=== PATIENT | male | born 1945 | race American Indian/Alaskan Native ===

== ENCOUNTER 2017-03-08 16:43 | Inpatient (IN) | payer MEDICARE, MEDICAID ==
[2017-03-08] MEDS ORDERED: Albuterol-Ipratrop 3 mg / 0.5 (3 ml) UD IH STA (17:29)
--- NOTE | 2017-03-08 17:48 | ED PDOC ---
Arrival/HPI - General Chief Complaint: Trauma Time Seen by Provider: 03/08/17 17:12 Historian: Patient, Family - History of Present Illness Narrative History of Present Illness (Text): 03/08/17 17:44 Patient is a 71 yo male, past medical hx of CHF, ESRD on dialysis Monday, , Monday, history of pulmonary fibrosis on 3 liters home oxygen, history of aortic valvular disease on Coumadin, presents to ED after he "fell out of bed' one hour prior to arrival. Patient states he hit his head and has right sided headache, but denies LOC. Patient also reports right shoulder and elbow pain. Denies numbness or weakness. Denies rib or chest pain. He states prior to fall today, he has been feeling short of breath "more than usual" for several weeks. Denies bloody urine or stool. Denies numbness or weakness. Denies hip or lower extremity pain. 03/08/17 18:19 Time/Duration: Prior to Arrival, 1 hour Symptom Onset: Sudden Past Medical History - Infectious Disease Hx of Infectious Diseases: None - Tetanus Immunization Tetanus Immunization: Unknown - Cardiac Hx Pacemaker: No - Pulmonary Hx Chronic Obstructive Pulmonary Disease (COPD): Yes (10/02/2015) - Neurological Hx Paralysis: No - HEENT Hx HEENT Disorder: Yes (WEARS RX GLASSES) - Renal Hx Dialysis: Yes Type of Dialysis Access: Hemodialysis (, , Mon) Date of Last Dialysis Treatment: 03/07/17 Hx Renal Failure: Yes - Endocrine/Metabolic Hx Endocrine Disorders: No - Hematological/Oncological Hx Blood Transfusions: Yes Hx Blood Transfusion Reaction: No - Integumentary Hx Dermatological Disorder: Yes (VITILIGO) - Musculoskeletal/Rheumatological Hx Musculoskeletal Disorders: No - Gastrointestinal Hx Gastrointestinal Disorders: Yes (GI LZUNY-ZCZHT-NOORHGPSEUU DONE) Hx Gastroesophageal Reflux: Yes Other/Comment: gi bleed - Genitourinary/Gynecological Hx Genitourinary Disorders: Yes (ANURIA) Hx Prostate Problems: Yes (MALIGNANT NEOPLASM PROSTATE.WITH RADIATION) - Psychiatric Hx Emotional Abuse: No Hx Physical Abuse: No Hx Substance Use: No - Surgical History Hx Open Heart Surgery: Yes Other/Comment: colonoscopy - Anesthesia Hx Anesthesia Reactions: No Hx Malignant Hyperthermia: No - Suicidal Assessment Feels Threatened In Home Enviroment: No Family/Social History Family/Social History: Unknown Family HX Smoking Status: Never Smoked Hx Alcohol Use: No Hx Substance Use: No Hx Substance Use Treatment: No Allergies/Home Meds Allergies/Adverse Reactions: Allergies No Known Allergies Allergy (Verified 03/08/17 17:10) Home Medications: Home Meds Medication Instructions Recorded Confirmed Atorvastatin [Lipitor] 10 mg PO DAILY 01/05/17 01/24/17 Calcium Acetate [Phoslo] 2,001 mg PO TID 01/05/17 01/24/17 Clopidogrel [Plavix] 75 mg PO DAILY 01/05/17 01/24/17 Digoxin [Lanoxin] 0.125 mg PO DAILY 01/05/17 01/24/17 Docusate [Colace] 100 mg PO BID 01/05/17 01/24/17 Pantoprazole Sodium [Protonix] 40 mg PO DAILY 01/05/17 01/24/17 Arformoterol [Brovana] 15 mcg IH Q12H 01/23/17 01/24/17 Benzonatate [Tessalon Perles] 200 mg PO TID 01/23/17 01/24/17 Budesonide [Pulmicort] 1 mg IH Q12H 01/23/17 01/24/17 Prednisone [Jonnie] 5 mg PO DAILY 01/23/17 01/24/17 Pregabalin [Lyrica] 50 mg PO BID 01/23/17 01/24/17 Warfarin [Coumadin] 5 mg PO DAILY 01/23/17 01/23/17 guaiFENesin [Robitussin] 100 mg PO Q6H PRN 01/23/17 01/24/17 Review of Systems - Review of Systems Constitutional: Fatigue. absent: Fevers Eyes: absent: Vision Changes, Eye Pain ENT: absent: Hearing Changes Respiratory: SOB. absent: Cough, Wheezing Cardiovascular: EM. absent: Chest Pain, Edema Gastrointestinal: absent: Abdominal Pain, Nausea, Vomiting Genitourinary Male: absent: Dysuria, Frequency Musculoskeletal: Other (shoulder pain, right sided. Denies hip or ankle pain.). absent: Back Pain Skin: absent: Rash Neurological: absent: Headache, Dizziness, Focal Weakness Hemo/Lymphatic: absent: Easy Bleeding Physical Exam - Physical Exam Narrative Physical Exam (Text): Head: Tender to right scalp, no skull deformity or soft tissue swelling noted, no orbital or nasal tenderness. Eyes: PERRL. EOMI. Conjunctivae are pale. Visual acuity and visual silva intacts. ENT: Mucous membranes are moist and intact. Oropharynx is clear and symmetric. Neck: Supple. Positive JVD. No meningeal signs. Midline tenderness, no deformities. Cardiovascular: Regular rate. Systolic murmur. Pulmonary/Chest: Rhonchi bilaterally with mild wheezing, no accessory muscle usage, not tachypneic. On nasal cannula oxygen. Abdominal: Soft with mild distension. There is no tenderness. No rebound, guarding, or rigidity. No organomegaly. Good bowel sounds. Back: No CVA tenderness. Extremities: Mild edema. No cyanosis. No clubbing. Pain and deformity noted to right anterior shoulder, with pain with ROM, also pain on palpation of left elbow with pain with ROM. No wrist or hand pain. No hip, knee or ankle pain. Skin: Skin is warm and dry. No petechiae. No purpura. Neurological: Alert, awake, and oriented. Motor and sensory exam intact. Psychiatric: Good eye contact. Normal interaction, affect, and behavior. 03/08/17 18:08 Vital Signs Reviewed: Yes Vital Signs Temp Pulse Resp BP Pulse Ox 03/08/17 18:02 69 18 114/75 95 03/08/17 17:13 97.8 F 74 16 112/73 95 Temperature: Afebrile Respiratory Rate: Tachypneic Appearance: Positive for: Uncomfortable Pain Distress: Moderate Mental Status: Positive for: Alert and Oriented X 3 Medical Decision Making ED Course and Treatment: 03/08/17 18:28 Patient's history is supplemented by who is at bedside. Patient fell out of bed. Is noted to have right shoulder deformity but is neurovascularly intact. Denies syncope. He is taking Coumadin and was recently advised by Dr. Wilkins to hold his Coumadin. He did hit his head but reports MILD headache. With serial exams in ED, he now states headache resolved. He is noted to be hypoxic, although states that he is on 3liters of nasal cannula oxygen at home. Patient noted to be hypoxic on evaluation, chest xray reveals intersitial changes with pulmonary edema, although appears similar to previous chest xrays. With repositioning and nebulizer, saturations now 97%. He does report feeling more sob over the past several weeks, denies chest pain. EKG with controlled ventricular rate, suspect atrial fibrillation/flutter with st changes. He denies chest pain. Patient placed in sling, xrays of shoulder and ct head/neck pending. 03/08/17 19:05 Patient breathing comfortably, currently denies sob. Sats 97% on nasal cannula. Imaging pending. Case endorsed to Dr. Houston pending studies and disposition after reassessment. - Lab Interpretations Lab Results: 03/08/17 17:55 03/08/17 17:55 Lab Results 03/08/17 18:45: pCO2 43, pO2 52.0 L, HCO3 27.9, ABG pH 7.42, ABG Total CO2 29.2 H, ABG O2 Saturation 91.6 L, ABG Base Excess 2.9, ABG Potassium 4.1, Sodium 138.0, Chloride 108.0 H, Glucose 113 H, Lactate 0.9, FiO2 30.0, Arterial Blood Potassium 4.1 03/08/17 17:55: WBC 5.1 D, RBC 3.85, Hgb 11.5 L, Hct 36.3 L, MCV 94.3, MCH 29.9 , MCHC 31.7, RDW 19.1 H, Plt Count 159, MPV 10.5, Gran % 68.1 H, Lymph % (Auto) 16.3 L, [place] % (Auto) 7.2 H, Eos % (Auto) 8.2 H, Baso % (Auto) 0.2, Gran # 3.50 , Lymph # 0.8 L, [place] # 0.4, Eos # 0.4, Baso # 0.01, Sodium 141, Chloride 97 L, Potassium 4.6, Carbon Dioxide 29, Anion Gap 20, BUN 44 H, Creatinine 8.1 H*, Est GFR ( Amer) 8, Est GFR (Non-Af Amer) 7, Random Glucose 94, Calcium 9.5, Total Bilirubin 1.1, AST 22, ALT 34, Alkaline Phosphatase 121, Lactate Dehydrogenase 766 H, Total Creatine Kinase 71, Troponin I 0.07, NT-Pro-B Natriuret Pep 68321 H, Total Protein 8.2, Albumin 4.0, Globulin 4.2, Albumin/ Globulin Ratio 1.0 L - RAD Interpretation Radiology Orders: 03/08/17 17:22 CHEST PORTABLE [RAD] Stat 03/08/17 17:53 ELBOW RIGHT 3 VIEWS ROUTINE [RAD] Stat SHOULDER RIGHT [RAD] Stat 03/08/17 17:54 CERVICAL SPINE W/O CONTRAST [CT] Stat HEAD W/O CONTRAST [CT] Stat - EKG Interpretation EKG Interpretation (Text): 03/08/17 18:33 EKG at 17:52 atrial flutter/fibrillation rate of 72, st and t wave abnormality Interpreted by ED Physician: Yes Type: 12 lead EKG - Medication Orders Current Medication Orders: Discontinued Medications Albuterol/Ipratropium (Duoneb 3 Mg/0.5 Mg (3 Ml) Ud) 3 ml IH STAT STA Stop: 03/08/17 17:30 Last Admin: 03/08/17 17:44 Dose: 3 ML Disposition/Present on Arrival - Present on Arrival Any Indicators Present on Arrival: No History of DVT/PE: No History of Uncontrolled Diabetes: No Urinary Catheter: No History of Decub. Ulcer: No History Surgical Site Infection Following: None - Disposition Have Diagnosis and Disposition been Completed?: Yes Diagnosis: Shoulder pain, Head injury Disposition Time: 19:00 Patient Plan: Observation Patient Problems: Current Active Problems Problem Status Diagnosed Anemia Acute Head injury Acute Shoulder pain Acute Condition: FAIR Referrals: Maria Antonia Wilkins MD [Primary Care Provider] - Follow up with primary
[2017-03-08 18:03] LABS: ADD MANUAL DIFF? NO
[2017-03-08 18:05] LABS: BASO # 0.01 K/mm3 (0.0-2.0); BASO % 0.2 % (0.0-3.0); EOS # 0.4 (0.0-0.7); EOS % 8.2 % (1.5-5.0); GRAN % 68.1 % (50.0-68.0); HEMATOCRIT 36.3 % (42.0-52.0); LYMPH # 0.8 (1.2-3.4); LYMPH % 16.3 % (22.0-35.0); MEAN CELL VOLUME 94.3 fL (80.0-105.0); MEAN CORPUSCULAR HEMOGLOBIN 29.9 pg (25.0-35.0); MEAN CORPUSCULAR HGB CONC 31.7 g/dl (31.0-37.0); MEAN PLATELET VOLUME 10.5 fl (7.0-11.0); MONO # 0.4 (0.1-0.6); MONO % 7.2 % (1.0-6.0); PLATELET COUNT 159 10^3/uL (120.0-450.0); RED CELL DISTRIBUTION WIDTH 19.1 % (11.5-14.5); WHITE BLOOD COUNT 5.1 10^3/ul (4.5-11.0)
[2017-03-08 18:19] LABS: BILIRUBIN,TOTAL 1.1 mg/dL (0.2-1.3); CALCIUM 9.5 mg/dL (8.4-10.5); POTASSIUM 4.6 mmol/L (3.6-5.0); TOTAL PROTEIN 8.2 g/dL (5.8-8.3)
[2017-03-08 18:31] LABS: TROPONIN I 0.07 ng/mL
[2017-03-08 18:56] LABS: ARTERIAL BLOOD GAS HCO3 27.9 mmol/L (21-28); ARTERIAL BLOOD GAS PH 7.42 (7.35-7.45)
[2017-03-08 19:10] LABS: INR 3.66 (0.93-1.08)
--- NOTE | 2017-03-08 19:20 | ED PDOC ---
Physical Exam Vital Signs Reviewed: Yes Vital Signs Temp Pulse Resp BP Pulse Ox 03/08/17 18:02 69 18 114/75 95 03/08/17 17:13 97.8 F 74 16 112/73 95 Temperature: Afebrile Blood Pressure: Normal Pulse: Regular Respiratory Rate: Normal Appearance: Positive for: Well-Appearing, Non-Toxic, Comfortable Pain Distress: None Mental Status: Positive for: Alert and Oriented X 3 Medical Decision Making ED Course and Treatment: 03/08/17 19:00 Case signed out to me from the day shift by Dr. Bergman, Pending imaging, reevaluation and disposition. The patient is a 71 year old male who came into the emergency department for evaluation after he "fell out of bed." Patient complained of head trauma, headache, right shoulder and elbow pain after the fall. He denies any loss of consciousness.Also with some SOB ?acute on chronic. 03/08/17 20:[address]: Dictated and Authenticated by: Lucina Woody MD COMPARISON: There are no prior studies for comparison. FINDINGS: Artifacts: Streak artifact degrades image quality. Motion artifact degrades image quality. Brain: There is dilatation of sulci gyri and ventricles. There is no midline shift. There is decreased attenuation in periventricular white matter. There are no focal masses. There are no focal hemorrhages. Toure-white differentiation is visualized. Ventricles: See above. Bones: Cranial vault is intact. Soft tissues: unremarkable Sinuses: There is no acute sinusitis. There is a small retention cyst/polyp in the left maxillary sinus Ears and mastoids: Middle ears and mastoids are unremarkable. Orbits: Orbital contents are unremarkable. IMPRESSION: Atrophy and small vessel disease, no bleed Cervical Spine CT: Dictated and Authenticated by: Lucina Woody MD COMPARISON: There are no prior studies for comparison. FINDINGS: Vertebrae: There is slight straightening of the cervical lordosis. There is no prevertebral soft tissue swelling. There are no fractures or alignment abnormalities. There is a subchondral cyst at T1 at the right costovertebral junction. There is mild posterior disc space narrowing C5-6, C6-7 and C7- T1.Facet joints align anatomically.Spinous processes align in the expected fashion. Discs/spinal canal/neural foramina: See above. Other bones/joints: There are postsurgical changes of median sternotomy. Soft tissues: See above. Vasculature: There are vascular calcifications. Thyroid: Thyroid is unremarkable Lung apices: There is scarring at the right apex Airway: Airway is unremarkable IMPRESSION: No fracture 03/08/17 20:23 Chest X-ray Impression: As read by me, increase pulmonary vascular markings Right Elbow X-ray Impression: As read by me, no evidence of fracture or dislocation. Right Shoulder X-ray Impression: As read by me, no evidence of fracture or dislocation. 03/08/17 22:[address] Wilkins, who is aware and agrees with plan. Accepts pt in to her service. Pt will go to Telemetry for mild CHF and shoulder sprain/ contusion. Requests Dr. Fields, Dr. Merritt, and Dr. Frost on consult. - Lab Interpretations Lab Results: 03/08/17 17:55 03/08/17 17:55 Lab Results 03/08/17 18:45: pCO2 43, pO2 52.0 L, HCO3 27.9, ABG pH 7.42, ABG Total CO2 29.2 H, ABG O2 Saturation 91.6 L, ABG Base Excess 2.9, ABG Potassium 4.1, Sodium 138.0, Chloride 108.0 H, Glucose 113 H, Lactate 0.9, FiO2 30.0, Arterial Blood Potassium 4.1 03/08/17 18:40: PT 39.5 H*, INR 3.66 H*, APTT 50.0 H, Digoxin 1.4 03/08/17 17:55: WBC 5.1 D, RBC 3.85, Hgb 11.5 L, Hct 36.3 L, MCV 94.3, MCH 29.9 , MCHC 31.7, RDW 19.1 H, Plt Count 159, MPV 10.5, Gran % 68.1 H, Lymph % (Auto) 16.3 L, [place] % (Auto) 7.2 H, Eos % (Auto) 8.2 H, Baso % (Auto) 0.2, Gran # 3.50 , Lymph # 0.8 L, [place] # 0.4, Eos # 0.4, Baso # 0.01, Sodium 141, Chloride 97 L, Potassium 4.6, Carbon Dioxide 29, Anion Gap 20, BUN 44 H, Creatinine 8.1 H*, Est GFR ( Amer) 8, Est GFR (Non-Af Amer) 7, Random Glucose 94, Calcium 9.5, Total Bilirubin 1.1, AST 22, ALT 34, Alkaline Phosphatase 121, Lactate Dehydrogenase 766 H, Total Creatine Kinase 71, Troponin I 0.07, NT-Pro-B Natriuret Pep 20374 H, Total Protein 8.2, Albumin 4.0, Globulin 4.2, Albumin/ Globulin Ratio 1.0 L I have reviewed the lab results: Yes - RAD Interpretation Radiology Orders: 03/08/17 17:22 CHEST PORTABLE [RAD] Stat 03/08/17 17:53 ELBOW RIGHT 3 VIEWS ROUTINE [RAD] Stat SHOULDER RIGHT [RAD] Stat 03/08/17 17:54 CERVICAL SPINE W/O CONTRAST [CT] Stat HEAD W/O CONTRAST [CT] Stat - Medication Orders Current Medication Orders: Discontinued Medications Albuterol/Ipratropium (Duoneb 3 Mg/0.5 Mg (3 Ml) Ud) 3 ml IH STAT STA Stop: 03/08/17 17:30 Last Admin: 03/08/17 17:44 Dose: 3 ML - Scribe Statement The provider has reviewed the documentation as recorded by the Noreenibe Luis Alberto Mazariegos Provider Scribe Attestation: All medical record entries made by the Scribe were at my direction and personally dictated by me. I have reviewed the chart and agree that the record accurately reflects my personal performance of the history, physical exam, medical decision making, and the department course for this patient. I have also personally directed, reviewed, and agree with the discharge instructions and disposition. Disposition/Present on Arrival - Present on Arrival Any Indicators Present on Arrival: No History of DVT/PE: No History of Uncontrolled Diabetes: No Urinary Catheter: No History of Decub. Ulcer: No History Surgical Site Infection Following: None - Disposition Have Diagnosis and Disposition been Completed?: Yes Diagnosis: Head injury, CHF exacerbation, Shoulder sprain, Shoulder injury, ESRD (end stage renal disease) Disposition Time: 22:05 Patient Plan: Observation Patient Problems: Current Active Problems Problem Status Diagnosed Anemia Acute CHF exacerbation Acute ESRD (end stage renal disease) Acute Head injury Acute Shoulder injury Acute Shoulder sprain Acute Condition: FAIR Discharge Instructions (ExitCare): Heart Failure (ED) Referrals: Maria Antonia Wilkins MD [Primary Care Provider] - Follow up with primary
--- NOTE | 2017-03-08 20:05 | CT ---
EXAM: CT Cervical Spine Without Intravenous Contrast CLINICAL HISTORY: 71 years old, male; Injury or trauma; Fall; Initial encounter; Blunt trauma; Additional info: Fall, neck pain TECHNIQUE: Axial computed tomography images of the cervical spine without intravenous contrast. Coronal and sagittal reformatted images were created and reviewed. EXAM DATE/TIME: 03/08/2017 5:54 PM COMPARISON: There are no prior studies for comparison. FINDINGS: Vertebrae: There is slight straightening of the cervical lordosis. There is no prevertebral soft tissue swelling. There are no fractures or alignment abnormalities. There is a subchondral cyst at T1 at the right costovertebral junction. There is mild posterior disc space narrowing C5-6, C6-7 and C7-T1.Facet joints align anatomically.Spinous processes align in the expected fashion. Discs/spinal canal/neural foramina: See above. Other bones/joints: There are postsurgical changes of median sternotomy. Soft tissues: See above. Vasculature: There are vascular calcifications. Thyroid: Thyroid is unremarkable Lung apices: There is scarring at the right apex Airway: Airway is unremarkable IMPRESSION: No fracture
--- NOTE | 2017-03-08 20:11 | CT ---
EXAM: CT Head Without Intravenous Contrast CLINICAL HISTORY: 71 years old, male; Injury or trauma; Fall; Initial encounter; Blunt trauma (contusions or hematomas); Consciousness not specified; Additional info: Headache, fall TECHNIQUE: Axial computed tomography images of the head/brain without intravenous contrast. EXAM DATE/TIME: 03/08/2017 5:54 PM COMPARISON: There are no prior studies for comparison. FINDINGS: Artifacts: Streak artifact degrades image quality. Motion artifact degrades image quality. Brain: There is dilatation of sulci gyri and ventricles. There is no midline shift. There is decreased attenuation in periventricular white matter. There are no focal masses. There are no focal hemorrhages. Toure-white differentiation is visualized. Ventricles: See above. Bones: Cranial vault is intact. Soft tissues: unremarkable Sinuses: There is no acute sinusitis. There is a small retention cyst/polyp in the left maxillary sinus Ears and mastoids: Middle ears and mastoids are unremarkable. Orbits: Orbital contents are unremarkable. IMPRESSION: Atrophy and small vessel disease, no bleed
[2017-03-08] MEDS ORDERED: guaiFENesin 100 mg/5 ml Syrup UD PO PRN (23:05)
[2017-03-09 02:03] VITALS: BMI 91492.6
[2017-03-09 07:27] LABS: MEAN CELL VOLUME 91.4 fL (80.0-105.0); MEAN CORPUSCULAR HEMOGLOBIN 28.9 pg (25.0-35.0); MEAN CORPUSCULAR HGB CONC 31.6 g/dl (31.0-37.0); MEAN PLATELET VOLUME 10.8 fl (7.0-11.0); RED CELL DISTRIBUTION WIDTH 18.6 % (11.5-14.5); WHITE BLOOD COUNT 5.8 10^3/ul (4.5-11.0)
--- NOTE | 2017-03-09 07:30 | HP ---
CHIEF COMPLAINT: Fall, shortness of breath, not feeling very well. HISTORY OF PRESENT ILLNESS: The patient is a 71-year-old male with past medical history of congestive heart failure and end-stage renal disease, on dialysis 3 times a week; history of pulmonary fibrosis, pulmonary hypertension, on 3 liters home oxygen; history of aortic valve disease; atrial fibrillation, on Coumadin, came to the hospital after fell out of the bed 1 hour prior to arrival. The patient states that he hit his head and has right-sided headache, but he denies loss of consciousness. The patient also reports right shoulder and elbow pain. Denies numbness and weakness. Denies rib or chest pain. States that prior to fall today he had been feeling short of breath more than usual for several weeks. Actually, the patient was getting rehab in [facility], but with a persistent request from the , [place], and the patient for discharge, the patient was discharged from [facility] to home. The other day patient came in my office and now patient was not doing very well and we arranged home care visiting nurse for the patient because is working. Now , today I received a call from [employer] that their nurse found patient on the floor because of a fall, then I told them to send the patient to the Emergency Room. PAST MEDICAL HISTORY: COPD; renal insufficiency, on hemodialysis; anemia, status post blood transfusion; vitiligo, GI bleeding ulcers, history of severe GI bleeding, status post blood transfusion; history of open heart surgery. FAMILY HISTORY: Father and mother noncontributory. HABITS: Never smoked, no drugs, no ethanol. ALLERGIES: The patient is not allergic with any medications. HOME MEDICATIONS: Lipitor, PhosLo, Plavix, Lanoxin, Colace, Protonix, Brovana, Pulmicort, Lyrica, Coumadin, and Robitussin. REVIEW OF SYSTEMS: The patient is seen and examined on the bedside. Looks comfortable. No nausea, vomiting, or diarrhea. No hematuria or hematochezia. The patient has headache and body aches, especially shoulders. No fever, no chills. PHYSICAL EXAMINATION: VITAL SIGNS: Temperature 97.8, pulse 74, respirations 16, blood pressure 112/73 , and pulse oximetry 95. HEENT: Head normocephalic, atraumatic. Eyes: PERRLA. Extraocular muscles intact. Conjunctivae pink. Eyelids unremarkable. Nose patent. NECK: Supple. No carotid bruit. No JVD or thyromegaly. CHEST: Bilaterally symmetrical. HEART: S1, S2 positive. LUNGS: Clear to auscultation. ABDOMEN: Soft. Bowel sounds positive. No organomegaly. EXTREMITIES: No edema, no cyanosis. NEUROLOGIC: The patient is awake, alert, moving all 4 extremities. No focal deficit. LABORATORY DATA: White blood cells 5.1, hemoglobin 11.5, hematocrit 36.6, platelets 156. Sodium 141, potassium 4.6, BUN 44, creatinine 8.1, glucose 94. ASSESSMENT AND PLAN: The patient is a 71-year-old male with anemia; renal insufficiency, on hemodialysis; status post fall, head injury, shoulder pain; history of pulmonary fibrosis, pulmonary hypertension and congestive heart failure, using , oxygen at home; history of prostate cancer, proctitis; history of gastrointestinal bleeding, status post blood transfusion. Gastrointestinal and deep venous thrombosis prophylaxis. Repeat labs. Will follow up. Maria Antonia Wilkins MD cc: [id number] TT: 03/09/2017 07:29:58 rajwinder WONG
[2017-03-09 07:33] LABS: INR 2.86 (0.93-1.08)
[2017-03-09 07:42] LABS: CALCIUM 9.4 mg/dL (8.4-10.5); POTASSIUM 4.8 mmol/L (3.6-5.0)
[2017-03-09 07:44] LABS: IRON 47 ug/dL (45-180)
[2017-03-09] MEDS ORDERED: Budesonide 0.5 mg/2 ml Inhal Susp UD IH SCH (08:00)
[2017-03-09] MEDS: Pantoprazole 40 mg EC Tab PO SCH (08:29)
--- NOTE | 2017-03-09 08:35 | RAD ---
HISTORY: sob COMPARISON: 01/18/2017 FINDINGS: LUNGS: No active pulmonary disease. PLEURA: No significant pleural effusion identified, no pneumothorax apparent. CARDIOVASCULAR: Moderate cardiomegaly and moderate vascular and interstitial congestion OSSEOUS STRUCTURES: No significant abnormalities. VISUALIZED UPPER ABDOMEN: Normal. OTHER FINDINGS: None. IMPRESSION: Moderate vascular and interstitial congestion
--- NOTE | 2017-03-09 09:08 | RAD ---
PROCEDURE: Radiographs of the Right Shoulder HISTORY: trauma, fall COMPARISON: No prior. FINDINGS: BONES: Normal. No fracture. JOINTS: There is some widening of the right acromioclavicular joint which was not present on the portable chest film from 01/18/2017. There is also a small bony fragment adjacent to the acromion. Findings are consistent with AC joint separation SOFT TISSUES: Normal. OTHER FINDINGS: None. IMPRESSION: There is some widening of the right acromioclavicular joint which was not present on the portable chest film from 01/18/2017. There is also a small bony fragment adjacent to the acromion. Findings are consistent with AC joint separation
--- NOTE | 2017-03-09 09:09 | RAD ---
PROCEDURE: Radiographs of the right elbow. HISTORY: fall COMPARISON: No prior. FINDINGS: BONES: Normal. No fracture. JOINTS: Normal. No osteoarthritis. SOFT TISSUES: Normal. JOINT EFFUSION: None. OTHER FINDINGS: None. IMPRESSION: Unremarkable radiographs of the right elbow.
[2017-03-09] MEDS ORDERED: Oxycodone/Acetaminophen 5/325 mg Tab PO PRN (11:10)
[2017-03-09] MEDS: Arformoterol 15 mcg/2 ml Inh Sol IH SCH ×2 (11:50→20:00)
[2017-03-09] MEDS ORDERED: Digoxin 125 mcg (0.125 mg) Tab PO SCH (14:00)
--- NOTE | 2017-03-09 14:33 | CON ---
DATE: 03/09/2017 REASON FOR CONSULTATION: Status post fall with right shoulder pain. HISTORY OF PRESENT ILLNESS: This is a 71-year-old gentleman with a history of AFib, end-stage renal disease on hemodialysis, CHF, prostate CA, who fell out of bed yesterday. The patient came in [facility] with complaints of right shoulder pain. He denied any other injuries. He denies any numbness o r tingling going down the arm, really just pain around the right shoulder. PHYSICAL EXAMINATION: GENERAL: This is a gentleman in no apparent distress. He is awake, alert and oriented x 3. EXTREMITIES: Evaluation of the right shoulder shows the skin is intact. He has a palpable deformity right in the area his AC joint and has tenderness over there. He is tolerating some passive gentle internal and external rotation of the shoulder and forward flexion of the shoulder without significan t pain. Grossly, he is neurovascularly intact distally. He is nontender over the humerus. No elbow tenderness. He is tolerating active and passive range of motion of the elbow without significant pa in. X-rays of the right shoulder, what looks like a grade II AC separation, looks like a small bony fragm ent is noted at the AC joint consistent with avulsion of the AC ligament. IMPRESSION: Right shoulder AC sprain. PLAN: At this point, I recommended a sling for comfort, pain medications as needed and he can follow up as an outpatient and plan would be to advance his range of motion. Again, I have started on some formal supervised physical therapy once the initial pain subsides. Gurvinder Fields MD cc: [id number] TT: 03/09/2017 14:32:43 Confirmation # [id number] Dictation # [id number]
--- NOTE | 2017-03-09 15:36 | CARD ---
APPROVED REPORT EKG Measurement Heart [id number] <Conclusion> Atrial Flutter with variable conduction Possible Right ventricular hypertrophy ST & T wave abnormality, consider anterolateral ischemia Abnormal ECG
--- NOTE | 2017-03-09 18:24 | CP.PCM.CON ---
History of Present Illness - History of Present Illness History of Present Illness: 71 yo M w/ pmh of COPD on 2L home O2, pulmonary htn, afib on coumadin, CAD s/p CABG and DEMETRIS (11/2016), presented yesterday after falling out of bed; found to have R shoulder sprain; Patient also noted to be short of breath since yesterday per his ; had been complaining of thirst and was consuming extra water; patient last had HD two days ago per routine with weight post-HD being 66.4 kg (estimated dry weight 66 kg); this morning, patient was weighed and found to be 69.9 kg; Patient's also reports that his mental status has declined since the past 2 months, coinciding when he was hospitalized for chest pain and subsequently sent to rehab from where he was discharged 2 weeks ago; Baseline functional status is minimal ambulation with a walker. Review of Systems - Review of Systems Review of Systems: Limited and obtained mainly from as patient is poor historian; - Constitutional Constitutional: absent: Anorexia - Cardiovascular Cardiovascular: Leg Edema - Respiratory Respiratory: Cough, Dyspnea, Excessive Mucous Production - Gastrointestinal Gastrointestinal: absent: Diarrhea, Hematochezia, Vomiting - Genitourinary Additional comments: Anuric, no other discharge - Musculoskeletal Musculoskeletal: As Per HPI Additional comments: No chronic arthralgias or back pain, not on pain meds - Neurological Neurological: Memory Loss Past Patient History - Infectious Disease Hx of Infectious Diseases: None - Tetanus Immunizations Tetanus Immunization: Unknown - Past Social History Smoking Status: Never Smoked - CARDIAC Hx Cardiac Disorders: Yes (cad) Hx Cardia Arrhythmia: Yes (afib) Hx Congestive Heart Failure: Yes Hx Hypercholesterolemia: Yes Hx Hypertension: Yes Hx Peripheral Edema: Yes - PULMONARY Hx Respiratory Disorders: Yes Hx Chronic Obstructive Pulmonary Disease (COPD): Yes (10/02/2015) - NEUROLOGICAL Hx Neurological Disorder: Yes (wears glasses, near syncope) Hx Dizziness: Yes - HEENT Hx HEENT Problems: Yes (wears rx glasses) - RENAL Hx Chronic Kidney Disease: Yes Hx Dialysis: Yes (,,mon) Date of Last Dialysis Treatment: 03/07/17 - ENDOCRINE/METABOLIC Hx Endocrine Disorders: No - HEMATOLOGICAL/ONCOLOGICAL Hx Blood Disorders: Yes Hx Anemia: Yes (blood transfusions) Hx Cancer: Yes (prostate ca with radiation) - INTEGUMENTARY Hx Dermatological Problems: Yes (VITILIGO) - MUSCULOSKELETAL/RHEUMATOLOGICAL Hx Back Pain: Yes Hx Falls: Yes Hx Unsteady Gait: Yes - GASTROINTESTINAL Hx Gastrointestinal Disorders: Yes (Gi Bleed-ulcer- colonoscopy done) Hx Crohn's Disease: Yes Hx Gastroesophageal Reflux: Yes - GENITOURINARY/GYNECOLOGICAL Hx Genitourinary Disorders: Yes (anuria) Hx Prostate Problems: Yes (prostate cancer with radiation) - PSYCHIATRIC Hx Substance Use: No - SURGICAL HISTORY Hx Surgeries: Yes (right upper arm shunt, cabgx3, cardoac cathx1 stent) Hx Cardiac Catheterization: Yes (x1 stent) Hx Coronary Stent: Yes (x1) - ANESTHESIA Hx Anesthesia Reactions: No Hx Malignant Hyperthermia: No Meds Allergies/Adverse Reactions: Allergies Allergy/AdvReac Type Severity Reaction Status Date / Time No Known Allergies Allergy Verified 03/08/17 17:10 - Medications Medications: Current Medications Arformoterol Tartrate (Brovana) 15 mcg IH Q12H [facility] Last Admin: 03/09/17 11:50 Dose: 15 mcg Atorvastatin Calcium (Lipitor) 10 mg PO DAILY [facility] Last Admin: 03/09/17 11:19 Dose: 10 mg Benzonatate (Tessalon Perles) 200 mg PO TID [facility] Last Admin: 03/09/17 17:33 Dose: 200 mg Budesonide (Pulmicort Respules) 1 mg IH [id number] [facility] Last Admin: 03/09/17 08:29 Dose: Not Given Calcium Acetate (Phoslo) 2,001 mg PO WM [facility] Last Admin: 03/09/17 17:34 Dose: 2,001 mg Clopidogrel Bisulfate (Plavix) 75 mg PO DAILY [facility] Last Admin: 03/09/17 11:20 Dose: 75 mg Digoxin (Lanoxin) 0.125 mg PO 1400 [facility] Last Admin: 03/09/17 13:53 Dose: 0.125 mg Docusate Sodium (Colace) 100 mg PO BID [facility] Last Admin: 03/09/17 17:33 Dose: 100 mg Guaifenesin (Robitussin) 100 mg PO Q6H PRN PRN Reason: Cough Oxycodone/Acetaminophen (Percocet 5/325 Mg Tab) 1 tab PO Q6H PRN PRN Reason: Pain, moderate (4-7) Stop: 03/12/17 11:11 Pantoprazole Sodium (Protonix Ec Tab) 40 mg PO ACB [facility] Last Admin: 03/09/17 08:29 Dose: Not Given Pregabalin (Lyrica) 50 mg PO BID [facility] Last Admin: 03/09/17 17:33 Dose: 50 mg Physical Exam - Constitutional Additional comments: Tachypneic before increasing O2 to 4L; - Eye Exam Eye Exam: Normal appearance. absent: Scleral icterus - ENT Exam ENT Exam: Mucous Membranes Moist - Neck Exam Neck exam: Positive for: Normal Inspection - Respiratory Exam Respiratory Exam: Clear to Auscultation Bilateral. absent: Rales, Rhonchi, Wheezes - Cardiovascular Exam Cardiovascular Exam: REGULAR RHYTHM, +S1, +S2 - GI/Abdominal Exam GI & Abdominal Exam: Soft. absent: Distended, Tenderness - Exam Exam: absent: Bladder Distension - Extremities Exam Extremities exam: Positive for: normal capillary refill Additional comments: Bilateral lower leg moderate edema; - Neurological Exam Neurological exam: Alert, CN II-XII Intact Additional comments: Decreased strength of RUE - Psychiatric Exam Psychiatric exam: Normal Affect, Normal Mood - Skin Skin Exam: Normal Color, Warm Results - Vital Signs Recent Vital Signs: Last Vital Signs Temp 96.7 F L 03/09/17 11:53 Pulse 122 H 03/09/17 11:53 Resp 24 03/09/17 11:53 BP 103/74 03/09/17 11:53 Pulse Ox 90 L 03/08/17 22:46 - Labs Result Diagrams: 03/09/17 06:45 03/09/17 06:45 - Imaging and Cardiology Chest x-ray Status: Image reviewed by me (Pulmonary congestion) Assessment & Plan (1) CHF exacerbation Assessment and Plan: Preserved EF but likely diastolic dysfunction; pulmonary edema on CXR in the setting of dietary indescretion and subsequent weight gain; difficult to achieve aggressive volume removal on HD due to borderline hypotension; -will benefit from extra UF session tomorrow as patient still tachypneic Status: Acute (2) Shoulder sprain Assessment and Plan: Secondary to fall; on percocet; no renal dose adjustment needed; Status: Acute (3) ESRD on hemodialysis Assessment and Plan: Dialysis clearance has been adequate; however, gained 3.5 kg between treatment 2 days ago and today; still with volume excess on exam despite removing 3.3 L today on HD; -getting extra 3 hr, 3L UF session tomorrow Status: Acute (4) Anemia Assessment and Plan: Hgb at goal for ESRD patient; iron saturation mildly low; will given IV iron and Aranesp as outpatient; Status: Acute (5) Atrial flutter Assessment and Plan: On coumadin; dose recently lowered; monitor INR; Status: Acute (6) Chronic kidney disease-mineral and bone disorder Assessment and Plan: Last phos per outpatient records 2.4; Ca and PTH at goal (447); -will decrease phoslo to 2 tabs tid w/ meals Status: Acute
--- NOTE | 2017-03-10 00:25 | CON ---
DATE: 03/09/2017 REFERRING PHYSICIAN: Dr. Wilkins. REASON FOR CONSULT: Chronic lung disease, obstructive sleep apnea syndrome. HISTORY OF PRESENT ILLNESS: This is a 71-year-old gentleman well known to me from previous admission s and office with chronic obstructive lung disease, renal failure, dialysis dependent, cardiomyopathy with cardiac diastolic dysfunction, pulmonary hypertension, coronary artery disease, history of felipe nary stent, also history of gastric ulcer, recently discharged from subacute, was at home. According to the , he did fall at home, had right shoulder discomfort, was found to be in heart failure wi th pleural fluid overloaded, seen by nephrology, dialysis was done and feels better this morning. He seems more forgetful, mild cough. According to , do not have CPAP or BiPAP at home. No hemopty sis, no hematemesis, no hematuria, no diarrhea. PAST MEDICAL HISTORY: Chronic lung disease, obstructive sleep apnea syndrome, renal failure, dialysi s dependent, cardiomyopathy, diastolic dysfunction, pulmonary hypertension, coronary artery disease, history of coronary stent, anemia, history of gastrointestinal bleed, coronary artery disease. Also, I think he has a history of cardiac bypass surgery. ALLERGIES: None known. SOCIAL HISTORY: Nonsmoker, nondrinker. FAMILY HISTORY: No significant cardiopulmonary disease reported. MEDICATIONS: He is on Brovana 15 mcg inhaled twice a day, Colace 100 mg twice a day, digoxin 0.125 m g daily, Lipitor 10 mg daily, Lyrica 50 mg twice a day, Percocet 5/325 one tab q. 6 hours p.r.n., Pl avix 75 mg daily, Protonix 40 mg daily, Pulmicort inhaled twice a day, Robitussin 100 mg q. 6 hours, Tessalon Perles 200 mg 3 times a day. REVIEW OF SYSTEMS: No headache, no rhinitis, short of breath. Still has some cough and right should er discomfort. No chest pain, no nausea, no vomiting, and no diarrhea. Does have leg swelling. PHYSICAL EXAMINATION: GENERAL: Lying in the bed, no acute distress. VITAL SIGNS: Temp is 98, heart rate is 107, respiratory rate is 22, blood pressure 103/66, pulse ox is 90% on 3 liter nasal cannula. HEENT: Moist mucous membranes. Crowded airway. Mallampati score is 4. NECK: Supple. No JVD. LUNGS: Has crackles on the bases. HEART: S1 and S2. ABDOMEN: Soft, nontender. No organomegaly. EXTREMITIES: Does have edema. NEUROLOGIC: Awake, alert, follows simple commands. LABORATORY DATA: Shows hemoglobin 10.1, hematocrit 32.0, WBC 5.8, platelet 167. INR is 2.86. Blood gases done yesterday show pH 7.42, pCO2 of 43, O2 of 52. Sodium 138, potassium 4.8, chloride 98, bi carbonate 27, BUN 50, creatinine 9.3, glucose 116. Hemoglobin A1c 5.6. Iron is 47. Cholesterol 86. TSH is 1.16. Has a CAT scan of the head done in the ER on admission. Shows atrophy and small vess el disease. Had a clavicle and spine CT done, which shows no fracture. Chest x-ray done in ER shows moderate vascular and facial congestion. IMPRESSION AND PLAN: Chronic obstructive lung disease, probably has interstitial disease. Also, on top of that, has pulmonary edema, bronchiectasis, renal failure, dialysis dependent, coronary artery disease, history of coronary stent, cardiomyopathy, sleep apnea syndrome, recently became more forget ful and memory loss. Case discussed with the family at bedside. All the questions answered. Also spoke with Dr. Wilkins. I also discussed with from nephrology. The patient aggressively being dialyzed. Done lexus lysis today and will have dialysis tomorrow. I will place him on CPAP 08/25 with 40% oxygen while sle eping. Will discontinue Lyrica for now, making Percocet p.r.n. basis. Add mg 3 times a day, n ebulizer treatments q. 6 hours. Gastric prophylaxis. SCD to lower extremities. The patient may bhupinder efit from extended dialysis x 4 hours 3 times a week. If it does not work, may have to increase 4 ti mes a week. The family asked appropriate questions, all the questions were answered to their satisfa ction. Louie Frost MD cc: [id number] TT: 03/10/2017 00:24:12 Confirmation # [id number] Dictation # [id number] mn
--- NOTE | 2017-03-10 04:38 | CP.PCM.PN ---
Subjective - Date & Time of Evaluation Date of Evaluation: 03/10/17 Time of Evaluation: 04:34 - Subjective Subjective: Nurse calls me because patient had a vomiting. Had received percocet earlier in the shift. Patient has no chest pain, sob, abdominal pain, headache,dizziness, constipation or diarrhoea. I saw the vomitus. There is about 100 cc dilute coffee color secretion in the tumbler. This 71 year old male was admitted for CHF exacerbation, head injury. Has PMH of CHF,COPD, CMP,CAD,atrial fibrillation on coumadin, CABG, coronary stent placement , pulmonary HTN, GI bleeding, anemia, ESRD on dialysis, right upper arm shunt. Objective - Vital Signs/Intake and Output Vital Signs (last 24 hours): Temp Pulse Resp BP Pulse Ox 98.7 F 112 H 22 86/57 L 90 L 03/10/17 00:01 03/10/17 02:00 03/10/17 00:01 03/10/17 00:01 03/08/17 22:46 - Medications Medications: Current Medications Acetylcysteine (Acetylcysteine 20%) 4 ml IH BIDRESP [facility] Arformoterol Tartrate (Brovana) 15 mcg [facility] Q12H [facility] Last Admin: 03/09/17 20:00 Dose: 15 mcg Atorvastatin Calcium (Lipitor) 10 mg PO DAILY [facility] Last Admin: 03/09/17 11:19 Dose: 10 mg Benzonatate (Tessalon Perles) 200 mg PO TID [facility] Last Admin: 03/09/17 17:33 Dose: 200 mg Budesonide (Pulmicort Respules) 1 mg IH [id number] [facility] Last Admin: 03/09/17 08:29 Dose: Not Given Calcium Acetate (Phoslo) 1,334 mg PO WM [facility] Clopidogrel Bisulfate (Plavix) 75 mg PO DAILY [facility] Last Admin: 03/09/17 11:20 Dose: 75 mg Digoxin (Lanoxin) 0.125 mg PO 1400 [facility] Last Admin: 03/09/17 13:53 Dose: 0.125 mg Docusate Sodium (Colace) 100 mg PO BID [facility] Last Admin: 03/09/17 17:33 Dose: 100 mg Guaifenesin (Robitussin) 100 mg PO Q6H PRN PRN Reason: Cough Oxycodone/Acetaminophen (Percocet 5/325 Mg Tab) 1 tab PO Q6H PRN PRN Reason: Pain, moderate (4-7) Stop: 03/12/17 11:11 Last Admin: 03/09/17 22:44 Dose: 1 tab Pantoprazole Sodium (Protonix Ec Tab) 40 mg PO ACB [facility] Last Admin: 03/09/17 08:29 Dose: Not Given Warfarin Sodium (Coumadin) 3 mg PO 1800 [facility] PRN Reason: Protocol - Labs Labs: PT 30.9 Seconds (9.9-11.8) H* 03/09/17 06:45 INR 2.86 (0.93-1.08) H 03/09/17 06:45 APTT 50.0 Seconds (23.7-30.8) H 03/08/17 18:40 - Constitutional Appears: Well, No Acute Distress - Head Exam Head Exam: NORMAL INSPECTION, NORMOCEPHALIC - Eye Exam Eye Exam: Normal appearance - ENT Exam ENT Exam: Normal External Ear Exam - Neck Exam Neck Exam: Normal Inspection - Respiratory Exam Respiratory Exam: NORMAL BREATHING PATTERN. absent: Accessory Muscle Use, Respiratory Distress, Stridor - Cardiovascular Exam Cardiovascular Exam: REGULAR RHYTHM. absent: JVD - GI/Abdominal Exam GI & Abdominal Exam: Soft (YEs), Normal Bowel Sounds. absent: Distended, Firm, Guarding, Rigid, Tenderness, Hernia, Mass, Organomegaly, Pulsatile Mass, Rebound - Rectal Exam Rectal Exam: Deferred - Extremities Exam Extremities Exam: Normal Inspection - Back Exam Back Exam: NORMAL INSPECTION - Neurological Exam Neurological Exam: Alert, Oriented x3 - Psychiatric Exam Psychiatric exam: Normal Affect, Normal Mood - Skin Skin Exam: Normal Color Assessment and Plan - Assessment and Plan (Free Text) Assessment: A/P:Vomiting-Uremia. -Received percocet. ?UGI bleeding. HTN. CHF/COPD. CAD. ESRD on HD. Anemia. Zofran 4 mg IV stat. CBC , type and screen in AM. Stool for guiac test.
[2017-03-10 05:07] LABS: HEMATOCRIT 35.7 % (42.0-52.0); MEAN CELL VOLUME 93.5 fL (80.0-105.0); MEAN CORPUSCULAR HEMOGLOBIN 29.3 pg (25.0-35.0); MEAN CORPUSCULAR HGB CONC 31.4 g/dl (31.0-37.0); MEAN PLATELET VOLUME 10.8 fl (7.0-11.0); WHITE BLOOD COUNT 8.4 10^3/ul (4.5-11.0)
[2017-03-10 05:19] LABS: INR 4.65 (0.93-1.08)
--- NOTE | 2017-03-10 07:46 | PN ---
DATE: 03/09/2017 SUBJECTIVE: The patient was seen and examined on the bedside, just still a little lethargic, having shortness of breath. Is not giving any review of systems, but does not have fever, no chills. No na usea, vomiting, or diarrhea. No hematuria or hematochezia. PHYSICAL EXAMINATION: VITAL SIGNS: Temperature 97.7, pulse 104, her blood pressure 103/66, respiratory rate 20. HEENT: Head normocephalic, atraumatic. Eyes: PERRLA. Extraocular muscles intact. Conjunctivae pi nk. Eyelids unremarkable. Nose patent. Mucous membranes moist. NECK: Supple. No carotid bruit, JVD or thyromegaly. CHEST: Bilaterally symmetrical. HEART: S1, S2 positive. LUNGS: Clear to auscultation. ABDOMEN: Soft. Bowel sounds positive. No organomegaly. EXTREMITIES: No edema, no cyanosis. NEUROLOGIC: The patient is awake, alert and moving all 4 extremities. No focal deficits. MEDICATIONS: Acetylcysteine, Brovana, Colace, Lanoxin, Lipitor, Percocet, PhosLo, Plavix, Protonix, Pulmicort, Robitussin, Tessalon. LABORATORY DATA: White blood cells 5.8, hemoglobin 10.1, hematocrit 32.0, and platelets 167. Sodium 138, potassium 4.8, BUN 50, creatinine 9.3, glucose 116. TIBC 234. Cholesterol 86. ASSESSMENT AND PLAN: The patient is a 71-year-old male with anemia. INR is 2.8 (therapeutic). Katelyn l insufficiency, on hemodialysis 3 times a week, hyperglycemia. Seen by Dr. Han Patel, patient's n ephrologist, who is covering Dr. Merritt. The patient has history of chronic obstructive pulmonar y disease, on 2 liters nasal cannula at home; pulmonary hypertension; atrial fibrillation, on Coumadi n; coronary artery disease, status post coronary artery bypass graft and drug-eluting stent. Has con gestive heart failure, preserved ejection fraction but likely diastolic dysfunction. Difficult to ac hieve aggressive volume removal on hemodialysis due to borderline hypotension. Will benefit from ext ra ultrafiltration session tomorrow, as the patient is still tachypneic. Shoulder pain secondary to fall, on Percocet; orthopedic is on the case. Atrial fibrillation, chronic kidney disease, mineral a nd bone disorders. Last phospho per outpatient record 2.4. CEA and PTH at goal, 447. Will decrease the PhosLo to 2 tablets t.i.d. with meals as per national secretary. Seen by Dr. Gurvinder Fields, orthop edic. Right shoulder acromioclavicular sprain at this point. RECOMMENDATION: Sling for comfort. Pain medication as needed. He can be followed up as an outpatie nt, and plan would be to ____ his range of motion again by physical therapy. Dr. Fields started ph ysical therapy. The patient has obstructive sleep apnea syndrome. GI and DVT prophylaxis. Repeat l abs. Will follow up. Maria Antonia Wilkins MD cc: [id number] TT: 03/10/2017 07:46:21 Confirmation # [id number] Dictation # [id number] [email or web address]
[2017-03-10] MEDS: Acetylcysteine 20% Inhal Soln (4ml) IH SCH ×2 (08:17→19:38)
[2017-03-10] MEDS: Arformoterol 15 mcg/2 ml Inh Sol IH SCH ×2 (08:17→23:17)
[2017-03-10] MEDS: Pantoprazole 40 mg EC Tab PO SCH ×2 (08:37→14:35)
--- NOTE | 2017-03-10 10:16 | CON ---
DATE: 03/10/2017 HISTORY: The patient is a 71-year-old male who fell from bed. The patient has been complaining of malaise and GI symptomatology. PAST MEDICAL HISTORY: Complex, with a history of end-stage renal disease, history of coronary artery bypass surgery, end-stage renal disease, and chronic atrial flutter treated with anticoagulation. His last cardiac evaluation included an echocardiogram last month, which revealed an ejection fractio n an ejection fraction of 57%. Currently, the patient had nausea and vomiting with periods of rapid heart rate at 124, atrial flutte r, and atrial fibrillation, with also a period of bradycardia. PHYSICAL EXAMINATION: VITAL SIGNS: Blood pressure post-dialysis is 85 systolic. NECK: Negative JVD. LUNGS: Without rales. HEART: Revealed S1, S2. EXTREMITIES: Without edema. EKG shows atrial fibrillation with nonspecific ST-T changes. LABORATORIES: The hemoglobin is 11.2. Chemistries: Creatinine is 9.3, potassium is 4.8. IMPRESSION: 1. Tachybrady syndrome. 2. Relative hypotension post dialysis. 3. Nausea, vomiting. 4. Coronary artery disease. 5. History of bypass surgery. 6. No evidence for acute coronary syndrome. 7. End-stage renal disease. Given these findings, we will obtain consult from EP to evaluate the need for pacemaker. We will obtain serial troponins. Rubio Nicole MD cc: [id number] TT: 03/10/2017 10:15:18 Confirmation # [id number] Dictation # [id number] theresa
--- NOTE | 2017-03-10 10:43 | PN ---
DATE: 03/10/2017 SUBJECTIVE: The patient was seen and examined on the bedside, sleepy, arousable, a little lethargic. As per nursing staff, the patient had episodes of vomiting. Dr. Newman saw the patient and accordin g to him, occult blood in the vomitus was negative. The patient is not a big complainer. No fever, no chills. PHYSICAL EXAMINATION: VITAL SIGNS: Temperature 98.2, pulse 122, blood pressure 86/59, respiratory rate 20. HEENT: Head normocephalic, atraumatic. Eyes: PERRLA. Extraocular muscles intact. Conjunctivae pi nk. Eyelids unremarkable. Nose patent. NECK: Supple. No carotid bruit, JVD or thyromegaly. CHEST: Bilaterally symmetrical. HEART: S1, S2 positive. LUNGS: Clear to auscultation. ABDOMEN: Soft. Bowel sounds positive. No organomegaly. EXTREMITIES: No edema, no cyanosis. NEUROLOGIC: The patient is sleepy, moving all 4 extremities. No focal deficit. MEDICATIONS: Acetylcysteine, Brovana, Colace, Coumadin, Lanoxin, Lipitor, oxycodone, calcium, Plavix , Protonix, Pulmicort, Robitussin, benzonatate. LABORATORY DATA: White blood cell is 8.4, hemoglobin 11.2, hematocrit 35.7, platelets 134. Sodium 1 38, potassium 4.8, BUN 50, creatinine 9.3. Glucose 116. ASSESSMENT AND PLAN: The patient is a 71-year-old male with renal insufficiency on hemodialysis, his tory of chronic obstructive lung disease, cardiomyopathy with cardiac diastolic dysfunction, pulmonar y hypertension, coronary artery disease, history of coronary stents, history of gastric ulcers, obstr uctive sleep apnea syndrome, history of gastrointestinal bleeding, history of prostate cancer, stat us post radiation therapy, history of proctitis. Status post multiple times blood transfusion. Has episodes of vomiting. Rule out pulmonary edema, bronchiectasis. Became more forgetful, memory loss, rule out dementia. Dr. Frost had discussion with the . Length of time discussion done with Dr Jessi Frost. The patient is getting dialysis, needs CPAP 10/6 with 40% oxygen while sleeping. Dr. Pawel ashton discontinued the Lyrica, gave Percocet p.r.n., Gastric prophylaxis. Sequential compression devic es to lower extremities. Maybe the patient needs extended dialysis. Maybe we have to increase the d ialysis to 4 times a week. Discussion done with nursing staff. Cardiology consult called with Dr. Prem Nicole because the patient's blood pressure is dropping. Gastrointestinal and deep venous thrombo sis prophylaxis. We will follow up. Maria Antonia Wilkins MD cc: [id number] TT: 03/10/2017 10:42:24 Confirmation # [id number] Dictation # [id number]
--- NOTE | 2017-03-10 11:01 | CP.PCM.CON ---
History of Present Illness - History of Present Illness History of Present Illness: Mr Jaffe is a 71 year old male with PMH significant for atrial fibrillation, COPD, diastolic CHF, CAD s/p CABG x 3 ( 4 yrs ago) pulmonary fibrosis, end stage renal dialysis, pulmonary hypertension, aortic valve disease, anemia with GI bleed who was admitted after falling from his bed and sustaing a right shoulder AC joint dislocation and was noted to have typical atrial flutter with heart rate ranging in the 40's to 120's for which EP consult was called. Reason For EP Consult: AFlutter for possible aflutter ablation Physician requesting consult: Dr Rubio Nicole Review of Systems - Constitutional Constitutional: As Per HPI, Fatigue, Lethargy - EENT Ears: As Per HPI - Cardiovascular Cardiovascular: Dyspnea on Exertion, Irregular Heart Rhythm, Rapid Heart Rate - Respiratory Respiratory: As Per HPI - Gastrointestinal Gastrointestinal: Nausea - Musculoskeletal Musculoskeletal: Limited Range of Motion (right a.c joint shoulder dislocation) , Stiffness (right shoulder in sling ) - Psychiatric Psychiatric: As Per HPI Past Patient History - Infectious Disease Hx of Infectious Diseases: None - Tetanus Immunizations Tetanus Immunization: Unknown - Past Social History Smoking Status: Never Smoked Cigar Use: No Drugs: Denies Home Situation {Lives}: With Family - CARDIAC Hx Cardiac Disorders: Yes (cad with cabg x 3 vessels ) Hx Atrial Fibrillation: Yes Hx Cardia Arrhythmia: Yes (afib) Hx Congestive Heart Failure: Yes Hx Hypercholesterolemia: Yes Hx Hypertension: Yes Hx Peripheral Edema: Yes - PULMONARY Hx Respiratory Disorders: Yes Hx Chronic Obstructive Pulmonary Disease (COPD): Yes (10/02/2015) Other/Comment: pulmonary htn - NEUROLOGICAL Hx Neurological Disorder: Yes (wears glasses, near syncope) Hx Dizziness: Yes - HEENT Hx HEENT Problems: Yes (wears rx glasses) - RENAL Hx Chronic Kidney Disease: Yes Hx Dialysis: Yes (,,sat) Date of Last Dialysis Treatment: 03/07/17 Hx Renal Failure: Yes - ENDOCRINE/METABOLIC Hx Endocrine Disorders: No - HEMATOLOGICAL/ONCOLOGICAL Hx Blood Disorders: Yes Hx Anemia: Yes (blood transfusions) Hx Cancer: Yes (prostate ca with radiation) - INTEGUMENTARY Hx Dermatological Problems: Yes (VITILIGO) - MUSCULOSKELETAL/RHEUMATOLOGICAL Hx Back Pain: Yes Hx Falls: Yes Hx Unsteady Gait: Yes - GASTROINTESTINAL Hx Gastrointestinal Disorders: Yes (Gi Bleed-ulcer- colonoscopy done) Hx Crohn's Disease: Yes Hx Gastroesophageal Reflux: Yes - GENITOURINARY/GYNECOLOGICAL Hx Genitourinary Disorders: Yes (anuria) Hx Prostate Problems: Yes (prostate cancer with radiation) - PSYCHIATRIC Hx Substance Use: No - SURGICAL HISTORY Hx Surgeries: Yes (right upper arm shunt, cabgx3, cardoac cathx1 stent) Hx Cardiac Catheterization: Yes (x1 stent) Hx Coronary Stent: Yes (x1) - ANESTHESIA Hx Anesthesia Reactions: No Hx Malignant Hyperthermia: No Meds Allergies/Adverse Reactions: Allergies Allergy/AdvReac Type Severity Reaction Status Date / Time No Known Allergies Allergy Verified 03/08/17 17:10 - Medications Medications: Current Medications Acetylcysteine (Acetylcysteine 20%) 4 ml IH BIDRESP [facility] Last Admin: 03/10/17 08:17 Dose: 4 ml Arformoterol Tartrate (Brovana) 15 mcg IH Q12H [facility] Last Admin: 03/10/17 08:17 Dose: 15 mcg Atorvastatin Calcium (Lipitor) 10 mg PO DAILY [facility] Last Admin: 03/09/17 11:19 Dose: 10 mg Benzonatate (Tessalon Perles) 200 mg PO TID [facility] Last Admin: 03/09/17 17:33 Dose: 200 mg Budesonide (Pulmicort Respules) 1 mg IH [id number] [facility] Last Admin: 03/09/17 08:29 Dose: Not Given Calcium Acetate (Phoslo) 1,334 mg PO WM [facility] Last Admin: 03/10/17 08:36 Dose: Not Given Clopidogrel Bisulfate (Plavix) 75 mg PO DAILY [facility] Last Admin: 03/09/17 11:20 Dose: 75 mg Digoxin (Lanoxin) 0.125 mg PO 1400 [facility] Docusate Sodium (Colace) 100 mg PO BID [facility] Last Admin: 03/09/17 17:33 Dose: 100 mg Guaifenesin (Robitussin) 100 mg PO Q6H PRN PRN Reason: Cough Ondansetron HCl (Zofran Inj) 4 mg IVP Q6H PRN PRN Reason: Nausea/Vomiting Pantoprazole Sodium (Protonix Ec Tab) 40 mg PO ACB [facility] Last Admin: 03/10/17 08:37 Dose: Not Given Warfarin Sodium (Coumadin) 3 mg PO 1800 [facility] PRN Reason: Protocol Physical Exam - Head Exam Head Exam: ATRAUMATIC, NORMAL INSPECTION, NORMOCEPHALIC - Eye Exam Eye Exam: Normal appearance - Respiratory Exam Respiratory Exam: Clear to Auscultation Bilateral, NORMAL BREATHING PATTERN - Cardiovascular Exam Cardiovascular Exam: Irregular Rhythm, +S1, +S2 - GI/Abdominal Exam GI & Abdominal Exam: Normal Bowel Sounds, Soft - Rectal Exam Rectal Exam: Deferred - Exam Exam: NORMAL INSPECTION - Extremities Exam Extremities exam: Positive for: joint swelling (right upper extremity), pedal pulses present - Neurological Exam Neurological exam: Alert, Oriented x3 - Psychiatric Exam Psychiatric exam: Normal Affect, Normal Mood - Skin Skin Exam: Dry, Intact, Normal Color (areas of vitiligo noted to lips, arms ) Results - Vital Signs Recent Vital Signs: Last Vital Signs Temp 98.2 F 03/10/17 06:00 Pulse 126 H 03/10/17 06:00 Resp 22 03/10/17 06:00 BP 86/59 L 03/10/17 06:00 Pulse Ox 90 L 03/08/17 22:46 - Labs Result Diagrams: 03/10/17 04:50 03/09/17 06:45 Labs: Laboratory Results - last 24 hr 03/10/17 03/10/17 04:35 04:50 WBC 8.4 D RBC 3.82 Hgb 11.2 L Hct 35.7 L MCV 93.5 MCH 29.3 MCHC 31.4 RDW 19.0 H Plt Count 134 MPV 10.8 PT 50.2 H* INR 4.65 H* Phosphorus 3.3 Emesis for Blood Negative Blood Type AB POSITIVE Antibody Screen Negative BBK History Checked Patient has bt - EKG Data When Compared to Previous EKG: Significant Changes (typical aflutter) Interpretation: Acute Arrhythmia (typical aflutter ) Assessment & Plan (1) Atrial flutter Status: Acute Priority: High - Assessment and Plan (Free Text) Assessment: Mr Ld Mendez is a 71 year old with PMH of ESRD, COPD, atrial fibrillation on coumadin therapy, GI bleed, anemia, CAD with CABG x 3 four years ago, prostate cancer who was admitted for falling out of bed with right shoulder a.c joint dislocation. Mr Mendez was noted to be in aflutter with his heart rate dropping to the 40's overnight and today his heart rate is in the 120's with typical aflutter noted on EKG. EP consult was called to evaluate patient for possible aflutter ablation. A/P 1. Typical Aflutter- 2:1 Plan for Aflutter ablation on Monday via transfer to [place] with Dr Clark Case discussed with PMD Dr Wilkins and Dr Nicole cardiology. Continue IV digoxin for now cautiously with very poor renal function on HD, recommend to discontinue Hold coumadin for elevated INR, will monitor Echocardiogram dared 01/20/17 reviewed wih EF 55-60%, normal LVF, RV dilated, systolic function of RV severely reduced NPO after MN for Monday transfer for aflutter ablation ESRD on HD- continue HD as per medical team Monday, , Monday Cad s/p CABG x 3 - four yrs ago cardiology consult noted with Dr Nicole GI Bleed _ continue PPI, monitor stool for accult blood COPD- continue current management Patient seen and examined with Dr Clark at bedside,EKG, ECHO and medications were reviewed. Message left for patient's Yuliet re: plan of care. case disccused with Dr Wilkins Thanks you for allowing us to particiapte in the care of your patient. Lynnette Steinberg APN, DNP - Date & Time Date: 03/10/17 Time: 09:45
[2017-03-10 12:11] LABS: TROPONIN I 3.25 ng/mL
--- NOTE | 2017-03-10 13:22 | CARD ---
APPROVED REPORT EKG Measurement Heart [id number] <Conclusion> Consider Atrial Flutter with 2:1 conduction Possible Right ventricular hypertrophy ST & T wave abnormality, consider inferolateral ischemia Abnormal ECG
--- NOTE | 2017-03-10 13:45 | RAD ---
HISTORY: chf exacerbation, now hypotensive COMPARISON: 03/08/2017 FINDINGS: LUNGS: No active pulmonary disease. PLEURA: No significant pleural effusion identified, no pneumothorax apparent. CARDIOVASCULAR: Moderate cardiomegaly. Moderate to severe vascular congestion. Right-sided infiltrate OSSEOUS STRUCTURES: No significant abnormalities. VISUALIZED UPPER ABDOMEN: Normal. OTHER FINDINGS: None. IMPRESSION: Increasing vascular congestion and right-sided infiltrate
[2017-03-10] MEDS: Digoxin 125 mcg (0.125 mg) Tab PO SCH (14:34)
[2017-03-10 14:35] VITALS: PULSE 126
[2017-03-10] MEDS ORDERED: Cefepime 1gm in NS 100ml 100 ML IVPB ONE (15:29)
--- NOTE | 2017-03-10 17:44 | PN ---
DATE: 03/10/2017 REFERRING PHYSICIAN: Dr. Wilkins. SUBJECTIVE: He is lying in the bed, head up 35 degrees, sleepy, arousable, lethargic though. Appare ntly BiPAP was not used overnight. Status post dialysis. Still has a cough and shortness of breath. No nausea, no vomiting, no diarrhea. Still has leg swelling. OBJECTIVE: GENERAL: Sleepy, arousable. VITAL SIGNS: Temp is 98, heart rate is 67, respiratory rate is 20, blood pressure 89/58, pulse ox is 90% on nasal cannula. HEENT: Small oral cavity. Crowded airway. Mallampati score is 4. NECK: Supple. No JVD. LUNGS: Have basilar crackles. HEART: S1, S2. ABDOMEN: Soft, nontender. No organomegaly. EXTREMITIES: Does have edema. NEUROLOGIC: Sleepy, arousable. MEDICATIONS: He is on Mucomyst 20% inhaled twice a day, Brovana 15 mcg inhaled twice a day, Colace 1 00 mg twice a day, Coumadin 3 mg daily, digoxin 0.125 mg daily, Lipitor 10 mg daily, Plavix 75 mg [place], Protonix 40 mg daily, Pulmicort inhaled twice a day, Robitussin 100 mg q. 6 hours, Tessalon Perle s 200 mg 3 times a day, Zofran on a p.r.n. basis. LABORATORY DATA: Shows hemoglobin 11.2, hematocrit 35.7, WBC 8.4, platelet is 134. INR 4.65. Tropo june 3.25, phosphorus 3.3. TSH 1.16. Had an EKG done today which shows atrial flutter with 2:1 conduction. Chest x-ray done today shows i ncreasing vascular congestion and right-sided infiltrate. IMPRESSION AND PLAN: Chronic obstructive lung disease, probably has interstitial disease, could be i nterstitial disease part of contributed by heart failure, cardiac diastolic dysfunction, has bronchie ctasis; renal failure, dialysis dependent; coronary artery disease, history of coronary stent; sleep apnea syndrome. I spoke to patient's nurse in detail and requested to place the patient on BiPAP for 2 hours or so and then clinically see how he does. Encourage BiPAP use at nighttime. Inhaled bronc hodilator. Will give him Solu-Medrol 20 mg q. 12 hours. Gastric prophylaxis. Hold Coumadin. Nephr ology, cardiology followup. Had episode of bradycardia overnight while BiPAP/CPAP was not placed on. Thank you, and will follow with you. Louie Frost MD cc: [id number] TT: 03/10/2017 17:44:05 Confirmation # [id number] Dictation # [id number] mn
--- NOTE | 2017-03-10 18:52 | PN ---
DATE: 03/10/2017 This is a 71-year-old male with past medical history of COPD on 2 liters home oxygen, AFib, on Coumad in, CAD, status post coronary artery bypass graft and drug-eluting stent, presented initially after f alling out of bed, found to have CHF exacerbation. The patient this morning is very drowsy, reportedly was not sleeping at night and was bradycardic at one point, was not on BiPAP, was taken for dialysis, but sent back to his room after being found to b e hypotensive. PHYSICAL EXAMINATION: VITAL SIGNS: This morning, blood pressure 86/59, heart rate 126, respirations 22, temperature 98.2. GENERAL: Lethargic, drowsy. HEENT: Moist mucous membranes. Nonicteric CHEST: Rales present. HEART: S1, S2 positive. Tachycardic. ABDOMEN: Soft, nondistended. EXTREMITIES: Mild to moderate lower leg bilateral edema. LABORATORY DATA: CBC: WBC 8.4, hemoglobin 11.2, hematocrit 35.7, platelets 134. Chemistry, none av ailable this morning. INR 4.65. Troponin 3.25. ASSESSMENT: 1. Congestive heart failure exacerbation, preserved ejection fraction, likely diastolic dysfunction. Pulmonary edema persists on repeat chest x-ray today despite having hemodialysis yesterday with 3 l iters ultrafiltration. Unable to dialyze today due to hypotension. We will attempt HD again tomorro w in order to achieve ultrafiltration. If blood pressure remains low, will need to be transferred to ICU in order to undergo ultrafiltration with likely administration of vasopressors. 2. End-stage renal disease on hemodialysis. Increased weight gain thought to be due to dietary fahad scretion. Appears to have excess volume on exam, despite removing approximately 3 liters on hemodial ysis yesterday. Plan for HD tomorrow. 3. Hypotension, possibility of sepsis. Chest x-ray showing possible right lower lobe infiltrate. S tarting on cefepime giving 1 gram today. Should get 500 mg daily thereafter. 4. Anemia. Hemoglobin at goal for end-stage renal disease patient. Iron saturation mildly low. We will hold IV iron currently in the setting of possible sepsis. 5. Atrial flutter, on Coumadin. Supratherapeutic INR, dose currently being held. 6. Chronic kidney disease, mineral bone disease. Calcium and PTH at goal. Low phosphorus per outpa tient records. PhosLo being decreased to 2 tabs t.i.d. with meals. Han Patel MD cc: [id number] TT: 03/10/2017 18:52:16 Confirmation # [id number] Dictation # [id number] rn
[2017-03-10] MEDS: MethylPREDNISolone 40 mg Vial IVP SCH (21:46)
[2017-03-11] MEDS: Acetylcysteine 20% Inhal Soln (4ml) IH SCH ×2 (08:00→19:25)
[2017-03-11] MEDS: Arformoterol 15 mcg/2 ml Inh Sol IH SCH ×3 (08:01→23:54)
[2017-03-11] MEDS: Pantoprazole 40 mg EC Tab PO SCH (08:50)
[2017-03-11] MEDS: MethylPREDNISolone 40 mg Vial IVP SCH ×2 (09:54→21:41)
[2017-03-11 10:53] LABS: ADD MANUAL DIFF? NO
--- NOTE | 2017-03-11 11:00 | PN ---
DATE: 03/11/2017 The patient is feeling much better today. No chest pain, no shortness of breath. PHYSICAL EXAMINATION: VITAL SIGNS: Blood pressure is 92/61, the heart rate is atrial flutter in the 120s. NECK: Negative JVD. LUNGS: Without rales. HEART: Reveals S1, S2. EXTREMITIES: Without edema. LABORATORIES: Hemoglobin is 11.2. Troponin was up to 3.25 yesterday. IMPRESSION: 1. Recurrent atrial flutter with increased heart rate. 2. Hypotension. 3. End-stage renal disease. 4. History of coronary artery bypass surgery. 5. Diffuse coronary atherosclerosis. 6. History of percutaneous transluminal coronary angioplasty. Given these findings, it is likely his elevated troponin is due to increased demand from his increase d heart rate. We will add beta blockers gently given his relative hypotension. We will give him 25 Lopressor now f ollowed by 12.5 b.i.d. to help slow his heart rate. Rubio Nicole MD cc: [id number] TT: 03/11/2017 11:00:14 Confirmation # [id number] Dictation # [id number] tn
[2017-03-11 11:03] LABS: BASO # 0.01 K/mm3 (0.0-2.0); BASO % 0.1 % (0.0-3.0); GRAN # 6.46 (1.4-6.5); GRAN % 85.1 % (50.0-68.0); HEMATOCRIT 31.5 % (42.0-52.0); LYMPH # 0.7 (1.2-3.4); MEAN CELL VOLUME 90.5 fL (80.0-105.0); MEAN CORPUSCULAR HEMOGLOBIN 29.6 pg (25.0-35.0); MEAN CORPUSCULAR HGB CONC 32.7 g/dl (31.0-37.0); MEAN PLATELET VOLUME 10.5 fl (7.0-11.0); MONO # 0.4 (0.1-0.6); MONO % 5.8 % (1.0-6.0); PLATELET COUNT 127 10^3/uL (120.0-450.0); RED CELL DISTRIBUTION WIDTH 18.7 % (11.5-14.5); WHITE BLOOD COUNT 7.6 10^3/ul (4.5-11.0)
[2017-03-11 11:10] LABS: ALB/GLOB RATIO 0.9 (1.1-1.8); BILIRUBIN,TOTAL 1.3 mg/dL (0.2-1.3); CALCIUM 9.1 mg/dL (8.4-10.5); MAGNESIUM 2.1 mg/dL (1.7-2.2); PHOSPHOROUS 3.8 mg/dL (2.5-4.5); POTASSIUM 4.7 mmol/L (3.6-5.0); TOTAL PROTEIN 7.7 g/dL (5.8-8.3)
[2017-03-11] MEDS ORDERED: Doxercalciferol 4 mcg/2 ml Inj (RENAL) IVP ONE (11:58)
[2017-03-11] MEDS ORDERED: Doxercalciferol 4 mcg/2 ml Inj IVP ONE (12:00)
--- NOTE | 2017-03-11 15:40 | PN ---
DATE: 03/11/2017 REFERRING PHYSICIAN: Dr. Wilkins. Covering Dr. Wilkins today. SUBJECTIVE: The patient examined and seen in dialysis bed, arousable. Had 2 liters of fluid removed . Night was unremarkable. Did use BiPAP last night. Breathing is better, decreased cough, decreased shortness of breath. No nausea, no vomiting, no diarrhea, no leg pain or leg swelling. OBJECTIVE: GENERAL: No acute distress. VITAL SIGNS: Temperature is 98, heart rate 102, respiratory rate is 20, blood pressure 92/61, pulse ox 99% on BiPAP this morning. HEENT: Moist mucous membrane. No ulcer or thrush noted. NECK: Supple. No JVD. LUNGS: Have a few crackles at the bases. HEART: S1, S2. ABDOMEN: Soft, nontender. No organomegaly. EXTREMITIES: There is not much edema. NEUROLOGIC: Awake, alert, follows simple commands. MEDICATIONS: He is on Mucomyst 20% inhaled twice a day, Brovana 15 mcg inhaled twice a day, cefepime 500 mg daily, Colace 100 mg twice a day, Coumadin is on hold, doxycycline 100 mg twice a day, digoxi n 0.125 mg daily, Lipitor 10 mg daily, metoprolol tartrate 12.5 mg twice a day, Plavix 75 mg daily, P rotonix 40 mg daily, Pulmicort inhaled twice a day, Robitussin 100 mg q. 6 hours, Solu-Medrol 20 mg q . 12 hours, Tessalon Perles 200 mg 3 times a day, Zofran on a p.r.n. basis. LABORATORY DATA: Shows hemoglobin 10.3, hematocrit 31.5, WBC 7.6, platelet is 127. Today's INR is 4 .0. Sodium 134, potassium 4.7, chloride 93, bicarbonate 29, BUN 53, creatinine 7.3, glucose 165, dayna cium is 9.1, phosphorus 3.8, magnesium 2.1, AST 530, ALT 549, alk phos is 92. Troponin from yesterda y 3.25. Microbiology: Blood cultures have been negative. IMPRESSION AND PLAN: Chronic obstructive lung disease, a component of interstitial infiltrate, cardi omyopathy with atrial flutter, obstructive sleep apnea syndrome, history of bronchiectasis, renal zheng lure, dialysis dependent, coronary artery disease, history of coronary stent. Case discussed with tiana ectrophysiologist today in detail. The patient will be started on p.o. amiodarone once the INR is im proved. Will be transferred to tertiary care center for flutter ablation. Spoke to nursing staff. Continue IV and inhaled bronchodilator. Continue antibiotics. Encourage BiPAP use while sleeping. Gastric prophylaxis. Follow up INR in the morning. We will follow with you. Louie Frost MD cc: [id number] TT: 03/11/2017 15:39:43 Confirmation # [id number] Dictation # [id number] rn
[2017-03-11] MEDS: Digoxin 125 mcg (0.125 mg) Tab PO SCH (17:52)
[2017-03-11] MEDS: Cefepime 0.5 GM in Sodium Chloride 0.9% 100 ML IVPB SCH (18:00)
--- NOTE | 2017-03-11 18:04 | CP.PCM.PN ---
Subjective - Date & Time of Evaluation Date of Evaluation: 03/11/17 Time of Evaluation: 13:32 - Subjective Subjective: Patient still in AFL with marginal BP and unable to tolerate any BB or CCB. Spoke to family as to the transfer to [facility]. Objective - Vital Signs/Intake and Output Vital Signs (last 24 hours): Temp Pulse Resp BP Pulse Ox 97 F L 102 H 22 92/61 L 99 03/11/17 06:00 03/11/17 09:51 03/11/17 06:00 03/11/17 09:51 03/11/17 06:00 Intake and Output: 03/11/17 03/11/17 06:59 18:59 Intake Total 240 Balance 240 - Medications Medications: Current Medications Acetylcysteine (Acetylcysteine 20%) 4 ml IH BIDRESP [facility] Last Admin: 03/11/17 08:00 Dose: 4 ml Arformoterol Tartrate (Brovana) 15 mcg IH Q12H [facility] Last Admin: 03/11/17 08:01 Dose: 15 mcg Atorvastatin Calcium (Lipitor) 10 mg PO DAILY [facility] Last Admin: 03/11/17 09:51 Dose: 10 mg Benzonatate (Tessalon Perles) 200 mg PO TID [facility] Last Admin: 03/11/17 09:51 Dose: 200 mg Budesonide (Pulmicort Respules) 1 mg IH [id number] [facility] Last Admin: 03/09/17 08:29 Dose: Not Given Calcium Acetate (Phoslo) 1,334 mg PO WM [facility] Last Admin: 03/11/17 08:50 Dose: 1,334 mg Clopidogrel Bisulfate (Plavix) 75 mg PO DAILY [facility] Last Admin: 03/11/17 09:51 Dose: 75 mg Digoxin (Lanoxin) 0.125 mg PO 1400 [facility] Last Admin: 03/10/17 14:34 Dose: 0.125 mg Docusate Sodium (Colace) 100 mg PO BID [facility] Last Admin: 03/11/17 09:51 Dose: 100 mg Doxycycline Hyclate (Doryx) 100 mg PO Q12 [facility] PRN Reason: Protocol Last Admin: 03/11/17 09:51 Dose: 100 mg Guaifenesin (Robitussin) 100 mg PO Q6H PRN PRN Reason: Cough Cefepime HCl 0.5 gm/ Sodium (Chloride) 100 mls @ 100 mls/hr IVPB DAILY@1600 [facility] PRN Reason: Protocol Methylprednisolone (Solu-Medrol) 20 mg IVP Q12 [facility] Last Admin: 03/11/17 09:54 Dose: 20 mg Metoprolol Tartrate (Lopressor) 12.5 mg PO BRKDIN [facility] Ondansetron HCl (Zofran Inj) 4 mg IVP Q6H PRN PRN Reason: Nausea/Vomiting Pantoprazole Sodium (Protonix Ec Tab) 40 mg PO ACB [facility] Last Admin: 03/11/17 08:50 Dose: 40 mg Warfarin Sodium (Coumadin) 3 mg PO 1800 [facility] PRN Reason: Protocol - Labs Labs: 03/11/17 10:50 03/11/17 10:50 PT 43.2 Seconds (9.9-11.8) H* 03/11/17 08:50 INR 4.00 (0.93-1.08) H* 03/11/17 08:50 APTT 50.0 Seconds (23.7-30.8) H 03/08/17 18:40 - Constitutional Appears: Well, Non-toxic - Eye Exam Eye Exam: EOMI Pupil Exam: PERRL - Respiratory Exam Respiratory Exam: Clear to Ausculation Bilateral, NORMAL BREATHING PATTERN - Cardiovascular Exam Cardiovascular Exam: Tachycardia, Irregular Rhythm, JVD (no jvd), +S1, +S2 - GI/Abdominal Exam GI & Abdominal Exam: Normal Bowel Sounds Assessment and Plan - Assessment and Plan (Free Text) Plan: Patient unable to tolerate any BB or CCb for rate controlled. HR poorly controlled recommend dc dig start amio 400 mg BID; monitor inr as it may increase it. - hold warfarin - Will transfer for ablation once INR improves - EKG in am
--- NOTE | 2017-03-11 19:14 | CP.PCM.PN ---
Subjective - Date & Time of Evaluation Date of Evaluation: 03/11/17 Time of Evaluation: 19:13 - Subjective Subjective: Patient was seen for his BP was 78/42. Earlier in day time his BP was also low and he was given 500 CC NS bolus. He was given Lopressor 25 mg PO stat for atrial flutter with HR of 110-120/min earlier. He had dialysis done where in 2L fluid was taken out. He has no complaints now. Denies chest pain, sob, nausea, sweating, palpitation. This 71 year old male was admitted after he fell out of bed at home , had contusion of right side of head. Has PMH of CHF,COPD, CMP,CAD,atrial fibrillation on coumadin, CABG, coronary stent placement , pulmonary HTN, GI bleeding, anemia, ESRD . Objective - Vital Signs/Intake and Output Vital Signs (last 24 hours): Temp Pulse Resp BP Pulse Ox 98.4 F 69 20 72/42 L 95 03/11/17 17:49 03/11/17 18:00 03/11/17 17:49 03/11/17 17:52 03/11/17 17:49 - Medications Medications: Current Medications Acetylcysteine (Acetylcysteine 20%) 4 ml IH BIDRESP [facility] Last Admin: 03/11/17 08:00 Dose: 4 ml Amiodarone HCl (Cordarone) 200 mg PO Q12 [facility] Arformoterol Tartrate (Brovana) 15 mcg IH Q12H [facility] Last Admin: 03/11/17 08:01 Dose: 15 mcg Atorvastatin Calcium (Lipitor) 10 mg PO DAILY [facility] Last Admin: 03/11/17 09:51 Dose: 10 mg Benzonatate (Tessalon Perles) 200 mg PO TID [facility] Last Admin: 03/11/17 18:00 Dose: 200 mg Budesonide (Pulmicort Respules) 1 mg IH [id number] [facility] Last Admin: 03/09/17 08:29 Dose: Not Given Calcium Acetate (Phoslo) 1,334 mg PO WM [facility] Last Admin: 03/11/17 17:59 Dose: 1,334 mg Clopidogrel Bisulfate (Plavix) 75 mg PO DAILY [facility] Last Admin: 03/11/17 09:51 Dose: 75 mg Docusate Sodium (Colace) 100 mg PO BID [facility] Last Admin: 03/11/17 18:02 Dose: 100 mg Doxycycline Hyclate (Doryx) 100 mg PO Q12 [facility] PRN Reason: Protocol Last Admin: 03/11/17 09:51 Dose: 100 mg Guaifenesin (Robitussin) 100 mg PO Q6H PRN PRN Reason: Cough Cefepime HCl 0.5 gm/ Sodium (Chloride) 100 mls @ 100 mls/hr IVPB DAILY@1600 [facility] PRN Reason: Protocol Last Admin: 03/11/17 18:00 Dose: 100 mls/hr Methylprednisolone (Solu-Medrol) 20 mg IVP Q12 [facility] Last Admin: 03/11/17 09:54 Dose: 20 mg Metoprolol Tartrate (Lopressor) 12.5 mg PO BRKDIN [facility] Last Admin: 03/11/17 17:52 Dose: Not Given Ondansetron HCl (Zofran Inj) 4 mg IVP Q6H PRN PRN Reason: Nausea/Vomiting Pantoprazole Sodium (Protonix Ec Tab) 40 mg PO ACB [facility] Last Admin: 03/11/17 08:50 Dose: 40 mg Warfarin Sodium (Coumadin) 3 mg PO 1800 [facility] PRN Reason: Protocol - Labs Labs: 03/11/17 10:50 03/11/17 10:50 PT 43.2 Seconds (9.9-11.8) H* 03/11/17 08:50 INR 4.00 (0.93-1.08) H* 03/11/17 08:50 APTT 50.0 Seconds (23.7-30.8) H 03/08/17 18:40 - Constitutional Appears: Well, No Acute Distress - Head Exam Head Exam: ATRAUMATIC, NORMAL INSPECTION, NORMOCEPHALIC - Eye Exam Eye Exam: Normal appearance - ENT Exam ENT Exam: Normal External Ear Exam - Neck Exam Neck Exam: Normal Inspection - Cardiovascular Exam Cardiovascular Exam: absent: JVD - GI/Abdominal Exam GI & Abdominal Exam: absent: Distended - Rectal Exam Rectal Exam: Deferred - Extremities Exam Extremities Exam: Normal Inspection - Back Exam Back Exam: NORMAL INSPECTION - Neurological Exam Neurological Exam: Alert, Oriented x3 - Psychiatric Exam Psychiatric exam: Normal Affect, Normal Mood - Skin Skin Exam: Normal Color, Warm Assessment and Plan - Assessment and Plan (Free Text) Assessment: A/P:Hypotension-S/P hemodialysis. -NSTEMI. CKD. Hypertensin. Pulmonary HTN. Discussed with Dr. Nicole. Will give 100 CC NS bolus.
[2017-03-11] MEDS ORDERED: Sodium Chloride 0.9% 100 ML IV STA (19:21)
[2017-03-12] MEDS: Arformoterol 15 mcg/2 ml Inh Sol IH SCH ×3 (07:40→22:00)
[2017-03-12] MEDS: Acetylcysteine 20% Inhal Soln (4ml) IH SCH ×2 (07:40→21:04)
[2017-03-12 07:45] LABS: INR 3.9 (0.93-1.08)
[2017-03-12] MEDS: Pantoprazole 40 mg EC Tab PO SCH (08:14)
[2017-03-12] MEDS: MethylPREDNISolone 40 mg Vial IVP SCH ×2 (11:23→21:51)
--- NOTE | 2017-03-12 11:52 | PN ---
DATE: 03/12/2017 CARDIOLOGY FOLLOWUP The patient is awake, however, appears to be confused today. He is unable to swallow or speak. PHYSICAL EXAMINATION: VITAL SIGNS: Blood pressure is in the 90s systolic. NECK: Negative JVD. LUNGS: Without rales. HEART: Revealed S1, S2. EXTREMITIES: Without edema. LABORATORY DATA: The INR is 3.9. Chemistries: Potassium is 4.7. IMPRESSION: 1. Altered mental status. 2. Need to rule out cerebrovascular accident versus intracranial bleed. 3. End-stage renal disease. 4. History of bypass. 5. Atrial flutter. PLAN: Given these findings, we will need to cancel his transfer to [place] for possible ablati on of his A. flutter. We will obtain a CT scan of the head and obtain a neuro consult. Rubio Nicole MD cc: [id number] TT: 03/12/2017 11:51:35 Confirmation # [id number] Dictation # [id number]
--- NOTE | 2017-03-12 12:23 | CT ---
PROCEDURE: CT HEAD WITHOUT CONTRAST. HISTORY: AMS COMPARISON: None available. TECHNIQUE: Axial computed tomography images were obtained through the head/brain without intravenous contrast. Radiation dose: Total exam DLP = 1451 mGy-cm. This CT exam was performed using one or more of the following dose reduction techniques: Automated exposure control, adjustment of the mA and/or kV according to patient size, and/or use of iterative reconstruction technique. FINDINGS: HEMORRHAGE: No intracranial hemorrhage. BRAIN: No mass effect or edema. Mild chronic microvascular ischemic changes. VENTRICLES: Unremarkable. No hydrocephalus. CALVARIUM: Unremarkable. PARANASAL SINUSES: Unremarkable as visualized. No significant inflammatory changes. MASTOID AIR CELLS: Unremarkable as visualized. No inflammatory changes. OTHER FINDINGS: None. IMPRESSION: No acute bleed..
--- NOTE | 2017-03-12 13:21 | CARD ---
APPROVED REPORT EKG Measurement Heart [id number] P100 [id number] <Conclusion> Atrial flutter with variable AV block Possible Right ventricular hypertrophy ST & T wave abnormality, consider inferolateral ischemia Abnormal ECG
[2017-03-12 16:17] LABS: BASO # 0.01 K/mm3 (0.0-2.0); BASO % 0.1 % (0.0-3.0); GRAN # 7.88 (1.4-6.5); GRAN % 85.5 % (50.0-68.0); HEMATOCRIT 35.8 % (42.0-52.0); LYMPH # 0.7 (1.2-3.4); LYMPH % 7.2 % (22.0-35.0); MEAN CELL VOLUME 91.8 fL (80.0-105.0); MEAN CORPUSCULAR HEMOGLOBIN 29.2 pg (25.0-35.0); MEAN CORPUSCULAR HGB CONC 31.8 g/dl (31.0-37.0); MEAN PLATELET VOLUME 10.7 fl (7.0-11.0); MONO # 0.7 (0.1-0.6); MONO % 7.2 % (1.0-6.0); PLATELET COUNT 126 10^3/uL (120.0-450.0); RED CELL DISTRIBUTION WIDTH 19.3 % (11.5-14.5); WHITE BLOOD COUNT 9.2 10^3/ul (4.5-11.0)
[2017-03-12 16:30] LABS: ALB/GLOB RATIO 0.9 (1.1-1.8); BILIRUBIN,TOTAL 1.5 mg/dL (0.2-1.3); CALCIUM 9.4 mg/dL (8.4-10.5); TOTAL PROTEIN 8.3 g/dL (5.8-8.3)
[2017-03-12 16:37] LABS: POTASSIUM 5.6 mmol/L (3.6-5.0)
--- NOTE | 2017-03-12 16:39 | CP.PCM.PN ---
Subjective - Date & Time of Evaluation Date of Evaluation: 03/12/17 Time of Evaluation: 16:00 - Subjective Subjective: Patient has very poor veins. He has a R arm alert,needs blood drawn for tests ordered. Objective - Vital Signs/Intake and Output Vital Signs (last 24 hours): Temp Pulse Resp BP Pulse Ox 97.5 F L 117 H 20 81/45 L 92 L 03/12/17 06:00 03/12/17 06:00 03/12/17 06:00 03/12/17 08:14 03/12/17 06:00 Intake and Output: 03/12/17 03/12/17 06:59 18:59 Intake Total 480 180 Output Total 0 0 Balance 480 180 - Medications Medications: Current Medications Acetylcysteine (Acetylcysteine 20%) 4 ml IH BIDRESP [facility] Last Admin: 03/12/17 07:40 Dose: 4 ml Amiodarone HCl (Cordarone) 200 mg PO Q12 [facility] Last Admin: 03/12/17 10:00 Dose: Not Given Arformoterol Tartrate (Brovana) 15 mcg IH Q12H [facility] Last Admin: 03/12/17 07:40 Dose: 15 mcg Atorvastatin Calcium (Lipitor) 10 mg PO DAILY [facility] Last Admin: 03/12/17 10:00 Dose: Not Given Benzonatate (Tessalon Perles) 200 mg PO TID [facility] Last Admin: 03/12/17 15:00 Dose: Not Given Budesonide (Pulmicort Respules) 1 mg IH [id number] [facility] Last Admin: 03/09/17 08:29 Dose: Not Given Calcium Acetate (Phoslo) 1,334 mg PO WM [facility] Last Admin: 03/12/17 12:00 Dose: Not Given Clopidogrel Bisulfate (Plavix) 75 mg PO DAILY [facility] Last Admin: 03/12/17 10:00 Dose: Not Given Docusate Sodium (Colace) 100 mg PO BID [facility] Last Admin: 03/12/17 10:00 Dose: Not Given Doxycycline Hyclate (Doryx) 100 mg PO Q12 [facility] PRN Reason: Protocol Last Admin: 03/12/17 10:00 Dose: Not Given Guaifenesin (Robitussin) 100 mg PO Q6H PRN PRN Reason: Cough Cefepime HCl 0.5 gm/ Sodium (Chloride) 100 mls @ 100 mls/hr IVPB DAILY@1600 [facility] PRN Reason: Protocol Last Admin: 03/11/17 18:00 Dose: 100 mls/hr Methylprednisolone (Solu-Medrol) 20 mg IVP Q12 [facility] Last Admin: 03/12/17 11:23 Dose: 20 mg Metoprolol Tartrate (Lopressor) 12.5 mg PO BRKDIN [facility] Last Admin: 03/12/17 08:14 Dose: Not Given Ondansetron HCl (Zofran Inj) 4 mg IVP Q6H PRN PRN Reason: Nausea/Vomiting Pantoprazole Sodium (Protonix Ec Tab) 40 mg PO ACB [facility] Last Admin: 03/12/17 08:14 Dose: 40 mg Warfarin Sodium (Coumadin) 3 mg PO 1800 [facility] PRN Reason: Protocol - Labs Labs: 03/12/17 16:10 03/11/17 10:50 PT 42.1 Seconds (9.9-11.8) H* 03/12/17 07:05 INR 3.90 (0.93-1.08) H* 03/12/17 07:05 APTT 50.0 Seconds (23.7-30.8) H 03/08/17 18:40 - Constitutional Appears: Other (Patient is co-operative) Assessment and Plan - Assessment and Plan (Free Text) Assessment: Poor venous access. Plan: Blood drawn from a peripheral vein in the L hand for tests ordered.
[2017-03-12 17:05] LABS: ADD MANUAL DIFF? NO
[2017-03-12] MEDS: Cefepime 0.5 GM in Sodium Chloride 0.9% 100 ML IVPB SCH (17:33)
--- NOTE | 2017-03-12 17:51 | PN ---
DATE: 03/12/2017 REFERRING PHYSICIAN: Dr. Wilkins. I am also covering Dr. Wilkins from medicine today. SUBJECTIVE: Lying in the bed, head up at 35 degrees. and sister at bedside. Night was unremar kable. Feels better. Not very fond of BiPAP. No headache, no rhinitis, no nausea, vomiting, diarrh ea. No leg pain or leg swelling. OBJECTIVE: GENERAL: No acute distress. VITAL SIGNS: Temperature is 98, heart rate is 117, respiratory rate is 20, blood pressure 81/45. Pu lse ox 92% on 3 liters nasal cannula. HEENT: Moist mucous membrane. No ulcer or oral thrush noted. NECK: Supple. No JVD. LUNGS: Has fair airflow with few rhonchi. HEART: S1, S2. ABDOMEN: Soft, nontender. No organomegaly. EXTREMITIES: There is no edema. NEUROLOGIC: Awake, alert, follows simple commands. MEDICATIONS: He is on Mucomyst 20% inhaled twice a day, Brovana 15 mcg inhaled twice a day, cefepime 500 mg IV daily, Colace 100 mg twice a day, amiodarone 200 mg q. 12 hours, Coumadin 3 mg, which is o n hold, doxycycline 100 mg twice a day, Lipitor 10 mg daily, metoprolol tartrate 12.5 mg twice a day, Plavix 75 mg daily, Protonix 40 mg daily, Pulmicort inhaled twice a daily, Robitussin 100 mg q. 6 ho urs, Solu-Medrol 20 mg q. 12 hours, Tessalon Perles 200 mg 3 times a day, Zofran on a p.r.n. basis. LABORATORY DATA: Shows INR of 3.90. Microbiology: Blood cultures have been negative. CAT scan of the head is done today, which shows no acute bleed or any infarct noted. Had an EKG done today which shows atrial flutter with variable AV block. IMPRESSION AND PLAN: Chronic obstructive lung disease, has a history of interstitial infiltrate, car diomyopathy, atrial flutter with variable block, obstructive sleep apnea syndrome, bronchiectasis, re nal failure, dialysis dependent, coronary artery disease, history of coronary stent. Spoke to rudy black's and sister at bedside. All their questions answered. Noted the patient started on amiodaro ne yesterday with a loading dose. Tolerating sulfa well. Has some hypotensive blood pressure about 80, but asymptomatic. Will continue supplemental oxygen. Encourage BiPAP use at nighttime. Gastric prophylaxis. Hold Coumadin. INR in the morning. Follow up labs in the morning. Will follow with elizabeth diggs. Louie Frost MD cc: [id number] TT: 03/12/2017 17:51:26 Confirmation # [id number] Dictation # [id number] rn
[2017-03-13 07:50] LABS: HEMATOCRIT 33.5 % (42.0-52.0); MEAN CELL VOLUME 89.6 fL (80.0-105.0); MEAN CORPUSCULAR HEMOGLOBIN 29.9 pg (25.0-35.0); MEAN CORPUSCULAR HGB CONC 33.4 g/dl (31.0-37.0); MEAN PLATELET VOLUME 11.4 fl (7.0-11.0); RED CELL DISTRIBUTION WIDTH 18.9 % (11.5-14.5); WHITE BLOOD COUNT 9.7 10^3/ul (4.5-11.0)
[2017-03-13 08:16] LABS: BILIRUBIN,TOTAL 1.8 mg/dL (0.2-1.3); CALCIUM 9.3 mg/dL (8.4-10.5)
[2017-03-13] MEDS: Acetylcysteine 20% Inhal Soln (4ml) IH SCH ×2 (08:23→19:41)
[2017-03-13] MEDS: Arformoterol 15 mcg/2 ml Inh Sol IH SCH ×3 (08:24→19:41)
[2017-03-13 09:35] LABS: POTASSIUM 6.1 mmol/L (3.6-5.0)
--- NOTE | 2017-03-13 10:29 | RAD ---
HISTORY: shortness of breath COMPARISON: 03/10/2017 FINDINGS: LUNGS: Improvement in vascular and interstitial congestion PLEURA: No significant pleural effusion identified, no pneumothorax apparent. CARDIOVASCULAR: There is moderate cardiomegaly. OSSEOUS STRUCTURES: No significant abnormalities. VISUALIZED UPPER ABDOMEN: Normal. OTHER FINDINGS: None. IMPRESSION: Moderate cardiomegaly. Improvement in vascular and interstitial congestion
--- NOTE | 2017-03-13 10:33 | PN ---
DATE: 03/13/2017 CARDIOLOGY FOLLOWUP The patient remains lethargic. His mental status is poor. PHYSICAL EXAMINATION: VITAL SIGNS: Blood pressure is 184/57. Heart rate is atrial fibrillation at 107. NECK: Negative JVD. LUNGS: Decreased breath sounds. HEART: Reveals S1, S2. EXTREMITIES: Without edema. NEUROLOGIC: The patient is lethargic. He is arousable, but does not carry a conversation. LABORATORY DATA: Hemoglobin is 11.1. Chemistries: Potassium is 6.1 predialysis. His INR is pendin g from today. CT scan is negative for bleed. IMPRESSION: 1. Altered mental status. 2. Atrial fibrillation. 3. Status post coronary artery bypass surgery. 4. Coronary artery disease. 5. End-stage renal disease. His transfer to [facility] for ablation of his atrial fibrillation is on hold. There is no acute bleed on CT scan of the head. The patient is for dialysis today. Awaiting neuro consult. Rubio Nicole MD cc: [id number] TT: 03/13/2017 10:32:04 Confirmation # [id number] Dictation # [id number] theresa
[2017-03-13] MEDS: MethylPREDNISolone 40 mg Vial IVP SCH ×2 (12:15→22:34)
[2017-03-13] MEDS: Pantoprazole 40 mg EC Tab PO SCH (13:21)
--- NOTE | 2017-03-13 14:13 | CP.PCM.PN ---
Subjective - Date & Time of Evaluation Date of Evaluation: 03/13/17 Time of Evaluation: 14:11 - Subjective Subjective: Blood drawn for ABGs as ordered. Objective - Vital Signs/Intake and Output Vital Signs (last 24 hours): Temp Pulse Resp BP Pulse Ox 97.1 F L 114 H 18 98/56 L 90 L 03/13/17 12:00 03/13/17 12:00 03/13/17 12:00 03/13/17 12:00 03/13/17 06:00 Intake and Output: 03/13/17 03/13/17 06:59 18:59 Intake Total 300 Output Total 0 Balance 300 - Medications Medications: Current Medications Acetylcysteine (Acetylcysteine 20%) 4 ml IH BIDRESP [facility] Last Admin: 03/13/17 08:23 Dose: 4 ml Amiodarone HCl (Cordarone) 200 mg PO Q12 [facility] Last Admin: 03/13/17 10:36 Dose: Not Given Arformoterol Tartrate (Brovana) 15 mcg IH Q12H [facility] Last Admin: 03/13/17 08:25 Dose: 15 mcg Atorvastatin Calcium (Lipitor) 10 mg PO DAILY [facility] Last Admin: 03/13/17 10:37 Dose: Not Given Benzonatate (Tessalon Perles) 200 mg PO TID [facility] Last Admin: 03/13/17 13:21 Dose: Not Given Budesonide (Pulmicort Respules) 1 mg IH [id number] [facility] Last Admin: 03/09/17 08:29 Dose: Not Given Calcium Acetate (Phoslo) 1,334 mg PO WM [facility] Last Admin: 03/13/17 13:20 Dose: Not Given Clopidogrel Bisulfate (Plavix) 75 mg PO DAILY [facility] Last Admin: 03/13/17 13:20 Dose: Not Given Docusate Sodium (Colace) 100 mg PO BID [facility] Last Admin: 03/13/17 10:36 Dose: Not Given Doxycycline Hyclate (Doryx) 100 mg PO Q12 [facility] PRN Reason: Protocol Last Admin: 03/13/17 10:37 Dose: Not Given Guaifenesin (Robitussin) 100 mg PO Q6H PRN PRN Reason: Cough Cefepime HCl 0.5 gm/ Sodium (Chloride) 100 mls @ 100 mls/hr IVPB DAILY@1600 [facility] PRN Reason: Protocol Last Admin: 03/12/17 17:33 Dose: 100 mls/hr Methylprednisolone (Solu-Medrol) 20 mg IVP Q12 [facility] Last Admin: 03/13/17 12:15 Dose: 20 mg Metoprolol Tartrate (Lopressor) 12.5 mg PO BRKDIN [facility] Last Admin: 03/13/17 10:37 Dose: Not Given Ondansetron HCl (Zofran Inj) 4 mg IVP Q6H PRN PRN Reason: Nausea/Vomiting Pantoprazole Sodium (Protonix Ec Tab) 40 mg PO ACB [facility] Last Admin: 03/13/17 13:21 Dose: Not Given Warfarin Sodium (Coumadin) 3 mg PO 1800 [facility] PRN Reason: Protocol Last Admin: 03/12/17 21:26 Dose: Not Given - Labs Labs: 03/13/17 06:50 03/13/17 06:50 PT 42.1 Seconds (9.9-11.8) H* 03/12/17 07:05 INR 3.90 (0.93-1.08) H* 03/12/17 07:05 APTT 50.0 Seconds (23.7-30.8) H 03/08/17 18:40
[2017-03-13 14:36] LABS: ARTERIAL BLOOD GAS HCO3 18.6 mmol/L (21-28); ARTERIAL BLOOD GAS PH 7.36 (7.35-7.45)
[2017-03-13] MEDS ORDERED: Insulin Regular 1 UNITS/0.01 ML ML IVP STA (15:15)
[2017-03-13] MEDS ORDERED: Dextrose 50% SYRINGE Inj (50 ml) IVP ONE (15:16)
[2017-03-13] MEDS ORDERED: Sodium Chloride 0.9% 1,000 ML IV STA (15:22)
--- NOTE | 2017-03-13 15:31 | PCM.SEPTIC ---
<Lisandro Brown - Last Filed: 03/13/17 15:34> Sepsis Progress Note - Reassessment Type Date of Evaluation: 03/13/17 Time of Evaluation: 14:54 Reassessment Type: Non-invasive reassessment - Non Invasive Reassessment Were the most recent vital sign reviewed: Yes Vital Sign (Latest): Temp Pulse Resp BP Pulse Ox 97.1 F L 114 H 18 98/56 L 90 L 03/13/17 12:00 03/13/17 12:00 03/13/17 12:00 03/13/17 12:00 03/13/17 06:00 Time: 14:54 HR 115bpm Rectal Temperature 98.1F RR 20 o2 saturation not recordable peripherally Cardiovascular: Yes: Tachycardia. No: Edema, Gallop, JVD Respiratory: Yes: Normal Breath Sounds. No: Accessory Muscle Use, Crackles, Rales, Rhonchi, Stridor, Wheezing, Respiratory Distress Capillary Refill: Delayed Pulses: Decreased Radial Skin: Normal Color, Warm, Dry <Gemini Bishop - Last Filed: 03/13/17 18:40> Sepsis Progress Note - Non Invasive Reassessment Vital Sign (Latest): Temp Pulse Resp BP Pulse Ox 97.1 F L 114 H 18 98/56 L 90 L 03/13/17 12:00 03/13/17 12:00 03/13/17 12:00 03/13/17 12:00 03/13/17 06:00 ED Physician Attestation - Attestation I have personally seen and examined this patient.: Yes I have fully participated in the care of the patient.: Yes I have reviewed all pertinent clinical information, including history, physical exam and plan: Yes Notes (Text): 03/13/17 18:30 Since pt has ESRD and is due for dialysis,1 litre of NS was ordered iv. Dr Rodas said will decide about giving him any further fluids after he is transferred to the ICU. 03/13/17 18:39 03/13/17 18:40
[2017-03-13] MEDS ORDERED: Vancomycin 1gm in NS 250ml 250 ML IVPB STA (15:33)
[2017-03-13 16:15] LABS: HEMATOCRIT 33.1 % (42.0-52.0); MEAN CELL VOLUME 89.9 fL (80.0-105.0); MEAN CORPUSCULAR HEMOGLOBIN 29.9 pg (25.0-35.0); MEAN CORPUSCULAR HGB CONC 33.2 g/dl (31.0-37.0); MEAN PLATELET VOLUME 10.6 fl (7.0-11.0); PLATELET COUNT 108 10^3/uL (120.0-450.0); WHITE BLOOD COUNT 9.1 10^3/ul (4.5-11.0)
[2017-03-13 16:18] LABS: ALB/GLOB RATIO 0.9 (1.1-1.8); CALCIUM 9.1 mg/dL (8.4-10.5)
[2017-03-13 16:43] LABS: ADD MANUAL DIFF? YES
[2017-03-13 16:47] LABS: NEUTROPHIL 76 % (50.0-70.0)
[2017-03-13 16:48] LABS: EOSINOPHIL 1 % (0.0-3.0); GIANT PLATELETS PRESENT
[2017-03-13 16:50] LABS: POTASSIUM 6.3 mmol/L (3.6-5.0)
--- NOTE | 2017-03-13 16:51 | CON ---
DATE: 03/13/2017 HISTORY OF PRESENT ILLNESS: The patient seen and examined at bedside. This is a 71-year-old gentleman with history of end-stage renal disease on chronic dialysis, COPD and cardiomyopathy, diastolic dysfunction, pulmonary hypertension , coronary artery disease, who presented at this time with altered mental status and shortness of breath. The patient's reported that upon admission on 03/09/2017 (4 days ago), the patient was more short of breath and was coughing with whitish sputum. No hemoptysis, no hematemesis, no diarrhea, no constipation. Subsequent workup was suggesting fluid overload and patient had several sessions of hemodialysis. His blood pressure was fluctuating and today he was found to be hypotensive with lactic acids jumped up from 0.9 to 5.9. His initial troponin was negative. However, afterwards jumped up significantly to more than 3 from less than 0.01. EKG even though did show some ST depression in V4, V5, V6 at I and aVL, was not new finding, it was present on previous EKGs. The patient does not appear to have chest pain and comfortable in the bed. Due to relative hemodynamic instability in the setting of lactic acidosis , ICU consult was called for further management and evaluation. PAST MEDICAL HISTORY: COPD, coronary artery disease, diastolic CHF, end-stage renal disease on dialysis. ALLERGIES: NKDA. SOCIAL HISTORY: No alcohol, no illicit drug abuse. No tobacco smoking. FAMILY HISTORY: Noncontributory. MEDICATIONS: Mucomyst inhaled, Brovana, Colace, Cordarone, Coumadin, doxycycline, Lipitor, metoprolol, meropenem, PhosLo, Protonix p.o., Pulmicort, Robitussin, Solu-Medrol 20 mg IV q. 12 hours, vancomycin, Zofran p.r.n. PHYSICAL EXAMINATION: VITAL SIGNS: Blood pressure 89/46, heart rate 113, temperature 97.1, oxygen saturation 90% on 2 liters nasal cannula. HEAD AND NECK: Atraumatic. LUNGS: Clear to auscultation bilaterally. HEART: Regular rate and rhythm. S1, S2 normal. ABDOMEN: Soft, mildly tender, but definitely no peritoneal signs. NEUROLOGIC: The patient moves all extremities spontaneously. SKIN: Moist. PSYCHIATRIC: The patient is alert, but confused and disoriented. LABORATORY DATA: WBC 9.7, hemoglobin 11.2, platelet count 122. Sodium 138, potassium 6.1, chloride 96, carbon dioxide 18, BUN 71, creatinine 8.8, glucose 84, AST of 443, ALT 722. ABG showed lactic acid 5.9, pH 7.36, pCO2 of 33, pO2 of 51. INR 3.9. Chest x-ray showed improvement in vascular and interstitial congestion. Head CT did not show any acute intracranial pathology. Cervical spine CAT scan that was performed 5 days ago showed no fracture. ASSESSMENT AND PLAN: This is a 71-year-old gentleman with altered mental status , hypotension in the setting of severe lactic acidosis, presented for ICU evaluation. Concern for ongoing shock syndrome cannot be ruled out. Infection/ septic shock is high in differential; however, patient is afebrile and no leukocytosis present. I will, however, proceed with escalation of antibiotic therapy to meropenem and vancomycin. ID consult will be given. CAT scan of the abdomen and pelvis will be performed to rule out intra-abdominal catastrophe. Chest x-ray showed improved aeration. Thus, I do not think pneumonia is a major contributing factor here. As the patient has a new troponin jump, I will proceed with echocardiogram to rule out cardiogenic shock. I will also repeat troponin to see decrement or increment in it. The patient appears to be comfortable and not complaining of chest pain. Chest x- ray that was done today did not show pneumothorax. Thus, obstructive shock due to tension pneumothorax highly unlikely. The patient is on therapeutic anticoagulation and his INR is therapeutic. Thus, obstructive shock with pulmonary embolism also highly unlikely. Hypovolemic shock is a possibility due to extra conservative fluid management of ESRD/HD patient. I will give 1 liter of normal saline wide open and evaluate whether that will positively affect the patient's hemodynamics. At present time, patient will be admitted to ICU. I will trend lactic acid. We will continue with IV fluids and emergent dialysis without removal of any fluid to correct lites. Nephrology followup is appreciated. The patient's hemoglobin is stable, no overt bleeding present. I will repeat CBC to ascertain stability of hemoglobin level and to rule out hemorrhagic shock as well. I will continue to target euvolemia, euglycemia, normothermia and oxygen saturation more than 90%. ccm time 40 min Sam Soto MD cc: [id number] TT: 03/13/2017 16:50:40 Confirmation # [id number] Dictation # [id number] ln MTDD
[2017-03-13 17:13] LABS: TROPONIN I 1.95 ng/mL
[2017-03-13] MEDS ORDERED: Metoprolol 1 mg/ml Inj IVP ONE (18:04)
--- NOTE | 2017-03-13 18:22 | PCM.SEPTIC ---
Sepsis Progress Note - Reassessment Type Reassessment Type: Non-invasive reassessment - Non Invasive Reassessment Were the most recent vital sign reviewed: Yes Vital Sign (Latest): Temp Pulse Resp BP Pulse Ox 98.2 F 124 H 16 94/69 L 90 L 03/13/17 18:18 03/13/17 18:01 03/13/17 18:01 03/13/17 18:00 03/13/17 06:00 Cardiovascular: Yes: Regular Rate, Rhythm Respiratory: Yes: Normal Breath Sounds Capillary Refill: Delayed Pulses: Decreased Radial, Decreased Dorsalis Pedis, Decreased Posterior Tibialis Skin: Dry
--- NOTE | 2017-03-13 18:36 | PN ---
DATE: 03/13/2017 HISTORY OF PRESENT ILLNESS: This is a 71-year-old male with past medical history of COPD on 2 liters home oxygen, atrial fibrillation on Coumadin, CAD status post CABG and drug-eluting stent, ESRD on h emodialysis, presented initially after falling out of bed, found to have CHF exacerbation. Hospital [facility] complicated by hypotension, atrial flutter and altered mental status. This morning, patient fo und to be drowsy, not responding well to verbal stimuli, on BiPAP. Per dialysis nurse, had a session of dialysis on Monday, but due to hypotension, were using low blood flow and repeatedly had to lidia us the patient with normal saline. PHYSICAL EXAMINATION: VITAL SIGNS: This morning, blood pressure 84/57, heart rate 107, respirations 19, temperature 96.5, O2 sat 90% on nasal cannula. GENERAL: The patient is lethargic, not responding meaningfully to verbal stimuli. No apparent distre ss. HEENT: Moist mucous membranes. Nonicteric. CHEST: Mild bilateral rales, no rhonchi, no wheezes. HEART: Tachycardic, no murmurs. ABDOMEN: Soft, nondistended, nontender. EXTREMITIES: Minimal lower leg bilateral edema. LABORATORY DATA: CBC: WBC 9.1, hemoglobin 11.0, hematocrit 33.1, platelets 108. Chemistry panel: Sodium 138, potassium 6.1, chloride 96, bicarbonate 18, BUN 71, creatinine 8.8, glucose 84, calcium 9 .3, T-bili 1.8, AST 43, ALT 722, albumin 3.9. ABG this afternoon: pH 7.36, pCO2 of 33, pO2 51, bicar bonate 18.6. Lactate 5.9. Chest x-ray report showing improvement in vascular congestion. ASSESSMENT: 1. Hypotension. Etiology appears multifactorial. ABG obtained due to significantly increased anion g ap and showing significantly elevated lactate level. Sepsis is in the differential despite negative blood cultures from sample drawn 3 days ago. Atrial fibrillation/flutter with rapid ventricular rate is also likely contributing to hypotension. The patient this afternoon being transferred to ICU and may need vasopressor support if unable to tolerate hemodialysis. 2. End-stage renal disease on hemodialysis. Hyperkalemic today with potassium of 6.3 in the setting of inadequate dialysis 2 days ago. Urgent hemodialysis session today on 1 K dialysate over 2 hours. We will repeat hemodialysis session tomorrow as well. 3. Congestive heart failure exacerbation, preserved ejection fraction on previous echo, likely diast olic dysfunction. Chest x-ray reporting improvement in vascular congestion. The patient is less zarina matous as well. Nevertheless, will avoid ultrafiltration today, on hemodialysis in the setting of hy pertension. 4. Lactic acidosis. Sepsis is a likely possibility. However, should look for possible causes of isch emia if blood cultures remain negative. Recommend to trend lactate level. 5. Atrial flutter on Coumadin. Supratherapeutic INR, dose currently being held. 6. Anemia. Hemoglobin remains at goal for end-stage renal disease patient. We will monitor. 7. Altered mental status. The patient with dementia and worsening mental status over the last few mo nths, now with likely element of metabolic encephalopathy in the setting of severe illness and inadeq uate hemodialysis. Awaiting neurology input in this matter. Han Patel MD cc: [id number] TT: 03/13/2017 18:35:48 Confirmation # [id number] Dictation # [id number] ln
[2017-03-13 18:57] LABS: INR 6.44 (0.93-1.08)
--- NOTE | 2017-03-13 19:05 | CON ---
DATE: 03/13/2017 HISTORY OF PRESENT ILLNESS: This is a 71-year-old black male with end-stage renal disease on dialysi s, COPD, cardiomyopathy, diastolic dysfunction, and came to the hospital with altered mental status a nd shortness of breath. The patient was admitted 4 days ago and transferred to ICU. Called to evalu ate the patient. The patient is undergoing dialysis. PAST MEDICAL HISTORY: COPD, coronary artery disease, diastolic dysfunction, end-stage renal disease on dialysis. ALLERGIES: No known drug allergies. SOCIAL HISTORY: Does not smoke, does not drink. PHYSICAL EXAMINATION: HEENT: Normocephalic, atraumatic. NECK: Supple. NEUROLOGIC: Awake, drowsy, following 1-step simple commands and undergoing dialysis. Pupils reactiv e. No facial asymmetry. Tongue midline. MOTOR: Spontaneous movement of the extremities noted. REFLEXES: Deep tendon reflexes 1+. Both plantars are downgoing. SENSORY: Appears intact. CEREBELLAR GAIT: Deferred. IMPRESSION: A 71-year-old black male with altered mental status and hypotension was transferred to [facility]. Called to evaluate the patient's possibly toxic metabolic encephalopathy. CAT scan of the head was done on 03/12/2017, was no bleed or infarct. PLAN: Continue present management. Will follow up. Darius Hampton MD cc: [id number] TT: 03/13/2017 19:05:13 Confirmation # [id number] Dictation # [id number] [email or web address]
--- NOTE | 2017-03-13 19:55 | PN ---
DATE: 03/13/2017 REFERRING PHYSICIAN: Dr. Wilkins. SUBJECTIVE: He is lying in the bed. Only used BiPAP for an hour or so. PHYSICAL EXAMINATION: GENERAL: Sleepy this morning. Hard to awake but arousable with loud verbal stimulus. Follows simpl e commands. No acute distress. VITAL SIGNS: Temp is 98, heart rate is 124, respiratory rate is 16, blood pressure 94/69. HEENT: Moist mucous membrane. Crowded airway. NECK: Supple. No JVD. LUNGS: Have a few scattered rhonchi. HEART: Irregularly irregular, tachycardic. ABDOMEN: Soft, nontender. No organomegaly. EXTREMITIES: There is no edema. NEUROLOGIC: Sleepy, arousable. MEDICATIONS: He is on Mucomyst 20% inhaled twice a day, Brovana 15 mcg inhaled twice a day, Colace 1 00 mg twice a day which is on hold, amiodarone placed on hold, Coumadin 3 mg at bedtime. The patient started on meropenem 1 g q. 12 hours. Plavix is on hold. Protonix 40 mg IV daily, Solu-Medrol 20 m g q. 12 hours, Tessalon Perles 200 mg 3 times a day, Zofran on a p.r.n. basis. LABORATORY DATA: Shows hemoglobin 11.2, hematocrit 33.5, WBC is 9.7, platelet is 122. INR 6.44. Ghotra d ABG done later on in the afternoon; shows pH 7.36, pCO2 33, O2 of 51. On ABG, lactic acid is 5.9. Sodium 138, potassium 6.1, chloride 96, bicarbonate is 18, BUN 71, creatinine 8.8, calcium is 9.3. AST 443, ALT 722, alkaline phosphatase is 110. Albumin is 3.9. MICROBIOLOGY: Blood culture has been negative. Chest x-ray done today shows moderate cardiomegaly, improved vascular and interstitial congestion. IMPRESSION AND PLAN: Chronic obstructive lung disease, cardiomyopathy with atrial flutter with rapid ventricular response, has obstructive sleep apnea syndrome but noncompliant with the CPAP/BiPAP, bro nchiectasis; renal failure, dialysis dependent; history of coronary artery disease, history of nathan ry stent. Case discussed with the nursing staff. Requested if we can place the BiPAP and see how he does. ____ later on code sepsis was called. The patient taken to intensive care unit. Fluid resus citation is given. Antibiotics coverage was broadened. Clinically, my feeling ____ tolerating becau se of the rapid ventricular response to atrial flutter with variable response. Amiodarone was starte d but not helpful so far; probably could not take much p.o. Will continue to encourage BiPAP use whi le sleeping. If desaturates, may use high flow nasal cannula. Continue steroids. Hold inhaled bron chodilator. Gastric prophylaxis. Follow up INR. May need to get CT of the head with high INR. Thank you, and will follow with you. Louie Frost MD cc: [id number] TT: 03/13/2017 19:54:28 Confirmation # [id number] Dictation # [id number]
[2017-03-13] MEDS ORDERED: Meropenem 1g/NS 100mL IVPB 100 ML IVPB SCH (22:00)
[2017-03-13] MEDS: Meropenem 1g/NS 100mL IVPB 100 ML IVPB SCH (22:25)
[2017-03-14] MEDS ORDERED: DOPamine 400mg/250ml D5W 250 ML IV ONE (01:12)
[2017-03-14 02:31] LABS: ABG MECHANICAL RATE 15; ARTERIAL BLOOD GAS HCO3 15.3 mmol/L (21-28); ARTERIAL BLOOD GAS O2 CAPACITY 14.1 mL/dl (16-24); ARTERIAL BLOOD GAS O2 CONTENT 14.1 ML/dl (15-23); ARTERIAL BLOOD HGB O2 SAT 96.5 % (95.0-98.0); ATERIAL BLOOD GAS PEEP 5; CARBOXYHEMOGLOBIN 2.3 % (0.5-1.5); HHB 0.1 % (0-5); METHEMOGLOBIN 1.1 % (0.0-3.0)
--- NOTE | 2017-03-14 03:28 | CP.PCM.PCO ---
Physician Communication Note - Physician Communication Note Physician Communication Note: Pt became hypotensive, tachypneic and hypoxic on bipap; Thus, intubated
[2017-03-14 06:58] LABS: ADD MANUAL DIFF? NO
[2017-03-14 07:00] LABS: PARTIAL THROMBOPLASTIN TIME 43.7 Seconds (23.7-30.8)
[2017-03-14 07:10] LABS: BASO # 0.01 K/mm3 (0.0-2.0); BASO % 0.1 % (0.0-3.0); GRAN # 9.34 (1.4-6.5); GRAN % 66.7 % (50.0-68.0); HEMATOCRIT 32.9 % (42.0-52.0); LYMPH # 2.4 (1.2-3.4); LYMPH % 17.4 % (22.0-35.0); MEAN CELL VOLUME 90.1 fL (80.0-105.0); MEAN CORPUSCULAR HEMOGLOBIN 29.3 pg (25.0-35.0); MEAN CORPUSCULAR HGB CONC 32.5 g/dl (31.0-37.0); MEAN PLATELET VOLUME 9.5 fl (7.0-11.0); MONO # 2.2 (0.1-0.6); MONO % 15.8 % (1.0-6.0); PLATELET COUNT 103 10^3/uL (120.0-450.0); RED CELL DISTRIBUTION WIDTH 19.3 % (11.5-14.5)
[2017-03-14 07:19] LABS: ALB/GLOB RATIO 0.9 (1.1-1.8); BILIRUBIN,TOTAL 2.5 mg/dL (0.2-1.3); CALCIUM 8.3 mg/dL (8.4-10.5); MAGNESIUM 2.1 mg/dL (1.7-2.2); PHOSPHOROUS 6.3 mg/dL (2.5-4.5); POTASSIUM 4.7 mmol/L (3.6-5.0); TOTAL PROTEIN 7.7 g/dL (5.8-8.3)
[2017-03-14 07:35] LABS: INR 5.4 (0.93-1.08)
[2017-03-14 07:52] LABS: TROPONIN I 2.84 ng/mL
--- NOTE | 2017-03-14 07:55 | RAD ---
HISTORY: confirmation of ETT COMPARISON: 03/13/2017 FINDINGS: LUNGS: No focal consolidation. Interstitial infiltrate more prominent at lung bases PLEURA: No evidence of pleural effusion or pneumothorax. CARDIOVASCULAR: CABG. ET tube, tip positioned approximately 5.1 cm above tracheal prashant. OSSEOUS STRUCTURES: No significant abnormalities. VISUALIZED UPPER ABDOMEN: Normal. OTHER FINDINGS: None. IMPRESSION: Interstitial infiltrate. No focal consolidation. ET tube appropriately positioned.
--- NOTE | 2017-03-14 08:08 | PN ---
DATE: 03/13/2017 The patient is a 71-year-old male. The patient was seen and examined on the bedside in the telemetry, looks very sick, very lethargic, having BiPAP. No fever, no chills. No nausea, vomiting, diarrhea. PHYSICAL EXAMINATION: VITAL SIGNS: Temperature 98, heart rate 124, respiratory rate 16, blood pressure 94/69. HEENT: Head normocephalic, atraumatic. Eyes, PERRLA. Extraocular muscles intact. Conjunctivae clear. Nose patent. NECK: Supple. No carotid bruit, no JVD, no thyromegaly. LUNGS: Has a few scattered rhonchi. HEART: S1, S2 positive. Irregularly irregular, tachycardia. ABDOMEN: Soft, nontender. No organomegaly. EXTREMITIES: No edema, no cyanosis. NEUROLOGIC: The patient is sleepy, arousable, moving all 4 extremities. MEDICATIONS: Mucomyst, Brovana, Colace, amiodarone, Coumadin, meropenem, Plavix , Protonix, Solu-Medrol tapering doses, Tessalon Perles, Zofran. LABORATORIES: Hemoglobin 11.2, hematocrit 33.5, white blood cells 9.7, platelets 122. INR is 6.44. We will hold Coumadin. Sodium 138, potassium 6.1 , BUN 71, creatinine 8.8, AST 443, ALT noted ASSESSMENT AND PLAN: The patient is a 71-year-old male with renal insufficiency on hemodialysis, unstable blood pressure. During dialysis, blood pressure is dropping. Chronic obstructive lung disease, cardiomyopathy, atrial flutter and rapid ventricular response, has obstructive sleep apnea syndrome, noncompliant with CPAP/BiPAP, bronchiectasis, coronary artery disease with cardiac stenting. Length of time discussion done with Dr. Han Patel, area safety manager. Dr. Frost requested BiPAP and then later on, code sepsis/blue code was called. The patient was transferred to the intensive care unit, but I saw patient early in the morning on the telemetry. Fluid resuscitation given, antibiotic coverage was broadened. Amiodarone was started, not helpful so far. could not take much p.o. We will continue to encourage BiPAP while sleeping. Maybe patient needs high flow nasal cannula. Continue steroids, inhaled bronchodilators, gastric prophylaxis. We will hold Coumadin, repeat INR and plan was patient needed cardiac procedure , but due to patient's condition, transfer was hold Monday by me and today by Dr. Rubio Nicole. Will continue following up on the patient. Gastrointestinal and deep venous thrombosis prophylaxis. We will follow up. Maria Antonia Wilkins MD cc: [id number] TT: 03/14/2017 08:07:28 Confirmation # [id number] Dictation # [id number] MTDD
[2017-03-14] MEDS: Arformoterol 15 mcg/2 ml Inh Sol IH SCH ×2 (08:11→20:11)
[2017-03-14 09:08] LABS: ABG MECHANICAL RATE 15; ARTERIAL BLOOD GAS HCO3 22.1 mmol/L (21-28); ARTERIAL BLOOD GAS PH 7.49 (7.35-7.45); ATERIAL BLOOD GAS PEEP 5
[2017-03-14] MEDS ORDERED: Phytonadione 10 mg/ml Inj (Adult) SC STA (10:14)
[2017-03-14] MEDS: MethylPREDNISolone 40 mg Vial IVP SCH ×2 (10:33→21:29)
[2017-03-14] MEDS: Meropenem 1g/NS 100mL IVPB 100 ML IVPB SCH ×2 (10:34→21:29)
[2017-03-14 10:49] LABS: VENOUS BLOOD GAS BASE EXCESS 1.8 mmol/L (0.0-2.0); VENOUS BLOOD PH 7.45 (7.32-7.43)
--- NOTE | 2017-03-14 11:23 | CARD ---
APPROVED REPORT EKG Measurement Heart [id number] <Conclusion> Suspect arm lead reversal, interpretation assumes no reversal Sinus tachycardia Possible Right ventricular hypertrophy ST & T wave abnormality, consider inferolateral ischemia Abnormal ECG
--- NOTE | 2017-03-14 13:35 | PN ---
DATE: 03/14/2017 The patient is on a ventilator. PHYSICAL EXAMINATION: VITAL SIGNS: Blood pressure is 136/87, the heart rate is 100, normal sinus rhythm. NECK: Negative JVD. LUNGS: Decreased breath sounds bilaterally. HEART: Reveals S1, S2. EXTREMITIES: Without edema. Hemoglobin is 10.4, white count is up to 14,000. Chemistries: The troponin is up to 2.84 with a BUN and creatinine that are 59/7.0. IMPRESSION: 1. Sepsis. 2. Respiratory failure. 3. End-stage renal disease. 4. History of coronary artery bypass surgery. 5. Non-ST elevation myocardial infarction. 6. Transient atrial flutter, which is now back to normal sinus rhythm. Given these findings, we will continue the patient on amiodarone once he is able to take p.o. We jose l cancel the patient's transfer to [facility] for ablation given the patient is now in no rmal sinus rhythm with hemodynamic and respiratory instability. Rubio Nicole MD cc: [id number] TT: 03/14/2017 13:34:58 Confirmation # [id number] Dictation # [id number]
--- NOTE | 2017-03-14 14:14 | CP.CCUPN ---
<Matt Sácnhez - Last Filed: 03/14/17 15:37> CCU Subjective - Physician Review Subjective (Free Text): 03/14/17 14:05 Patient seen and examined at bedside in ICU. Today is hospital day 7. Patient was transferred to the ICU yesterday afternoon given lactic acidosis and persistent hypotension requiring pressor support with dialysis. Overnight, patient's heart rate abruptly decreased from 90's-100's to 40's, and his hypotension worsened to 50's-60's SBP, with associated respiratory distress, so decision was made to intubate patient. Central line access for pressor support was not obtained due to persistently high INR, with concerns for significant bleeding with line placement. He was instead started on peripheral dopamine at 1.5 mcg/kg/min to support blood pressure and heart rate. Today, patient remains intubated, not on sedation, but minimally responsive to verbal/physical stimuli, and not oriented to staff/not following any commands. CCU Objective - Vital Signs / Intake & Output Vital Signs (Last 4 hours): Vital Signs Temp Pulse BP Pulse Ox 03/14/17 12:45 112 H 136/87 100 03/14/17 12:39 116 H 127/86 100 03/14/17 12:30 113 H 134/87 100 03/14/17 12:15 126 H 119/86 100 03/14/17 12:14 127 H 03/14/17 12:13 131 H 03/14/17 12:11 115 H 03/14/17 12:10 114 H 03/14/17 12:09 114 H 03/14/17 12:08 112 H 03/14/17 12:00 111 H 137/85 95 03/14/17 11:58 97.7 F 03/14/17 11:51 114 H 03/14/17 11:45 111 H 132/86 96 03/14/17 11:34 114 H 134/88 77 L 03/14/17 11:30 111 H 135/89 93 L 03/14/17 11:25 111 H 130/87 62 L 03/14/17 11:15 110 H 111/75 78 L 03/14/17 11:00 104 H 100/70 95 03/14/17 10:52 104 H 95/64 L 93 L 03/14/17 10:45 104 H 98/43 L 93 L 03/14/17 10:32 104 H 94/65 L 99 03/14/17 10:30 103 H 88/58 L 99 03/14/17 10:24 105 H 92/65 L 96 03/14/17 10:15 103 H 91/58 L 100 Intake and Output (Last 8hrs): Intake & Output 03/13/17 03/14/17 03/14/17 22:59 06:59 14:59 Intake Total 1750 370 Output Total 0 Balance 1750 370 Intake: IV 1250 270 Left Antecubital 1250 20 Nsaline bolus 250 Other 500 100 Output: Urine 0 Urine, Voided 0 Other: # Bowel Movements 0 - Physical Exam Physical Exam Limitations: Positive for: Other (intubated and sedated) Head: Positive for: Atraumatic, Normocephalic. Negative for: Tenderness, Contusion, Ecchymosis, Abrasion, Laceration Pupils: Positive for: PERRL. Negative for: Sluggish, Non-Reactive Extroacular Muscles: Positive for: Other (some sporadic eyelid opening and random eye movements, but no orientation to staff in room, not focusing on verbal or noxious physical stimuli). Negative for: EOMI Conjunctiva: Negative for: Injected, Icteric Mouth: Positive for: Moist Mucous Membranes, Other (ET tube in place) Nose (External): Positive for: Atraumatic. Negative for: Abrasion, Contusion, Laceration Neck: Positive for: Trachea Midline. Negative for: JVD Respiratory/Chest: Positive for: Rales (diffuse moderate rales, most prominent at bases bilaterally). Negative for: Clear to Auscultation, Good Air Exchange, Respiratory Distress, Wheezes Cardiovascular: Positive for: Regular Rate and Rhythm, Normal S1, S2. Negative for: Murmurs (difficult to auscultate due to diffuse lung silva), Irregular Rhythm, Tachycardic, Bradycardic Abdomen: Positive for: Normal Bowel Sounds, Other (Soft, some firmness but not rigid). Negative for: Tenderness, Distention Upper Extremity: Positive for: Normal Inspection, Other (+1 radial pulses bilaterally, Right arm AV fistula will palpable bruit, old left arm fistula, infiltrated left arm upper IV). Negative for: Cyanosis, Edema, Swelling, Erythema, Deformity Lower Extremity: Positive for: Other (+1-2 pitting edema in bilateral LE from feet up to bottom 1/3 of shins). Negative for: NORMAL PULSES (unable to palpate pedal pulses), Deformity Neurological: Positive for: Other (some spontaneous eye and eyelid movements, intermittent faint hand movement, not directed, not following commands). Negative for: GCS=15 (E4V(T)M4) Skin: Positive for: Warm, Dry, Normal Color, Other (IV and fistula sites as noted in upper extremity exam). Negative for: Rashes Psychiatric: Positive for: Other (intubated and sedated). Negative for: Alert, Oriented x 3, Normal Insight, Normal Concentration, Normal Affect, Normal Mood - Medications Active Medications: Active Medications Generic Name Dose Route Start Last Admin Trade Name Freq PRN Reason Stop Dose Admin Acetylcysteine 4 ml 03/10/17 08:00 03/13/17 19:41 Acetylcysteine 20% IH 4 ml BIDRESP RC Administration Amiodarone HCl 200 mg 03/11/17 22:00 03/13/17 10:36 Cordarone PO Not Given Q12 CR Arformoterol Tartrate 15 mcg 03/08/17 23:00 03/14/17 08:11 Brovana IH 15 mcg Q12H RC Administration Atorvastatin Calcium 10 mg 03/09/17 10:00 03/13/17 10:37 Lipitor PO Not Given DAILY RC Benzonatate 200 mg 03/09/17 10:00 03/13/17 17:35 Tessalon Perles PO Not Given TID RC Budesonide 1 mg 03/09/17 08:00 03/09/17 08:29 Pulmicort Respules IH Not Given [id number] RC Calcium Acetate 1,334 mg 03/09/17 18:56 03/13/17 17:36 Phoslo PO Not Given WM RC Clopidogrel Bisulfate 75 mg 03/09/17 10:00 03/13/17 13:20 Plavix PO Not Given DAILY RC Docusate Sodium 100 mg 03/08/17 23:00 03/13/17 17:36 Colace PO Not Given BID RC Doxycycline Hyclate 100 mg 03/10/17 22:00 03/13/17 10:37 Doryx PO Not Given Q12 RC Protocol Guaifenesin 100 mg 03/08/17 23:05 Robitussin PO Q6H PRN Cough Meropenem 1g/NS 100mL IVPB 100 mls @ 100 mls/hr 03/13/17 17:45 03/14/17 10:34 Meropenem 1g/Ns 100ml Ivpb IVPB 03/20/17 17:46 100 mls/hr Q12 RC Administration Protocol Methylprednisolone 20 mg 03/10/17 22:00 03/14/17 10:33 Solu-Medrol IVP 20 mg Q12 RC Administration Metoprolol Tartrate 12.5 mg 03/11/17 17:00 03/13/17 17:36 Lopressor PO Not Given BRKDIN RC Ondansetron HCl 4 mg 03/10/17 09:37 Zofran Inj IVP Q6H PRN Nausea/Vomiting Pantoprazole Sodium 40 mg 03/09/17 07:30 03/13/17 13:21 Protonix Ec Tab PO Not Given ACB RC Pantoprazole Sodium 40 mg 03/14/17 10:00 03/14/17 10:33 Protonix Inj IVP 40 mg DAILY RC Administration Warfarin Sodium 3 mg 03/10/17 18:00 03/13/17 17:36 Coumadin PO Not Given 1800 [facility] Protocol - Patient Studies Lab Studies: Microbiology Studies 03/10/17 10:15 Blood Culture - Preliminary Blood NO GROWTH AFTER 4 DAYS 03/10/17 10:45 Blood Culture - Preliminary Blood NO GROWTH AFTER 4 DAYS Lab Studies 03/14/17 03/14/17 03/14/17 Range/Units 10:40 09:00 06:00 WBC (4.5-11.0) 10^3/ul RBC (3.5-6.1) 10^6/uL Hgb (14.0-18.0) gm/dL Hct (42.0-52.0) % MCV (80.0-105.0) fL MCH (25.0-35.0) pg MCHC (31.0-37.0) g/dl RDW (11.5-14.5) % Plt Count (120.0-450.0) 10^3/uL MPV (7.0-11.0) fl Gran % (50.0-68.0) % Lymph % (Auto) (22.0-35.0) % [place] % (Auto) (1.0-6.0) % Eos % (Auto) (1.5-5.0) % Baso % (Auto) (0.0-3.0) % Gran # (1.4-6.5) Lymph # (1.2-3.4) [place] # (0.1-0.6) Eos # (0.0-0.7) Baso # (0.0-2.0) K/mm3 Neutrophils % (Manual) (50.0-70.0) % Lymphocytes % (Manual) (22.0-35.0) % Monocytes % (Manual) (1.0-6.0) % Eosinophils % (Manual) (0.0-3.0) % Giant Platelets PT 58.3 H* (9.9-11.8) Seconds INR 5.40 H* (0.93-1.08) APTT 43.7 H (23.7-30.8) Seconds pCO2 29 L (35-45) mm/Hg pO2 188 H 222.0 H (80-100) mm/Hg HCO3 22.1 (21-28) mmol/L ABG pH 7.49 H (7.35-7.45) ABG Total CO2 23.0 (22-28) mmol.L ABG O2 Saturation 99.9 H (95-98) % ABG O2 Content (15-23) ML/dl ABG Base Excess -0.2 (-2.0-3.0) mmol/L ABG Hemoglobin (11.7-17.4) g/dL ABG Carboxyhemoglobin (0.5-1.5) % POC ABG HHb (Measured) (0-5) % ABG Methemoglobin (0.0-3.0) % ABG O2 Capacity (16-24) mL/dl ABG Potassium 4.5 (3.6-5.2) mmol/L VBG pH 7.45 H (7.32-7.43) VBG pCO2 37.0 L (40-60) VBG HCO3 25.7 (21-28) mmol/l VBG Total CO2 26.8 (22-28) mmol.L VBG O2 Sat (Calc) 99.9 H (40-65) % VBG Base Excess 1.8 (0.0-2.0) mmol/L VBG Potassium 5.2 (3.6-5.2) mmol/L Hgb O2 Saturation (95.0-98.0) % Sodium 136.0 139.0 (132-148) mmol/L Chloride 103.0 109.0 H (98-107) mmol/L Glucose 119 H 109 (75-110) mg/dl Lactate 1.9 1.7 (0.7-2.1) mmol/L Mechanical Rate 15 FiO2 21.0 70.0 % Tidal Volume 400 PEEP 5 Potassium (3.6-5.0) mmol/L Carbon Dioxide (21-33) mmol/L Anion Gap (10-20) BUN (7-21) mg/dL Creatinine (0.5-1.4) mg/dL Est GFR ( Amer) Est GFR (Non-Af Amer) POC Glucose (mg/dL) (65-110) mg/dL Random Glucose (70-110) mg/dL Calcium (8.4-10.5) mg/dL Phosphorus (2.5-4.5) mg/dL Magnesium (1.7-2.2) mg/dL Total Bilirubin (0.2-1.3) mg/dL AST (15-59) U/L ALT (7-56) U/L Alkaline Phosphatase (38-133) U/L Lactate Dehydrogenase (333-699) U/L Total Creatine Kinase (35-230) U/L CK-MB (CK-2) (0.0-3.6) ng/mL CK-MB (CK-2) % (2.5-3.0) % Troponin I ng/mL Total Protein (5.8-8.3) g/dL Albumin (3.0-4.8) g/dL Globulin gm/dL Albumin/Globulin Ratio (1.1-1.8) Arterial Blood Potassium 4.5 (3.6-5.2) mmol/L Venous Blood Potassium 5.2 (3.6-5.2) mmol/L 03/14/17 03/14/17 03/14/17 Range/Units 06:00 06:00 02:15 WBC 14.0 H D (4.5-11.0) 10^3/ul RBC 3.65 (3.5-6.1) 10^6/uL Hgb 10.7 L (14.0-18.0) gm/dL Hct 32.9 L (42.0-52.0) % MCV 90.1 (80.0-105.0) fL MCH 29.3 (25.0-35.0) pg MCHC 32.5 (31.0-37.0) g/dl RDW 19.3 H (11.5-14.5) % Plt Count 103 L (120.0-450.0) 10^3/uL MPV 9.5 (7.0-11.0) fl Gran % 66.7 (50.0-68.0) % Lymph % (Auto) 17.4 L (22.0-35.0) % [place] % (Auto) 15.8 H (1.0-6.0) % Eos % (Auto) 0.0 L (1.5-5.0) % Baso % (Auto) 0.1 (0.0-3.0) % Gran # 9.34 H (1.4-6.5) Lymph # 2.4 (1.2-3.4) [place] # 2.2 H (0.1-0.6) Eos # 0.0 (0.0-0.7) Baso # 0.01 (0.0-2.0) K/mm3 Neutrophils % (Manual) (50.0-70.0) % Lymphocytes % (Manual) (22.0-35.0) % Monocytes % (Manual) (1.0-6.0) % Eosinophils % (Manual) (0.0-3.0) % Giant Platelets PT (9.9-11.8) Seconds INR (0.93-1.08) APTT (23.7-30.8) Seconds pCO2 31 L (35-45) mm/Hg pO2 172.0 H (80-100) mm/Hg HCO3 15.3 L (21-28) mmol/L ABG pH 7.30 L (7.35-7.45) ABG Total CO2 16.3 L (22-28) mmol.L ABG O2 Saturation 99.9 H (95-98) % ABG O2 Content 14.1 L (15-23) ML/dl ABG Base Excess -10.1 L (-2.0-3.0) mmol/L ABG Hemoglobin 10.1 L (11.7-17.4) g/dL ABG Carboxyhemoglobin 2.3 H (0.5-1.5) % POC ABG HHb (Measured) 0.1 (0-5) % ABG Methemoglobin 1.1 (0.0-3.0) % ABG O2 Capacity 14.1 L (16-24) mL/dl ABG Potassium 4.7 (3.6-5.2) mmol/L VBG pH (7.32-7.43) VBG pCO2 (40-60) VBG HCO3 (21-28) mmol/l VBG Total CO2 (22-28) mmol.L VBG O2 Sat (Calc) (40-65) % VBG Base Excess (0.0-2.0) mmol/L VBG Potassium (3.6-5.2) mmol/L Hgb O2 Saturation 96.5 (95.0-98.0) % Sodium 139 138.0 (132-148) mmol/L Chloride 95 L 107.0 (98-107) mmol/L Glucose 81 (75-110) mg/dl Lactate 8.9 H* (0.7-2.1) mmol/L Mechanical Rate 15 FiO2 100.0 % Tidal Volume 400 PEEP 5 Potassium 4.7 (3.6-5.0) mmol/L Carbon Dioxide 24 (21-33) mmol/L Anion Gap 25 H (10-20) BUN 59 H (7-21) mg/dL Creatinine 7.0 H (0.5-1.4) mg/dL Est GFR ( Amer) 9 Est GFR (Non-Af Amer) 8 POC Glucose (mg/dL) (65-110) mg/dL Random Glucose 116 H (70-110) mg/dL Calcium 8.3 L (8.4-10.5) mg/dL Phosphorus 6.3 H (2.5-4.5) mg/dL Magnesium 2.1 (1.7-2.2) mg/dL Total Bilirubin 2.5 H (0.2-1.3) mg/dL AST 366 H (15-59) U/L ALT 733 H (7-56) U/L Alkaline Phosphatase 96 (38-133) U/L Lactate Dehydrogenase 1430 H (333-699) U/L Total Creatine Kinase 289 H (35-230) U/L CK-MB (CK-2) 11.5 H (0.0-3.6) ng/mL CK-MB (CK-2) % 4.0 H (2.5-3.0) % Troponin I 2.84 H* D ng/mL Total Protein 7.7 (5.8-8.3) g/dL Albumin 3.6 (3.0-4.8) g/dL Globulin 4.1 gm/dL Albumin/Globulin Ratio 0.9 L (1.1-1.8) Arterial Blood Potassium 4.7 (3.6-5.2) mmol/L Venous Blood Potassium (3.6-5.2) mmol/L 03/13/17 03/13/17 03/13/17 Range/Units 17:45 17:29 16:05 WBC 9.1 (4.5-11.0) 10^3/ul RBC 3.68 (3.5-6.1) 10^6/uL Hgb 11.0 L (14.0-18.0) gm/dL Hct 33.1 L (42.0-52.0) % MCV 89.9 (80.0-105.0) fL MCH 29.9 (25.0-35.0) pg MCHC 33.2 (31.0-37.0) g/dl RDW 19.0 H (11.5-14.5) % Plt Count 108 L (120.0-450.0) 10^3/uL MPV 10.6 (7.0-11.0) fl Gran % (50.0-68.0) % Lymph % (Auto) (22.0-35.0) % [place] % (Auto) (1.0-6.0) % Eos % (Auto) (1.5-5.0) % Baso % (Auto) (0.0-3.0) % Gran # (1.4-6.5) Lymph # (1.2-3.4) [place] # (0.1-0.6) Eos # (0.0-0.7) Baso # (0.0-2.0) K/mm3 Neutrophils % (Manual) 76 H (50.0-70.0) % Lymphocytes % (Manual) 13 L (22.0-35.0) % Monocytes % (Manual) 10 H (1.0-6.0) % Eosinophils % (Manual) 1 (0.0-3.0) % Giant Platelets Present PT 69.6 H* (9.9-11.8) Seconds INR 6.44 H* (0.93-1.08) APTT (23.7-30.8) Seconds pCO2 (35-45) mm/Hg pO2 109 H (80-100) mm/Hg HCO3 (21-28) mmol/L ABG pH (7.35-7.45) ABG Total CO2 (22-28) mmol.L ABG O2 Saturation (95-98) % ABG O2 Content (15-23) ML/dl ABG Base Excess (-2.0-3.0) mmol/L ABG Hemoglobin (11.7-17.4) g/dL ABG Carboxyhemoglobin (0.5-1.5) % POC ABG HHb (Measured) (0-5) % ABG Methemoglobin (0.0-3.0) % ABG O2 Capacity (16-24) mL/dl ABG Potassium (3.6-5.2) mmol/L VBG pH 7.40 (7.32-7.43) VBG pCO2 32.0 L (40-60) VBG HCO3 19.8 L (21-28) mmol/l VBG Total CO2 20.8 L (22-28) mmol.L VBG O2 Sat (Calc) 99.1 H (40-65) % VBG Base Excess -4.0 L (0.0-2.0) mmol/L VBG Potassium 6.3 H* (3.6-5.2) mmol/L Hgb O2 Saturation (95.0-98.0) % Sodium 133.0 (132-148) mmol/L Chloride 104.0 (98-107) mmol/L Glucose 101 (75-110) mg/dl Lactate 2.8 H (0.7-2.1) mmol/L Mechanical Rate FiO2 21.0 % Tidal Volume PEEP Potassium (3.6-5.0) mmol/L Carbon Dioxide (21-33) mmol/L Anion Gap (10-20) BUN (7-21) mg/dL Creatinine (0.5-1.4) mg/dL Est GFR ( Amer) Est GFR (Non-Af Amer) POC Glucose (mg/dL) (65-110) mg/dL Random Glucose (70-110) mg/dL Calcium (8.4-10.5) mg/dL Phosphorus (2.5-4.5) mg/dL Magnesium (1.7-2.2) mg/dL Total Bilirubin (0.2-1.3) mg/dL AST (15-59) U/L ALT (7-56) U/L Alkaline Phosphatase (38-133) U/L Lactate Dehydrogenase (333-699) U/L Total Creatine Kinase (35-230) U/L CK-MB (CK-2) (0.0-3.6) ng/mL CK-MB (CK-2) % (2.5-3.0) % Troponin I ng/mL Total Protein (5.8-8.3) g/dL Albumin (3.0-4.8) g/dL Globulin gm/dL Albumin/Globulin Ratio (1.1-1.8) Arterial Blood Potassium (3.6-5.2) mmol/L Venous Blood Potassium 6.3 H* (3.6-5.2) mmol/L 03/13/17 03/13/17 03/13/17 Range/Units 16:05 14:30 14:25 WBC (4.5-11.0) 10^3/ul RBC (3.5-6.1) 10^6/uL Hgb (14.0-18.0) gm/dL Hct (42.0-52.0) % MCV (80.0-105.0) fL MCH (25.0-35.0) pg MCHC (31.0-37.0) g/dl RDW (11.5-14.5) % Plt Count (120.0-450.0) 10^3/uL MPV (7.0-11.0) fl Gran % (50.0-68.0) % Lymph % (Auto) (22.0-35.0) % [place] % (Auto) (1.0-6.0) % Eos % (Auto) (1.5-5.0) % Baso % (Auto) (0.0-3.0) % Gran # (1.4-6.5) Lymph # (1.2-3.4) [place] # (0.1-0.6) Eos # (0.0-0.7) Baso # (0.0-2.0) K/mm3 Neutrophils % (Manual) (50.0-70.0) % Lymphocytes % (Manual) (22.0-35.0) % Monocytes % (Manual) (1.0-6.0) % Eosinophils % (Manual) (0.0-3.0) % Giant Platelets PT (9.9-11.8) Seconds INR (0.93-1.08) APTT (23.7-30.8) Seconds pCO2 33 L (35-45) mm/Hg pO2 51.0 L (80-100) mm/Hg HCO3 18.6 L (21-28) mmol/L ABG pH 7.36 (7.35-7.45) ABG Total CO2 19.6 L (22-28) mmol.L ABG O2 Saturation 84.1 L (95-98) % ABG O2 Content (15-23) ML/dl ABG Base Excess -5.9 L (-2.0-3.0) mmol/L ABG Hemoglobin (11.7-17.4) g/dL ABG Carboxyhemoglobin (0.5-1.5) % POC ABG HHb (Measured) (0-5) % ABG Methemoglobin (0.0-3.0) % ABG O2 Capacity (16-24) mL/dl ABG Potassium 6.2 H* (3.6-5.2) mmol/L VBG pH (7.32-7.43) VBG pCO2 (40-60) VBG HCO3 (21-28) mmol/l VBG Total CO2 (22-28) mmol.L VBG O2 Sat (Calc) (40-65) % VBG Base Excess (0.0-2.0) mmol/L VBG Potassium (3.6-5.2) mmol/L Hgb O2 Saturation (95.0-98.0) % Sodium 136 135.0 (132-148) mmol/L Chloride 96 L 100.0 (98-107) mmol/L Glucose 127 H (75-110) mg/dl Lactate 5.9 H* (0.7-2.1) mmol/L Mechanical Rate FiO2 32.0 % Tidal Volume PEEP Potassium 6.3 H* (3.6-5.0) mmol/L Carbon Dioxide 21 (21-33) mmol/L Anion Gap 25 H (10-20) BUN 82 H (7-21) mg/dL Creatinine 9.5 H* (0.5-1.4) mg/dL Est GFR ( Amer) 7 Est GFR (Non-Af Amer) 5 POC Glucose (mg/dL) 129 H (65-110) mg/dL Random Glucose 101 (70-110) mg/dL Calcium 9.1 (8.4-10.5) mg/dL Phosphorus (2.5-4.5) mg/dL Magnesium (1.7-2.2) mg/dL Total Bilirubin 2.0 H (0.2-1.3) mg/dL AST 512 H (15-59) U/L ALT 781 H (7-56) U/L Alkaline Phosphatase 97 (38-133) U/L Lactate Dehydrogenase (333-699) U/L Total Creatine Kinase (35-230) U/L CK-MB (CK-2) (0.0-3.6) ng/mL CK-MB (CK-2) % (2.5-3.0) % Troponin I 1.95 H* D ng/mL Total Protein 8.0 (5.8-8.3) g/dL Albumin 3.7 (3.0-4.8) g/dL Globulin 4.3 gm/dL Albumin/Globulin Ratio 0.9 L (1.1-1.8) Arterial Blood Potassium 6.2 H* (3.6-5.2) mmol/L Venous Blood Potassium (3.6-5.2) mmol/L 03/09/17 Range/Units 21:30 WBC (4.5-11.0) 10^3/ul RBC (3.5-6.1) 10^6/uL Hgb (14.0-18.0) gm/dL Hct (42.0-52.0) % MCV (80.0-105.0) fL MCH (25.0-35.0) pg MCHC (31.0-37.0) g/dl RDW (11.5-14.5) % Plt Count (120.0-450.0) 10^3/uL MPV (7.0-11.0) fl Gran % (50.0-68.0) % Lymph % (Auto) (22.0-35.0) % [place] % (Auto) (1.0-6.0) % Eos % (Auto) (1.5-5.0) % Baso % (Auto) (0.0-3.0) % Gran # (1.4-6.5) Lymph # (1.2-3.4) [place] # (0.1-0.6) Eos # (0.0-0.7) Baso # (0.0-2.0) K/mm3 Neutrophils % (Manual) (50.0-70.0) % Lymphocytes % (Manual) (22.0-35.0) % Monocytes % (Manual) (1.0-6.0) % Eosinophils % (Manual) (0.0-3.0) % Giant Platelets PT (9.9-11.8) Seconds INR (0.93-1.08) APTT (23.7-30.8) Seconds pCO2 (35-45) mm/Hg pO2 (80-100) mm/Hg HCO3 (21-28) mmol/L ABG pH (7.35-7.45) ABG Total CO2 (22-28) mmol.L ABG O2 Saturation (95-98) % ABG O2 Content (15-23) ML/dl ABG Base Excess (-2.0-3.0) mmol/L ABG Hemoglobin (11.7-17.4) g/dL ABG Carboxyhemoglobin (0.5-1.5) % POC ABG HHb (Measured) (0-5) % ABG Methemoglobin (0.0-3.0) % ABG O2 Capacity (16-24) mL/dl ABG Potassium (3.6-5.2) mmol/L VBG pH (7.32-7.43) VBG pCO2 (40-60) VBG HCO3 (21-28) mmol/l VBG Total CO2 (22-28) mmol.L VBG O2 Sat (Calc) (40-65) % VBG Base Excess (0.0-2.0) mmol/L VBG Potassium (3.6-5.2) mmol/L Hgb O2 Saturation (95.0-98.0) % Sodium (132-148) mmol/L Chloride (98-107) mmol/L Glucose (75-110) mg/dl Lactate (0.7-2.1) mmol/L Mechanical Rate FiO2 % Tidal Volume PEEP Potassium (3.6-5.0) mmol/L Carbon Dioxide (21-33) mmol/L Anion Gap (10-20) BUN (7-21) mg/dL Creatinine (0.5-1.4) mg/dL Est GFR ( Amer) Est GFR (Non-Af Amer) POC Glucose (mg/dL) 100 (65-110) mg/dL Random Glucose (70-110) mg/dL Calcium (8.4-10.5) mg/dL Phosphorus (2.5-4.5) mg/dL Magnesium (1.7-2.2) mg/dL Total Bilirubin (0.2-1.3) mg/dL AST (15-59) U/L ALT (7-56) U/L Alkaline Phosphatase (38-133) U/L Lactate Dehydrogenase (333-699) U/L Total Creatine Kinase (35-230) U/L CK-MB (CK-2) (0.0-3.6) ng/mL CK-MB (CK-2) % (2.5-3.0) % Troponin I ng/mL Total Protein (5.8-8.3) g/dL Albumin (3.0-4.8) g/dL Globulin gm/dL Albumin/Globulin Ratio (1.1-1.8) Arterial Blood Potassium (3.6-5.2) mmol/L Venous Blood Potassium (3.6-5.2) mmol/L Laboratory Results - last 24 hr 03/09/17 03/13/17 03/13/17 21:30 14:25 14:30 WBC RBC Hgb Hct MCV MCH MCHC RDW Plt Count MPV Gran % Lymph % (Auto) [place] % (Auto) Eos % (Auto) Baso % (Auto) Gran # Lymph # [place] # Eos # Baso # Neutrophils % (Manual) Lymphocytes % (Manual) Monocytes % (Manual) Eosinophils % (Manual) Giant Platelets PT INR APTT pCO2 33 L pO2 51.0 L HCO3 18.6 L ABG pH 7.36 ABG Total CO2 19.6 L ABG O2 Saturation 84.1 L ABG O2 Content ABG Base Excess -5.9 L ABG Hemoglobin ABG Carboxyhemoglobin POC ABG HHb (Measured) ABG Methemoglobin ABG O2 Capacity ABG Potassium 6.2 H* VBG pH VBG pCO2 VBG HCO3 VBG Total CO2 VBG O2 Sat (Calc) VBG Base Excess VBG Potassium Hgb O2 Saturation Sodium 135.0 Chloride 100.0 Glucose 127 H Lactate 5.9 H* Mechanical Rate FiO2 32.0 Tidal Volume PEEP Potassium Carbon Dioxide Anion Gap BUN Creatinine Est GFR ( Amer) Est GFR (Non-Af Amer) POC Glucose (mg/dL) 100 129 H Random Glucose Calcium Phosphorus Magnesium Total Bilirubin AST ALT Alkaline Phosphatase Lactate Dehydrogenase Total Creatine Kinase CK-MB (CK-2) CK-MB (CK-2) % Troponin I Total Protein Albumin Globulin Albumin/Globulin Ratio Arterial Blood Potassium 6.2 H* Venous Blood Potassium 03/13/17 03/13/17 03/13/17 16:05 16:05 17:29 WBC 9.1 RBC 3.68 Hgb 11.0 L Hct 33.1 L MCV 89.9 MCH 29.9 MCHC 33.2 RDW 19.0 H Plt Count 108 L MPV 10.6 Gran % Lymph % (Auto) [place] % (Auto) Eos % (Auto) Baso % (Auto) Gran # Lymph # [place] # Eos # Baso # Neutrophils % (Manual) 76 H Lymphocytes % (Manual) 13 L Monocytes % (Manual) 10 H Eosinophils % (Manual) 1 Giant Platelets Present PT INR APTT pCO2 pO2 109 H HCO3 ABG pH ABG Total CO2 ABG O2 Saturation ABG O2 Content ABG Base Excess ABG Hemoglobin ABG Carboxyhemoglobin POC ABG HHb (Measured) ABG Methemoglobin ABG O2 Capacity ABG Potassium VBG pH 7.40 VBG pCO2 32.0 L VBG HCO3 19.8 L VBG Total CO2 20.8 L VBG O2 Sat (Calc) 99.1 H VBG Base Excess -4.0 L VBG Potassium 6.3 H* Hgb O2 Saturation Sodium 136 133.0 Chloride 96 L 104.0 Glucose 101 Lactate 2.8 H Mechanical Rate FiO2 21.0 Tidal Volume PEEP Potassium 6.3 H* Carbon Dioxide 21 Anion Gap 25 H BUN 82 H Creatinine 9.5 H* Est GFR ( Amer) 7 Est GFR (Non-Af Amer) 5 POC Glucose (mg/dL) Random Glucose 101 Calcium 9.1 Phosphorus Magnesium Total Bilirubin 2.0 H AST 512 H ALT 781 H Alkaline Phosphatase 97 Lactate Dehydrogenase Total Creatine Kinase CK-MB (CK-2) CK-MB (CK-2) % Troponin I 1.95 H* D Total Protein 8.0 Albumin 3.7 Globulin 4.3 Albumin/Globulin Ratio 0.9 L Arterial Blood Potassium Venous Blood Potassium 6.3 H* 03/13/17 03/14/17 03/14/17 17:45 02:15 06:00 WBC RBC Hgb Hct MCV MCH MCHC RDW Plt Count MPV Gran % Lymph % (Auto) [place] % (Auto) Eos % (Auto) Baso % (Auto) Gran # Lymph # [place] # Eos # Baso # Neutrophils % (Manual) Lymphocytes % (Manual) Monocytes % (Manual) Eosinophils % (Manual) Giant Platelets PT 69.6 H* INR 6.44 H* APTT pCO2 31 L pO2 172.0 H HCO3 15.3 L ABG pH 7.30 L ABG Total CO2 16.3 L ABG O2 Saturation 99.9 H ABG O2 Content 14.1 L ABG Base Excess -10.1 L ABG Hemoglobin 10.1 L ABG Carboxyhemoglobin 2.3 H POC ABG HHb (Measured) 0.1 ABG Methemoglobin 1.1 ABG O2 Capacity 14.1 L ABG Potassium 4.7 VBG pH VBG pCO2 VBG HCO3 VBG Total CO2 VBG O2 Sat (Calc) VBG Base Excess VBG Potassium Hgb O2 Saturation 96.5 Sodium 138.0 139 Chloride 107.0 95 L Glucose 81 Lactate 8.9 H* Mechanical Rate 15 FiO2 100.0 Tidal Volume 400 PEEP 5 Potassium 4.7 Carbon Dioxide 24 Anion Gap 25 H BUN 59 H Creatinine 7.0 H Est GFR ( Amer) 9 Est GFR (Non-Af Amer) 8 POC Glucose (mg/dL) Random Glucose 116 H Calcium 8.3 L Phosphorus 6.3 H Magnesium 2.1 Total Bilirubin 2.5 H AST 366 H ALT 733 H Alkaline Phosphatase 96 Lactate Dehydrogenase 1430 H Total Creatine Kinase 289 H CK-MB (CK-2) 11.5 H CK-MB (CK-2) % 4.0 H Troponin I 2.84 H* D Total Protein 7.7 Albumin 3.6 Globulin 4.1 Albumin/Globulin Ratio 0.9 L Arterial Blood Potassium 4.7 Venous Blood Potassium 03/14/17 03/14/17 03/14/17 06:00 06:00 09:00 WBC 14.0 H D RBC 3.65 Hgb 10.7 L Hct 32.9 L MCV 90.1 MCH 29.3 MCHC 32.5 RDW 19.3 H Plt Count 103 L MPV 9.5 Gran % 66.7 Lymph % (Auto) 17.4 L [place] % (Auto) 15.8 H Eos % (Auto) 0.0 L Baso % (Auto) 0.1 Gran # 9.34 H Lymph # 2.4 [place] # 2.2 H Eos # 0.0 Baso # 0.01 Neutrophils % (Manual) Lymphocytes % (Manual) Monocytes % (Manual) Eosinophils % (Manual) Giant Platelets PT 58.3 H* INR 5.40 H* APTT 43.7 H pCO2 29 L pO2 222.0 H HCO3 22.1 ABG pH 7.49 H ABG Total CO2 23.0 ABG O2 Saturation 99.9 H ABG O2 Content ABG Base Excess -0.2 ABG Hemoglobin ABG Carboxyhemoglobin POC ABG HHb (Measured) ABG Methemoglobin ABG O2 Capacity ABG Potassium 4.5 VBG pH VBG pCO2 VBG HCO3 VBG Total CO2 VBG O2 Sat (Calc) VBG Base Excess VBG Potassium Hgb O2 Saturation Sodium 139.0 Chloride 109.0 H Glucose 109 Lactate 1.7 Mechanical Rate 15 FiO2 70.0 Tidal Volume 400 PEEP 5 Potassium Carbon Dioxide Anion Gap BUN Creatinine Est GFR ( Amer) Est GFR (Non-Af Amer) POC Glucose (mg/dL) Random Glucose Calcium Phosphorus Magnesium Total Bilirubin AST ALT Alkaline Phosphatase Lactate Dehydrogenase Total Creatine Kinase CK-MB (CK-2) CK-MB (CK-2) % Troponin I Total Protein Albumin Globulin Albumin/Globulin Ratio Arterial Blood Potassium 4.5 Venous Blood Potassium 03/14/17 10:40 WBC RBC Hgb Hct MCV MCH MCHC RDW Plt Count MPV Gran % Lymph % (Auto) [place] % (Auto) Eos % (Auto) Baso % (Auto) Gran # Lymph # [place] # Eos # Baso # Neutrophils % (Manual) Lymphocytes % (Manual) Monocytes % (Manual) Eosinophils % (Manual) Giant Platelets PT INR APTT pCO2 pO2 188 H HCO3 ABG pH ABG Total CO2 ABG O2 Saturation ABG O2 Content ABG Base Excess ABG Hemoglobin ABG Carboxyhemoglobin POC ABG HHb (Measured) ABG Methemoglobin ABG O2 Capacity ABG Potassium VBG pH 7.45 H VBG pCO2 37.0 L VBG HCO3 25.7 VBG Total CO2 26.8 VBG O2 Sat (Calc) 99.9 H VBG Base Excess 1.8 VBG Potassium 5.2 Hgb O2 Saturation Sodium 136.0 Chloride 103.0 Glucose 119 H Lactate 1.9 Mechanical Rate FiO2 21.0 Tidal Volume PEEP Potassium Carbon Dioxide Anion Gap BUN Creatinine Est GFR ( Amer) Est GFR (Non-Af Amer) POC Glucose (mg/dL) Random Glucose Calcium Phosphorus Magnesium Total Bilirubin AST ALT Alkaline Phosphatase Lactate Dehydrogenase Total Creatine Kinase CK-MB (CK-2) CK-MB (CK-2) % Troponin I Total Protein Albumin Globulin Albumin/Globulin Ratio Arterial Blood Potassium Venous Blood Potassium 5.2 EKG/Cardiology Studies: Cardiology / EKG Studies 03/13/17 15:21 EKG [ELECTROCARDIOGRAM] Stat Comment: Reason For Exam: troponin change 03/14/17 14:00 ELECTROCARDIOGRAM DAILY Comment: Reason For Exam: f/u Fingerstick Blood Sugar Results: 116 Review of Systems - Review of Systems Systems not reviewed;Unavailable: Intubated Critical Care Progress Note - Nutrition Nutrition: Nutrition Category Date Time Status NPO Diet [DIET] Diets 03/13/17 Dinner Ordered Assessment/Plan - Assessment and Plan (Free Text) Assessment: This is a 71 yo M with PMH of COPD on 2L home O2, Pulmonary HTN, Afib on coumadin, CAD s/p CABG, and DEMETRIS who was admitted to the ICU with lactic acidosis and persistent hypotension requiring pressor support with dialysis, and developed respiratory insufficiency requiring intubation/mechanical ventilation and hemodynamic instability requiring pressor support. Plan: Neuro: -intubated, no sedation due hypotension, but minimally active/reactive and minimally responsive -some spontaneous eye/eyelid movements, intermittently clenching hands, otherwise no spontaneous movements witnessed -continue to monitor -maintain normothermia -Neuro (Dr. Ant Hampton) consulted, appreciate all recs Pulm: -Intubated, initially on 100% FiO2, decreased to 50% by RT after AM ABG with pCO2 29, pO2 222, HCO3 22.1, pH 7.49 -PRVC 50%/5/15/400 -Conservative O2 management, maintain SaO2 > 90 and paO2 > 60 -Protective lung ventilation strategies, VAP bundle, aspiration precautions, head of bed to 30 degrees -CXR obtained today notable for interstitial infiltrate without focal consolidation and ET tube in place -Pulm (Dr. Frost) and ID (Dr. Kidd) on board, appreciate all recs; Covering with Meropenem as per ID -Procal pending -Continue pulmocort, brovana, and solumedrol Cardio: -Bradycardic to 40's and hypotensive to SBP 50's-60's overnight -Currently on Dopamine 1.5mcg/kg/min peripherally for pressor support -Central line for pressor support ideal, but elevated INR (>5) presents high bleeding risk, 6 units FFP ordered to reverse INR, will recheck after and then attempt central line placement -INR 5.4, holding all AC, FFP x6 units (consent obtained from spouse on phone for blood and central line, in chart) -Pending dialysis, no UF and no fluid removal as per Nephro -Cardio (Dr. Nicole) and EP (Dr. Clark) on board, appreciate all recs; transfer to [facility] for ablation canceled given acute status and also patient now in sinus rhythm (previously 2:1 A-Flutter), continue to monitor GI: -NPO -Protonix for GI ppx Renal: -ESRD on [facility] HD -dialyzed today, no UF and no fluid removal as per Nephro -Nephro (Dr. Merritt) on board, appreciate all recs -s/p dialysis, will use access site for FFP administration -monitor and replete electrolytes as needed -maintain euglycemia (BG 140-180), careful maintence of fluids given persistent hypotension, ESRD on HD ID: -WBCs 14 (was 9.1) -afebrile -covering with Meropenem as per ID -Blood cultures x2 negative x4 days -ID (Dr. Kidd) on board, appreciate all recs Heme: -Hgb 10.7, (was 10.0) -holding AC, INR 5.4, FFP x6 units to reverse so can place central line for centrally-administered pressor support -No AC given supratherapeutic INR and need to place lines without significant bleeding risk -IR consulted for PICC access given chronic poor venous access, but INR will need to be reversed first before any consideration can be given MSK: -Ortho consulted (Dr. Fields) for right shoulder injury, appreciate all recs Dispo: ICU, pending HD, FFP, INR reversal, central line placement for centrally- administer pressor support FEN: NPO Access: Peripheral IV x1 (partially infiltrated, difficult stick), Right arm AV fistula for dialysis, pending Central Line placement after INR reversal Consults: IR, ID, Neuro, Ortho, Cardio, EP, Nephro, Pulm Ppx: Protonix for GI, Avoid AC given supratherapeutic INR and need to place central line Patient seen, reviewed, and discussed with attending, Dr. Soto. - Date & Time Date: 03/14/17 Time: 15:56 <Sam Soto - Last Filed: 03/15/17 15:57> CCU Objective - Vital Signs / Intake & Output Vital Signs (Last 4 hours): Vital Signs Temp Pulse BP Pulse Ox 03/15/17 15:42 98.1 F 03/15/17 15:00 89 105/64 99 03/15/17 14:00 86 106/69 99 03/15/17 13:00 88 93/61 L 99 03/15/17 12:33 83 101/65 98 03/15/17 12:30 83 94/58 L 03/15/17 12:29 84 100 03/15/17 12:18 84 95/60 L 98 03/15/17 12:15 85 90/58 L 100 03/15/17 12:00 97.1 F L 94/61 L 03/15/17 11:59 86 99 Intake and Output (Last 8hrs): Intake & Output 03/15/17 03/15/17 03/15/17 06:59 14:59 22:59 Intake Total 532 190 Output Total 0 Balance 532 190 Weight 134 lb Intake: IV 532 190 Left Subclavian 428 Output: Urine 0 Urine, Voided 0 Other: # Voids Urine, Voided 0 # Bowel Movements 1 - Medications Active Medications: Active Medications Generic Name Dose Route Start Last Admin Trade Name Freq PRN Reason Stop Dose Admin Acetylcysteine 4 ml 03/10/17 08:00 03/13/17 19:41 Acetylcysteine 20% IH 4 ml BIDRESP RC Administration Amiodarone HCl 200 mg 03/11/17 22:00 03/13/17 10:36 Cordarone PO Not Given Q12 RC Arformoterol Tartrate 15 mcg 03/08/17 23:00 03/15/17 07:19 Brovana IH 15 mcg Q12H RC Administration Atorvastatin Calcium 10 mg 03/09/17 10:00 03/13/17 10:37 Lipitor PO Not Given DAILY RC Benzonatate 200 mg 03/09/17 10:00 03/13/17 17:35 Tessalon Perles PO Not Given TID RC Budesonide 1 mg 03/09/17 08:00 03/09/17 08:29 Pulmicort Respules IH Not Given [id number] RC Calcium Acetate 1,334 mg 03/09/17 18:56 03/13/17 17:36 Phoslo PO Not Given WM RC Clopidogrel Bisulfate 75 mg 03/09/17 10:00 03/13/17 13:20 Plavix PO Not Given DAILY RC Docusate Sodium 100 mg 03/08/17 23:00 03/13/17 17:36 Colace PO Not Given BID RC Guaifenesin 100 mg 03/08/17 23:05 Robitussin PO Q6H PRN Cough Meropenem 1g/NS 100mL IVPB 100 mls @ 100 mls/hr 03/13/17 17:45 03/15/17 12:31 Meropenem 1g/Ns 100ml Ivpb IVPB 03/20/17 17:46 100 mls/hr Q12 RC Administration Protocol Norepinephrine Bitartrate 4 mg 254 mls @ 15.24 mls/hr 03/14/17 17:44 12:20 / Sodium Chloride IV 2.5 mcg/min .[id number] PRN 9.52 mls/hr TITRATE PER MD ORDER Administration Protocol 4 MCG/MIN Dobutamine HCl/Dextrose 500 mg in 250 mls @ 4.605 mls/hr 03/14/17 18:54 03/14 20:34 Dobutamine/Dextrose 5% 500mg/250ml IV 2.5 mcg/kg/min .Q24H PRN 4.605 mls/hr TITRATE PER PROTOCOL Administration Protocol 2.5 MCG/KG/MIN Propofol 1,000 mg in 100 mls @ 1.842 mls/hr 03/14/17 22:13 03/15/17 09:30 Diprivan IV 12 mcg/kg/min .Q24H PRN 4.421 mls/hr TITRATE PER MD ORDER Titration Protocol 5 MCG/KG/MIN Methylprednisolone 20 mg 03/10/17 22:00 03/15/17 12:31 Solu-Medrol IVP 20 mg Q12 RC Administration Metoprolol Tartrate 12.5 mg 03/11/17 17:00 03/13/17 17:36 Lopressor PO Not Given [facility] Ondansetron HCl 4 mg 03/10/17 09:37 Zofran Inj IVP Q6H PRN Nausea/Vomiting Pantoprazole Sodium 40 mg 03/09/17 07:30 03/13/17 13:21 Protonix Ec Tab PO Not Given ACB RC Pantoprazole Sodium 40 mg 03/14/17 10:00 03/15/17 12:31 Protonix Inj IVP 40 mg DAILY RC Administration Warfarin Sodium 3 mg 03/10/17 18:00 03/13/17 17:36 Coumadin PO Not Given 1800 [facility] Protocol - Patient Studies Lab Studies: Microbiology Studies 03/10/17 10:15 Blood Culture - Final Blood NO GROWTH AFTER 5 DAYS Gram Stain - Final 03/10/17 10:45 Blood Culture - Final Blood NO GROWTH AFTER 5 DAYS Gram Stain - Final TEST NOT PERFORMED 03/14/17 15:35 Gram Stain - Final Sputum Induced Sputum Culture - Preliminary No growth. 03/13/17 16:20 Blood Culture - Preliminary Blood NO GROWTH AFTER 24 HOURS 03/13/17 16:10 Blood Culture - Preliminary Blood NO GROWTH AFTER 24 HOURS Lab Studies 03/15/17 03/15/17 03/15/17 Range/Units 09:43 09:43 05:30 WBC 7.9 (4.5-11.0) 10^3/ul RBC 3.20 L (3.5-6.1) 10^6/uL Hgb 9.6 L (14.0-18.0) gm/dL Hct 29.0 L (42.0-52.0) % MCV 90.6 (80.0-105.0) fL MCH 30.0 (25.0-35.0) pg MCHC 33.1 (31.0-37.0) g/dl RDW 19.8 H (11.5-14.5) % Plt Count 84 L (120.0-450.0) 10^3/uL Gran % 77.4 H (50.0-68.0) % Lymph % (Auto) 14.8 L (22.0-35.0) % [place] % (Auto) 7.7 H (1.0-6.0) % Eos % (Auto) 0.0 L (1.5-5.0) % Baso % (Auto) 0.1 (0.0-3.0) % Gran # 6.14 (1.4-6.5) Lymph # 1.2 (1.2-3.4) [place] # 0.6 (0.1-0.6) Eos # 0.0 (0.0-0.7) Baso # 0.01 (0.0-2.0) K/mm3 PT (9.9-11.8) Seconds INR (0.93-1.08) APTT (23.7-30.8) Seconds pCO2 (35-45) mm/Hg pO2 (80-100) mm/Hg HCO3 (21-28) mmol/L ABG pH (7.35-7.45) ABG Total CO2 (22-28) mmol.L ABG O2 Saturation (95-98) % ABG O2 Content (15-23) ML/dl ABG Base Excess (-2.0-3.0) mmol/L ABG Hemoglobin (11.7-17.4) g/dL ABG Carboxyhemoglobin (0.5-1.5) % POC ABG HHb (Measured) (0-5) % ABG Methemoglobin (0.0-3.0) % ABG O2 Capacity (16-24) mL/dl Hgb O2 Saturation (95.0-98.0) % FiO2 % Sodium 139 139 (132-148) mmol/L Potassium 4.7 4.8 (3.6-5.0) mmol/L Chloride 97 L 96 L (98-107) mmol/L Carbon Dioxide 26 26 (21-33) mmol/L Anion Gap 21 H 22 H (10-20) BUN 60 H 56 H (7-21) mg/dL Creatinine 5.7 H 5.4 H (0.5-1.4) mg/dL Est GFR ( Amer) 12 13 Est GFR (Non-Af Amer) 10 11 Random Glucose 98 92 (70-110) mg/dL Calcium 8.6 8.8 (8.4-10.5) mg/dL Phosphorus 7.3 H 7.0 H (2.5-4.5) mg/dL Magnesium 2.2 2.2 (1.7-2.2) mg/dL Total Bilirubin 2.3 H 2.3 H (0.2-1.3) mg/dL AST 150 H 165 H (15-59) U/L ALT 488 H 512 H (7-56) U/L Alkaline Phosphatase 88 90 (38-133) U/L Lactate Dehydrogenase (333-699) U/L Total Creatine Kinase (35-230) U/L CK-MB (CK-2) (0.0-3.6) ng/mL CK-MB (CK-2) % (2.5-3.0) % Troponin I ng/mL NT-Pro-B Natriuret Pep 89450 H (0-450) pg/mL Total Protein 7.5 7.7 (5.8-8.3) g/dL Albumin 3.6 3.8 (3.0-4.8) g/dL Globulin 3.9 3.9 gm/dL Albumin/Globulin Ratio 0.9 L 1.0 L (1.1-1.8) Procalcitonin (0.19-0.49) NG/ML 03/15/17 03/15/17 03/15/17 Range/Units 05:30 05:30 05:00 WBC 9.3 (4.5-11.0) 10^3/ul RBC 3.29 L (3.5-6.1) 10^6/uL Hgb 10.0 L (14.0-18.0) gm/dL Hct 30.4 L (42.0-52.0) % MCV 92.4 (80.0-105.0) fL MCH 30.4 (25.0-35.0) pg MCHC 32.9 (31.0-37.0) g/dl RDW 20.0 H (11.5-14.5) % Plt Count 83 L (120.0-450.0) 10^3/uL Gran % 78.8 H (50.0-68.0) % Lymph % (Auto) 14.8 L (22.0-35.0) % [place] % (Auto) 6.3 H (1.0-6.0) % Eos % (Auto) 0.0 L (1.5-5.0) % Baso % (Auto) 0.1 (0.0-3.0) % Gran # 7.35 H (1.4-6.5) Lymph # 1.4 (1.2-3.4) [place] # 0.6 (0.1-0.6) Eos # 0.0 (0.0-0.7) Baso # 0.01 (0.0-2.0) K/mm3 PT 21.8 H (9.9-11.8) Seconds INR 2.02 H (0.93-1.08) APTT 35.0 H (23.7-30.8) Seconds pCO2 39 (35-45) mm/Hg pO2 115.0 H (80-100) mm/Hg HCO3 23.6 (21-28) mmol/L ABG pH 7.39 (7.35-7.45) ABG Total CO2 24.8 (22-28) mmol.L ABG O2 Saturation 99.2 H (95-98) % ABG O2 Content 13.7 L (15-23) ML/dl ABG Base Excess -1.2 (-2.0-3.0) mmol/L ABG Hemoglobin 10.0 L (11.7-17.4) g/dL ABG Carboxyhemoglobin 2.2 H (0.5-1.5) % POC ABG HHb (Measured) 0.8 (0-5) % ABG Methemoglobin 0.9 (0.0-3.0) % ABG O2 Capacity 13.8 L (16-24) mL/dl Hgb O2 Saturation 96.2 (95.0-98.0) % FiO2 50.0 % Sodium (132-148) mmol/L Potassium (3.6-5.0) mmol/L Chloride (98-107) mmol/L Carbon Dioxide (21-33) mmol/L Anion Gap (10-20) BUN (7-21) mg/dL Creatinine (0.5-1.4) mg/dL Est GFR ( Amer) Est GFR (Non-Af Amer) Random Glucose (70-110) mg/dL Calcium (8.4-10.5) mg/dL Phosphorus (2.5-4.5) mg/dL Magnesium (1.7-2.2) mg/dL Total Bilirubin (0.2-1.3) mg/dL AST (15-59) U/L ALT (7-56) U/L Alkaline Phosphatase (38-133) U/L Lactate Dehydrogenase (333-699) U/L Total Creatine Kinase (35-230) U/L CK-MB (CK-2) (0.0-3.6) ng/mL CK-MB (CK-2) % (2.5-3.0) % Troponin I ng/mL NT-Pro-B Natriuret Pep (0-450) pg/mL Total Protein (5.8-8.3) g/dL Albumin (3.0-4.8) g/dL Globulin gm/dL Albumin/Globulin Ratio (1.1-1.8) Procalcitonin (0.19-0.49) NG/ML 03/15/17 03/14/17 03/14/17 Range/Units 04:00 16:35 16:35 WBC (4.5-11.0) 10^3/ul RBC (3.5-6.1) 10^6/uL Hgb (14.0-18.0) gm/dL Hct (42.0-52.0) % MCV (80.0-105.0) fL MCH (25.0-35.0) pg MCHC (31.0-37.0) g/dl RDW (11.5-14.5) % Plt Count (120.0-450.0) 10^3/uL Gran % (50.0-68.0) % Lymph % (Auto) (22.0-35.0) % [place] % (Auto) (1.0-6.0) % Eos % (Auto) (1.5-5.0) % Baso % (Auto) (0.0-3.0) % Gran # (1.4-6.5) Lymph # (1.2-3.4) [place] # (0.1-0.6) Eos # (0.0-0.7) Baso # (0.0-2.0) K/mm3 PT 22.1 H (9.9-11.8) Seconds INR 2.05 H (0.93-1.08) APTT 34.3 H (23.7-30.8) Seconds pCO2 (35-45) mm/Hg pO2 (80-100) mm/Hg HCO3 (21-28) mmol/L ABG pH (7.35-7.45) ABG Total CO2 (22-28) mmol.L ABG O2 Saturation (95-98) % ABG O2 Content (15-23) ML/dl ABG Base Excess (-2.0-3.0) mmol/L ABG Hemoglobin (11.7-17.4) g/dL ABG Carboxyhemoglobin (0.5-1.5) % POC ABG HHb (Measured) (0-5) % ABG Methemoglobin (0.0-3.0) % ABG O2 Capacity (16-24) mL/dl Hgb O2 Saturation (95.0-98.0) % FiO2 % Sodium 139 (132-148) mmol/L Potassium 4.1 (3.6-5.0) mmol/L Chloride 95 L (98-107) mmol/L Carbon Dioxide 28 (21-33) mmol/L Anion Gap 20 (10-20) BUN 37 H (7-21) mg/dL Creatinine 3.9 H (0.5-1.4) mg/dL Est GFR ( Amer) 19 Est GFR (Non-Af Amer) 15 Random Glucose 98 (70-110) mg/dL Calcium 8.5 (8.4-10.5) mg/dL Phosphorus (2.5-4.5) mg/dL Magnesium (1.7-2.2) mg/dL Total Bilirubin 2.5 H (0.2-1.3) mg/dL AST 227 H (15-59) U/L ALT 563 H (7-56) U/L Alkaline Phosphatase 91 (38-133) U/L Lactate Dehydrogenase 1047 H (333-699) U/L Total Creatine Kinase 265 H (35-230) U/L CK-MB (CK-2) 6.3 H (0.0-3.6) ng/mL CK-MB (CK-2) % 2.4 L (2.5-3.0) % Troponin I 2.59 H* 3.04 H* ng/mL NT-Pro-B Natriuret Pep (0-450) pg/mL Total Protein 7.5 (5.8-8.3) g/dL Albumin 3.6 (3.0-4.8) g/dL Globulin 3.9 gm/dL Albumin/Globulin Ratio 0.9 L (1.1-1.8) Procalcitonin (0.19-0.49) NG/ML 03/14/17 03/14/17 Range/Units 16:35 10:35 WBC 8.5 D (4.5-11.0) 10^3/ul RBC 3.14 L (3.5-6.1) 10^6/uL Hgb 9.4 L (14.0-18.0) gm/dL Hct 28.1 L (42.0-52.0) % MCV 89.5 (80.0-105.0) fL MCH 29.9 (25.0-35.0) pg MCHC 33.5 (31.0-37.0) g/dl RDW 19.0 H (11.5-14.5) % Plt Count 75 L (120.0-450.0) 10^3/uL Gran % 82.2 H (50.0-68.0) % Lymph % (Auto) 4.5 L (22.0-35.0) % [place] % (Auto) 13.2 H (1.0-6.0) % Eos % (Auto) 0.0 L (1.5-5.0) % Baso % (Auto) 0.1 (0.0-3.0) % Gran # 6.96 H (1.4-6.5) Lymph # 0.4 L (1.2-3.4) [place] # 1.1 H (0.1-0.6) Eos # 0.0 (0.0-0.7) Baso # 0.01 (0.0-2.0) K/mm3 PT (9.9-11.8) Seconds INR (0.93-1.08) APTT (23.7-30.8) Seconds pCO2 (35-45) mm/Hg pO2 (80-100) mm/Hg HCO3 (21-28) mmol/L ABG pH (7.35-7.45) ABG Total CO2 (22-28) mmol.L ABG O2 Saturation (95-98) % ABG O2 Content (15-23) ML/dl ABG Base Excess (-2.0-3.0) mmol/L ABG Hemoglobin (11.7-17.4) g/dL ABG Carboxyhemoglobin (0.5-1.5) % POC ABG HHb (Measured) (0-5) % ABG Methemoglobin (0.0-3.0) % ABG O2 Capacity (16-24) mL/dl Hgb O2 Saturation (95.0-98.0) % FiO2 % Sodium (132-148) mmol/L Potassium (3.6-5.0) mmol/L Chloride (98-107) mmol/L Carbon Dioxide (21-33) mmol/L Anion Gap (10-20) BUN (7-21) mg/dL Creatinine (0.5-1.4) mg/dL Est GFR ( Amer) Est GFR (Non-Af Amer) Random Glucose (70-110) mg/dL Calcium (8.4-10.5) mg/dL Phosphorus (2.5-4.5) mg/dL Magnesium (1.7-2.2) mg/dL Total Bilirubin (0.2-1.3) mg/dL AST (15-59) U/L ALT (7-56) U/L Alkaline Phosphatase (38-133) U/L Lactate Dehydrogenase (333-699) U/L Total Creatine Kinase (35-230) U/L CK-MB (CK-2) (0.0-3.6) ng/mL CK-MB (CK-2) % (2.5-3.0) % Troponin I ng/mL NT-Pro-B Natriuret Pep (0-450) pg/mL Total Protein (5.8-8.3) g/dL Albumin (3.0-4.8) g/dL Globulin gm/dL Albumin/Globulin Ratio (1.1-1.8) Procalcitonin 24.79 H (0.19-0.49) NG/ML Laboratory Results - last 24 hr 03/14/17 03/14/17 03/14/17 10:35 16:35 16:35 WBC 8.5 D RBC 3.14 L Hgb 9.4 L Hct 28.1 L MCV 89.5 MCH 29.9 MCHC 33.5 RDW 19.0 H Plt Count 75 L Gran % 82.2 H Lymph % (Auto) 4.5 L [place] % (Auto) 13.2 H Eos % (Auto) 0.0 L Baso % (Auto) 0.1 Gran # 6.96 H Lymph # 0.4 L [place] # 1.1 H Eos # 0.0 Baso # 0.01 PT 22.1 H INR 2.05 H APTT 34.3 H pCO2 pO2 HCO3 ABG pH ABG Total CO2 ABG O2 Saturation ABG O2 Content ABG Base Excess ABG Hemoglobin ABG Carboxyhemoglobin POC ABG HHb (Measured) ABG Methemoglobin ABG O2 Capacity Hgb O2 Saturation FiO2 Sodium Potassium Chloride Carbon Dioxide Anion Gap BUN Creatinine Est GFR ( Amer) Est GFR (Non-Af Amer) Random Glucose Calcium Phosphorus Magnesium Total Bilirubin AST ALT Alkaline Phosphatase Lactate Dehydrogenase Total Creatine Kinase CK-MB (CK-2) CK-MB (CK-2) % Troponin I NT-Pro-B Natriuret Pep Total Protein Albumin Globulin Albumin/Globulin Ratio Procalcitonin 24.79 H 03/14/17 03/15/17 03/15/17 16:35 04:00 05:00 WBC RBC Hgb Hct MCV MCH MCHC RDW Plt Count Gran % Lymph % (Auto) [place] % (Auto) Eos % (Auto) Baso % (Auto) Gran # Lymph # [place] # Eos # Baso # PT INR APTT pCO2 39 pO2 115.0 H HCO3 23.6 ABG pH 7.39 ABG Total CO2 24.8 ABG O2 Saturation 99.2 H ABG O2 Content 13.7 L ABG Base Excess -1.2 ABG Hemoglobin 10.0 L ABG Carboxyhemoglobin 2.2 H POC ABG HHb (Measured) 0.8 ABG Methemoglobin 0.9 ABG O2 Capacity 13.8 L Hgb O2 Saturation 96.2 FiO2 50.0 Sodium 139 Potassium 4.1 Chloride 95 L Carbon Dioxide 28 Anion Gap 20 BUN 37 H Creatinine 3.9 H Est GFR ( Amer) 19 Est GFR (Non-Af Amer) 15 Random Glucose 98 Calcium 8.5 Phosphorus Magnesium Total Bilirubin 2.5 H AST 227 H ALT 563 H Alkaline Phosphatase 91 Lactate Dehydrogenase 1047 H Total Creatine Kinase 265 H CK-MB (CK-2) 6.3 H CK-MB (CK-2) % 2.4 L Troponin I 3.04 H* 2.59 H* NT-Pro-B Natriuret Pep Total Protein 7.5 Albumin 3.6 Globulin 3.9 Albumin/Globulin Ratio 0.9 L Procalcitonin 03/15/17 03/15/17 03/15/17 05:30 05:30 05:30 WBC 9.3 RBC 3.29 L Hgb 10.0 L Hct 30.4 L MCV 92.4 MCH 30.4 MCHC 32.9 RDW 20.0 H Plt Count 83 L Gran % 78.8 H Lymph % (Auto) 14.8 L [place] % (Auto) 6.3 H Eos % (Auto) 0.0 L Baso % (Auto) 0.1 Gran # 7.35 H Lymph # 1.4 [place] # 0.6 Eos # 0.0 Baso # 0.01 PT 21.8 H INR 2.02 H APTT 35.0 H pCO2 pO2 HCO3 ABG pH ABG Total CO2 ABG O2 Saturation ABG O2 Content ABG Base Excess ABG Hemoglobin ABG Carboxyhemoglobin POC ABG HHb (Measured) ABG Methemoglobin ABG O2 Capacity Hgb O2 Saturation FiO2 Sodium 139 Potassium 4.8 Chloride 96 L Carbon Dioxide 26 Anion Gap 22 H BUN 56 H Creatinine 5.4 H Est GFR ( Amer) 13 Est GFR (Non-Af Amer) 11 Random Glucose 92 Calcium 8.8 Phosphorus 7.0 H Magnesium 2.2 Total Bilirubin 2.3 H AST 165 H ALT 512 H Alkaline Phosphatase 90 Lactate Dehydrogenase Total Creatine Kinase CK-MB (CK-2) CK-MB (CK-2) % Troponin I NT-Pro-B Natriuret Pep 71736 H Total Protein 7.7 Albumin 3.8 Globulin 3.9 Albumin/Globulin Ratio 1.0 L Procalcitonin 03/15/17 03/15/17 09:43 09:43 WBC 7.9 RBC 3.20 L Hgb 9.6 L Hct 29.0 L MCV 90.6 MCH 30.0 MCHC 33.1 RDW 19.8 H Plt Count 84 L Gran % 77.4 H Lymph % (Auto) 14.8 L [place] % (Auto) 7.7 H Eos % (Auto) 0.0 L Baso % (Auto) 0.1 Gran # 6.14 Lymph # 1.2 [place] # 0.6 Eos # 0.0 Baso # 0.01 PT INR APTT pCO2 pO2 HCO3 ABG pH ABG Total CO2 ABG O2 Saturation ABG O2 Content ABG Base Excess ABG Hemoglobin ABG Carboxyhemoglobin POC ABG HHb (Measured) ABG Methemoglobin ABG O2 Capacity Hgb O2 Saturation FiO2 Sodium 139 Potassium 4.7 Chloride 97 L Carbon Dioxide 26 Anion Gap 21 H BUN 60 H Creatinine 5.7 H Est GFR ( Amer) 12 Est GFR (Non-Af Amer) 10 Random Glucose 98 Calcium 8.6 Phosphorus 7.3 H Magnesium 2.2 Total Bilirubin 2.3 H AST 150 H ALT 488 H Alkaline Phosphatase 88 Lactate Dehydrogenase Total Creatine Kinase CK-MB (CK-2) CK-MB (CK-2) % Troponin I NT-Pro-B Natriuret Pep Total Protein 7.5 Albumin 3.6 Globulin 3.9 Albumin/Globulin Ratio 0.9 L Procalcitonin Critical Care Progress Note - Nutrition Nutrition: Nutrition Category Date Time Status NPO Diet [DIET] Diets 03/13/17 Dinner Ordered Addendum Addendum: 03/15/17 15:[address] Soto note
--- NOTE | 2017-03-14 15:16 | PN ---
DATE: 03/14/2017 The patient seen and examined at bedside. He is not on sedation. He is tracking objects with his eyes; however, otherwise not following commands. He is on pressure support 5/5 with FiO2 of 40%, and on that setting, his oxygen saturation 97-98% and rapid shallow breathing index 40. He is on dopamine 5 mg/ kg per minute and his blood pressure 107/55. He just was dialyzed and FFP being transfused to reverse iatrogenic coagulopathy for the central line and IV access to be established. PHYSICAL EXAMINATION: VITAL SIGNS: Heart rate 100, respiratory rate 20. HEAD AND NECK: Atraumatic. LUNGS: Few crackles bibasilar. HEART: Regular rate and rhythm. S1, S2 distant. ABDOMEN: Soft, nontender and nondistended. MUSCULOSKELETAL: No C/C/E. NEUROLOGIC: The patient is somnolent; however, was observed moving his upper extremities and lower extremities. SKIN: Moist. PSYCHIATRIC: The patient is lethargic. LABORATORY DATA: WBC 14, hemoglobin 10.7, platelet count 103. Sodium 139, potassium 4.7, chloride 95, carbon dioxide 24, BUN 59, creatinine 7.0 (patient is on hemodialysis), AST 366 down from 512, ALT 733 down from 781. Troponin 2.84 up from 1.95. Blood gas on PRVC 7.45/37/188. INR 5.40 (patient will receive 6 units of FFP total). MEDICATIONS: Brovana, Pulmicort, meropenem, Solu-Medrol 20 mg IV q. 12, Zofran p.r.n., Protonix. ASSESSMENT AND PLAN: This is a 71-year-old gentleman who presented to intensive care unit yesterday with shock syndrome. Differential diagnosis included a distributive shock such as sepsis. However, source is not completely clear, pneumonia?. The patient, however, did have a spike in white cell count and was broadly covered with antibiotics with subsequent septic workup initiated. ID service was requested to see patient as well. However, cardiogenic etiology of patient's hemodynamic compromise appears to be a bit higher on differential at least provided the patient has troponin leak ( initial troponin was less than 0.01 despite ESRD). His echocardiogram performed in January of this year showed severely dilated right ventricle and severe right ventricular systolic dysfunction. Bedside echocardiogram performed today also showed severely dilated right ventricle with paradoxical interventricular septum movement and diastolic invagination of the interventricular septum into the left ventricle diastole which may create a functional diastolic dysfunction. No pericardial effusion identified on bedside ultrasound. These findings were discussed with Dr. Nicole and formal echocardiogram is pending. Pulmonary embolism is less likely provided that the patient's INR over the last several days was supratherapeutic. Possibility of other types of pulmonary hypertension there and will proceed with dobuamine in attempt to decrease PA pressure and NE to maintain systemic MAP>65 and thus RV perfusion. We will try to proceed with maintaining strict euvolemia as any deviation from this path may lead to either a substantial fluid overload, worsening right ventricular failure or, if too much fluid removed,-- hemodynamic compromise. The patient currently on pressure support trial and he is doing pretty well. If he continues to do well, will be extubated, which will also help with right ventricular function by decreasing RV afterload. We will continue with head of bed elevated more than 35 degrees. We will continue with euvolemia, patient just had a hemodialysis with removal of liter and a half of fluids. The patient is on antibiotics and ID service is pending. He is in sinus rhythm right now. We will continue with blood glucose 140-180 range. We will continue with oxygen saturation more than 90%. We will continue with gastrointestinal prophylaxis. ccm time 40 min Sam Soto MD cc: [id number] TT: 03/14/2017 15:15:44 Confirmation # [id number] Dictation # [id number] an MTDD
[2017-03-14] MEDS ORDERED: DOPamine 400mg/250ml D5W 400 MG/250 ML BAG IV PRN ×2 (15:25→15:40)
[2017-03-14 16:36] LABS: ADD MANUAL DIFF? NO
[2017-03-14 16:47] LABS: INR 2.05 (0.93-1.08); PARTIAL THROMBOPLASTIN TIME 34.3 Seconds (23.7-30.8)
[2017-03-14 16:51] LABS: ALB/GLOB RATIO 0.9 (1.1-1.8); BILIRUBIN,TOTAL 2.5 mg/dL (0.2-1.3); CALCIUM 8.5 mg/dL (8.4-10.5); POTASSIUM 4.1 mmol/L (3.6-5.0); TOTAL PROTEIN 7.5 g/dL (5.8-8.3)
[2017-03-14 16:52] LABS: BASO # 0.01 K/mm3 (0.0-2.0); BASO % 0.1 % (0.0-3.0); GRAN # 6.96 (1.4-6.5); GRAN % 82.2 % (50.0-68.0); HEMATOCRIT 28.1 % (42.0-52.0); LYMPH # 0.4 (1.2-3.4); LYMPH % 4.5 % (22.0-35.0); MEAN CELL VOLUME 89.5 fL (80.0-105.0); MEAN CORPUSCULAR HEMOGLOBIN 29.9 pg (25.0-35.0); MEAN CORPUSCULAR HGB CONC 33.5 g/dl (31.0-37.0); MONO # 1.1 (0.1-0.6); MONO % 13.2 % (1.0-6.0); PLATELET COUNT 75 10^3/uL (120.0-450.0); WHITE BLOOD COUNT 8.5 10^3/ul (4.5-11.0)
[2017-03-14] MEDS ORDERED: Propofol 10 mg/ml Inj (20 ML) IVP ONE ×2 (17:08)
[2017-03-14 17:10] LABS: TROPONIN I 3.04 ng/mL
[2017-03-14] MEDS ORDERED: Vancomycin 1gm in NS 250ml 1 GM/250 ML BAG IVPB STA (17:15)
--- NOTE | 2017-03-14 17:16 | CP.PCM.CON ---
History of Present Illness - History of Present Illness History of Present Illness: 71 year old male with PMH of ESRD on HD, COPD, chronic atrial fibrillation on anticoagulation, history of GI bleeding, CAD S/P CABG, prostate cancer was initially brought in to [facility] because of cough with shortness of breath and was being treated for fluid overload acute CHF. He underwent several episodes of additional dialysis and was apparently doing well. However, yesterday the patient became acutely hypoxic and became lethargic. The patient was transferred to the ICU where he was intubated and put on the ventilator. There is concern for sepsis and Infectious diseases consult is requested to further evaluate and manage. Review of systems could not be obtained because the patient is intubated. Review of Systems - Review of Systems Systems not reviewed;Unavailable: Intubated Past Patient History - Infectious Disease Hx of Infectious Diseases: None - Tetanus Immunizations Tetanus Immunization: Unknown - Past Social History Smoking Status: Never Smoked Cigar Use: No Drugs: Denies Home Situation {Lives}: With Family - CARDIAC Hx Cardiac Disorders: Yes (cad with cabg x 3 vessels ) Hx Atrial Fibrillation: Yes Hx Cardia Arrhythmia: Yes (afib) Hx Congestive Heart Failure: Yes Hx Hypercholesterolemia: Yes Hx Hypertension: Yes Hx Peripheral Edema: Yes - PULMONARY Hx Respiratory Disorders: Yes Hx Chronic Obstructive Pulmonary Disease (COPD): Yes (10/02/2015) Other/Comment: pulmonary htn - NEUROLOGICAL Hx Neurological Disorder: Yes (wears glasses, near syncope) Hx Dizziness: Yes - HEENT Hx HEENT Problems: Yes (wears rx glasses) - RENAL Hx Chronic Kidney Disease: Yes Hx Dialysis: Yes (,,mon) Date of Last Dialysis Treatment: 03/07/17 Hx Renal Failure: Yes - ENDOCRINE/METABOLIC Hx Endocrine Disorders: No - HEMATOLOGICAL/ONCOLOGICAL Hx Blood Disorders: Yes Hx Anemia: Yes (blood transfusions) Hx Cancer: Yes (prostate ca with radiation) - INTEGUMENTARY Hx Dermatological Problems: Yes (VITILIGO) - MUSCULOSKELETAL/RHEUMATOLOGICAL Hx Back Pain: Yes Hx Falls: Yes Hx Unsteady Gait: Yes - GASTROINTESTINAL Hx Gastrointestinal Disorders: Yes (Gi Bleed-ulcer- colonoscopy done) Hx Crohn's Disease: Yes Hx Gastroesophageal Reflux: Yes - GENITOURINARY/GYNECOLOGICAL Hx Genitourinary Disorders: Yes (anuria) Hx Prostate Problems: Yes (prostate cancer with radiation) - PSYCHIATRIC Hx Substance Use: No - SURGICAL HISTORY Hx Surgeries: Yes (right upper arm shunt, cabgx3, cardoac cathx1 stent) Hx Cardiac Catheterization: Yes (x1 stent) Hx Coronary Stent: Yes (x1) - ANESTHESIA Hx Anesthesia Reactions: No Hx Malignant Hyperthermia: No Meds Allergies/Adverse Reactions: Allergies Allergy/AdvReac Type Severity Reaction Status Date / Time No Known Allergies Allergy Verified 03/08/17 17:10 - Medications Medications: Current Medications Acetylcysteine (Acetylcysteine 20%) 4 ml IH BIDRESP [facility] Last Admin: 03/13/17 08:23 Dose: 4 ml Amiodarone HCl (Cordarone) 200 mg PO Q12 [facility] Last Admin: 03/13/17 10:36 Dose: Not Given Arformoterol Tartrate (Brovana) 15 mcg IH Q12H [facility] Last Admin: 03/13/17 08:25 Dose: 15 mcg Atorvastatin Calcium (Lipitor) 10 mg PO DAILY [facility] Last Admin: 03/13/17 10:37 Dose: Not Given Benzonatate (Tessalon Perles) 200 mg PO TID [facility] Last Admin: 03/13/17 17:35 Dose: Not Given Budesonide (Pulmicort Respules) 1 mg IH [id number] [facility] Last Admin: 03/09/17 08:29 Dose: Not Given Calcium Acetate (Phoslo) 1,334 mg PO WM [facility] Last Admin: 03/13/17 17:36 Dose: Not Given Clopidogrel Bisulfate (Plavix) 75 mg PO DAILY [facility] Last Admin: 03/13/17 13:20 Dose: Not Given Docusate Sodium (Colace) 100 mg PO BID [facility] Last Admin: 03/13/17 17:36 Dose: Not Given Doxycycline Hyclate (Doryx) 100 mg PO Q12 [facility] PRN Reason: Protocol Last Admin: 03/13/17 10:37 Dose: Not Given Guaifenesin (Robitussin) 100 mg PO Q6H PRN PRN Reason: Cough Meropenem 1g/NS 100mL IVPB (Meropenem 1g/Ns 100ml Ivpb) 100 mls @ 100 mls/hr IVPB Q12 [facility] PRN Reason: Protocol Stop: 03/20/17 17:46 Methylprednisolone (Solu-Medrol) 20 mg IVP Q12 [facility] Last Admin: 03/13/17 12:15 Dose: 20 mg Metoprolol Tartrate (Lopressor) 12.5 mg PO BRKDIN [facility] Last Admin: 03/13/17 17:36 Dose: Not Given Ondansetron HCl (Zofran Inj) 4 mg IVP Q6H PRN PRN Reason: Nausea/Vomiting Pantoprazole Sodium (Protonix Ec Tab) 40 mg PO ACB [facility] Last Admin: 03/13/17 13:21 Dose: Not Given Warfarin Sodium (Coumadin) 3 mg PO 1800 RC PRN Reason: Protocol Last Admin: 03/13/17 17:36 Dose: Not Given Physical Exam - Constitutional Appears: Other (Intubated and sedated) - Head Exam Head Exam: NORMAL INSPECTION - ENT Exam Additional comments: ET tube in place - Neck Exam Neck exam: Negative for: Lymphadenopathy, Meningismus - Respiratory Exam Respiratory Exam: Decreased Breath Sounds, Rales (scattered) - Cardiovascular Exam Cardiovascular Exam: +S1, +S2 - GI/Abdominal Exam GI & Abdominal Exam: Soft. absent: Tenderness Results - Vital Signs Recent Vital Signs: Last Vital Signs Temp 97.1 F L 03/13/17 12:00 Pulse 115 H 03/13/17 17:32 Resp 18 03/13/17 12:00 BP 98/56 L 03/13/17 12:00 Pulse Ox 90 L 03/13/17 06:00 - Labs Result Diagrams: 03/14/17 06:00 03/14/17 06:00 Labs: Laboratory Results - last 24 hr 03/13/17 03/13/17 03/13/17 06:50 14:30 16:05 WBC 9.7 9.1 RBC 3.74 3.68 Hgb 11.2 L 11.0 L Hct 33.5 L 33.1 L MCV 89.6 89.9 MCH 29.9 29.9 MCHC 33.4 33.2 RDW 18.9 H 19.0 H Plt Count 122 108 L MPV 11.4 H 10.6 Neutrophils % (Manual) 76 H Lymphocytes % (Manual) 13 L Monocytes % (Manual) 10 H Eosinophils % (Manual) 1 Giant Platelets Present pCO2 33 L pO2 51.0 L HCO3 18.6 L ABG pH 7.36 ABG Total CO2 19.6 L ABG O2 Saturation 84.1 L ABG Base Excess -5.9 L ABG Potassium 6.2 H* Glucose 127 H Lactate 5.9 H* FiO2 32.0 Sodium 138 135.0 136 Potassium 6.1 H* 6.3 H* Chloride 96 100.0 96 L Carbon Dioxide 18 L 21 Anion Gap 30 H 25 H BUN 71 H 82 H Creatinine 8.8 H* 9.5 H* Est GFR ( Amer) 7 7 Est GFR (Non-Af Amer) 6 5 Random Glucose 84 101 Calcium 9.3 9.1 Total Bilirubin 1.8 H 2.0 H AST 443 H 512 H ALT 722 H 781 H Alkaline Phosphatase 110 97 Troponin I 1.95 H* D Total Protein 8.0 8.0 Albumin 3.9 3.7 Globulin 4.1 4.3 Albumin/Globulin Ratio 1.0 L 0.9 L Arterial Blood Potassium 6.2 H* Assessment & Plan - Assessment and Plan (Free Text) Plan: Assessment Severe sepsis with acute hypoxic and ventilator-dependent respiratory failure in a patient with acute CHF probably secondary to bilateral hospital-acquired pneumonia with possible gram positive cocci and/or gram negative bacilli ESRD on HD COPD chronic atrial fibrillation on anticoagulation history of GI bleeding CAD S/P CABG prostate cancer Plan Started patient on intermittent Vancomycin and Merrem pending blood, sputum cx Will monitor clinical response
--- NOTE | 2017-03-14 17:59 | RAD ---
HISTORY: Central line placement COMPARISON: 03/14/2017 FINDINGS: The left axillary line terminates in the SVC. The endotracheal tube terminates 3.3 cm proximal to the prashant. LUNGS: There is worsening pulmonary venous congestion and development of interstitial pulmonary edema. PLEURA: There are small pleural effusions. No pneumothorax. CARDIOVASCULAR: There is persistent mild cardiomegaly. Status post median sternotomy and prosthetic valve replacement. Atherosclerotic aortic arch calcifications are present. . OSSEOUS STRUCTURES: No significant abnormalities. VISUALIZED UPPER ABDOMEN: Normal. OTHER FINDINGS: None. IMPRESSION: The left central line terminates in the SVC. No pneumothorax. Findings are concerning for congestive heart failure.
[2017-03-14] MEDS: DOBUTamine 500mg/250ml D5W 500 MG/250 ML BAG IV PRN (20:34)
--- NOTE | 2017-03-14 21:34 | PN ---
DATE: 03/14/2017 The patient is a 71-year-old male with past medical history of COPD on 2 liters home oxygen, atrial f ibrillation on Coumadin, CAD status post coronary artery bypass graft and drug-eluting stent, ESRD on hemodialysis, initially admitted after falling out of bed and found to have CHF exacerbation. Hospi chan course complicated by hypotension, atrial flutter and altered mental status. The patient intubated overnight after becoming hypotensive and with marked lactic acidosis, although did tolerate hemodialysis well yesterday evening. PHYSICAL EXAMINATION: VITAL SIGNS: This morning, blood pressure 98/43, heart rate 70, respirations 20, temperature 97.2, s aturation 99% on 50% FIO2 on ventilator. GENERAL: The patient responsive to tactile stimuli, not in any acute distress. HEENT: Moist mucous membranes. Mild scleral icterus. RESPIRATORY: Mild rales heard. No rhonchi, no wheezes. CARDIOVASCULAR: S1, S2 normal, no murmurs, no rubs, no gallops. GASTROINTESTINAL: Abdomen soft, nontender, nondistended. GENITOURINARY: No bladder distention. EXTREMITIES: Fingers warm to touch. No lower leg edema. NEUROLOGIC: Not following commands. LABORATORY DATA: This morning, WBC 14.0, hemoglobin 10.7, hematocrit 32.9, platelets 103. Chemistry : Sodium 139, potassium 4.7, chloride 95, bicarbonate 24, BUN 59, creatinine 7.0, glucose 116, calci um 8.3, phosphorus 6.3. Troponin 2.84. Albumin 3.6. ASSESSMENT: 1. Shock. Etiology unclear at this point. Distributive shock due to sepsis with bilateral infiltra bacilio on chest x-ray versus cardiogenic with right ventricular dysfunction reported on preliminary echo read. Blood cultures have been negative; however, ID service opting to escalate antibiotics for susp ected healthcare-associated pneumonia. Ultrafiltration on hemodialysis has been difficult in this se tting; however, the patient now on vasopressor support and may be able to tolerate volume removal whi ch may help offload right ventricle. Will aim for ultrafiltration session tomorrow. 2. End-stage renal disease on hemodialysis. Underwent urgent HD session yesterday evening with succ essful correction of hyperkalemia. Hemodialysis repeated again today; however, opted only for small amount of ultrafiltration due to unclear picture of hypotension. Will seek to remove more volume yoshi orrow. 3. Congestive heart failure exacerbation. Preserved ejection fraction on previous echo, likely [place] ent of diastolic dysfunction. Chest x-ray today reporting worsening vascular congestion. Plan as me ntioned above. 4. Lactic acidosis, transient in the setting of hypotension and resolved thereafter. Recommend to t rend lactate level and look for focal source of ischemia if patient again develops lactic acidosis de spite antibiotics. 5. Atrial flutter. On Coumadin. Supratherapeutic INR. Coumadin currently being held given 6 FFP t hay and likely worsened patient's volume overload. 6. Altered mental status, worsening dementia over the last few months, now with likely metabolic enc ephalopathy in the setting of severe illness. We will continue to address electrolyte imbalances and uremia with regular hemodialysis. Han Patel MD cc: [id number] TT: 03/14/2017 21:33:24 Confirmation # [id number] Dictation # [id number] jett
[2017-03-14] MEDS ORDERED: Propofol 10 mg/ml 500 MG/50 ML VIAL IV PRN (22:02)
[2017-03-14] MEDS ORDERED: Propofol 10 mg/ml 1,000 MG/100 ML VIAL ONE (22:07)
[2017-03-14] MEDS: Propofol 10 mg/ml 1,000 MG/100 ML VIAL IV PRN (22:48)
--- NOTE | 2017-03-15 03:14 | PN ---
DATE: 03/14/2017 REFERRING PHYSICIAN: Dr. Wilkins. SUBJECTIVE: He is intubated now. Family is at bedside, in the intensive care. The echo shows dilat ed right heart is , not much EG tube secretion. No vomiting. No hematuria, no diarrhea, no leg swelling reported. OBJECTIVE: GENERAL: On ventilator, awake, afebrile. VITAL SIGNS: Temperature is 98, heart rate 101, respiratory rate is 20, blood pressure 110/68, pulse ox 98% on ventilator with 50% oxygen. HEENT: Moist mucous membranes. NECK: Supple, no JVD. EG tube not for secretion. LUNGS: Has a fair airflow. HEART: Irregularly irregular, tachycardic. ABDOMEN: Soft, nontender, nondistended. EXTREMITIES: There is no edema. NEUROLOGIC: Arousable. MEDICATIONS: He is on Mucomyst 20% inhaled twice a day, Brovana 15 mcg inhaled twice a day, Colace 1 00 mg twice a day, amiodarone 200 mg, which is on hold. He is on Diprivan for mild sedation, Lipitor is at 10 mg, meropenem is 1 g IV q. 12 hours, on Levsin 5 mg, which is on hold, Protonix 40 mg IV da brianna, Pulmicort inhaler twice a day, Solu-Medrol 20 mg q. 12 hours, Zofran on a p.r.n. basis. LABORATORY DATA: Shows hemoglobin 9.4, hematocrit 28.1, WBC 8.5, platelet is 75. INR is 2.05, PTT 3 4. ABG today shows pH 7.49, pCO2 of 29, O2 at 222. This is on ventilator with assist control of 15 tidal volume 470% oxygen #5 of PEEP. Sodium 139, potassium 4.1, chloride 95, bicarbonate 28, BUN 37, creatinine is 3.9, glucose is 98, calcium 8.5, total bilirubin is 2.5, AST 227, ALT 563. His tropon in is 3.04. Procalcitonin is 24.7. Microbiology: Blood culture and sputum culture so far there is no growth. Chest x-ray done today shows pulmonary infiltrates component of heart failure. IMPRESSION AND PLAN: Respiratory failure, has a cardiomyopathy with severe right heart dilatation, p ulmonary hypertension, paroxysmal atrial flutter, renal failure, dialysis dependent, sleep apnea synd pebbles, bronchiectasis, history of coronary artery disease, coronary stent. Case discussed with the dorene acharya at bedside. All the questions answered. I also spoke to Dr. Soto in detail. Recommended t o taper off dopamine and start dobutamine hopefully to improve contractility of the right heat keep p resent when settings. May use mild sedation. Gastric prophylaxis. Once INR below 2, will need anti coagulation. Let's see how he exposed to the Betamine overnight with less difficulty. ABG in the mo rning, chest x-ray in the morning. CBC, CMP in the morning. Critical care time spent more than 35 minutes. Louie Frost MD cc: [id number] TT: 03/15/2017 03:14:34 Confirmation # [id number] Dictation # [id number] mn
[2017-03-15 05:14] LABS: TROPONIN I 2.59 ng/mL
[2017-03-15 05:38] LABS: ARTERIAL BLOOD GAS HCO3 23.6 mmol/L (21-28); ARTERIAL BLOOD GAS O2 CAPACITY 13.8 mL/dl (16-24); ARTERIAL BLOOD GAS O2 CONTENT 13.7 ML/dl (15-23); ARTERIAL BLOOD GAS PH 7.39 (7.35-7.45); ARTERIAL BLOOD HGB O2 SAT 96.2 % (95.0-98.0); CARBOXYHEMOGLOBIN 2.2 % (0.5-1.5); HHB 0.8 % (0-5); METHEMOGLOBIN 0.9 % (0.0-3.0)
[2017-03-15] MEDS: Arformoterol 15 mcg/2 ml Inh Sol IH SCH ×3 (07:19→21:20)
--- NOTE | 2017-03-15 08:04 | PN ---
DATE: 03/14/2017 SUBJECTIVE: The patient was seen on 03/14/2017 in the unit. Actually, yesterday patient started cuauhtemoc rtness of breath, became dyspneic and was transferred to ICU and became very lethargic. Then patient was intubated, put on ventilator. Still is on ventilator. Concern is for sepsis. Infectious disea se consult is requested. Getting antibiotics. Is not able to give review of systems. Does not look like fever. Did bowel movement. PHYSICAL EXAMINATION: VITAL SIGNS: Pulse 101, blood pressure 110/68, respiratory rate 18, and temperature 98.6. HEENT: Head normocephalic, atraumatic. Eyes closed. The patient under effects of propofol that was given to put the central line because the patient was restless. Nose patent. Mucous membranes mois t. NECK: Supple. No carotid bruit. No JVD or thyromegaly. CHEST: Bilaterally symmetrical. HEART: S1, S2 positive. LUNGS: Poor air entry. ABDOMEN: Soft. Bowel sounds present. No organomegaly. EXTREMITIES: No edema, no cyanosis. NEUROLOGIC: The patient is sleepy, is sedated, is not able to give neuro examination. MEDICATIONS: Acetylcysteine, Brovana, Colace, amiodarone, Coumadin, propofol, dobutamine, Lipitor, Lopressor, meropenem, PhosLo, Plavix, Protonix. LABORATORY DATA: White blood cells 8.5, hemoglobin 9.4, hematocrit 28.1, and platelets 75. Sodium 1 39, potassium 4.1, BUN 37, creatinine 3.9. AST 227, ALT 563, troponin 3.4. ASSESSMENT AND PLAN: The patient is a 71-year-old male with anemia, hypochloremia; renal insufficien cy, on hemodialysis; abnormal liver function test, increased troponin. Seen by Dr. Mason Izaguirre. H istory of chronic obstructive pulmonary disease; chronic atrial fibrillation, on anticoagulation; his tory of gastrointestinal bleeding, coronary artery disease, status post coronary artery bypass graft , prostate cancer; history of gastrointestinal bleeding, status post blood transfusion many times; se kennedi sepsis with acute hypoxia and ventilator-dependent respiratory failure. The patient has history of bilateral hospital-acquired pneumonia with possibly gram-positive cocci and/or gram-negative baci lli, history of prostate cancer. Started patient on intermittent vancomycin and Merrem. Pending on blood culture, sputum cultures. Will monitor clinical response as per Dr. Mason Izaguirre. Seen by Dr Jessi Patel (senior industrial engineer), GI, poker in and auto body painter. Discussion done with Dr. Frost a length of time and nursing staff. Will follow up. Maria Antonia Wilkins MD cc: [id number] TT: 03/15/2017 08:03:59 Confirmation # [id number] Dictation # [id number] mn
[2017-03-15 08:14] LABS: ADD MANUAL DIFF? NO
[2017-03-15 08:20] LABS: BASO # 0.01 K/mm3 (0.0-2.0); BASO % 0.1 % (0.0-3.0); GRAN # 7.35 (1.4-6.5); GRAN % 78.8 % (50.0-68.0); HEMATOCRIT 30.4 % (42.0-52.0); LYMPH # 1.4 (1.2-3.4); LYMPH % 14.8 % (22.0-35.0); MEAN CELL VOLUME 92.4 fL (80.0-105.0); MEAN CORPUSCULAR HEMOGLOBIN 30.4 pg (25.0-35.0); MEAN CORPUSCULAR HGB CONC 32.9 g/dl (31.0-37.0); MONO # 0.6 (0.1-0.6); MONO % 6.3 % (1.0-6.0); PLATELET COUNT 83 10^3/uL (120.0-450.0); WHITE BLOOD COUNT 9.3 10^3/ul (4.5-11.0)
[2017-03-15 08:31] LABS: BILIRUBIN,TOTAL 2.3 mg/dL (0.2-1.3); CALCIUM 8.8 mg/dL (8.4-10.5); MAGNESIUM 2.2 mg/dL (1.7-2.2); POTASSIUM 4.8 mmol/L (3.6-5.0); TOTAL PROTEIN 7.7 g/dL (5.8-8.3)
[2017-03-15 08:34] LABS: INR 2.02 (0.93-1.08)
--- NOTE | 2017-03-15 08:39 | RAD ---
HISTORY: f/u COMPARISON: 03/14/2017 FINDINGS: LUNGS: No active pulmonary disease. PLEURA: No significant pleural effusion identified, no pneumothorax apparent. CARDIOVASCULAR: Moderate cardiomegaly. Moderate vascular congestion unchanged OSSEOUS STRUCTURES: No significant abnormalities. VISUALIZED UPPER ABDOMEN: Normal. OTHER FINDINGS: Endotracheal tube in satisfactory position. Left-sided central line in the SVC IMPRESSION: Moderate vascular congestion unchanged
[2017-03-15 09:59] LABS: ADD MANUAL DIFF? NO
--- NOTE | 2017-03-15 10:05 | CT ---
PROCEDURE: CT Abdomen and Pelvis without intravenous contrast HISTORY: unexplained lactic acidosis COMPARISON: 05/18/2016 TECHNIQUE: Without contrast.. Contrast Dose: Radiation dose: Total exam DLP = 693 mGy-cm. This CT exam was performed using one or more of the following dose reduction techniques: Automated exposure control, adjustment of the mA and/or kV according to patient size, and/or use of iterative reconstruction technique. FINDINGS: LOWER THORAX: Pulmonary fibrosis at both lung bases right greater than left LIVER: Unremarkable. No gross lesion or ductal dilatation. GALLBLADDER AND BILE DUCTS: Small gallstones PANCREAS: Unremarkable. No gross lesion or ductal dilatation. SPLEEN: Unremarkable. ADRENALS: Unremarkable. No mass. KIDNEYS AND URETERS: Inflammatory changes are seen around the right kidney with perinephric stranding. There is no evidence of hydronephrosis. Findings are suspicious for pyelonephritis. Minimal perinephric stranding is seen superior to the left kidney VASCULATURE: Unremarkable. No aortic aneurysm. BOWEL: Unremarkable. No obstruction. No gross mural thickening. APPENDIX: Unremarkable. Normal appendix. PERITONEUM: Small amount of free fluid LYMPH NODES: Unremarkable. No enlarged lymph nodes. BLADDER: Unremarkable. REPRODUCTIVE: Unremarkable. BONES: No acute fracture. OTHER FINDINGS: None. IMPRESSION: Perinephric stranding right greater than left without hydronephrosis. Findings are suspicious for pyelonephritis
[2017-03-15 10:11] LABS: BASO # 0.01 K/mm3 (0.0-2.0); BASO % 0.1 % (0.0-3.0); GRAN # 6.14 (1.4-6.5); GRAN % 77.4 % (50.0-68.0); LYMPH # 1.2 (1.2-3.4); LYMPH % 14.8 % (22.0-35.0); MEAN CELL VOLUME 90.6 fL (80.0-105.0); MEAN CORPUSCULAR HGB CONC 33.1 g/dl (31.0-37.0); MONO # 0.6 (0.1-0.6); MONO % 7.7 % (1.0-6.0); PLATELET COUNT 84 10^3/uL (120.0-450.0); RED CELL DISTRIBUTION WIDTH 19.8 % (11.5-14.5); WHITE BLOOD COUNT 7.9 10^3/ul (4.5-11.0)
[2017-03-15 10:17] LABS: ALB/GLOB RATIO 0.9 (1.1-1.8); BILIRUBIN,TOTAL 2.3 mg/dL (0.2-1.3); CALCIUM 8.6 mg/dL (8.4-10.5); MAGNESIUM 2.2 mg/dL (1.7-2.2); PHOSPHOROUS 7.3 mg/dL (2.5-4.5); POTASSIUM 4.7 mmol/L (3.6-5.0); TOTAL PROTEIN 7.5 g/dL (5.8-8.3)
[2017-03-15] MEDS: Meropenem 1g/NS 100mL IVPB 100 ML IVPB SCH ×2 (12:31→21:36)
[2017-03-15] MEDS: MethylPREDNISolone 40 mg Vial IVP SCH ×2 (12:31→21:43)
--- NOTE | 2017-03-15 13:07 | CARD ---
APPROVED REPORT EKG Measurement Heart [id number] <Conclusion> Sinus tachycardia Possible Right ventricular hypertrophy ST & T wave abnormality, consider inferolateral ischemia Abnormal ECG
--- NOTE | 2017-03-15 14:23 | CP.CCUPN ---
<Matt Sánchez - Last Filed: 03/15/17 14:53> CCU Subjective - Physician Review Subjective (Free Text): 03/15/17 14:16 Patient seen and examined at bedside in ICU. Today is hospital day 8. Yesterday, patient was found to have a dilated right ventricle with right to left bowing of the septum on bedside ultrasound assessment of the heart. 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 Overnight, patient became more awake and agitated on the ventilator, so a propofol drip was started. No acute events overnight, and his blood pressure and heart rate were stable throughout the night. Today, patient resting in bed , minimally responsive to pain. No acute agitation noted. CCU Objective - Vital Signs / Intake & Output Intake and Output (Last 8hrs): Intake & Output 03/14/17 03/15/17 03/15/17 22:59 06:59 14:59 Intake Total 1780 532 190 Output Total 1000 0 Balance 780 532 190 Weight 61.4 kg 60.781 kg Intake: IV 476 532 190 Left Antecubital 126 Left Forearm 350 Left Subclavian 428 Oral 0 Blood Product 1304 Output: Urine 0 0 Urine, Voided 0 0 Oral Regurgitation 0 Other 1000 Other: # Voids Urine, Voided 0 # Bowel Movements 1 1 - Physical Exam Physical Exam Limitations: Positive for: Other (intubated and sedated, not following commands) Head: Positive for: Atraumatic, Normocephalic. Negative for: Tenderness, Contusion, Ecchymosis, Abrasion, Laceration Pupils: Positive for: PERRL. Negative for: Sluggish, Non-Reactive Extroacular Muscles: Positive for: Other (some sporadic eyelid opening and random eye movements, but no orientation to staff in room, not focusing on verbal or noxious physical stimuli). Negative for: EOMI Conjunctiva: Negative for: Injected, Icteric Mouth: Positive for: Moist Mucous Membranes, Other (ET tube in place) Nose (External): Positive for: Atraumatic. Negative for: Abrasion, Contusion, Laceration Neck: Positive for: Trachea Midline. Negative for: JVD Respiratory/Chest: Positive for: Rales (diffuse moderate rales, most prominent at bases bilaterally). Negative for: Clear to Auscultation, Good Air Exchange, Respiratory Distress, Wheezes, Rhonchi Cardiovascular: Positive for: Regular Rate and Rhythm, Normal S1, S2. Negative for: Murmurs (difficult to auscultate due to diffuse lung silva), Irregular Rhythm, Tachycardic, Bradycardic Abdomen: Positive for: Normal Bowel Sounds, Other (Soft, some firmness but not rigid). Negative for: Tenderness, Distention Upper Extremity: Positive for: Normal Inspection, Other (+1 radial pulses bilaterally, Right arm AV fistula will palpable bruit, old left arm fistula, infiltrated left arm upper IV). Negative for: Cyanosis, Edema, Swelling, Erythema, Deformity Lower Extremity: Positive for: Other (+1-2 pitting edema in bilateral LE from feet up to bottom 1/3 of shins). Negative for: NORMAL PULSES (unable to palpate pedal pulses), Deformity Neurological: Positive for: Other (some spontaneous eye and eyelid movements, intermittent faint hand movement, not directed, not following commands). Negative for: GCS=15 (E3V(T)M3) Skin: Positive for: Warm, Dry, Normal Color, Other (IV and fistula sites as noted in upper extremity exam). Negative for: Rashes Psychiatric: Positive for: Other (intubated and sedated). Negative for: Alert, Oriented x 3, Normal Insight, Normal Concentration, Normal Affect, Normal Mood - Medications Active Medications: Active Medications Generic Name Dose Route Start Last Admin Trade Name Freq PRN Reason Stop Dose Admin Acetylcysteine 4 ml 03/10/17 08:00 03/13/17 19:41 Acetylcysteine 20% IH 4 ml [id number] RC Administration Amiodarone HCl 200 mg 03/11/17 22:00 03/13/17 10:36 Cordarone PO Not Given Q12 RC Arformoterol Tartrate 15 mcg 03/08/17 23:00 03/15/17 07:19 Brovana IH 15 mcg Q12H RC Administration Atorvastatin Calcium 10 mg 03/09/17 10:00 03/13/17 10:37 Lipitor PO Not Given DAILY RC Benzonatate 200 mg 03/09/17 10:00 03/13/17 17:35 Tessalon Perles PO Not Given TID RC Budesonide 1 mg 03/09/17 08:00 03/09/17 08:29 Pulmicort Respules IH Not Given [id number] RC Calcium Acetate 1,334 mg 03/09/17 18:56 03/13/17 17:36 Phoslo PO Not Given WM [facility] Clopidogrel Bisulfate 75 mg 03/09/17 10:00 03/13/17 13:20 Plavix PO Not Given DAILY [facility] Docusate Sodium 100 mg 03/08/17 23:00 03/13/17 17:36 Colace PO Not Given BID [facility] Guaifenesin 100 mg 03/08/17 23:05 Robitussin PO Q6H PRN Cough Meropenem 1g/NS 100mL IVPB 100 mls @ 100 mls/hr 03/13/17 17:45 03/15/17 12:31 Meropenem 1g/Ns 100ml Ivpb IVPB 03/20/17 17:46 100 mls/hr Q12 RC Administration Protocol Norepinephrine Bitartrate 4 mg 254 mls @ 15.24 mls/hr 03/14/17 17:44 12:20 / Sodium Chloride IV 2.5 mcg/min .[id number] PRN 9.52 mls/hr TITRATE PER MD ORDER Administration Protocol 4 MCG/MIN Dobutamine HCl/Dextrose 500 mg in 250 mls @ 4.605 mls/hr 03/14/17 18:54 03/14 20:34 Dobutamine/Dextrose 5% 500mg/250ml IV 2.5 mcg/kg/min .Q24H PRN 4.605 mls/hr TITRATE PER PROTOCOL Administration Protocol 2.5 MCG/KG/MIN Propofol 1,000 mg in 100 mls @ 1.842 mls/hr 03/14/17 22:13 03/15/17 09:30 Diprivan IV 12 mcg/kg/min .Q24H PRN 4.421 mls/hr TITRATE PER MD ORDER Titration Protocol 5 MCG/KG/MIN Methylprednisolone 20 mg 03/10/17 22:00 03/15/17 12:31 Solu-Medrol IVP 20 mg Q12 [facility] Administration Metoprolol Tartrate 12.5 mg 03/11/17 17:00 03/13/17 17:36 Lopressor PO Not Given BRKDIN [facility] Ondansetron HCl 4 mg 03/10/17 09:37 Zofran Inj IVP Q6H PRN Nausea/Vomiting Pantoprazole Sodium 40 mg 03/09/17 07:30 03/13/17 13:21 Protonix Ec Tab PO Not Given ACB RC Pantoprazole Sodium 40 mg 03/14/17 10:00 03/15/17 12:31 Protonix Inj IVP 40 mg DAILY RC Administration Warfarin Sodium 3 mg 03/10/17 18:00 03/13/17 17:36 Coumadin PO Not Given 1800 RC Protocol - Patient Studies Lab Studies: Microbiology Studies 03/10/17 10:15 Blood Culture - Final Blood NO GROWTH AFTER 5 DAYS Gram Stain - Final 03/10/17 10:45 Blood Culture - Final Blood NO GROWTH AFTER 5 DAYS Gram Stain - Final TEST NOT PERFORMED 03/14/17 15:35 Gram Stain - Final Sputum Induced Sputum Culture - Preliminary No growth. 03/13/17 16:20 Blood Culture - Preliminary Blood NO GROWTH AFTER 24 HOURS 03/13/17 16:10 Blood Culture - Preliminary Blood NO GROWTH AFTER 24 HOURS Lab Studies 03/15/17 03/15/17 03/15/17 Range/Units 09:43 09:43 05:30 WBC 7.9 (4.5-11.0) 10^3/ul RBC 3.20 L (3.5-6.1) 10^6/uL Hgb 9.6 L (14.0-18.0) gm/dL Hct 29.0 L (42.0-52.0) % MCV 90.6 (80.0-105.0) fL MCH 30.0 (25.0-35.0) pg MCHC 33.1 (31.0-37.0) g/dl RDW 19.8 H (11.5-14.5) % Plt Count 84 L (120.0-450.0) 10^3/uL Gran % 77.4 H (50.0-68.0) % Lymph % (Auto) 14.8 L (22.0-35.0) % [place] % (Auto) 7.7 H (1.0-6.0) % Eos % (Auto) 0.0 L (1.5-5.0) % Baso % (Auto) 0.1 (0.0-3.0) % Gran # 6.14 (1.4-6.5) Lymph # 1.2 (1.2-3.4) [place] # 0.6 (0.1-0.6) Eos # 0.0 (0.0-0.7) Baso # 0.01 (0.0-2.0) K/mm3 PT (9.9-11.8) Seconds INR (0.93-1.08) APTT (23.7-30.8) Seconds pCO2 (35-45) mm/Hg pO2 (80-100) mm/Hg HCO3 (21-28) mmol/L ABG pH (7.35-7.45) ABG Total CO2 (22-28) mmol.L ABG O2 Saturation (95-98) % ABG O2 Content (15-23) ML/dl ABG Base Excess (-2.0-3.0) mmol/L ABG Hemoglobin (11.7-17.4) g/dL ABG Carboxyhemoglobin (0.5-1.5) % POC ABG HHb (Measured) (0-5) % ABG Methemoglobin (0.0-3.0) % ABG O2 Capacity (16-24) mL/dl Hgb O2 Saturation (95.0-98.0) % FiO2 % Sodium 139 139 (132-148) mmol/L Potassium 4.7 4.8 (3.6-5.0) mmol/L Chloride 97 L 96 L (98-107) mmol/L Carbon Dioxide 26 26 (21-33) mmol/L Anion Gap 21 H 22 H (10-20) BUN 60 H 56 H (7-21) mg/dL Creatinine 5.7 H 5.4 H (0.5-1.4) mg/dL Est GFR ( Amer) 12 13 Est GFR (Non-Af Amer) 10 11 Random Glucose 98 92 (70-110) mg/dL Calcium 8.6 8.8 (8.4-10.5) mg/dL Phosphorus 7.3 H 7.0 H (2.5-4.5) mg/dL Magnesium 2.2 2.2 (1.7-2.2) mg/dL Total Bilirubin 2.3 H 2.3 H (0.2-1.3) mg/dL AST 150 H 165 H (15-59) U/L ALT 488 H 512 H (7-56) U/L Alkaline Phosphatase 88 90 (38-133) U/L Lactate Dehydrogenase (333-699) U/L Total Creatine Kinase (35-230) U/L CK-MB (CK-2) (0.0-3.6) ng/mL CK-MB (CK-2) % (2.5-3.0) % Troponin I ng/mL NT-Pro-B Natriuret Pep 51192 H (0-450) pg/mL Total Protein 7.5 7.7 (5.8-8.3) g/dL Albumin 3.6 3.8 (3.0-4.8) g/dL Globulin 3.9 3.9 gm/dL Albumin/Globulin Ratio 0.9 L 1.0 L (1.1-1.8) Procalcitonin (0.19-0.49) NG/ML 03/15/17 03/15/17 03/15/17 Range/Units 05:30 05:30 05:00 WBC 9.3 (4.5-11.0) 10^3/ul RBC 3.29 L (3.5-6.1) 10^6/uL Hgb 10.0 L (14.0-18.0) gm/dL Hct 30.4 L (42.0-52.0) % MCV 92.4 (80.0-105.0) fL MCH 30.4 (25.0-35.0) pg MCHC 32.9 (31.0-37.0) g/dl RDW 20.0 H (11.5-14.5) % Plt Count 83 L (120.0-450.0) 10^3/uL Gran % 78.8 H (50.0-68.0) % Lymph % (Auto) 14.8 L (22.0-35.0) % [place] % (Auto) 6.3 H (1.0-6.0) % Eos % (Auto) 0.0 L (1.5-5.0) % Baso % (Auto) 0.1 (0.0-3.0) % Gran # 7.35 H (1.4-6.5) Lymph # 1.4 (1.2-3.4) [place] # 0.6 (0.1-0.6) Eos # 0.0 (0.0-0.7) Baso # 0.01 (0.0-2.0) K/mm3 PT 21.8 H (9.9-11.8) Seconds INR 2.02 H (0.93-1.08) APTT 35.0 H (23.7-30.8) Seconds pCO2 39 (35-45) mm/Hg pO2 115.0 H (80-100) mm/Hg HCO3 23.6 (21-28) mmol/L ABG pH 7.39 (7.35-7.45) ABG Total CO2 24.8 (22-28) mmol.L ABG O2 Saturation 99.2 H (95-98) % ABG O2 Content 13.7 L (15-23) ML/dl ABG Base Excess -1.2 (-2.0-3.0) mmol/L ABG Hemoglobin 10.0 L (11.7-17.4) g/dL ABG Carboxyhemoglobin 2.2 H (0.5-1.5) % POC ABG HHb (Measured) 0.8 (0-5) % ABG Methemoglobin 0.9 (0.0-3.0) % ABG O2 Capacity 13.8 L (16-24) mL/dl Hgb O2 Saturation 96.2 (95.0-98.0) % FiO2 50.0 % Sodium (132-148) mmol/L Potassium (3.6-5.0) mmol/L Chloride (98-107) mmol/L Carbon Dioxide (21-33) mmol/L Anion Gap (10-20) BUN (7-21) mg/dL Creatinine (0.5-1.4) mg/dL Est GFR ( Amer) Est GFR (Non-Af Amer) Random Glucose (70-110) mg/dL Calcium (8.4-10.5) mg/dL Phosphorus (2.5-4.5) mg/dL Magnesium (1.7-2.2) mg/dL Total Bilirubin (0.2-1.3) mg/dL AST (15-59) U/L ALT (7-56) U/L Alkaline Phosphatase (38-133) U/L Lactate Dehydrogenase (333-699) U/L Total Creatine Kinase (35-230) U/L CK-MB (CK-2) (0.0-3.6) ng/mL CK-MB (CK-2) % (2.5-3.0) % Troponin I ng/mL NT-Pro-B Natriuret Pep (0-450) pg/mL Total Protein (5.8-8.3) g/dL Albumin (3.0-4.8) g/dL Globulin gm/dL Albumin/Globulin Ratio (1.1-1.8) Procalcitonin (0.19-0.49) NG/ML 03/15/17 03/14/17 03/14/17 Range/Units 04:00 16:35 16:35 WBC (4.5-11.0) 10^3/ul RBC (3.5-6.1) 10^6/uL Hgb (14.0-18.0) gm/dL Hct (42.0-52.0) % MCV (80.0-105.0) fL MCH (25.0-35.0) pg MCHC (31.0-37.0) g/dl RDW (11.5-14.5) % Plt Count (120.0-450.0) 10^3/uL Gran % (50.0-68.0) % Lymph % (Auto) (22.0-35.0) % [place] % (Auto) (1.0-6.0) % Eos % (Auto) (1.5-5.0) % Baso % (Auto) (0.0-3.0) % Gran # (1.4-6.5) Lymph # (1.2-3.4) [place] # (0.1-0.6) Eos # (0.0-0.7) Baso # (0.0-2.0) K/mm3 PT 22.1 H (9.9-11.8) Seconds INR 2.05 H (0.93-1.08) APTT 34.3 H (23.7-30.8) Seconds pCO2 (35-45) mm/Hg pO2 (80-100) mm/Hg HCO3 (21-28) mmol/L ABG pH (7.35-7.45) ABG Total CO2 (22-28) mmol.L ABG O2 Saturation (95-98) % ABG O2 Content (15-23) ML/dl ABG Base Excess (-2.0-3.0) mmol/L ABG Hemoglobin (11.7-17.4) g/dL ABG Carboxyhemoglobin (0.5-1.5) % POC ABG HHb (Measured) (0-5) % ABG Methemoglobin (0.0-3.0) % ABG O2 Capacity (16-24) mL/dl Hgb O2 Saturation (95.0-98.0) % FiO2 % Sodium 139 (132-148) mmol/L Potassium 4.1 (3.6-5.0) mmol/L Chloride 95 L (98-107) mmol/L Carbon Dioxide 28 (21-33) mmol/L Anion Gap 20 (10-20) BUN 37 H (7-21) mg/dL Creatinine 3.9 H (0.5-1.4) mg/dL Est GFR ( Amer) 19 Est GFR (Non-Af Amer) 15 Random Glucose 98 (70-110) mg/dL Calcium 8.5 (8.4-10.5) mg/dL Phosphorus (2.5-4.5) mg/dL Magnesium (1.7-2.2) mg/dL Total Bilirubin 2.5 H (0.2-1.3) mg/dL AST 227 H (15-59) U/L ALT 563 H (7-56) U/L Alkaline Phosphatase 91 (38-133) U/L Lactate Dehydrogenase 1047 H (333-699) U/L Total Creatine Kinase 265 H (35-230) U/L CK-MB (CK-2) 6.3 H (0.0-3.6) ng/mL CK-MB (CK-2) % 2.4 L (2.5-3.0) % Troponin I 2.59 H* 3.04 H* ng/mL NT-Pro-B Natriuret Pep (0-450) pg/mL Total Protein 7.5 (5.8-8.3) g/dL Albumin 3.6 (3.0-4.8) g/dL Globulin 3.9 gm/dL Albumin/Globulin Ratio 0.9 L (1.1-1.8) Procalcitonin (0.19-0.49) NG/ML 03/14/17 03/14/17 Range/Units 16:35 10:35 WBC 8.5 D (4.5-11.0) 10^3/ul RBC 3.14 L (3.5-6.1) 10^6/uL Hgb 9.4 L (14.0-18.0) gm/dL Hct 28.1 L (42.0-52.0) % MCV 89.5 (80.0-105.0) fL MCH 29.9 (25.0-35.0) pg MCHC 33.5 (31.0-37.0) g/dl RDW 19.0 H (11.5-14.5) % Plt Count 75 L (120.0-450.0) 10^3/uL Gran % 82.2 H (50.0-68.0) % Lymph % (Auto) 4.5 L (22.0-35.0) % [place] % (Auto) 13.2 H (1.0-6.0) % Eos % (Auto) 0.0 L (1.5-5.0) % Baso % (Auto) 0.1 (0.0-3.0) % Gran # 6.96 H (1.4-6.5) Lymph # 0.4 L (1.2-3.4) [place] # 1.1 H (0.1-0.6) Eos # 0.0 (0.0-0.7) Baso # 0.01 (0.0-2.0) K/mm3 PT (9.9-11.8) Seconds INR (0.93-1.08) APTT (23.7-30.8) Seconds pCO2 (35-45) mm/Hg pO2 (80-100) mm/Hg HCO3 (21-28) mmol/L ABG pH (7.35-7.45) ABG Total CO2 (22-28) mmol.L ABG O2 Saturation (95-98) % ABG O2 Content (15-23) ML/dl ABG Base Excess (-2.0-3.0) mmol/L ABG Hemoglobin (11.7-17.4) g/dL ABG Carboxyhemoglobin (0.5-1.5) % POC ABG HHb (Measured) (0-5) % ABG Methemoglobin (0.0-3.0) % ABG O2 Capacity (16-24) mL/dl Hgb O2 Saturation (95.0-98.0) % FiO2 % Sodium (132-148) mmol/L Potassium (3.6-5.0) mmol/L Chloride (98-107) mmol/L Carbon Dioxide (21-33) mmol/L Anion Gap (10-20) BUN (7-21) mg/dL Creatinine (0.5-1.4) mg/dL Est GFR ( Amer) Est GFR (Non-Af Amer) Random Glucose (70-110) mg/dL Calcium (8.4-10.5) mg/dL Phosphorus (2.5-4.5) mg/dL Magnesium (1.7-2.2) mg/dL Total Bilirubin (0.2-1.3) mg/dL AST (15-59) U/L ALT (7-56) U/L Alkaline Phosphatase (38-133) U/L Lactate Dehydrogenase (333-699) U/L Total Creatine Kinase (35-230) U/L CK-MB (CK-2) (0.0-3.6) ng/mL CK-MB (CK-2) % (2.5-3.0) % Troponin I ng/mL NT-Pro-B Natriuret Pep (0-450) pg/mL Total Protein (5.8-8.3) g/dL Albumin (3.0-4.8) g/dL Globulin gm/dL Albumin/Globulin Ratio (1.1-1.8) Procalcitonin 24.79 H (0.19-0.49) NG/ML Laboratory Results - last 24 hr 03/14/17 03/14/17 03/14/17 10:35 16:35 16:35 WBC 8.5 D RBC 3.14 L Hgb 9.4 L Hct 28.1 L MCV 89.5 MCH 29.9 MCHC 33.5 RDW 19.0 H Plt Count 75 L Gran % 82.2 H Lymph % (Auto) 4.5 L [place] % (Auto) 13.2 H Eos % (Auto) 0.0 L Baso % (Auto) 0.1 Gran # 6.96 H Lymph # 0.4 L [place] # 1.1 H Eos # 0.0 Baso # 0.01 PT 22.1 H INR 2.05 H APTT 34.3 H pCO2 pO2 HCO3 ABG pH ABG Total CO2 ABG O2 Saturation ABG O2 Content ABG Base Excess ABG Hemoglobin ABG Carboxyhemoglobin POC ABG HHb (Measured) ABG Methemoglobin ABG O2 Capacity Hgb O2 Saturation FiO2 Sodium Potassium Chloride Carbon Dioxide Anion Gap BUN Creatinine Est GFR ( Amer) Est GFR (Non-Af Amer) Random Glucose Calcium Phosphorus Magnesium Total Bilirubin AST ALT Alkaline Phosphatase Lactate Dehydrogenase Total Creatine Kinase CK-MB (CK-2) CK-MB (CK-2) % Troponin I NT-Pro-B Natriuret Pep Total Protein Albumin Globulin Albumin/Globulin Ratio Procalcitonin 24.79 H 03/14/17 03/15/17 03/15/17 16:35 04:00 05:00 WBC RBC Hgb Hct MCV MCH MCHC RDW Plt Count Gran % Lymph % (Auto) [place] % (Auto) Eos % (Auto) Baso % (Auto) Gran # Lymph # [place] # Eos # Baso # PT INR APTT pCO2 39 pO2 115.0 H HCO3 23.6 ABG pH 7.39 ABG Total CO2 24.8 ABG O2 Saturation 99.2 H ABG O2 Content 13.7 L ABG Base Excess -1.2 ABG Hemoglobin 10.0 L ABG Carboxyhemoglobin 2.2 H POC ABG HHb (Measured) 0.8 ABG Methemoglobin 0.9 ABG O2 Capacity 13.8 L Hgb O2 Saturation 96.2 FiO2 50.0 Sodium 139 Potassium 4.1 Chloride 95 L Carbon Dioxide 28 Anion Gap 20 BUN 37 H Creatinine 3.9 H Est GFR ( Amer) 19 Est GFR (Non-Af Amer) 15 Random Glucose 98 Calcium 8.5 Phosphorus Magnesium Total Bilirubin 2.5 H AST 227 H ALT 563 H Alkaline Phosphatase 91 Lactate Dehydrogenase 1047 H Total Creatine Kinase 265 H CK-MB (CK-2) 6.3 H CK-MB (CK-2) % 2.4 L Troponin I 3.04 H* 2.59 H* NT-Pro-B Natriuret Pep Total Protein 7.5 Albumin 3.6 Globulin 3.9 Albumin/Globulin Ratio 0.9 L Procalcitonin 03/15/17 03/15/1717 05:30 05:30 05:30 WBC 9.3 RBC 3.29 L Hgb 10.0 L Hct 30.4 L MCV 92.4 MCH 30.4 MCHC 32.9 RDW 20.0 H Plt Count 83 L Gran % 78.8 H Lymph % (Auto) 14.8 L [place] % (Auto) 6.3 H Eos % (Auto) 0.0 L Baso % (Auto) 0.1 Gran # 7.35 H Lymph # 1.4 [place] # 0.6 Eos # 0.0 Baso # 0.01 PT 21.8 H INR 2.02 H APTT 35.0 H pCO2 pO2 HCO3 ABG pH ABG Total CO2 ABG O2 Saturation ABG O2 Content ABG Base Excess ABG Hemoglobin ABG Carboxyhemoglobin POC ABG HHb (Measured) ABG Methemoglobin ABG O2 Capacity Hgb O2 Saturation FiO2 Sodium 139 Potassium 4.8 Chloride 96 L Carbon Dioxide 26 Anion Gap 22 H BUN 56 H Creatinine 5.4 H Est GFR ( Amer) 13 Est GFR (Non-Af Amer) 11 Random Glucose 92 Calcium 8.8 Phosphorus 7.0 H Magnesium 2.2 Total Bilirubin 2.3 H AST 165 H ALT 512 H Alkaline Phosphatase 90 Lactate Dehydrogenase Total Creatine Kinase CK-MB (CK-2) CK-MB (CK-2) % Troponin I NT-Pro-B Natriuret Pep 86149 H Total Protein 7.7 Albumin 3.8 Globulin 3.9 Albumin/Globulin Ratio 1.0 L Procalcitonin 03/15/17 03/15/17 09:43 09:43 WBC 7.9 RBC 3.20 L Hgb 9.6 L Hct 29.0 L MCV 90.6 MCH 30.0 MCHC 33.1 RDW 19.8 H Plt Count 84 L Gran % 77.4 H Lymph % (Auto) 14.8 L [place] % (Auto) 7.7 H Eos % (Auto) 0.0 L Baso % (Auto) 0.1 Gran # 6.14 Lymph # 1.2 [place] # 0.6 Eos # 0.0 Baso # 0.01 PT INR APTT pCO2 pO2 HCO3 ABG pH ABG Total CO2 ABG O2 Saturation ABG O2 Content ABG Base Excess ABG Hemoglobin ABG Carboxyhemoglobin POC ABG HHb (Measured) ABG Methemoglobin ABG O2 Capacity Hgb O2 Saturation FiO2 Sodium 139 Potassium 4.7 Chloride 97 L Carbon Dioxide 26 Anion Gap 21 H BUN 60 H Creatinine 5.7 H Est GFR ( Amer) 12 Est GFR (Non-Af Amer) 10 Random Glucose 98 Calcium 8.6 Phosphorus 7.3 H Magnesium 2.2 Total Bilirubin 2.3 H AST 150 H ALT 488 H Alkaline Phosphatase 88 Lactate Dehydrogenase Total Creatine Kinase CK-MB (CK-2) CK-MB (CK-2) % Troponin I NT-Pro-B Natriuret Pep Total Protein 7.5 Albumin 3.6 Globulin 3.9 Albumin/Globulin Ratio 0.9 L Procalcitonin EKG/Cardiology Studies: Cardiology / EKG Studies 03/14/17 14:00 ELECTROCARDIOGRAM DAILY Comment: Reason For Exam: f/u Fingerstick Blood Sugar Results: 116 Review of Systems - Review of Systems Systems not reviewed;Unavailable: Intubated Critical Care Progress Note - Nutrition Nutrition: Nutrition Category Date Time Status NPO Diet [DIET] Diets 03/13/17 Dinner Ordered Assessment/Plan - Assessment and Plan (Free Text) Assessment: This is a 71 yo M with PMH of COPD on 2L home O2, Pulmonary HTN, Afib on coumadin, CAD s/p CABG, and DEMETRIS who was admitted to the ICU with lactic acidosis and persistent hypotension requiring pressor support with dialysis, and developed respiratory insufficiency requiring intubation/mechanical ventilation and hemodynamic instability requiring pressor support. 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 Plan: Neuro: -intubated and sedated on propofol (started overnight due to agitation), will switch to precedex -some spontaneous eye/eyelid movements, intermittently clenching hands, otherwise no spontaneous movements witnessed -continue to monitor -maintain normothermia -Neuro (Dr. Ant Hampton) consulted, appreciate all recs Pulm: -Intubated, PRVC 50%/04/03/400, did not tolerate pressure support trial today, will attempt again tomorrow -Conservative O2 management, maintain SaO2 > 90 and paO2 > 60 -Protective lung ventilation strategies, VAP bundle, aspiration precautions, head of bed to 30 degrees -CXR today: prominent pulmonary vasculature unchanged -Pulm (Dr. Frost) and ID (Dr. Kidd) on board, appreciate all recs; Covering with Meropenem as per ID -Procal 24.79 -Continue pulmocort, brovana, and solumedrol Cardio: -Bradycardic to 40's and hypotensive to SBP 50's-60's with agonal breathing 2 nights ago, prompting intubation and pressor support -Levophed for pressor support, Dopamine discontinued after central access obtained -Central line obtained after INR decreased to 2.05 after administration of 6 units FFP; INR 2.02 today -INR 2.02, given history of AFib/AFlutter, this is an appropriate level to remain at to cover for DVT/PE ppx without excessively elevated bleeding risk -Dialysis yesterday, none planned for today -Cardio (Dr. Nicole) and EP (Dr. Clark) on board, appreciate all recs; transfer to [facility] for ablation canceled given acute status and also patient now in sinus rhythm (previously 2:1 A-Flutter), continue to monitor; Dobutamine started given RV diastolic dysfunction -Trops since admission to ICU: 0.07, 3.25, 1.95, 2.84, 3.04, 2.59 (today) GI: -NPO -Protonix for GI ppx Renal: -ESRD on critical access hospital HD, Right arm AV fistula access -dialyzed yesterday, none planned for today -Nephro (Dr. Merritt) on board, appreciate all recs -monitor and replete electrolytes as needed -maintain euglycemia (BG 140-180), careful maintenance of fluids given persistent hypotension & ESRD on HD -Abd CT notable for suspected pyelonephritis, Urology consulted as per patient' s Primary ID: -WBCs 7.9 (was 9.3) -afebrile -procal 24.79, indicative of infectious process -covering with Meropenem as per ID -Blood cultures x2 negative x4 days -ID (Dr. Kidd) on board, appreciate all recs Heme: -Hgb 10.0, (was 9.4) -holding AC, INR 2.02, s/p FFP x6 units yesterday to reverse INR of 5.4 -Current INR is adequate for DVT/PE ppx without additional AC needed -IR consulted for PICC access given chronic poor venous access, currently have left subclavian central line in place MSK: -Ortho consulted (Dr. Fields) for right shoulder injury, appreciate all recs Dispo: ICU, pending Palliative input, family decision on goals of care FEN: NPO Access: Left subclavian central line, Right arm AV fistula for dialysis Consults: IR, ID, Neuro, Ortho, Cardio, EP, Nephro, Pulm, Urology, Palliative Ppx: Protonix for GI, therapeutic range INR covers for DVT/PE Patient seen, reviewed, and discussed with attending, Dr. Laguerre - Date & Time Date: 03/15/17 Time: 15:17 <Carlotta VALLE,[facility] - Last Filed: 03/15/17 15:56> CCU Objective - Vital Signs / Intake & Output Vital Signs (Last 4 hours): Vital Signs Temp Pulse BP Pulse Ox 03/15/17 15:42 98.1 F 03/15/17 15:00 89 105/64 99 03/15/17 14:00 86 106/69 99 03/15/17 13:00 88 93/61 L 99 03/15/17 12:33 83 101/65 98 03/15/17 12:30 83 94/58 L 03/15/17 12:29 84 100 03/15/17 12:18 84 95/60 L 98 03/15/17 12:15 85 90/58 L 100 03/15/17 12:00 97.1 F L 94/61 L 03/15/17 11:59 86 99 Intake and Output (Last 8hrs): Intake & Output 03/15/17 03/15/17 03/15/17 06:59 14:59 22:59 Intake Total 532 190 Output Total 0 Balance 532 190 Weight 134 lb Intake: IV 532 190 Left Subclavian 428 Output: Urine 0 Urine, Voided 0 Other: # Voids Urine, Voided 0 # Bowel Movements 1 - Medications Active Medications: Active Medications Generic Name Dose Route Start Last Admin Trade Name Freq PRN Reason Stop Dose Admin Acetylcysteine 4 ml 03/10/17 08:00 03/13/17 19:41 Acetylcysteine 20% IH 4 ml [id number] RC Administration Amiodarone HCl 200 mg 03/11/17 22:00 03/13/17 10:36 Cordarone PO Not Given Q12 RC Arformoterol Tartrate 15 mcg 03/08/17 23:00 03/15/17 07:19 Brovana IH 15 mcg Q12H RC Administration Atorvastatin Calcium 10 mg 03/09/17 10:00 03/13/17 10:37 Lipitor PO Not Given DAILY RC Benzonatate 200 mg 03/09/17 10:00 03/13/17 17:35 Tessalon Perles PO Not Given TID [facility] Budesonide 1 mg 03/09/17 08:00 03/09/17 08:29 Pulmicort Respules IH Not Given [id number] RC Calcium Acetate 1,334 mg 03/09/17 18:56 03/13/17 17:36 Phoslo PO Not Given WM [facility] Clopidogrel Bisulfate 75 mg 03/09/17 10:00 03/13/17 13:20 Plavix PO Not Given DAILY RC Docusate Sodium 100 mg 03/08/17 23:00 03/13/17 17:36 Colace PO Not Given BID [facility] Guaifenesin 100 mg 03/08/17 23:05 Robitussin PO Q6H PRN Cough Meropenem 1g/NS 100mL IVPB 100 mls @ 100 mls/hr 03/13/17 17:45 03/15/17 12:31 Meropenem 1g/Ns 100ml Ivpb IVPB 03/20/17 17:46 100 mls/hr Q12 RC Administration Protocol Norepinephrine Bitartrate 4 mg 254 mls @ 15.24 mls/hr 03/14/17 17:44 12:20 / Sodium Chloride IV 2.5 mcg/min .[id number] PRN 9.52 mls/hr TITRATE PER MD ORDER Administration Protocol 4 MCG/MIN Dobutamine HCl/Dextrose 500 mg in 250 mls @ 4.605 mls/hr 03/14/17 18:54 03/14 20:34 Dobutamine/Dextrose 5% 500mg/250ml IV 2.5 mcg/kg/min .Q24H PRN 4.605 mls/hr TITRATE PER PROTOCOL Administration Protocol 2.5 MCG/KG/MIN Propofol 1,000 mg in 100 mls @ 1.842 mls/hr 03/14/17 22:13 03/15/17 09:30 Diprivan IV 12 mcg/kg/min .Q24H PRN 4.421 mls/hr TITRATE PER MD ORDER Titration Protocol 5 MCG/KG/MIN Methylprednisolone 20 mg 03/10/17 22:00 03/15/17 12:31 Solu-Medrol IVP 20 mg Q12 RC Administration Metoprolol Tartrate 12.5 mg 03/11/17 17:00 03/13/17 17:36 Lopressor PO Not Given BRKDIN RC Ondansetron HCl 4 mg 03/10/17 09:37 Zofran Inj IVP Q6H PRN Nausea/Vomiting Pantoprazole Sodium 40 mg 03/09/17 07:30 03/13/17 13:21 Protonix Ec Tab PO Not Given ACB RC Pantoprazole Sodium 40 mg 03/14/17 10:00 03/15/17 12:31 Protonix Inj IVP 40 mg DAILY RC Administration Warfarin Sodium 3 mg 03/10/17 18:00 03/13/17 17:36 Coumadin PO Not Given 1800 [facility] Protocol - Patient Studies Lab Studies: Microbiology Studies 03/10/17 10:15 Blood Culture - Final Blood NO GROWTH AFTER 5 DAYS Gram Stain - Final 03/10/17 10:45 Blood Culture - Final Blood NO GROWTH AFTER 5 DAYS Gram Stain - Final TEST NOT PERFORMED 03/14/17 15:35 Gram Stain - Final Sputum Induced Sputum Culture - Preliminary No growth. 03/13/17 16:20 Blood Culture - Preliminary Blood NO GROWTH AFTER 24 HOURS 03/13/17 16:10 Blood Culture - Preliminary Blood NO GROWTH AFTER 24 HOURS Lab Studies 03/15/17 03/15/17 03/15/17 Range/Units 09:43 09:43 05:30 WBC 7.9 (4.5-11.0) 10^3/ul RBC 3.20 L (3.5-6.1) 10^6/uL Hgb 9.6 L (14.0-18.0) gm/dL Hct 29.0 L (42.0-52.0) % MCV 90.6 (80.0-105.0) fL MCH 30.0 (25.0-35.0) pg MCHC 33.1 (31.0-37.0) g/dl RDW 19.8 H (11.5-14.5) % Plt Count 84 L (120.0-450.0) 10^3/uL Gran % 77.4 H (50.0-68.0) % Lymph % (Auto) 14.8 L (22.0-35.0) % [place] % (Auto) 7.7 H (1.0-6.0) % Eos % (Auto) 0.0 L (1.5-5.0) % Baso % (Auto) 0.1 (0.0-3.0) % Gran # 6.14 (1.4-6.5) Lymph # 1.2 (1.2-3.4) [place] # 0.6 (0.1-0.6) Eos # 0.0 (0.0-0.7) Baso # 0.01 (0.0-2.0) K/mm3 PT (9.9-11.8) Seconds INR (0.93-1.08) APTT (23.7-30.8) Seconds pCO2 (35-45) mm/Hg pO2 (80-100) mm/Hg HCO3 (21-28) mmol/L ABG pH (7.35-7.45) ABG Total CO2 (22-28) mmol.L ABG O2 Saturation (95-98) % ABG O2 Content (15-23) ML/dl ABG Base Excess (-2.0-3.0) mmol/L ABG Hemoglobin (11.7-17.4) g/dL ABG Carboxyhemoglobin (0.5-1.5) % POC ABG HHb (Measured) (0-5) % ABG Methemoglobin (0.0-3.0) % ABG O2 Capacity (16-24) mL/dl Hgb O2 Saturation (95.0-98.0) % FiO2 % Sodium 139 139 (132-148) mmol/L Potassium 4.7 4.8 (3.6-5.0) mmol/L Chloride 97 L 96 L (98-107) mmol/L Carbon Dioxide 26 26 (21-33) mmol/L Anion Gap 21 H 22 H (10-20) BUN 60 H 56 H (7-21) mg/dL Creatinine 5.7 H 5.4 H (0.5-1.4) mg/dL Est GFR ( Amer) 12 13 Est GFR (Non-Af Amer) 10 11 Random Glucose 98 92 (70-110) mg/dL Calcium 8.6 8.8 (8.4-10.5) mg/dL Phosphorus 7.3 H 7.0 H (2.5-4.5) mg/dL Magnesium 2.2 2.2 (1.7-2.2) mg/dL Total Bilirubin 2.3 H 2.3 H (0.2-1.3) mg/dL AST 150 H 165 H (15-59) U/L ALT 488 H 512 H (7-56) U/L Alkaline Phosphatase 88 90 (38-133) U/L Lactate Dehydrogenase (333-699) U/L Total Creatine Kinase (35-230) U/L CK-MB (CK-2) (0.0-3.6) ng/mL CK-MB (CK-2) % (2.5-3.0) % Troponin I ng/mL NT-Pro-B Natriuret Pep 59202 H (0-450) pg/mL Total Protein 7.5 7.7 (5.8-8.3) g/dL Albumin 3.6 3.8 (3.0-4.8) g/dL Globulin 3.9 3.9 gm/dL Albumin/Globulin Ratio 0.9 L 1.0 L (1.1-1.8) Procalcitonin (0.19-0.49) NG/ML 03/15/17 03/15/17 03/15/17 Range/Units 05:30 05:30 05:00 WBC 9.3 (4.5-11.0) 10^3/ul RBC 3.29 L (3.5-6.1) 10^6/uL Hgb 10.0 L (14.0-18.0) gm/dL Hct 30.4 L (42.0-52.0) % MCV 92.4 (80.0-105.0) fL MCH 30.4 (25.0-35.0) pg MCHC 32.9 (31.0-37.0) g/dl RDW 20.0 H (11.5-14.5) % Plt Count 83 L (120.0-450.0) 10^3/uL Gran % 78.8 H (50.0-68.0) % Lymph % (Auto) 14.8 L (22.0-35.0) % [place] % (Auto) 6.3 H (1.0-6.0) % Eos % (Auto) 0.0 L (1.5-5.0) % Baso % (Auto) 0.1 (0.0-3.0) % Gran # 7.35 H (1.4-6.5) Lymph # 1.4 (1.2-3.4) [place] # 0.6 (0.1-0.6) Eos # 0.0 (0.0-0.7) Baso # 0.01 (0.0-2.0) K/mm3 PT 21.8 H (9.9-11.8) Seconds INR 2.02 H (0.93-1.08) APTT 35.0 H (23.7-30.8) Seconds pCO2 39 (35-45) mm/Hg pO2 115.0 H (80-100) mm/Hg HCO3 23.6 (21-28) mmol/L ABG pH 7.39 (7.35-7.45) ABG Total CO2 24.8 (22-28) mmol.L ABG O2 Saturation 99.2 H (95-98) % ABG O2 Content 13.7 L (15-23) ML/dl ABG Base Excess -1.2 (-2.0-3.0) mmol/L ABG Hemoglobin 10.0 L (11.7-17.4) g/dL ABG Carboxyhemoglobin 2.2 H (0.5-1.5) % POC ABG HHb (Measured) 0.8 (0-5) % ABG Methemoglobin 0.9 (0.0-3.0) % ABG O2 Capacity 13.8 L (16-24) mL/dl Hgb O2 Saturation 96.2 (95.0-98.0) % FiO2 50.0 % Sodium (132-148) mmol/L Potassium (3.6-5.0) mmol/L Chloride (98-107) mmol/L Carbon Dioxide (21-33) mmol/L Anion Gap (10-20) BUN (7-21) mg/dL Creatinine (0.5-1.4) mg/dL Est GFR ( Amer) Est GFR (Non-Af Amer) Random Glucose (70-110) mg/dL Calcium (8.4-10.5) mg/dL Phosphorus (2.5-4.5) mg/dL Magnesium (1.7-2.2) mg/dL Total Bilirubin (0.2-1.3) mg/dL AST (15-59) U/L ALT (7-56) U/L Alkaline Phosphatase (38-133) U/L Lactate Dehydrogenase (333-699) U/L Total Creatine Kinase (35-230) U/L CK-MB (CK-2) (0.0-3.6) ng/mL CK-MB (CK-2) % (2.5-3.0) % Troponin I ng/mL NT-Pro-B Natriuret Pep (0-450) pg/mL Total Protein (5.8-8.3) g/dL Albumin (3.0-4.8) g/dL Globulin gm/dL Albumin/Globulin Ratio (1.1-1.8) Procalcitonin (0.19-0.49) NG/ML 03/15/17 03/14/17 03/14/17 Range/Units 04:00 16:35 16:35 WBC (4.5-11.0) 10^3/ul RBC (3.5-6.1) 10^6/uL Hgb (14.0-18.0) gm/dL Hct (42.0-52.0) % MCV (80.0-105.0) fL MCH (25.0-35.0) pg MCHC (31.0-37.0) g/dl RDW (11.5-14.5) % Plt Count (120.0-450.0) 10^3/uL Gran % (50.0-68.0) % Lymph % (Auto) (22.0-35.0) % [place] % (Auto) (1.0-6.0) % Eos % (Auto) (1.5-5.0) % Baso % (Auto) (0.0-3.0) % Gran # (1.4-6.5) Lymph # (1.2-3.4) [place] # (0.1-0.6) Eos # (0.0-0.7) Baso # (0.0-2.0) K/mm3 PT 22.1 H (9.9-11.8) Seconds INR 2.05 H (0.93-1.08) APTT 34.3 H (23.7-30.8) Seconds pCO2 (35-45) mm/Hg pO2 (80-100) mm/Hg HCO3 (21-28) mmol/L ABG pH (7.35-7.45) ABG Total CO2 (22-28) mmol.L ABG O2 Saturation (95-98) % ABG O2 Content (15-23) ML/dl ABG Base Excess (-2.0-3.0) mmol/L ABG Hemoglobin (11.7-17.4) g/dL ABG Carboxyhemoglobin (0.5-1.5) % POC ABG HHb (Measured) (0-5) % ABG Methemoglobin (0.0-3.0) % ABG O2 Capacity (16-24) mL/dl Hgb O2 Saturation (95.0-98.0) % FiO2 % Sodium 139 (132-148) mmol/L Potassium 4.1 (3.6-5.0) mmol/L Chloride 95 L (98-107) mmol/L Carbon Dioxide 28 (21-33) mmol/L Anion Gap 20 (10-20) BUN 37 H (7-21) mg/dL Creatinine 3.9 H (0.5-1.4) mg/dL Est GFR ( Amer) 19 Est GFR (Non-Af Amer) 15 Random Glucose 98 (70-110) mg/dL Calcium 8.5 (8.4-10.5) mg/dL Phosphorus (2.5-4.5) mg/dL Magnesium (1.7-2.2) mg/dL Total Bilirubin 2.5 H (0.2-1.3) mg/dL AST 227 H (15-59) U/L ALT 563 H (7-56) U/L Alkaline Phosphatase 91 (38-133) U/L Lactate Dehydrogenase 1047 H (333-699) U/L Total Creatine Kinase 265 H (35-230) U/L CK-MB (CK-2) 6.3 H (0.0-3.6) ng/mL CK-MB (CK-2) % 2.4 L (2.5-3.0) % Troponin I 2.59 H* 3.04 H* ng/mL NT-Pro-B Natriuret Pep (0-450) pg/mL Total Protein 7.5 (5.8-8.3) g/dL Albumin 3.6 (3.0-4.8) g/dL Globulin 3.9 gm/dL Albumin/Globulin Ratio 0.9 L (1.1-1.8) Procalcitonin (0.19-0.49) NG/ML 03/14/17 03/14/17 Range/Units 16:35 10:35 WBC 8.5 D (4.5-11.0) 10^3/ul RBC 3.14 L (3.5-6.1) 10^6/uL Hgb 9.4 L (14.0-18.0) gm/dL Hct 28.1 L (42.0-52.0) % MCV 89.5 (80.0-105.0) fL MCH 29.9 (25.0-35.0) pg MCHC 33.5 (31.0-37.0) g/dl RDW 19.0 H (11.5-14.5) % Plt Count 75 L (120.0-450.0) 10^3/uL Gran % 82.2 H (50.0-68.0) % Lymph % (Auto) 4.5 L (22.0-35.0) % [place] % (Auto) 13.2 H (1.0-6.0) % Eos % (Auto) 0.0 L (1.5-5.0) % Baso % (Auto) 0.1 (0.0-3.0) % Gran # 6.96 H (1.4-6.5) Lymph # 0.4 L (1.2-3.4) [place] # 1.1 H (0.1-0.6) Eos # 0.0 (0.0-0.7) Baso # 0.01 (0.0-2.0) K/mm3 PT (9.9-11.8) Seconds INR (0.93-1.08) APTT (23.7-30.8) Seconds pCO2 (35-45) mm/Hg pO2 (80-100) mm/Hg HCO3 (21-28) mmol/L ABG pH (7.35-7.45) ABG Total CO2 (22-28) mmol.L ABG O2 Saturation (95-98) % ABG O2 Content (15-23) ML/dl ABG Base Excess (-2.0-3.0) mmol/L ABG Hemoglobin (11.7-17.4) g/dL ABG Carboxyhemoglobin (0.5-1.5) % POC ABG HHb (Measured) (0-5) % ABG Methemoglobin (0.0-3.0) % ABG O2 Capacity (16-24) mL/dl Hgb O2 Saturation (95.0-98.0) % FiO2 % Sodium (132-148) mmol/L Potassium (3.6-5.0) mmol/L Chloride (98-107) mmol/L Carbon Dioxide (21-33) mmol/L Anion Gap (10-20) BUN (7-21) mg/dL Creatinine (0.5-1.4) mg/dL Est GFR ( Amer) Est GFR (Non-Af Amer) Random Glucose (70-110) mg/dL Calcium (8.4-10.5) mg/dL Phosphorus (2.5-4.5) mg/dL Magnesium (1.7-2.2) mg/dL Total Bilirubin (0.2-1.3) mg/dL AST (15-59) U/L ALT (7-56) U/L Alkaline Phosphatase (38-133) U/L Lactate Dehydrogenase (333-699) U/L Total Creatine Kinase (35-230) U/L CK-MB (CK-2) (0.0-3.6) ng/mL CK-MB (CK-2) % (2.5-3.0) % Troponin I ng/mL NT-Pro-B Natriuret Pep (0-450) pg/mL Total Protein (5.8-8.3) g/dL Albumin (3.0-4.8) g/dL Globulin gm/dL Albumin/Globulin Ratio (1.1-1.8) Procalcitonin 24.79 H (0.19-0.49) NG/ML Laboratory Results - last 24 hr 03/14/17 03/14/17 03/14/17 10:35 16:35 16:35 WBC 8.5 D RBC 3.14 L Hgb 9.4 L Hct 28.1 L MCV 89.5 MCH 29.9 MCHC 33.5 RDW 19.0 H Plt Count 75 L Gran % 82.2 H Lymph % (Auto) 4.5 L [place] % (Auto) 13.2 H Eos % (Auto) 0.0 L Baso % (Auto) 0.1 Gran # 6.96 H Lymph # 0.4 L [place] # 1.1 H Eos # 0.0 Baso # 0.01 PT 22.1 H INR 2.05 H APTT 34.3 H pCO2 pO2 HCO3 ABG pH ABG Total CO2 ABG O2 Saturation ABG O2 Content ABG Base Excess ABG Hemoglobin ABG Carboxyhemoglobin POC ABG HHb (Measured) ABG Methemoglobin ABG O2 Capacity Hgb O2 Saturation FiO2 Sodium Potassium Chloride Carbon Dioxide Anion Gap BUN Creatinine Est GFR ( Amer) Est GFR (Non-Af Amer) Random Glucose Calcium Phosphorus Magnesium Total Bilirubin AST ALT Alkaline Phosphatase Lactate Dehydrogenase Total Creatine Kinase CK-MB (CK-2) CK-MB (CK-2) % Troponin I NT-Pro-B Natriuret Pep Total Protein Albumin Globulin Albumin/Globulin Ratio Procalcitonin 24.79 H 03/14/17 03/15/17 03/15/17 16:35 04:00 05:00 WBC RBC Hgb Hct MCV MCH MCHC RDW Plt Count Gran % Lymph % (Auto) [place] % (Auto) Eos % (Auto) Baso % (Auto) Gran # Lymph # [place] # Eos # Baso # PT INR APTT pCO2 39 pO2 115.0 H HCO3 23.6 ABG pH 7.39 ABG Total CO2 24.8 ABG O2 Saturation 99.2 H ABG O2 Content 13.7 L ABG Base Excess -1.2 ABG Hemoglobin 10.0 L ABG Carboxyhemoglobin 2.2 H POC ABG HHb (Measured) 0.8 ABG Methemoglobin 0.9 ABG O2 Capacity 13.8 L Hgb O2 Saturation 96.2 FiO2 50.0 Sodium 139 Potassium 4.1 Chloride 95 L Carbon Dioxide 28 Anion Gap 20 BUN 37 H Creatinine 3.9 H Est GFR ( Amer) 19 Est GFR (Non-Af Amer) 15 Random Glucose 98 Calcium 8.5 Phosphorus Magnesium Total Bilirubin 2.5 H AST 227 H ALT 563 H Alkaline Phosphatase 91 Lactate Dehydrogenase 1047 H Total Creatine Kinase 265 H CK-MB (CK-2) 6.3 H CK-MB (CK-2) % 2.4 L Troponin I 3.04 H* 2.59 H* NT-Pro-B Natriuret Pep Total Protein 7.5 Albumin 3.6 Globulin 3.9 Albumin/Globulin Ratio 0.9 L Procalcitonin 03/15/17 03/15/17 03/15/17 05:30 05:30 05:30 WBC 9.3 RBC 3.29 L Hgb 10.0 L Hct 30.4 L MCV 92.4 MCH 30.4 MCHC 32.9 RDW 20.0 H Plt Count 83 L Gran % 78.8 H Lymph % (Auto) 14.8 L [place] % (Auto) 6.3 H Eos % (Auto) 0.0 L Baso % (Auto) 0.1 Gran # 7.35 H Lymph # 1.4 [place] # 0.6 Eos # 0.0 Baso # 0.01 PT 21.8 H INR 2.02 H APTT 35.0 H pCO2 pO2 HCO3 ABG pH ABG Total CO2 ABG O2 Saturation ABG O2 Content ABG Base Excess ABG Hemoglobin ABG Carboxyhemoglobin POC ABG HHb (Measured) ABG Methemoglobin ABG O2 Capacity Hgb O2 Saturation FiO2 Sodium 139 Potassium 4.8 Chloride 96 L Carbon Dioxide 26 Anion Gap 22 H BUN 56 H Creatinine 5.4 H Est GFR ( Amer) 13 Est GFR (Non-Af Amer) 11 Random Glucose 92 Calcium 8.8 Phosphorus 7.0 H Magnesium 2.2 Total Bilirubin 2.3 H AST 165 H ALT 512 H Alkaline Phosphatase 90 Lactate Dehydrogenase Total Creatine Kinase CK-MB (CK-2) CK-MB (CK-2) % Troponin I NT-Pro-B Natriuret Pep 90959 H Total Protein 7.7 Albumin 3.8 Globulin 3.9 Albumin/Globulin Ratio 1.0 L Procalcitonin 03/15/17 03/15/17 09:43 09:43 WBC 7.9 RBC 3.20 L Hgb 9.6 L Hct 29.0 L MCV 90.6 MCH 30.0 MCHC 33.1 RDW 19.8 H Plt Count 84 L Gran % 77.4 H Lymph % (Auto) 14.8 L [place] % (Auto) 7.7 H Eos % (Auto) 0.0 L Baso % (Auto) 0.1 Gran # 6.14 Lymph # 1.2 [place] # 0.6 Eos # 0.0 Baso # 0.01 PT INR APTT pCO2 pO2 HCO3 ABG pH ABG Total CO2 ABG O2 Saturation ABG O2 Content ABG Base Excess ABG Hemoglobin ABG Carboxyhemoglobin POC ABG HHb (Measured) ABG Methemoglobin ABG O2 Capacity Hgb O2 Saturation FiO2 Sodium 139 Potassium 4.7 Chloride 97 L Carbon Dioxide 26 Anion Gap 21 H BUN 60 H Creatinine 5.7 H Est GFR ( Amer) 12 Est GFR (Non-Af Amer) 10 Random Glucose 98 Calcium 8.6 Phosphorus 7.3 H Magnesium 2.2 Total Bilirubin 2.3 H AST 150 H ALT 488 H Alkaline Phosphatase 88 Lactate Dehydrogenase Total Creatine Kinase CK-MB (CK-2) CK-MB (CK-2) % Troponin I NT-Pro-B Natriuret Pep Total Protein 7.5 Albumin 3.6 Globulin 3.9 Albumin/Globulin Ratio 0.9 L Procalcitonin Critical Care Progress Note - Nutrition Nutrition: Nutrition Category Date Time Status NPO Diet [DIET] Diets 03/13/17 Dinner Ordered Attending/Attestation - Attestation I have personally seen and examined this patient.: Yes I have fully participated in the care of the patient.: Yes I have reviewed all pertinent clinical information: Yes Notes (Text): 03/15/17 15:54 71 y/o M w/ MODS Acute respiratory failure Secondary to fluid overload Metabolic acidosis Phil on CKD RV failure UTI, Pyelonephritis on CT On empiric abx , Urology consulted by PCP ON HD to help with hypoxia and Met acidosis RV failure noted on ECHo from 2016 . On Dobutamine and Levophed (2.5) MAp>65 . Poor prognosis Paliative care needed . INR corrected , no active bleeding noted. HGB>7 heparin sq tid . cc time 65 min
--- NOTE | 2017-03-15 15:02 | PN ---
DATE: 03/15/2017 CARDIOLOGY FOLLOWUP The patient remains on a ventilator. PHYSICAL EXAMINATION: VITAL SIGNS: Blood pressure is 114/72. The heart rate is in the 70s. NECK: Negative JVD. LUNGS: Decreased breath sounds bilaterally. HEART: Revealed S1, S2. EXTREMITIES: Without change. LABORATORY DATA: Hemoglobin is 9.6. Chemistries: BUN and creatinine are 60 and 5.7. IMPRESSION: 1. Respiratory failure. 2. Congestive heart failure. 3. Sepsis. 4. End-stage renal disease. 5. Coronary artery disease. 6. History of coronary artery bypass surgery. 7. Non-ST elevation myocardial infarction. PLAN: Given these findings, the patient was unable to be weaned off the ventilator. We will continue on the IV antibiotics. An echocardiogram is pending. Rubio Nicole MD cc: [id number] TT: 03/15/2017 14:38:16 Confirmation # [id number] Dictation # [id number]
[2017-03-15] MEDS: Propofol 10 mg/ml 1,000 MG/100 ML VIAL IV PRN (16:17)
--- NOTE | 2017-03-15 16:21 | PN ---
DATE: 03/15/2017 REFERRING PHYSICIAN: Dr. Wilkins. SUBJECTIVE: He is intubated, mildly sedated, arousable, follows simple commands. Has a small amount of ET tube secretion. No hemoptysis, no hematemesis, no hematuria, no diarrhea, no leg swelling rep orted. OBJECTIVE: GENERAL: On ventilator, heart rate is about 80, respiratory rate is 20, blood pressure is 105/64, pu lse ox 99% on ventilator. HEENT: Moist mucous membrane. ET tube not much secretion. NECK: Supple, no JVD. LUNGS: Scattered rhonchi and a few crackles. HEART: S1, S2 irregular. ABDOMEN: Soft, nontender, nondistended. EXTREMITIES: There is no edema. NEUROLOGIC: Arousable, follows simple command. MEDICATIONS: He is on Mucomyst 4 mL inhaled twice a day, Brovana 15 mcg inhaled twice a day, Colace 100 mg twice a day, amiodarone 200 mg which is on hold, propofol IV for sedation, getting dobutamine, meropenem 1 g IV q. 12 hours. He is on Levophed, Protonix 40 mg daily, Solu-Medrol 20 mg q. 12 hour s, Zofran on a p.r.n. basis. LABORATORY DATA: Shows hemoglobin 9.6, hematocrit 29.0, WBC 7.9, platelet is 84. INR is 2.02. PTT is 35. Blood gases shows pH 7.39, pCO2 of 39, O2 115; this is on 50% oxygen on ventilator. Sodium 1 39, potassium 4.7, chloride 97, bicarbonate 26, BUN 60, creatinine 5.7, glucose 98, calcium 8.6, magn esium 2.2, phosphorus 7.3. AST 150, ALT 488, alkaline phosphatase is 88. ProBNP is 58,500. Had a CAT scan of the abdomen done today which shows perinephritic stranding, right greater than the left, without hydronephrosis, suspicious for pyelonephritis. Chest x-ray done today shows vascular c ongestion, unchanged. Echocardiogram is done; report is still pending. IMPRESSION AND PLAN: Respiratory failure, has a cardiomyopathy with diastolic dysfunction, has a sev erely dilated right ventricle with pulmonary hypertension; renal failure, dialysis dependent; sleep a pnea syndrome, bronchiectasis; coronary artery disease, history of coronary stent; could be pyeloneph ritis according to CT report. Continue broad spectrum antibiotics covering healthcare-associated ___ _. From pulmonary point of view, keep him on vent setting. Agree with dobutamine to help the right heart to pump a little better to do increase preload. Keep head elevated at 45 degrees. Follow up A BG, chest x-ray, CBC, CMP in the morning. Critical care time was more than 35 minutes. Thank you, and will follow with you. Louie Frost MD cc: [phone] TT: 03/15/2017 16:19:54 Confirmation # [id number] Dictation # [id number] mn
--- NOTE | 2017-03-15 16:37 | CARD ---
APPROVED REPORT EXAM: Two-dimensional and M-mode echocardiogram with Doppler and color Doppler. INDICATION RESP. FAILURE 2D DIMENSIONS Left Atrium (2D)4.1 (1.6-4.0cm)IVSd1.2 (0.7-1.1cm) LVDd3.7 (3.9-5.9cm)PWd1.2 (0.7-1.1cm) LVDs2.5 (2.5-4.0cm)FS (%) 31.7 % LVEF (%)60.6 (>50%) M-Mode DIMENSIONS Aortic Root2.80 (2.2-3.7cm)Aortic Cusp Exc.0.70 (1.5-2.0cm) Mitral Valve E/A ratio0.0 TDI E/Lateral E'0.0E/Medial E'0.0 Tricuspid Valve TR Peak [id number] [id number] Peak Gr.43mmHg [id number] LEFT VENTRICLE The left ventricle is normal size. There is mild concentric left ventricular hypertrophy. The left ventricular function is normal. The left ventricular ejection fraction is within the normal range. There is a flattened septum Transmitral Doppler flow pattern is Grade I-abnormal relaxation pattern. RIGHT VENTRICLE The right ventricle is moderately dilated. RV Systolic function is severely reduced. ATRIA The left atrium is borderline dilated. The right atrium is moderately dilated. AORTIC VALVE The aortic valve is severely thickened. MITRAL VALVE The mitral valve is moderately thickened. Mitral regurgitation is trace to mild. TRICUSPID VALVE There is moderate tricuspid regurgitation. There is moderate pulmonary hypertension. GREAT VESSELS The aortic root is normal in size. PERICARDIAL EFFUSION There is no pericardial effusion. <Conclusion> The right ventricle is moderately dilated. RV Systolic function is severely reduced. There is moderate pulmonary hypertension. The left ventricle is normal size. There is mild concentric left ventricular hypertrophy. The left ventricular function is normal. The left ventricular ejection fraction is within the normal range. There is a flattened septum Transmitral Doppler flow pattern is Grade I-abnormal relaxation pattern.
[2017-03-15] MEDS ORDERED: Vancomycin 1gm in NS 250ml 1 GM/250 ML BAG IVPB STA (17:51)
--- NOTE | 2017-03-15 17:57 | CP.PCM.PN ---
Subjective - Date & Time of Evaluation Date of Evaluation: 03/15/17 Time of Evaluation: 11:15 - Subjective Subjective: Continues to be on the ventilator, not in distress, no fevers overnight. Objective - Vital Signs/Intake and Output Vital Signs (last 24 hours): Temp Pulse Resp BP Pulse Ox 98.1 F 90 26 H 91/58 L 98 03/15/17 15:42 03/15/17 16:00 03/15/17 07:27 03/15/17 16:00 03/15/17 16:00 Intake and Output: 03/15/17 03/15/17 06:59 18:59 Intake Total 532 250 Output Total 0 Balance 532 250 - Medications Medications: Current Medications Acetylcysteine (Acetylcysteine 20%) 4 ml IH BIDRESP [facility] Last Admin: 03/13/17 19:41 Dose: 4 ml Amiodarone HCl (Cordarone) 200 mg PO Q12 [facility] Last Admin: 03/13/17 10:36 Dose: Not Given Arformoterol Tartrate (Brovana) 15 mcg IH Q12H [facility] Last Admin: 03/15/17 07:19 Dose: 15 mcg Atorvastatin Calcium (Lipitor) 10 mg PO DAILY [facility] Last Admin: 03/13/17 10:37 Dose: Not Given Benzonatate (Tessalon Perles) 200 mg PO TID [facility] Last Admin: 03/13/17 17:35 Dose: Not Given Budesonide (Pulmicort Respules) 1 mg IH [id number] [facility] Last Admin: 03/09/17 08:29 Dose: Not Given Calcium Acetate (Phoslo) 1,334 mg PO WM [facility] Last Admin: 03/13/17 17:36 Dose: Not Given Clopidogrel Bisulfate (Plavix) 75 mg PO DAILY [facility] Last Admin: 03/13/17 13:20 Dose: Not Given Docusate Sodium (Colace) 100 mg PO BID [facility] Last Admin: 03/13/17 17:36 Dose: Not Given Guaifenesin (Robitussin) 100 mg PO Q6H PRN PRN Reason: Cough Meropenem 1g/NS 100mL IVPB (Meropenem 1g/Ns 100ml Ivpb) 100 mls @ 100 mls/hr IVPB Q12 RC PRN Reason: Protocol Stop: 03/20/17 17:46 Last Admin: 03/15/17 12:31 Dose: 100 mls/hr Norepinephrine Bitartrate 4 mg (/ Sodium Chloride) 254 mls @ 15.24 mls/hr IV .[id number] PRN; Protocol; 4 MCG/MIN PRN Reason: TITRATE PER MD ORDER Last Admin: 03/15/17 12:20 Dose: 2.5 mcg/min, 9.52 mls/hr Dobutamine HCl/Dextrose (Dobutamine/Dextrose 5% 500mg/250ml) 500 mg in 250 mls @ 4.605 mls/hr IV .Q24H PRN; Protocol; 2.5 MCG/KG/MIN PRN Reason: TITRATE PER PROTOCOL Last Admin: 03/14/17 20:34 Dose: 2.5 mcg/kg/min, 4.605 mls/hr Propofol (Diprivan) 1,000 mg in 100 mls @ 1.842 mls/hr IV .Q24H PRN; Protocol; 5 MCG/KG/MIN PRN Reason: TITRATE PER MD ORDER Last Admin: 03/15/17 16:17 Dose: 12 mcg/kg/min, 4.421 mls/hr Vancomycin HCl (Vancomycin 1gm) 1 gm in 250 mls @ 167 mls/hr IVPB STAT STA PRN Reason: Protocol Stop: 03/15/17 19:20 Methylprednisolone (Solu-Medrol) 20 mg IVP Q12 [facility] Last Admin: 03/15/17 12:31 Dose: 20 mg Metoprolol Tartrate (Lopressor) 12.5 mg PO BRKDIN [facility] Last Admin: 03/13/17 17:36 Dose: Not Given Ondansetron HCl (Zofran Inj) 4 mg IVP Q6H PRN PRN Reason: Nausea/Vomiting Pantoprazole Sodium (Protonix Ec Tab) 40 mg PO ACB [facility] Last Admin: 03/13/17 13:21 Dose: Not Given Pantoprazole Sodium (Protonix Inj) 40 mg IVP DAILY [facility] Last Admin: 03/15/17 12:31 Dose: 40 mg Warfarin Sodium (Coumadin) 3 mg PO 1800 RC PRN Reason: Protocol Last Admin: 03/13/17 17:36 Dose: Not Given - Labs Labs: 03/15/17 09:43 03/15/17 09:43 PT 21.8 Seconds (9.9-11.8) H 04/26/17 05:30 INR 2.02 (0.93-1.08) H 03/15/17 05:30 APTT 35.0 Seconds (23.7-30.8) H 03/15/17 05:30 - Constitutional Appears: Other (Intubated and sedated) - Head Exam Head Exam: NORMAL INSPECTION - ENT Exam Additional comments: Et tube in place - Neck Exam Neck Exam: absent: Meningismus - Respiratory Exam Respiratory Exam: Decreased Breath Sounds, Rales (scattered) - Cardiovascular Exam Cardiovascular Exam: +S1, +S2 - GI/Abdominal Exam GI & Abdominal Exam: Soft. absent: Tenderness Assessment and Plan - Assessment and Plan (Free Text) Plan: Assessment Severe sepsis with acute hypoxic and ventilator-dependent respiratory failure in a patient with acute CHF probably secondary to bilateral hospital-acquired pneumonia with possible gram positive cocci and/or gram negative bacilli ESRD on HD COPD chronic atrial fibrillation on anticoagulation history of GI bleeding CAD S/P CABG prostate cancer Plan continue intermittent Vancomycin and Merrem day 2; cultures have been negative Will continue to monitor clinical response
--- NOTE | 2017-03-15 20:07 | OP ---
PROCEDURE DATE: 03/14/2017 PROCEDURE: Left subclavian vein CVC placement. INDICATION: Hemodynamic support/vasopressor therapy. DESCRIPTION OF PROCEDURE: After obtaining informed consent, the operational area was sterilized. Maximum barrier precaution used. The left subclavian vein was cannulated under real-time ultrasound guidance with sterile Seldinger technique. Guidewire removed. Hemostasis achieved. Sterile dressing applied. Chest x-ray confirmed correct position of the central line. No pneumothorax. The patient tolerated the procedure well. Vital signs were monitored throughout the procedure and were unchanged. Sam Soto MD cc: [id number] TT: 03/15/2017 20:07:06 jett WONG
--- NOTE | 2017-03-15 21:50 | PN ---
DATE: 03/15/2017 The patient is a 71-year-old male with past medical history of COPD on 2 liters home oxygen, AFib on Coumadin, CAD status post coronary artery bypass graft and drug-eluting stent, ESRD on hemodialysis, initially admitted after falling out of bed and found to have CHF exacerbation. Hospital course comp licated by hypotension, atrial flutter and altered mental status. The patient remains intubated, started on ionotropic and vasopressor support, undergoing workup for c ause of shock. PHYSICAL EXAMINATION: VITAL SIGNS: This morning, blood pressure 94/59, heart rate 95, respirations 26, temperature 97.5, O 2 sat 95% on vent. GENERAL: The patient spontaneously opens eyes. Not in any acute distress. HEENT: Moist mucous membranes. Mild scleral icterus. RESPIRATORY: Clear to auscultation bilaterally. No rhonchi, no wheezes. CARDIOVASCULAR: S1, S2 normal, no murmurs, no rubs, no gallops. ABDOMEN: Soft, nontender, nondistended. GENITOURINARY: No bladder distention. EXTREMITIES: Hands and feet warm to touch, minimal lower leg edema. NEUROLOGIC: Not following commands. LABORATORY DATA: CBC: WBC 9.3, hemoglobin 10.0, hematocrit 30.4, platelets 83. Chemistry: Sodium 139, potassium 4.7, chloride 97, bicarbonate 26, BUN 60, creatinine 5.7, calcium 7.3, ALT 488, AST 15 0, T-bili 2.3. BNP 58,500. Albumin 3.6. Procalcitonin level from yesterday 24.7. CT abdomen and p zulema done today showing perinephric stranding of right greater than left kidney suspicious for pyelo nephritis. Chest x-ray personally reviewed. Increased pulmonary vascular congestion. ASSESSMENT: 1. Shock. Etiology could be multifactorial. Distributive shock secondary to sepsis with possible in filtrates on chest x-ray and now finding of possible pyelonephritis on abdominal CT versus cardiogeni c shock in the setting of RV dysfunction. Procalcitonin level elevated despite negative blood cultur es. ID escalating antibiotic coverage for suspected healthcare-associated pneumonia. Currently gett ing meropenem 1 gram q. 12 hours, as well as a dose of vancomycin. Started on dobutamine for inotrop ic support. Plan: Continuing ultrafiltration on hemodialysis in order to offload right ventricle, to lerated ultrafiltration only session today. We will again attempt ultrafiltration on hemodialysis to higinio. Consider decreasing frequency of meropenem to 1 gram q. 24 hours for end-stage renal disease . Vancomycin should be redosed after hemodialysis tomorrow. 2. End-stage renal disease on hemodialysis. Ultrafiltration session today with 2 liters removed. E lectrolyte status relatively stable. Next hemodialysis for tomorrow. 3. Congestive heart failure exacerbation, preserved ejection fraction on previous echo, likely eleme nt of diastolic dysfunction. Again, with increased pulmonary vascular congestion on chest x-ray. Pl an as mentioned above. 4. Lactic acidosis, transient, in the setting of hypotension and resolved thereafter. Continue to m onitor intermittently. 5. Altered mental status, worsening dementia over the last few months. Now with likely metabolic en cephalopathy in the setting of severe illness. We will continue to address electrolyte imbalances an d uremia with regular hemodialysis. Han Patel MD cc: [id number] TT: 03/15/2017 21:49:42 Confirmation # [id number] Dictation # [id number] jett
--- NOTE | 2017-03-15 23:20 | CP.PCM.PN ---
Subjective - Date & Time of Evaluation Date of Evaluation: 03/14/17 Time of Evaluation: 09:00 - Subjective Subjective: Overnight patient became hypotensive and required and without the support and transfer to CCU. He also spontaneously converted to normal sinus rhythm. Amio was held due to hypertension. Objective - Vital Signs/Intake and Output Vital Signs (last 24 hours): Temp Pulse Resp BP Pulse Ox 98.1 F 96 H 26 H 96/53 L 96 03/15/17 15:42 03/15/17 18:00 03/15/17 07:27 03/15/17 18:00 03/15/17 18:00 Intake and Output: 03/15/17 03/16/17 18:59 06:59 Intake Total 566 Output Total 1999 Balance -1434 - Medications Medications: Current Medications Acetylcysteine (Acetylcysteine 20%) 4 ml IH BIDRESP [facility] Last Admin: 03/13/17 19:41 Dose: 4 ml Amiodarone HCl (Cordarone) 200 mg PO Q12 [facility] Last Admin: 03/13/17 10:36 Dose: Not Given Arformoterol Tartrate (Brovana) 15 mcg IH Q12H [facility] Last Admin: 03/15/17 21:16 Dose: 15 mcg Atorvastatin Calcium (Lipitor) 10 mg PO DAILY [facility] Last Admin: 03/13/17 10:37 Dose: Not Given Benzonatate (Tessalon Perles) 200 mg PO TID [facility] Last Admin: 03/13/17 17:35 Dose: Not Given Budesonide (Pulmicort Respules) 1 mg IH [id number] [facility] Last Admin: 03/09/17 08:29 Dose: Not Given Calcium Acetate (Phoslo) 1,334 mg PO WM [facility] Last Admin: 03/13/17 17:36 Dose: Not Given Clopidogrel Bisulfate (Plavix) 75 mg PO DAILY [facility] Last Admin: 03/13/17 13:20 Dose: Not Given Docusate Sodium (Colace) 100 mg PO BID [facility] Last Admin: 03/13/17 17:36 Dose: Not Given Guaifenesin (Robitussin) 100 mg PO Q6H PRN PRN Reason: Cough Meropenem 1g/NS 100mL IVPB (Meropenem 1g/Ns 100ml Ivpb) 100 mls @ 100 mls/hr IVPB Q12 RC PRN Reason: Protocol Stop: 03/20/17 17:46 Last Admin: 03/15/17 21:36 Dose: 100 mls/hr Norepinephrine Bitartrate 4 mg (/ Sodium Chloride) 254 mls @ 15.24 mls/hr IV .[id number] PRN; Protocol; 4 MCG/MIN PRN Reason: TITRATE PER MD ORDER Last Admin: 03/15/17 12:20 Dose: 2.5 mcg/min, 9.52 mls/hr Dobutamine HCl/Dextrose (Dobutamine/Dextrose 5% 500mg/250ml) 500 mg in 250 mls @ 4.605 mls/hr IV .Q24H PRN; Protocol; 2.5 MCG/KG/MIN PRN Reason: TITRATE PER PROTOCOL Last Admin: 03/14/17 20:34 Dose: 2.5 mcg/kg/min, 4.605 mls/hr Propofol (Diprivan) 1,000 mg in 100 mls @ 1.842 mls/hr IV .Q24H PRN; Protocol; 5 MCG/KG/MIN PRN Reason: TITRATE PER MD ORDER Last Admin: 03/15/17 16:17 Dose: 12 mcg/kg/min, 4.421 mls/hr Methylprednisolone (Solu-Medrol) 20 mg IVP Q12 [facility] Last Admin: 03/15/17 21:43 Dose: 20 mg Metoprolol Tartrate (Lopressor) 12.5 mg PO BRKDIN [facility] Last Admin: 03/13/17 17:36 Dose: Not Given Ondansetron HCl (Zofran Inj) 4 mg IVP Q6H PRN PRN Reason: Nausea/Vomiting Pantoprazole Sodium (Protonix Ec Tab) 40 mg PO ACB [facility] Last Admin: 03/13/17 13:21 Dose: Not Given Pantoprazole Sodium (Protonix Inj) 40 mg IVP DAILY [facility] Last Admin: 03/15/17 12:31 Dose: 40 mg Warfarin Sodium (Coumadin) 3 mg PO 1800 RC PRN Reason: Protocol Last Admin: 03/13/17 17:36 Dose: Not Given - Labs Labs: 03/15/17 09:43 03/15/17 09:43 PT 21.8 Seconds (9.9-11.8) H 03/15/17 05:30 INR 2.02 (0.93-1.08) H 03/15/17 05:30 APTT 35.0 Seconds (23.7-30.8) H 03/15/17 05:30 - Constitutional Appears: In Acute Distress - Head Exam Head Exam: ATRAUMATIC - Eye Exam Eye Exam: EOMI - Respiratory Exam Respiratory Exam: NORMAL BREATHING PATTERN - Cardiovascular Exam Cardiovascular Exam: Tachycardia - GI/Abdominal Exam GI & Abdominal Exam: Normal Bowel Sounds - Extremities Exam Extremities Exam: Pedal Edema (No edema) Assessment and Plan (1) Atrial flutter Status: Acute - Assessment and Plan (Free Text) Assessment: Patient spontaneously convert patient spontaneously converted to normal sinus rhythm and currently is tachycardic Plan: Giving pateint's current status and possible sepsis I recommend stopping him your room. If patient's AFL returns patient should be started on amiodarone. Recommend plasma or vitamin K to reverse anticoagulation. We will hold off on any transfer to [facility] - echo - EKG Laboratory Interpretation - Lab results I have reviewed the lab results: Yes
[2017-03-16 06:12] LABS: INR 1.53 (0.93-1.08); PARTIAL THROMBOPLASTIN TIME 31.5 Seconds (23.7-30.8)
[2017-03-16 06:16] LABS: BASO # 0.02 K/mm3 (0.0-2.0); BASO % 0.3 % (0.0-3.0); GRAN # 5.56 (1.4-6.5); GRAN % 77.2 % (50.0-68.0); LYMPH # 1.1 (1.2-3.4); LYMPH % 15.8 % (22.0-35.0); MEAN CORPUSCULAR HEMOGLOBIN 29.4 pg (25.0-35.0); MONO # 0.5 (0.1-0.6); MONO % 6.7 % (1.0-6.0); PLATELET COUNT 92 10^3/uL (120.0-450.0); RED CELL DISTRIBUTION WIDTH 20.3 % (11.5-14.5); WHITE BLOOD COUNT 7.2 10^3/ul (4.5-11.0)
[2017-03-16] MEDS ORDERED: Dexmedetomidine HCl 4mcg/ml 400 MCG/100 ML BOTTLE IV PRN (06:36)
[2017-03-16 06:40] LABS: ARTERIAL BLOOD GAS HCO3 21.7 mmol/L (21-28); ARTERIAL BLOOD GAS O2 CAPACITY 23.1 mL/dl (16-24); ARTERIAL BLOOD GAS O2 CONTENT 23.1 ML/dl (15-23); ARTERIAL BLOOD GAS PH 7.31 (7.35-7.45); ARTERIAL BLOOD HGB O2 SAT 97.1 % (95.0-98.0); CARBOXYHEMOGLOBIN 2.1 % (0.5-1.5); HHB 0.2 % (0-5); METHEMOGLOBIN 0.6 % (0.0-3.0)
[2017-03-16 06:45] LABS: BILIRUBIN,TOTAL 2.3 mg/dL (0.2-1.3); CALCIUM 8.4 mg/dL (8.4-10.5); MAGNESIUM 2.4 mg/dL (1.7-2.2); POTASSIUM 5.1 mmol/L (3.6-5.0); TOTAL PROTEIN 7.5 g/dL (5.8-8.3)
[2017-03-16 07:08] LABS: ADD MANUAL DIFF? NO
[2017-03-16] MEDS: Arformoterol 15 mcg/2 ml Inh Sol IH SCH (08:51)
--- NOTE | 2017-03-16 09:53 | RAD ---
HISTORY: f/u COMPARISON: 03/15/2017 FINDINGS: LUNGS: There is moderate vascular congestion. The endotracheal tube is in satisfactory position. PLEURA: No significant pleural effusion identified, no pneumothorax apparent. CARDIOVASCULAR: Moderate cardiomegaly OSSEOUS STRUCTURES: No significant abnormalities. VISUALIZED UPPER ABDOMEN: Normal. OTHER FINDINGS: None. IMPRESSION: Moderate vascular congestion
--- NOTE | 2017-03-16 09:55 | PN ---
DATE: 03/16/2017 SUBJECTIVE: The patient is in bed in no acute distress, seen earlier this morning in 129, bed 2. Th e patient is intubated on a ventilator, appears to be comfortable. PHYSICAL EXAMINATION: VITAL SIGNS: Temperature of 98 and blood pressure is 108/60, respiratory rate on a vent, the heart r ate of 88. HEENT: Unremarkable. NECK: Supple. LUNGS: Have decreased breath sounds. HEART: Normal S1, S2. ABDOMEN: Soft, nontender. No rebound, no guarding, no masses. LABORATORY EXAMINATION: Reveals a white count of 7.2, hemoglobin of 9, platelets of 92, BUN of 84, c reatinine of 7.3. ASSESSMENT AND PLAN: A 71-year-old with severe sepsis, acute hypoxic ventilatory-dependent respirato ry failure in a patient with acute congestive heart failure, probably secondary to bilateral hospital -acquired pneumonia, possible gram-positive cocci, possible gram-negative raissa with end-stage renal fa ilure on hemodialysis, chronic obstructive lung disease, chronic atrial fibrillation on anticoagulati on, on intermittent vancomycin and meropenem day #3. We will check on the final culture results. Th us far, the blood cultures and sputum cultures are no growth. Random vancomycin level this morning o f 23.6 with a procalcitonin of 24 although in face of creatinine of 7.3. We will follow closely with you. Roberto Kidd MD cc: [id number] TT: 03/16/2017 09:54:30 Confirmation # [id number] Dictation # [id number] tn
--- NOTE | 2017-03-16 12:00 | PN ---
DATE: 03/15/2017 SUBJECTIVE: The patient was seen and examined on 03/15/2017. The patient is intubated, sleepy, arousable. The family - son, [id number], , and 's colleagues - all around the patient. They gave us some privacy for examination. Has small amount of ET tube secretions. No fever, no chills. No swelling of the legs. No hematuria or hematochezia. No diarrhea. No hemoptysis. The patient is not able to give me a review of systems. PHYSICAL EXAMINATION: VITAL SIGNS: Blood pressure 105/64, pulse 99, temperature 98.6, respiratory rate 20. HEENT: Head normocephalic, atraumatic. Eyes: PERRLA. Extraocular muscles are intact. Conjunctivae are clear. Nose patent. Mucous membranes moist. ET tube has not much secretion. NECK: Supple. No JVD. LUNGS: Scattered rhonchi and few crackles. HEART: S1, S2 positive. Irregular. ABDOMEN: Soft, nontender. No organomegaly. EXTREMITIES: No edema, no cyanosis. NEUROLOGIC: The patient is sleepy, arousable, follows simple commands on awakening. MEDICATIONS: Mucomyst, Brovana, Colace, amiodarone, dobutamine, meropenem, propofol, Levophed, Protonix, Solu-Medrol, Zofran. LABORATORY DATA: Hemoglobin 9.6, hematocrit 29, white blood cells 7.9, platelets 84. Sodium 139, potassium 4.7, BUN 60, creatinine 5.7. AST 150, ALT 488. BNP 58,500. ASSESSMENT AND PLAN: The patient is a 71-year-old male with multiple medical problems: Respiratory failure, had cardiomyopathy with diastolic dysfunction, severely dilated right ventricle with pulmonary hypertension; renal failure, on hemodialysis 3 times a week; sleep apnea syndrome, chronic obstructive pulmonary disease, pulmonary fibrosis, bronchiectasis, coronary artery disease, history of coronary artery stents, history of prostate cancer, history of proctitis; gastrointestinal bleeding, status post blood transfusion multiple times, cauterization of gastrointestinal bleeding by Dr. Kohler and used to be Dr. Holland; had pyelonephritis according to CT report. ID is on the case, giving IV antibiotics, covering healthcare-associated infection. The patient is getting dobutamine to help the right heart to pump a little better, Reviewed Dr. Frost's notes. Length of time discussion done with patient's son and (Yuliet). Explained to them the patient's situation and they are understanding. Gastrointestinal and deep venous thrombosis prophylaxis. Repeat labs. Will follow up. Maria Antonia Wilkins MD cc: [id number] TT: 03/16/2017 11:59:47 Confirmation # [id number] Dictation # [id number] mn MTDD
[2017-03-16] MEDS: Meropenem 1g/NS 100mL IVPB 100 ML IVPB SCH ×2 (12:34→23:00)
[2017-03-16] MEDS: MethylPREDNISolone 40 mg Vial IVP SCH ×2 (12:35→23:00)
--- NOTE | 2017-03-16 12:59 | PN ---
DATE: 03/16/2017 The patient remains ventilator dependent. PHYSICAL EXAMINATION: VITAL SIGNS: Blood pressure is 110/66. The heart rate is in the 90s. NECK: Negative JVD. LUNGS: Without rales. HEART: Reveals S1, S2. EXTREMITIES: Without edema. LABORATORIES: Hemoglobin is 9.6. Chemistries: BUN and creatinine are unchanged. The potassium is 5.1. IMPRESSION: 1. Recurrent congestive heart failure. 2. Sepsis. 3. Status post coronary artery bypass surgery. 4. Coronary artery disease. 5. End-stage renal disease. 6. Non-ST elevation myocardial infarction. 7. Recent atrial flutter which spontaneously converted. Given these findings, I agree with plan to attempt to wean off the respirator once dialysis is done. Rubio Nicole MD cc: [id number] TT: 03/16/2017 12:59:13 Confirmation # [id number] Dictation # [id number] tn
--- NOTE | 2017-03-16 15:37 | CP.CCUPN ---
<Matt Sánchez - Last Filed: 03/16/17 15:34> CCU Subjective - Physician Review Subjective (Free Text): 03/16/17 15:34 Patient seen and examined at bedside in ICU. Today is hospital day 9. No acute events overnight. Remains sedated, now on precedex (propofol discontinued ), not following commands or responding to verbal stimuli. CCU Objective - Vital Signs / Intake & Output Vital Signs (Last 4 hours): Vital Signs Temp Pulse BP Pulse Ox 03/16/17 14:00 90 105/62 97 03/16/17 13:34 87 133/79 100 03/16/17 13:00 98 H 146/68 100 03/16/17 12:13 77 114/58 L 100 03/16/17 12:00 97.2 F L 91 H 110/66 97 Intake and Output (Last 8hrs): Intake & Output 03/16/17 03/16/17 03/16/17 06:59 14:59 22:59 Intake Total 571 75 Balance 571 75 Intake: IV 571 75 Left Subclavian 571 - Physical Exam Physical Exam Limitations: Positive for: Other (Intubated and sedated, not following commands) Head: Positive for: Atraumatic, Normocephalic. Negative for: Tenderness, Contusion, Ecchymosis, Abrasion, Laceration Pupils: Positive for: PERRL. Negative for: Sluggish, Non-Reactive Extroacular Muscles: Positive for: Other (no random eye movements, no avoidance of direct light challenge). Negative for: EOMI Conjunctiva: Negative for: Injected, Icteric Mouth: Positive for: Moist Mucous Membranes, Other (ET tube in place) Nose (External): Positive for: Atraumatic. Negative for: Abrasion, Contusion, Laceration Neck: Positive for: Trachea Midline. Negative for: JVD Respiratory/Chest: Positive for: Rales (diffuse moderate rales, most prominent at bases bilaterally, improved over yesterday). Negative for: Clear to Auscultation, Good Air Exchange, Respiratory Distress, Wheezes, Rhonchi Cardiovascular: Positive for: Regular Rate and Rhythm, Normal S1, S2. Negative for: Murmurs (difficult to auscultate due to diffuse lung silva), Irregular Rhythm, Tachycardic, Bradycardic Abdomen: Positive for: Normal Bowel Sounds, Other (Soft, some firmness but not rigid). Negative for: Tenderness, Distention Upper Extremity: Positive for: Normal Inspection, Other (+1 radial pulses bilaterally, Right arm AV fistula will palpable bruit, old left arm fistula, infiltrated left arm upper IV). Negative for: Cyanosis, Edema, Swelling, Erythema, Deformity Lower Extremity: Positive for: Other (+1-2 pitting edema in bilateral LE from feet up to bottom 1/3 of shins). Negative for: NORMAL PULSES (unable to palpate pedal pulses), Deformity Neurological: Positive for: Other (some spontaneous eye and eyelid movements, intermittent faint hand movement, not directed, not following commands). Negative for: GCS=15 (E3V(T)M3) Skin: Positive for: Warm, Dry, Normal Color, Other (IV and fistula sites as noted in upper extremity exam). Negative for: Rashes Psychiatric: Positive for: Other (intubated and sedated). Negative for: Alert, Oriented x 3, Normal Insight, Normal Concentration, Normal Affect, Normal Mood - Medications Active Medications: Active Medications Generic Name Dose Route Start Last Admin Trade Name Freq PRN Reason Stop Dose Admin Acetylcysteine 4 ml 03/10/17 08:00 03/13/17 19:41 Acetylcysteine 20% IH 4 ml BIDRESP RC Administration Amiodarone HCl 200 mg 03/11/17 22:00 03/13/17 10:36 Cordarone PO Not Given Q12 RC Arformoterol Tartrate 15 mcg 03/08/17 23:00 03/16/17 08:51 Brovana IH 15 mcg Q12H RC Administration Atorvastatin Calcium 10 mg 03/09/17 10:00 03/13/17 10:37 Lipitor PO Not Given DAILY RC Benzonatate 200 mg 03/09/17 10:00 03/13/17 17:35 Tessalon Perles PO Not Given TID RC Budesonide 1 mg 03/09/17 08:00 03/09/17 08:29 Pulmicort Respules IH Not Given [id number] RC Calcium Acetate 1,334 mg 03/09/17 18:56 03/13/17 17:36 Phoslo PO Not Given WM RC Clopidogrel Bisulfate 75 mg 03/09/17 10:00 03/13/17 13:20 Plavix PO Not Given DAILY RC Docusate Sodium 100 mg 03/08/17 23:00 03/13/17 17:36 Colace PO Not Given BID [facility] Guaifenesin 100 mg 03/08/17 23:05 Robitussin PO Q6H PRN Cough Meropenem 1g/NS 100mL IVPB 100 mls @ 100 mls/hr 03/13/17 17:45 03/16/17 12:34 Meropenem 1g/Ns 100ml Ivpb IVPB 03/20/17 17:46 100 mls/hr Q12 RC Administration Protocol Norepinephrine Bitartrate 4 mg 254 mls @ 15.24 mls/hr 03/14/17 17:44 13:35 / Sodium Chloride IV 0 mcg/min .[id number] PRN 0 mls/hr TITRATE PER MD ORDER Titration Protocol 4 MCG/MIN Dobutamine HCl/Dextrose 500 mg in 250 mls @ 4.605 mls/hr 03/14/17 18:54 03/14 20:34 Dobutamine/Dextrose 5% 500mg/250ml IV 2.5 mcg/kg/min .Q24H PRN 4.605 mls/hr TITRATE PER PROTOCOL Administration Protocol 2.5 MCG/KG/MIN Dexmedetomidine HCl 400 mcg in 100 mls @ 3.039 mls/hr 03/16/17 06:36 06:50 Precedex 4 Mcg/Ml (100 Ml) IV 0.2 mcg/kg/hr .Q24H PRN 3.039 mls/hr Sedation Administration Protocol 0.2 MCG/KG/HR Methylprednisolone 20 mg 03/10/17 22:00 03/16/17 12:35 Solu-Medrol IVP 20 mg Q12 [facility] Administration Metoprolol Tartrate 12.5 mg 03/11/17 17:00 03/13/17 17:36 Lopressor PO Not Given BRKDIN [facility] Ondansetron HCl 4 mg 03/10/17 09:37 Zofran Inj IVP Q6H PRN Nausea/Vomiting Pantoprazole Sodium 40 mg 03/09/17 07:30 03/13/17 13:21 Protonix Ec Tab PO Not Given ACB [facility] Pantoprazole Sodium 40 mg 03/14/17 10:00 03/16/17 12:35 Protonix Inj IVP 40 mg DAILY RC Administration Warfarin Sodium 3 mg 03/10/17 18:00 03/13/17 17:36 Coumadin PO Not Given 1800 [facility] Protocol - Patient Studies Lab Studies: Microbiology Studies 03/14/17 15:35 Gram Stain - Final Sputum Induced Sputum Culture - Final Yeast Species 03/13/17 16:20 Blood Culture - Preliminary Blood NO GROWTH AFTER 48 HOURS 03/13/17 16:10 Blood Culture - Preliminary Blood NO GROWTH AFTER 48 HOURS Lab Studies 03/16/17 03/16/17 03/16/17 Range/Units 06:00 05:40 05:40 WBC (4.5-11.0) 10^3/ul RBC (3.5-6.1) 10^6/uL Hgb (14.0-18.0) gm/dL Hct (42.0-52.0) % MCV (80.0-105.0) fL MCH (25.0-35.0) pg MCHC (31.0-37.0) g/dl RDW (11.5-14.5) % Plt Count (120.0-450.0) 10^3/uL Gran % (50.0-68.0) % Lymph % (Auto) (22.0-35.0) % [place] % (Auto) (1.0-6.0) % Eos % (Auto) (1.5-5.0) % Baso % (Auto) (0.0-3.0) % Gran # (1.4-6.5) Lymph # (1.2-3.4) [place] # (0.1-0.6) Eos # (0.0-0.7) Baso # (0.0-2.0) K/mm3 PT (9.9-11.8) Seconds INR (0.93-1.08) APTT (23.7-30.8) Seconds pCO2 43 (35-45) mm/Hg pO2 143.0 H (80-100) mm/Hg HCO3 21.7 (21-28) mmol/L ABG pH 7.31 L (7.35-7.45) ABG Total CO2 23.0 (22-28) mmol.L ABG O2 Saturation 99.8 H (95-98) % ABG O2 Content 23.1 H (15-23) ML/dl ABG Base Excess -4.6 L (-2.0-3.0) mmol/L ABG Hemoglobin 16.8 (11.7-17.4) g/dL ABG Carboxyhemoglobin 2.1 H (0.5-1.5) % POC ABG HHb (Measured) 0.2 (0-5) % ABG Methemoglobin 0.6 (0.0-3.0) % ABG O2 Capacity 23.1 (16-24) mL/dl Hgb O2 Saturation 97.1 (95.0-98.0) % FiO2 50.0 % Sodium 139 (132-148) mmol/L Potassium 5.1 H (3.6-5.0) mmol/L Chloride 98 (98-107) mmol/L Carbon Dioxide 25 (21-33) mmol/L Anion Gap 21 H (10-20) BUN 84 H (7-21) mg/dL Creatinine 7.3 H (0.5-1.4) mg/dL Est GFR ( Amer) 9 Est GFR (Non-Af Amer) 7 Random Glucose 115 H (70-110) mg/dL Calcium 8.4 (8.4-10.5) mg/dL Phosphorus 8.0 H (2.5-4.5) mg/dL Magnesium 2.4 H (1.7-2.2) mg/dL Total Bilirubin 2.3 H (0.2-1.3) mg/dL AST 104 H (15-59) U/L ALT 388 H (7-56) U/L Alkaline Phosphatase 89 (38-133) U/L Total Protein 7.5 (5.8-8.3) g/dL Albumin 3.7 (3.0-4.8) g/dL Globulin 3.8 gm/dL Albumin/Globulin Ratio 1.0 L (1.1-1.8) Random Vancomycin 23.6 (20.0-40.0) ug/mL 03/16/17 03/16/17 Range/Units 05:40 05:40 WBC 7.2 (4.5-11.0) 10^3/ul RBC 3.26 L (3.5-6.1) 10^6/uL Hgb 9.6 L (14.0-18.0) gm/dL Hct 30.0 L (42.0-52.0) % MCV 92.0 (80.0-105.0) fL MCH 29.4 (25.0-35.0) pg MCHC 32.0 (31.0-37.0) g/dl RDW 20.3 H (11.5-14.5) % Plt Count 92 L (120.0-450.0) 10^3/uL Gran % 77.2 H (50.0-68.0) % Lymph % (Auto) 15.8 L (22.0-35.0) % [place] % (Auto) 6.7 H (1.0-6.0) % Eos % (Auto) 0.0 L (1.5-5.0) % Baso % (Auto) 0.3 (0.0-3.0) % Gran # 5.56 (1.4-6.5) Lymph # 1.1 L (1.2-3.4) [place] # 0.5 (0.1-0.6) Eos # 0.0 (0.0-0.7) Baso # 0.02 (0.0-2.0) K/mm3 PT 16.5 H (9.9-11.8) Seconds INR 1.53 H (0.93-1.08) APTT 31.5 H (23.7-30.8) Seconds pCO2 (35-45) mm/Hg pO2 (80-100) mm/Hg HCO3 (21-28) mmol/L ABG pH (7.35-7.45) ABG Total CO2 (22-28) mmol.L ABG O2 Saturation (95-98) % ABG O2 Content (15-23) ML/dl ABG Base Excess (-2.0-3.0) mmol/L ABG Hemoglobin (11.7-17.4) g/dL ABG Carboxyhemoglobin (0.5-1.5) % POC ABG HHb (Measured) (0-5) % ABG Methemoglobin (0.0-3.0) % ABG O2 Capacity (16-24) mL/dl Hgb O2 Saturation (95.0-98.0) % FiO2 % Sodium (132-148) mmol/L Potassium (3.6-5.0) mmol/L Chloride (98-107) mmol/L Carbon Dioxide (21-33) mmol/L Anion Gap (10-20) BUN (7-21) mg/dL Creatinine (0.5-1.4) mg/dL Est GFR ( Amer) Est GFR (Non-Af Amer) Random Glucose (70-110) mg/dL Calcium (8.4-10.5) mg/dL Phosphorus (2.5-4.5) mg/dL Magnesium (1.7-2.2) mg/dL Total Bilirubin (0.2-1.3) mg/dL AST (15-59) U/L ALT (7-56) U/L Alkaline Phosphatase (38-133) U/L Total Protein (5.8-8.3) g/dL Albumin (3.0-4.8) g/dL Globulin gm/dL Albumin/Globulin Ratio (1.1-1.8) Random Vancomycin (20.0-40.0) ug/mL Laboratory Results - last 24 hr 03/16/17 03/16/17 03/16/17 05:40 05:40 05:40 WBC 7.2 RBC 3.26 L Hgb 9.6 L Hct 30.0 L MCV 92.0 MCH 29.4 MCHC 32.0 RDW 20.3 H Plt Count 92 L Gran % 77.2 H Lymph % (Auto) 15.8 L [place] % (Auto) 6.7 H Eos % (Auto) 0.0 L Baso % (Auto) 0.3 Gran # 5.56 Lymph # 1.1 L [place] # 0.5 Eos # 0.0 Baso # 0.02 PT 16.5 H INR 1.53 H APTT 31.5 H pCO2 pO2 HCO3 ABG pH ABG Total CO2 ABG O2 Saturation ABG O2 Content ABG Base Excess ABG Hemoglobin ABG Carboxyhemoglobin POC ABG HHb (Measured) ABG Methemoglobin ABG O2 Capacity Hgb O2 Saturation FiO2 Sodium 139 Potassium 5.1 H Chloride 98 Carbon Dioxide 25 Anion Gap 21 H BUN 84 H Creatinine 7.3 H Est GFR ( Amer) 9 Est GFR (Non-Af Amer) 7 Random Glucose 115 H Calcium 8.4 Phosphorus 8.0 H Magnesium 2.4 H Total Bilirubin 2.3 H AST 104 H ALT 388 H Alkaline Phosphatase 89 Total Protein 7.5 Albumin 3.7 Globulin 3.8 Albumin/Globulin Ratio 1.0 L Random Vancomycin 03/16/17 03/16/17 05:40 06:00 WBC RBC Hgb Hct MCV MCH MCHC RDW Plt Count Gran % Lymph % (Auto) [place] % (Auto) Eos % (Auto) Baso % (Auto) Gran # Lymph # [place] # Eos # Baso # PT INR APTT pCO2 43 pO2 143.0 H HCO3 21.7 ABG pH 7.31 L ABG Total CO2 23.0 ABG O2 Saturation 99.8 H ABG O2 Content 23.1 H ABG Base Excess -4.6 L ABG Hemoglobin 16.8 ABG Carboxyhemoglobin 2.1 H POC ABG HHb (Measured) 0.2 ABG Methemoglobin 0.6 ABG O2 Capacity 23.1 Hgb O2 Saturation 97.1 FiO2 50.0 Sodium Potassium Chloride Carbon Dioxide Anion Gap BUN Creatinine Est GFR ( Amer) Est GFR (Non-Af Amer) Random Glucose Calcium Phosphorus Magnesium Total Bilirubin AST ALT Alkaline Phosphatase Total Protein Albumin Globulin Albumin/Globulin Ratio Random Vancomycin 23.6 Fingerstick Blood Sugar Results: 116 Review of Systems - Review of Systems Systems not reviewed;Unavailable: Intubated Critical Care Progress Note - Nutrition Nutrition: Nutrition Category Date Time Status NPO Diet [DIET] Diets 03/13/17 Dinner Ordered Assessment/Plan - Assessment and Plan (Free Text) Assessment: This is a 71 yo M with PMH of COPD on 2L home O2, Pulmonary HTN, Afib on coumadin, CAD s/p CABG, and DEMETRIS who was admitted to the ICU with lactic acidosis and persistent hypotension requiring pressor support with dialysis, and developed respiratory insufficiency requiring intubation/mechanical ventilation and hemodynamic instability requiring pressor support. He is being weaned off sedation, pending pressure support trial and possible extubation. Pending eval and family discussion with Palliative service. Plan: Neuro: -intubated and sedated on propofol (started overnight due to agitation), will switch to precedex -no spontaneous movements noted today during exam -continue to monitor -maintain normothermia -Neuro (Dr. Ant Hampton) consulted, appreciate all recs Pulm: -Intubated, PRVC 50%/5/15/400, pending pressure support trial after hemodialysis ; if tolerates, can extubate -Conservative O2 management, maintain SaO2 > 90 and paO2 > 60 -Protective lung ventilation strategies, VAP bundle, aspiration precautions, head of bed to 30 degrees -Pulm (Dr. Frost) and ID (Dr. Kidd) on board, appreciate all recs; Covering with Meropenem as per ID -Procal 24.79 -Continue pulmocort, brovana, and solumedrol Cardio: -Bradycardic to 40's and hypotensive to SBP 50's-60's with agonal breathing 3 nights ago, prompting intubation and pressor support -Levophed for pressor support, Dopamine discontinued after central access obtained -Central line obtained for pressor support -INR 1.5, currently in sinus rhythm so will hold additional AC and continue to monitor -Dialysis today, will attempt pressure support trial after -Cardio (Dr. Nicole) and EP (Dr. Clark) on board, appreciate all recs; transfer to [facility] for ablation canceled given acute status and also patient now in sinus rhythm (previously 2:1 A-Flutter), continue to monitor; continue Dobutamine for RV diastolic dysfunction -Trops since admission to ICU: 0.07, 3.25, 1.95, 2.84, 3.04, 2.59 GI: -NPO -Protonix for GI ppx Renal: -ESRD on [facility] HD, Right arm AV fistula access -dialyzed today, will repeat pressure support trial after -Nephro (Dr. Merritt) on board, appreciate all recs -monitor and replete electrolytes as needed -maintain euglycemia (BG 140-180), not euvolemia as actively removing fluid with dialysis -Abd CT notable for suspected pyelonephritis, Urology consulted as per patient' s Primary ID: -WBCs 7.2 (was 7.9) -afebrile -procal 24.79, indicative of infectious process -covering with Meropenem as per ID -Blood cultures x2 negative x5 days -ID (Dr. Kidd) on board, appreciate all recs Heme: -Hgb 9.6, (was 9.6) -holding AC, INR 1.5 -currently maintaining sinus rhythm, so will hold additional AC at this time, continue to monitor -IR consulted for PICC access given chronic poor venous access, currently has left subclavian central line in place MSK: -Ortho consulted (Dr. Fields) for right shoulder injury, appreciate all recs Dispo: ICU, pending Palliative input, family decision on goals of care FEN: NPO Access: Left subclavian central line, Right arm AV fistula for dialysis Consults: IR, ID, Neuro, Ortho, Cardio, EP, Nephro, Pulm, Urology, Palliative Ppx: Protonix for GI, holding additional AC for now Patient seen, reviewed, and discussed with attending, Dr. Laguerre - Date & Time Date: 03/16/17 Time: 15:52 <Carlotta VALLE,Inachris H - Last Filed: 03/16/17 17:01> CCU Objective - Vital Signs / Intake & Output Vital Signs (Last 4 hours): Vital Signs Pulse BP Pulse Ox 03/16/17 14:00 90 105/62 97 03/16/17 13:34 87 133/79 100 03/16/17 13:00 98 H 146/68 100 Intake and Output (Last 8hrs): Intake & Output 03/16/17 03/16/17 03/16/17 06:59 14:59 22:59 Intake Total 571 75 28 Balance 571 75 28 Intake: IV 571 75 28 Left Subclavian 571 - Medications Active Medications: Active Medications Generic Name Dose Route Start Last Admin Trade Name Freq PRN Reason Stop Dose Admin Acetylcysteine 4 ml 03/10/17 08:00 03/13/17 19:41 Acetylcysteine 20% IH 4 ml BIDRESP RC Administration Amiodarone HCl 200 mg 03/11/17 22:00 03/13/17 10:36 Cordarone PO Not Given Q12 RC Arformoterol Tartrate 15 mcg 03/08/17 23:00 03/16/17 08:51 Brovana IH 15 mcg Q12H RC Administration Atorvastatin Calcium 10 mg 03/09/17 10:00 03/13/17 10:37 Lipitor PO Not Given DAILY RC Benzonatate 200 mg 03/09/17 10:00 03/13/17 17:35 Tessalon Perles PO Not Given TID RC Budesonide 1 mg 03/09/17 08:00 03/09/17 08:29 Pulmicort Respules IH Not Given [id number] RC Calcium Acetate 1,334 mg 03/09/17 18:56 03/13/17 17:36 Phoslo PO Not Given WM RC Clopidogrel Bisulfate 75 mg 03/09/17 10:00 03/13/17 13:20 Plavix PO Not Given DAILY RC Docusate Sodium 100 mg 03/08/17 23:00 03/13/17 17:36 Colace PO Not Given BID [facility] Guaifenesin 100 mg 03/08/17 23:05 Robitussin PO Q6H PRN Cough Meropenem 1g/NS 100mL IVPB 100 mls @ 100 mls/hr 03/13/17 17:45 03/16/17 12:34 Meropenem 1g/Ns 100ml Ivpb IVPB 03/20/17 17:46 100 mls/hr Q12 RC Administration Protocol Norepinephrine Bitartrate 4 mg 254 mls @ 15.24 mls/hr 03/14/17 17:44 13:35 / Sodium Chloride IV 0 mcg/min .[id number] PRN 0 mls/hr TITRATE PER MD ORDER Titration Protocol 4 MCG/MIN Dobutamine HCl/Dextrose 500 mg in 250 mls @ 4.605 mls/hr 03/14/17 18:54 03/14 20:34 Dobutamine/Dextrose 5% 500mg/250ml IV 2.5 mcg/kg/min .Q24H PRN 4.605 mls/hr TITRATE PER PROTOCOL Administration Protocol 2.5 MCG/KG/MIN Dexmedetomidine HCl 400 mcg in 100 mls @ 3.039 mls/hr 03/16/17 06:36 16:25 Precedex 4 Mcg/Ml (100 Ml) IV 0 mcg/kg/hr .Q24H PRN 0 mls/hr Sedation Titration Protocol 0.2 MCG/KG/HR Methylprednisolone 20 mg 03/10/17 22:00 03/16/17 12:35 Solu-Medrol IVP 20 mg Q12 RC Administration Metoprolol Tartrate 12.5 mg 03/11/17 17:00 03/13/17 17:36 Lopressor PO Not Given BRKDIN [facility] Ondansetron HCl 4 mg 03/10/17 09:37 Zofran Inj IVP Q6H PRN Nausea/Vomiting Pantoprazole Sodium 40 mg 03/09/17 07:30 04/24/17 13:21 Protonix Ec Tab PO Not Given ACB RC Pantoprazole Sodium 40 mg 03/14/17 10:00 03/16/17 12:35 Protonix Inj IVP 40 mg DAILY RC Administration Warfarin Sodium 3 mg 03/10/17 18:00 03/13/17 17:36 Coumadin PO Not Given 1800 CR Protocol - Patient Studies Lab Studies: Microbiology Studies 03/13/17 16:20 Blood Culture - Preliminary Blood NO GROWTH AFTER 3 DAYS 03/13/17 16:10 Blood Culture - Preliminary Blood NO GROWTH AFTER 3 DAYS 03/14/17 15:35 Gram Stain - Final Sputum Induced Sputum Culture - Final Yeast Species Lab Studies 03/16/17 03/16/17 03/16/17 Range/Units 06:00 05:40 05:40 WBC (4.5-11.0) 10^3/ul RBC (3.5-6.1) 10^6/uL Hgb (14.0-18.0) gm/dL Hct (42.0-52.0) % MCV (80.0-105.0) fL MCH (25.0-35.0) pg MCHC (31.0-37.0) g/dl RDW (11.5-14.5) % Plt Count (120.0-450.0) 10^3/uL Gran % (50.0-68.0) % Lymph % (Auto) (22.0-35.0) % [place] % (Auto) (1.0-6.0) % Eos % (Auto) (1.5-5.0) % Baso % (Auto) (0.0-3.0) % Gran # (1.4-6.5) Lymph # (1.2-3.4) [place] # (0.1-0.6) Eos # (0.0-0.7) Baso # (0.0-2.0) K/mm3 PT (9.9-11.8) Seconds INR (0.93-1.08) APTT (23.7-30.8) Seconds pCO2 43 (35-45) mm/Hg pO2 143.0 H (80-100) mm/Hg HCO3 21.7 (21-28) mmol/L ABG pH 7.31 L (7.35-7.45) ABG Total CO2 23.0 (22-28) mmol.L ABG O2 Saturation 99.8 H (95-98) % ABG O2 Content 23.1 H (15-23) ML/dl ABG Base Excess -4.6 L (-2.0-3.0) mmol/L ABG Hemoglobin 16.8 (11.7-17.4) g/dL ABG Carboxyhemoglobin 2.1 H (0.5-1.5) % POC ABG HHb (Measured) 0.2 (0-5) % ABG Methemoglobin 0.6 (0.0-3.0) % ABG O2 Capacity 23.1 (16-24) mL/dl Hgb O2 Saturation 97.1 (95.0-98.0) % FiO2 50.0 % Sodium 139 (132-148) mmol/L Potassium 5.1 H (3.6-5.0) mmol/L Chloride 98 (98-107) mmol/L Carbon Dioxide 25 (21-33) mmol/L Anion Gap 21 H (10-20) BUN 84 H (7-21) mg/dL Creatinine 7.3 H (0.5-1.4) mg/dL Est GFR ( Amer) 9 Est GFR (Non-Af Amer) 7 Random Glucose 115 H (70-110) mg/dL Calcium 8.4 (8.4-10.5) mg/dL Phosphorus 8.0 H (2.5-4.5) mg/dL Magnesium 2.4 H (1.7-2.2) mg/dL Total Bilirubin 2.3 H (0.2-1.3) mg/dL AST 104 H (15-59) U/L ALT 388 H (7-56) U/L Alkaline Phosphatase 89 (38-133) U/L Total Protein 7.5 (5.8-8.3) g/dL Albumin 3.7 (3.0-4.8) g/dL Globulin 3.8 gm/dL Albumin/Globulin Ratio 1.0 L (1.1-1.8) Random Vancomycin 23.6 (20.0-40.0) ug/mL 03/16/17 03/16/17 Range/Units 05:40 05:40 WBC 7.2 (4.5-11.0) 10^3/ul RBC 3.26 L (3.5-6.1) 10^6/uL Hgb 9.6 L (14.0-18.0) gm/dL Hct 30.0 L (42.0-52.0) % MCV 92.0 (80.0-105.0) fL MCH 29.4 (25.0-35.0) pg MCHC 32.0 (31.0-37.0) g/dl RDW 20.3 H (11.5-14.5) % Plt Count 92 L (120.0-450.0) 10^3/uL Gran % 77.2 H (50.0-68.0) % Lymph % (Auto) 15.8 L (22.0-35.0) % [place] % (Auto) 6.7 H (1.0-6.0) % Eos % (Auto) 0.0 L (1.5-5.0) % Baso % (Auto) 0.3 (0.0-3.0) % Gran # 5.56 (1.4-6.5) Lymph # 1.1 L (1.2-3.4) [place] # 0.5 (0.1-0.6) Eos # 0.0 (0.0-0.7) Baso # 0.02 (0.0-2.0) K/mm3 PT 16.5 H (9.9-11.8) Seconds INR 1.53 H (0.93-1.08) APTT 31.5 H (23.7-30.8) Seconds pCO2 (35-45) mm/Hg pO2 (80-100) mm/Hg HCO3 (21-28) mmol/L ABG pH (7.35-7.45) ABG Total CO2 (22-28) mmol.L ABG O2 Saturation (95-98) % ABG O2 Content (15-23) ML/dl ABG Base Excess (-2.0-3.0) mmol/L ABG Hemoglobin (11.7-17.4) g/dL ABG Carboxyhemoglobin (0.5-1.5) % POC ABG HHb (Measured) (0-5) % ABG Methemoglobin (0.0-3.0) % ABG O2 Capacity (16-24) mL/dl Hgb O2 Saturation (95.0-98.0) % FiO2 % Sodium (132-148) mmol/L Potassium (3.6-5.0) mmol/L Chloride (98-107) mmol/L Carbon Dioxide (21-33) mmol/L Anion Gap (10-20) BUN (7-21) mg/dL Creatinine (0.5-1.4) mg/dL Est GFR ( Amer) Est GFR (Non-Af Amer) Random Glucose (70-110) mg/dL Calcium (8.4-10.5) mg/dL Phosphorus (2.5-4.5) mg/dL Magnesium (1.7-2.2) mg/dL Total Bilirubin (0.2-1.3) mg/dL AST (15-59) U/L ALT (7-56) U/L Alkaline Phosphatase (38-133) U/L Total Protein (5.8-8.3) g/dL Albumin (3.0-4.8) g/dL Globulin gm/dL Albumin/Globulin Ratio (1.1-1.8) Random Vancomycin (20.0-40.0) ug/mL Laboratory Results - last 24 hr 03/16/17 03/16/17 03/16/17 05:40 05:40 05:40 WBC 7.2 RBC 3.26 L Hgb 9.6 L Hct 30.0 L MCV 92.0 MCH 29.4 MCHC 32.0 RDW 20.3 H Plt Count 92 L Gran % 77.2 H Lymph % (Auto) 15.8 L [place] % (Auto) 6.7 H Eos % (Auto) 0.0 L Baso % (Auto) 0.3 Gran # 5.56 Lymph # 1.1 L [place] # 0.5 Eos # 0.0 Baso # 0.02 PT 16.5 H INR 1.53 H APTT 31.5 H pCO2 pO2 HCO3 ABG pH ABG Total CO2 ABG O2 Saturation ABG O2 Content ABG Base Excess ABG Hemoglobin ABG Carboxyhemoglobin POC ABG HHb (Measured) ABG Methemoglobin ABG O2 Capacity Hgb O2 Saturation FiO2 Sodium 139 Potassium 5.1 H Chloride 98 Carbon Dioxide 25 Anion Gap 21 H BUN 84 H Creatinine 7.3 H Est GFR ( Amer) 9 Est GFR (Non-Af Amer) 7 Random Glucose 115 H Calcium 8.4 Phosphorus 8.0 H Magnesium 2.4 H Total Bilirubin 2.3 H AST 104 H ALT 388 H Alkaline Phosphatase 89 Total Protein 7.5 Albumin 3.7 Globulin 3.8 Albumin/Globulin Ratio 1.0 L Random Vancomycin 03/16/17 03/16/17 05:40 06:00 WBC RBC Hgb Hct MCV MCH MCHC RDW Plt Count Gran % Lymph % (Auto) [place] % (Auto) Eos % (Auto) Baso % (Auto) Gran # Lymph # [place] # Eos # Baso # PT INR APTT pCO2 43 pO2 143.0 H HCO3 21.7 ABG pH 7.31 L ABG Total CO2 23.0 ABG O2 Saturation 99.8 H ABG O2 Content 23.1 H ABG Base Excess -4.6 L ABG Hemoglobin 16.8 ABG Carboxyhemoglobin 2.1 H POC ABG HHb (Measured) 0.2 ABG Methemoglobin 0.6 ABG O2 Capacity 23.1 Hgb O2 Saturation 97.1 FiO2 50.0 Sodium Potassium Chloride Carbon Dioxide Anion Gap BUN Creatinine Est GFR ( Amer) Est GFR (Non-Af Amer) Random Glucose Calcium Phosphorus Magnesium Total Bilirubin AST ALT Alkaline Phosphatase Total Protein Albumin Globulin Albumin/Globulin Ratio Random Vancomycin 23.6 Critical Care Progress Note - Nutrition Nutrition: Nutrition Category Date Time Status NPO Diet [DIET] Diets 03/13/17 Dinner Ordered Attending/Attestation - Attestation I have personally seen and examined this patient.: Yes I have fully participated in the care of the patient.: Yes I have reviewed all pertinent clinical information: Yes Notes (Text): 03/16/17 16:59 71 y/o M w/ ESRD on HD 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 Pt has baseline encephalopathy multifactorial causes. A FIB , rate controlled. Off anitcoagulation. Poor baseline function. Bedbound, non verbal. palliative care consult placed due to poor prognosis. cc time 55 min
--- NOTE | 2017-03-16 16:16 | CP.PCM.CON ---
History of Present Illness - History of Present Illness History of Present Illness: Palliative services consulted by Dr Abner Wilkins Reason: Goals of care 71 year old male admitted with Non STEMI, sepsis, CHF and acute respiratory failure. Recent echocardiogram showed severely dilated right ventricle with pulmonary hypertension. He is currently intubated on on pressor support. PMHX; CAD, CHF, end stage renal disease HD dependent, coronary artery bypass surgery, stents, sleep apnea, prostate cancer s/p seed implants. Social History:Non smoker, no alcohol or drug use. , lives with spouse. Family History: Non contributory. Advance Care planning: The patient does not have an Advanced Directive Review of Systems: Unable to obtain patient is intubated Past Patient History - Infectious Disease Hx of Infectious Diseases: None - Tetanus Immunizations Tetanus Immunization: Unknown - Past Social History Smoking Status: Never Smoked Cigar Use: No Drugs: Denies Home Situation {Lives}: With Family - CARDIAC Hx Cardiac Disorders: Yes (cad with cabg x 3 vessels ) Hx Atrial Fibrillation: Yes Hx Cardia Arrhythmia: Yes (afib) Hx Congestive Heart Failure: Yes Hx Hypercholesterolemia: Yes Hx Hypertension: Yes Hx Peripheral Edema: Yes - PULMONARY Hx Respiratory Disorders: Yes Hx Chronic Obstructive Pulmonary Disease (COPD): Yes (10/02/2015) Other/Comment: pulmonary htn - NEUROLOGICAL Hx Neurological Disorder: Yes (wears glasses, near syncope) Hx Dizziness: Yes - HEENT Hx HEENT Problems: Yes (wears rx glasses) - RENAL Hx Chronic Kidney Disease: Yes Hx Dialysis: Yes (,,mon) Date of Last Dialysis Treatment: 03/07/17 Hx Renal Failure: Yes - ENDOCRINE/METABOLIC Hx Endocrine Disorders: No - HEMATOLOGICAL/ONCOLOGICAL Hx Blood Disorders: Yes Hx Anemia: Yes (blood transfusions) Hx Cancer: Yes (prostate ca with radiation) - INTEGUMENTARY Hx Dermatological Problems: Yes (VITILIGO) - MUSCULOSKELETAL/RHEUMATOLOGICAL Hx Back Pain: Yes Hx Falls: Yes Hx Unsteady Gait: Yes - GASTROINTESTINAL Hx Gastrointestinal Disorders: Yes (Gi Bleed-ulcer- colonoscopy done) Hx Crohn's Disease: Yes Hx Gastroesophageal Reflux: Yes - GENITOURINARY/GYNECOLOGICAL Hx Genitourinary Disorders: Yes (anuria) Hx Prostate Problems: Yes (prostate cancer with radiation) - PSYCHIATRIC Hx Substance Use: No - SURGICAL HISTORY Hx Surgeries: Yes (right upper arm shunt, cabgx3, cardoac cathx1 stent) Hx Cardiac Catheterization: Yes (x1 stent) Hx Coronary Stent: Yes (x1) - ANESTHESIA Hx Anesthesia Reactions: No Hx Malignant Hyperthermia: No Meds Allergies/Adverse Reactions: Allergies Allergy/AdvReac Type Severity Reaction Status Date / Time No Known Allergies Allergy Verified 03/08/17 17:10 - Medications Medications: Current Medications Acetylcysteine (Acetylcysteine 20%) 4 ml IH BIDRESP [facility] Last Admin: 03/13/17 19:41 Dose: 4 ml Amiodarone HCl (Cordarone) 200 mg PO Q12 [facility] Last Admin: 03/13/17 10:36 Dose: Not Given Arformoterol Tartrate (Brovana) 15 mcg IH Q12H [facility] Last Admin: 03/16/17 08:51 Dose: 15 mcg Atorvastatin Calcium (Lipitor) 10 mg PO DAILY [facility] Last Admin: 03/13/17 10:37 Dose: Not Given Benzonatate (Tessalon Perles) 200 mg PO TID [facility] Last Admin: 03/13/17 17:35 Dose: Not Given Budesonide (Pulmicort Respules) 1 mg IH [id number] [facility] Last Admin: 03/09/17 08:29 Dose: Not Given Calcium Acetate (Phoslo) 1,334 mg PO WM [facility] Last Admin: 03/13/17 17:36 Dose: Not Given Clopidogrel Bisulfate (Plavix) 75 mg PO DAILY [facility] Last Admin: 03/13/17 13:20 Dose: Not Given Docusate Sodium (Colace) 100 mg PO BID [facility] Last Admin: 03/13/17 17:36 Dose: Not Given Guaifenesin (Robitussin) 100 mg PO Q6H PRN PRN Reason: Cough Meropenem 1g/NS 100mL IVPB (Meropenem 1g/Ns 100ml Ivpb) 100 mls @ 100 mls/hr IVPB Q12 RC PRN Reason: Protocol Stop: 03/20/17 17:46 Last Admin: 03/16/17 12:34 Dose: 100 mls/hr Norepinephrine Bitartrate 4 mg (/ Sodium Chloride) 254 mls @ 15.24 mls/hr IV .[id number] PRN; Protocol; 4 MCG/MIN PRN Reason: TITRATE PER MD ORDER Last Titration: 03/16/17 13:35 Dose: 0 mcg/min, 0 mls/hr Dobutamine HCl/Dextrose (Dobutamine/Dextrose 5% 500mg/250ml) 500 mg in 250 mls @ 4.605 mls/hr IV .Q24H PRN; Protocol; 2.5 MCG/KG/MIN PRN Reason: TITRATE PER PROTOCOL Last Admin: 03/14/17 20:34 Dose: 2.5 mcg/kg/min, 4.605 mls/hr Dexmedetomidine HCl (Precedex 4 Mcg/Ml (100 Ml)) 400 mcg in 100 mls @ 3.039 mls /hr IV .Q24H PRN; Protocol; 0.2 MCG/KG/HR PRN Reason: Sedation Last Admin: 03/16/17 06:50 Dose: 0.2 mcg/kg/hr, 3.039 mls/hr Methylprednisolone (Solu-Medrol) 20 mg IVP Q12 [facility] Last Admin: 03/16/17 12:35 Dose: 20 mg Metoprolol Tartrate (Lopressor) 12.5 mg PO BRKDIN [facility] Last Admin: 03/13/17 17:36 Dose: Not Given Ondansetron HCl (Zofran Inj) 4 mg IVP Q6H PRN PRN Reason: Nausea/Vomiting Pantoprazole Sodium (Protonix Ec Tab) 40 mg PO ACB [facility] Last Admin: 03/13/17 13:21 Dose: Not Given Pantoprazole Sodium (Protonix Inj) 40 mg IVP DAILY [facility] Last Admin: 03/16/17 12:35 Dose: 40 mg Warfarin Sodium (Coumadin) 3 mg PO 1800 RC PRN Reason: Protocol Last Admin: 03/13/17 17:36 Dose: Not Given Physical Exam - Constitutional Appears: Chronically Ill Additional comments: sedated - Head Exam Head Exam: NORMAL INSPECTION - Eye Exam Eye Exam: Normal appearance, PERRL - ENT Exam ENT Exam: Mucous Membranes Moist - Neck Exam Neck exam: Positive for: Normal Inspection - Respiratory Exam Respiratory Exam: Decreased Breath Sounds, Rales, NORMAL BREATHING PATTERN - Cardiovascular Exam Cardiovascular Exam: +S1, +S2 - GI/Abdominal Exam GI & Abdominal Exam: Normal Bowel Sounds, Soft Additional comments: no guarding - Extremities Exam Additional comments: right arm AV fistula palpable bruit, bilateral lower extremity pitting edema - Back Exam Back exam: NORMAL INSPECTION - Skin Skin Exam: Dry, Warm - Additional Findings Additional findings: Palliative performance scale rating 20% Results - Vital Signs Recent Vital Signs: Last Vital Signs Temp 97.2 F L 03/16/17 12:00 Pulse 90 03/16/17 14:00 Resp 19 03/16/17 08:40 BP 105/62 03/16/17 14:00 Pulse Ox 97 03/16/17 14:00 - Labs Result Diagrams: 03/16/17 05:40 03/16/17 05:40 Labs: Laboratory Results - last 24 hr 03/16/17 03/16/17 03/16/17 05:40 05:40 05:40 WBC 7.2 RBC 3.26 L Hgb 9.6 L Hct 30.0 L MCV 92.0 MCH 29.4 MCHC 32.0 RDW 20.3 H Plt Count 92 L Gran % 77.2 H Lymph % (Auto) 15.8 L [place] % (Auto) 6.7 H Eos % (Auto) 0.0 L Baso % (Auto) 0.3 Gran # 5.56 Lymph # 1.1 L [place] # 0.5 Eos # 0.0 Baso # 0.02 PT 16.5 H INR 1.53 H APTT 31.5 H pCO2 pO2 HCO3 ABG pH ABG Total CO2 ABG O2 Saturation ABG O2 Content ABG Base Excess ABG Hemoglobin ABG Carboxyhemoglobin POC ABG HHb (Measured) ABG Methemoglobin ABG O2 Capacity Hgb O2 Saturation FiO2 Sodium 139 Potassium 5.1 H Chloride 98 Carbon Dioxide 25 Anion Gap 21 H BUN 84 H Creatinine 7.3 H Est GFR ( Amer) 9 Est GFR (Non-Af Amer) 7 Random Glucose 115 H Calcium 8.4 Phosphorus 8.0 H Magnesium 2.4 H Total Bilirubin 2.3 H AST 104 H ALT 388 H Alkaline Phosphatase 89 Total Protein 7.5 Albumin 3.7 Globulin 3.8 Albumin/Globulin Ratio 1.0 L Random Vancomycin 03/16/17 03/16/17 05:40 06:00 WBC RBC Hgb Hct MCV MCH MCHC RDW Plt Count Gran % Lymph % (Auto) [place] % (Auto) Eos % (Auto) Baso % (Auto) Gran # Lymph # [place] # Eos # Baso # PT INR APTT pCO2 43 pO2 143.0 H HCO3 21.7 ABG pH 7.31 L ABG Total CO2 23.0 ABG O2 Saturation 99.8 H ABG O2 Content 23.1 H ABG Base Excess -4.6 L ABG Hemoglobin 16.8 ABG Carboxyhemoglobin 2.1 H POC ABG HHb (Measured) 0.2 ABG Methemoglobin 0.6 ABG O2 Capacity 23.1 Hgb O2 Saturation 97.1 FiO2 50.0 Sodium Potassium Chloride Carbon Dioxide Anion Gap BUN Creatinine Est GFR ( Amer) Est GFR (Non-Af Amer) Random Glucose Calcium Phosphorus Magnesium Total Bilirubin AST ALT Alkaline Phosphatase Total Protein Albumin Globulin Albumin/Globulin Ratio Random Vancomycin 23.6 Assessment & Plan - Assessment and Plan (Free Text) Assessment: 71 year old male admitted with sepsis, hypotension,respiratory failure requiring intubation,end stage renal failure HD dependant, severely dilated right ventricle, pulmonary hypotension.atrial fib/flutter. History of COPD, ESRD, CAD, s/p CABG. Patient is intubated. He remains on pressor support. He reacts to noxious stimuli. I was asked to see this family to determine there understanding of patient's condition/prognosis and discuss goals of care. I left VM message for patient . Will meet with her once we he have made contact Plan: Continue current medical management. Will assist in establishing goals of care and advance care planning
[2017-03-16] MEDS ORDERED: Albuterol-Ipratrop 3 mg / 0.5 (3 ml) UD IH STA (16:21)
[2017-03-16] MEDS ORDERED: Albuterol-Ipratrop 3 mg / 0.5 (3 ml) UD ONE (16:22)
--- NOTE | 2017-03-16 18:51 | CON ---
DATE: 03/16/2017 CHIEF COMPLAINT: Possible right pyelo. HISTORY OF PRESENT ILLNESS: The patient is a 71-year-old male in the intensive care unit, admitted w ith COPD and shortness of breath, history of pulmonary hypertension, end-stage renal disease on hemo dialysis. He currently is on meropenem and vancomycin. A CAT scan was done, which was read as showi ng some perinephric infiltration around the right kidney, raising the possibility of pyelo. His is at the bedside and is helping with the history. The patient has had no urologic problems. He do es not void, but he had no flank pain or anything localizing to the right flank. PAST MEDICAL HISTORY: Significant for history of atrial fibrillation. He has had a CABG with 3 vess els bypassed. He has a history of pulmonary hypertension, hypercholesterolemia, congestive heart zheng lure. He also has a past history of prostate cancer treated with radiation. PAST SURGICAL HISTORY: Include a shunt placed prior to his hemodialysis. He has also had 1 coronary stent placed. ALLERGIES: He has no allergies. MEDICATIONS: At home he is on Plavix, Lipitor, amiodarone, PhosLo, Pulmicort. FAMILY HISTORY: Noncontributory. SOCIAL HISTORY: Noncontributory. REVIEW OF SYMPTOMS: No apparent symptoms referable to the head, eyes, ears, nose or throat. Some cuauhtemoc rtness of breath. He is on oxygen. No chest pain. No GI symptoms. PHYSICAL EXAMINATION: VITAL SIGNS: Pulse of 90, blood pressure 105/62. ABDOMEN: No CVA pain. No hepatosplenomegaly, rebound or guarding. No suprapubic tenderness. GENITALIA: Unremarkable. LABORATORY DATA: Shows hemoglobin 9.6, white count 7000. His creatinine is 7.3. He does not make a ny significant urine. His coags show an initial INR 3.9, now 1.53. His Gram stains showed yeast spe cies. ASSESSMENT AND PLAN: I reviewed the CAT scan. I do not think this is significant. We see perinephric infiltration commonly and more often than not, it is not associated with pyelonephritis. While it c an be seen with pyelo more often than not, I found that it is nonexistent. He is already on meropenem and vancomycin. I do not think any other treatment is required. There was no evidence of any hydro on his CAT scan. No treatment is needed urologically. Shakeel Steven MD cc: [phone] TT: 03/16/2017 18:51:05 Confirmation # [id number] Dictation # [id number]
--- NOTE | 2017-03-16 22:26 | PN ---
DATE: 03/16/2017 The patient is a 71-year-old male with past medical history of COPD on 2 liters home oxygen, AFib on Coumadin, CAD status post BiPAP, CABG and drug-eluting stent placement, ESRD on hemodialysis, initial ly admitted after falling out of bed and found to have CHF exacerbation. Hospital course complicated by hypotension, A. flutter and altered mental status. The patient remains intubated, on inotropic invasive pressure support, undergoing dialysis currently. PHYSICAL EXAMINATION: VITAL SIGNS: Blood pressure 105/69, heart rate 78, respirations 20, temperature 97.9, O2 sat 98% on 50% FIO2 via the vent. GENERAL: Responds to verbal stimuli, although not able to follow commands. In no apparent distress. HEENT: Mildly icteric. Intubated. Moist mucous membranes. CHEST: Clear to auscultation bilaterally. No rales, no rhonchi, no wheezes. HEART: S1, S2, positive. Systolic murmur present. ABDOMEN: Soft, nontender, nondistended. EXTREMITIES: Minimal bilateral lower leg edema. SKIN: Warm, normal color. LABORATORY DATA: CBC: WBC 7.2, hemoglobin 9.6, hematocrit 30.0, platelets 92. Chemistry: Sodium 1 39, potassium 5.1, chloride 98, bicarbonate 25, BUN 84, creatinine 7.3, glucose 115, phosphorus 8.0. T-bili 2.3, albumin 3.7. Blood gas/ABG: PH 7.31, pCO2 of 43, pO2 143, bicarbonate 21.7. ASSESSMENT: 1. Shock, possibly multifactorial. Distributive shock secondary to sepsis with elevated procalciton in level. Also with evidence of cardiogenic shock in the setting of severe right ventricular dysfunc tion, on inotropic support with dobutamine as well as mild vasopressor support with Levophed. Goal i s to try to offload right ventricle with daily hemodialysis/ultrafiltration sessions. Tolerated 2 li ters ultrafiltration yesterday and getting another 2 liters of ultrafiltration today. 2. End-stage renal disease, on hemodialysis. Relatively stable electrolyte status. Tolerating ultr afiltration. No issues with hemodialysis access. Will continue daily treatments for now. 3. Congestive heart failure exacerbation with preserved ejection fraction on previous echocardiogram , likely element of diastolic dysfunction. Chest x-ray reported as moderate vascular congestion. Wi ll benefit from ultrafiltration on hemodialysis. 4. Altered mental status. Has had worsening dementia over the last few months in the setting of chr onic illness, now with superimposed metabolic encephalopathy. Will continue to address electrolyte i mbalances and uremia with regular hemodialysis. Han Patel MD cc: [id number] TT: 03/16/2017 22:26:01 Confirmation # [id number] Dictation # [id number] mn
--- NOTE | 2017-03-17 02:24 | PN ---
DATE: 03/16/2017 REFERRING PHYSICIAN: Dr. Wilkins. SUBJECTIVE: He is extubated on nasal cannula, much more awake and alert and comfortable, still havin g cough and shortness of breath. No nausea, no vomiting, no diarrhea, no significant leg swelling. OBJECTIVE: GENERAL: No acute distress. VITAL SIGNS: Temperature is 98, heart rate is 93, blood pressure 100/54, pulse ox 94% on nasal cannu la. HEENT: Moist mucous membranes. Crowded airway. NECK: Supple. No JVD. LUNGS: Has a few scattered rhonchi, basilar crackles. HEART: S1 and S2. ABDOMEN: Soft, nontender. No organomegaly. EXTREMITIES: There is no edema. NEUROLOGIC: Awake, alert, follows simple command. MEDICATIONS: He is on Mucomyst 20% inhaled twice a day, which is on hold, Brovana inhaled twice a da y, Colace also on hold, dobutamine IV drip, Lipitor 10 mg daily, on hold, meropenem is 1 g IV q. 12 h ours. He is on norepinephrine. Precedex has been discontinued, Protonix 40 mg IV daily, Pulmicort i nhaled twice a day, Solu-Medrol 20 mg twice a day, Zofran on a p.r.n. basis. LABORATORY DATA: Shows hemoglobin 9.6, hematocrit 30.0, WBC 7.2, platelet count is 92. INR 1.53. P TT is 32. ABG showed pH 7.31, pCO2 43, O2 143. That is at 50% oxygen this morning. Sodium 139, pot assium 4.1, chloride 98, bicarbonate 25, BUN 8, creatinine 7.3, glucose 115, calcium is 8.4, phosphor us 8.4, magnesium 2.4, AST 104, ALT 388, albumin 3.7. Chest x-ray from this morning shows more right vascular congestion. IMPRESSION AND PLAN: Respiratory failure, presently extubated, cardiomyopathy with diastolic dysfunc tion and right heart failure with pulmonary hypertension, renal failure, dialysis dependent, sleep ap baldemar syndrome, bronchiectasis, coronary artery disease, history of coronary stent, rule out sepsis. P ulmonary point of view, doing much better. May continue supplemental oxygen, encourage BiPAP use at nighttime, avoid sedative. Continue dobutamine to improve right heart squeeze, keep head elevated at 45 degree. May give Coumadin 5 mg today. INR in the morning. Gastric prophylaxis. Critical care time spent more than 35 minutes. Thank you and will follow. Louie Frost MD cc: [phone] TT: 03/17/2017 02:23:52 Confirmation # [id number] Dictation # [id number] mn
[2017-03-17] MEDS: Arformoterol 15 mcg/2 ml Inh Sol IH SCH ×3 (02:35→22:38)
--- NOTE | 2017-03-17 05:58 | CP.CCUPN ---
<PrincessMatt carrillo - Last Filed: 03/17/17 08:41> CCU Subjective - Physician Review Subjective (Free Text): 03/17/17 05:54 Patient seen and examined at bedside in ICU. Today is hospital day 10. No acute events overnight. Per Nursing, he remains confused and intermittently agitated, frequently removing his nasal canula. Today on exam, remains mostly non-verbal, some spontaneous movements and responds to initial verbal stimuli, but quickly loses focus. Not following commands. CCU Objective - Vital Signs / Intake & Output Vital Signs (Last 4 hours): Vital Signs Temp Pulse Resp BP Pulse Ox 03/17/17 04:00 99.2 F 97 H 23 81/39 L 100 03/17/17 03:00 103 H 23 92/38 L 100 03/17/17 02:06 102/50 L 03/17/17 02:05 112 H 03/17/17 02:00 112 H 82/43 L 03/17/17 01:59 116 H 33 H Intake and Output (Last 8hrs): Intake & Output 03/16/17 03/16/17 03/17/17 14:59 22:59 06:59 Intake Total 75 281 Output Total 2500 Balance 75 -2219 Intake: IV 75 281 Left Antecubital 100 Left Subclavian 153 Oral 0 Output: Urine 0 Urine, Voided 0 Oral Regurgitation 0 Other 2500 Other: # Voids Urine, Voided 0 # Bowel Movements 0 - Physical Exam Physical Exam Limitations: Positive for: Altered Mental Status, Uncooperative Head: Positive for: Atraumatic, Normocephalic. Negative for: Tenderness, Contusion, Ecchymosis, Abrasion, Laceration Pupils: Positive for: PERRL. Negative for: Sluggish, Non-Reactive Extroacular Muscles: Positive for: Other (some random eye movements, initially tracks towards verbal stimuli, but not following commands for EOMI testing). Negative for: EOMI Conjunctiva: Negative for: Injected, Icteric Mouth: Positive for: Moist Mucous Membranes. Negative for: Drooling Nose (External): Positive for: Atraumatic. Negative for: Abrasion, Contusion, Laceration Neck: Positive for: Trachea Midline. Negative for: JVD Respiratory/Chest: Positive for: Rales (diffuse mild rales, most prominent at bases bilaterally, improved over yesterday). Negative for: Clear to Auscultation, Good Air Exchange, Respiratory Distress, Wheezes, Rhonchi Cardiovascular: Positive for: Regular Rate and Rhythm, Murmurs (blowing systolic murmur, most prominent at R&L 2nd intercostal space), Normal S1, S2, Peripheal Pulses Present (+1 radial pulses bilaterally, unable to palpate pedal pulses). Negative for: Irregular Rhythm, Tachycardic, Bradycardic Abdomen: Positive for: Normal Bowel Sounds, Other (Soft, some firmness but not rigid). Negative for: Tenderness, Distention, Mass/Organomegaly Upper Extremity: Positive for: Normal Inspection, Other (+1 radial pulses bilaterally, Right arm AV fistula will palpable bruit, old left arm fistula, infiltrated left arm upper IV). Negative for: Cyanosis, Edema, Swelling, Erythema, Deformity Lower Extremity: Positive for: Other (+1-2 pitting edema in bilateral LE from feet up to bottom 1/3 of shins). Negative for: NORMAL PULSES (unable to palpate pedal pulses), Deformity Neurological: Positive for: Other (some spontaneous eye and eyelid movements, some spontaneous extremity movements). Negative for: GCS=15 ([id number]), Speech Normal Skin: Positive for: Warm, Dry, Normal Color, Other (IV and fistula sites as noted in upper extremity exam). Negative for: Rashes Psychiatric: Positive for: Other (awake, intermittently alert, not following commands, non-verbal). Negative for: Oriented x 3, Normal Insight, Normal Concentration, Normal Affect, Normal Mood - Medications Active Medications: Active Medications Generic Name Dose Route Start Last Admin Trade Name Mariella PRN Reason Stop Dose Admin Acetylcysteine 4 ml 03/10/17 08:00 03/13/17 19:41 Acetylcysteine 20% IH 4 ml BIDRESP RC Administration Amiodarone HCl 200 mg 03/11/17 22:00 03/13/17 10:36 Cordarone PO Not Given Q12 RC Arformoterol Tartrate 15 mcg 03/08/17 23:00 03/17/17 02:35 Brovana IH 15 mcg Q12H RC Administration Atorvastatin Calcium 10 mg 03/09/17 10:00 03/13/17 10:37 Lipitor PO Not Given DAILY RC Benzonatate 200 mg 03/09/17 10:00 03/13/17 17:35 Tessalon Perles PO Not Given TID RC Budesonide 1 mg 03/09/17 08:00 03/09/17 08:29 Pulmicort Respules IH Not Given [id number] RC Calcium Acetate 1,334 mg 03/09/17 18:56 03/13/17 17:36 Phoslo PO Not Given WM RC Clopidogrel Bisulfate 75 mg 03/09/17 10:00 03/13/17 13:20 Plavix PO Not Given DAILY RC Docusate Sodium 100 mg 03/08/17 23:00 03/13/17 17:36 Colace PO Not Given BID RC Guaifenesin 100 mg 03/08/17 23:05 Robitussin PO Q6H PRN Cough Meropenem 1g/NS 100mL IVPB 100 mls @ 100 mls/hr 03/13/17 17:45 03/16/17 23:00 Meropenem 1g/Ns 100ml Ivpb IVPB 03/20/17 17:46 100 mls/hr Q12 RC Administration Protocol Norepinephrine Bitartrate 4 mg 254 mls @ 15.24 mls/hr 03/14/17 17:44 13:35 / Sodium Chloride IV 0 mcg/min .[id number] PRN 0 mls/hr TITRATE PER MD ORDER Titration Protocol 4 MCG/MIN Dobutamine HCl/Dextrose 500 mg in 250 mls @ 4.605 mls/hr 03/14/17 18:54 03/14 20:34 Dobutamine/Dextrose 5% 500mg/250ml IV 2.5 mcg/kg/min .Q24H PRN 4.605 mls/hr TITRATE PER PROTOCOL Administration Protocol 2.5 MCG/KG/MIN Dexmedetomidine HCl 400 mcg in 100 mls @ 3.039 mls/hr 03/16/17 06:36 16:25 Precedex 4 Mcg/Ml (100 Ml) IV 0 mcg/kg/hr .Q24H PRN 0 mls/hr Sedation Titration Protocol 0.2 MCG/KG/HR Methylprednisolone 20 mg 03/10/17 22:00 03/16/17 23:00 Solu-Medrol IVP 20 mg Q12 RC Administration Metoprolol Tartrate 12.5 mg 03/11/17 17:00 03/13/17 17:36 Lopressor PO Not Given BRKDIN RC Ondansetron HCl 4 mg 03/10/17 09:37 Zofran Inj IVP Q6H PRN Nausea/Vomiting Pantoprazole Sodium 40 mg 03/09/17 07:30 03/13/17 13:21 Protonix Ec Tab PO Not Given ACB RC Pantoprazole Sodium 40 mg 03/14/17 10:00 03/16/17 12:35 Protonix Inj IVP 40 mg DAILY RC Administration Warfarin Sodium 3 mg 03/10/17 18:00 03/13/17 17:36 Coumadin PO Not Given 1800 RC Protocol - Patient Studies Lab Studies: Microbiology Studies 03/13/17 16:20 Blood Culture - Preliminary Blood NO GROWTH AFTER 3 DAYS 03/13/17 16:10 Blood Culture - Preliminary Blood NO GROWTH AFTER 3 DAYS 03/14/17 15:35 Gram Stain - Final Sputum Induced Sputum Culture - Final Yeast Species Lab Studies 03/16/17 03/16/17 03/16/17 Range/Units 06:00 05:40 05:40 WBC (4.5-11.0) 10^3/ul RBC (3.5-6.1) 10^6/uL Hgb (14.0-18.0) gm/dL Hct (42.0-52.0) % MCV (80.0-105.0) fL MCH (25.0-35.0) pg MCHC (31.0-37.0) g/dl RDW (11.5-14.5) % Plt Count (120.0-450.0) 10^3/uL Gran % (50.0-68.0) % Lymph % (Auto) (22.0-35.0) % [place] % (Auto) (1.0-6.0) % Eos % (Auto) (1.5-5.0) % Baso % (Auto) (0.0-3.0) % Gran # (1.4-6.5) Lymph # (1.2-3.4) [place] # (0.1-0.6) Eos # (0.0-0.7) Baso # (0.0-2.0) K/mm3 PT (9.9-11.8) Seconds INR (0.93-1.08) APTT (23.7-30.8) Seconds pCO2 43 (35-45) mm/Hg pO2 143.0 H (80-100) mm/Hg HCO3 21.7 (21-28) mmol/L ABG pH 7.31 L (7.35-7.45) ABG Total CO2 23.0 (22-28) mmol.L ABG O2 Saturation 99.8 H (95-98) % ABG O2 Content 23.1 H (15-23) ML/dl ABG Base Excess -4.6 L (-2.0-3.0) mmol/L ABG Hemoglobin 16.8 (11.7-17.4) g/dL ABG Carboxyhemoglobin 2.1 H (0.5-1.5) % POC ABG HHb (Measured) 0.2 (0-5) % ABG Methemoglobin 0.6 (0.0-3.0) % ABG O2 Capacity 23.1 (16-24) mL/dl Hgb O2 Saturation 97.1 (95.0-98.0) % FiO2 50.0 % Sodium 139 (132-148) mmol/L Potassium 5.1 H (3.6-5.0) mmol/L Chloride 98 (98-107) mmol/L Carbon Dioxide 25 (21-33) mmol/L Anion Gap 21 H (10-20) BUN 84 H (7-21) mg/dL Creatinine 7.3 H (0.5-1.4) mg/dL Est GFR ( Amer) 9 Est GFR (Non-Af Amer) 7 Random Glucose 115 H (70-110) mg/dL Calcium 8.4 (8.4-10.5) mg/dL Phosphorus 8.0 H (2.5-4.5) mg/dL Magnesium 2.4 H (1.7-2.2) mg/dL Total Bilirubin 2.3 H (0.2-1.3) mg/dL AST 104 H (15-59) U/L ALT 388 H (7-56) U/L Alkaline Phosphatase 89 (38-133) U/L Total Protein 7.5 (5.8-8.3) g/dL Albumin 3.7 (3.0-4.8) g/dL Globulin 3.8 gm/dL Albumin/Globulin Ratio 1.0 L (1.1-1.8) Random Vancomycin 23.6 (20.0-40.0) ug/mL 03/16/17 03/16/17 Range/Units 05:40 05:40 WBC 7.2 (4.5-11.0) 10^3/ul RBC 3.26 L (3.5-6.1) 10^6/uL Hgb 9.6 L (14.0-18.0) gm/dL Hct 30.0 L (42.0-52.0) % MCV 92.0 (80.0-105.0) fL MCH 29.4 (25.0-35.0) pg MCHC 32.0 (31.0-37.0) g/dl RDW 20.3 H (11.5-14.5) % Plt Count 92 L (120.0-450.0) 10^3/uL Gran % 77.2 H (50.0-68.0) % Lymph % (Auto) 15.8 L (22.0-35.0) % [place] % (Auto) 6.7 H (1.0-6.0) % Eos % (Auto) 0.0 L (1.5-5.0) % Baso % (Auto) 0.3 (0.0-3.0) % Gran # 5.56 (1.4-6.5) Lymph # 1.1 L (1.2-3.4) [place] # 0.5 (0.1-0.6) Eos # 0.0 (0.0-0.7) Baso # 0.02 (0.0-2.0) K/mm3 PT 16.5 H (9.9-11.8) Seconds INR 1.53 H (0.93-1.08) APTT 31.5 H (23.7-30.8) Seconds pCO2 (35-45) mm/Hg pO2 (80-100) mm/Hg HCO3 (21-28) mmol/L ABG pH (7.35-7.45) ABG Total CO2 (22-28) mmol.L ABG O2 Saturation (95-98) % ABG O2 Content (15-23) ML/dl ABG Base Excess (-2.0-3.0) mmol/L ABG Hemoglobin (11.7-17.4) g/dL ABG Carboxyhemoglobin (0.5-1.5) % POC ABG HHb (Measured) (0-5) % ABG Methemoglobin (0.0-3.0) % ABG O2 Capacity (16-24) mL/dl Hgb O2 Saturation (95.0-98.0) % FiO2 % Sodium (132-148) mmol/L Potassium (3.6-5.0) mmol/L Chloride (98-107) mmol/L Carbon Dioxide (21-33) mmol/L Anion Gap (10-20) BUN (7-21) mg/dL Creatinine (0.5-1.4) mg/dL Est GFR ( Amer) Est GFR (Non-Af Amer) Random Glucose (70-110) mg/dL Calcium (8.4-10.5) mg/dL Phosphorus (2.5-4.5) mg/dL Magnesium (1.7-2.2) mg/dL Total Bilirubin (0.2-1.3) mg/dL AST (15-59) U/L ALT (7-56) U/L Alkaline Phosphatase (38-133) U/L Total Protein (5.8-8.3) g/dL Albumin (3.0-4.8) g/dL Globulin gm/dL Albumin/Globulin Ratio (1.1-1.8) Random Vancomycin (20.0-40.0) ug/mL Laboratory Results - last 24 hr 03/16/17 03/16/17 03/16/17 05:40 05:40 05:40 WBC 7.2 RBC 3.26 L Hgb 9.6 L Hct 30.0 L MCV 92.0 MCH 29.4 MCHC 32.0 RDW 20.3 H Plt Count 92 L Gran % 77.2 H Lymph % (Auto) 15.8 L [place] % (Auto) 6.7 H Eos % (Auto) 0.0 L Baso % (Auto) 0.3 Gran # 5.56 Lymph # 1.1 L [place] # 0.5 Eos # 0.0 Baso # 0.02 PT 16.5 H INR 1.53 H APTT 31.5 H pCO2 pO2 HCO3 ABG pH ABG Total CO2 ABG O2 Saturation ABG O2 Content ABG Base Excess ABG Hemoglobin ABG Carboxyhemoglobin POC ABG HHb (Measured) ABG Methemoglobin ABG O2 Capacity Hgb O2 Saturation FiO2 Sodium 139 Potassium 5.1 H Chloride 98 Carbon Dioxide 25 Anion Gap 21 H BUN 84 H Creatinine 7.3 H Est GFR ( Amer) 9 Est GFR (Non-Af Amer) 7 Random Glucose 115 H Calcium 8.4 Phosphorus 8.0 H Magnesium 2.4 H Total Bilirubin 2.3 H AST 104 H ALT 388 H Alkaline Phosphatase 89 Total Protein 7.5 Albumin 3.7 Globulin 3.8 Albumin/Globulin Ratio 1.0 L Random Vancomycin 03/16/17 03/16/17 05:40 06:00 WBC RBC Hgb Hct MCV MCH MCHC RDW Plt Count Gran % Lymph % (Auto) [place] % (Auto) Eos % (Auto) Baso % (Auto) Gran # Lymph # [place] # Eos # Baso # PT INR APTT pCO2 43 pO2 143.0 H HCO3 21.7 ABG pH 7.31 L ABG Total CO2 23.0 ABG O2 Saturation 99.8 H ABG O2 Content 23.1 H ABG Base Excess -4.6 L ABG Hemoglobin 16.8 ABG Carboxyhemoglobin 2.1 H POC ABG HHb (Measured) 0.2 ABG Methemoglobin 0.6 ABG O2 Capacity 23.1 Hgb O2 Saturation 97.1 FiO2 50.0 Sodium Potassium Chloride Carbon Dioxide Anion Gap BUN Creatinine Est GFR ( Amer) Est GFR (Non-Af Amer) Random Glucose Calcium Phosphorus Magnesium Total Bilirubin AST ALT Alkaline Phosphatase Total Protein Albumin Globulin Albumin/Globulin Ratio Random Vancomycin 23.6 Fingerstick Blood Sugar Results: 116 Review of Systems - Review of Systems Systems not reviewed;Unavailable: Dementia (Non-verbal) Critical Care Progress Note - Nutrition Nutrition: Nutrition Category Date Time Status NPO Diet [DIET] Diets 03/13/17 Dinner Ordered Assessment/Plan - Assessment and Plan (Free Text) Assessment: This is a 71 yo M with PMH of COPD on 2L home O2, Pulmonary HTN, Afib on coumadin, CAD s/p CABG, and DEMETRIS in the ICU with persistent hypotension requiring pressor support with dialysis and RV failure requiring inotropic support. He has been extubated and is satting well on nasal canula, but continues to require pressor and inotropic support. He is pending goals of care and code-status decisions by and sons after meeting with Palliative service yesterday. Plan: Neuro: -off sedation, extubated, but still minimally responsive, some spontaneous movements noted during exam -continue to monitor -maintain normothermia -Neuro (Dr. Ant [place]) consulted, appreciate all recs Pulm: -extubated yesterday, satting well on 2L NC -Conservative O2 management, maintain SaO2 > 90 and paO2 > 60 -aspiration precautions, head of bed to 30 degrees -Pulm (Dr. Frost) and ID (Dr. Kidd) on board, appreciate all recs; Covering with Meropenem as per ID -Procal 24. -Continue pulmocort, brovana, and solumedrol Cardio: -unable to wean from Levophed, still on 2.5 mcg/kg/min -Dobutamine for inotropic support as per cardio; dilated RV with bowing septum, diastolic dysfxn on bedside ultrasound assessment of heart, noted on most recent Echo as well -INR 1.4, will cover for AC with heparin drip pending family decision on goals of care; if family decides to proceed with aggressive measures, will ask discuss optimal anticoagulation choice with cardio -Requires dialysis to prevent fluid overload and prevent respiratory failure, but given RV dilation/diastolic dsfxn, also need volume to maintain preload -Cardio (Dr. Nicole) and EP (Dr. Clark) on board, appreciate all recs -Trops since admission to ICU: 0.07, 3.25, 1.95, 2.84, 3.04, 2.59 GI: -NPO -Protonix for GI ppx Renal: -ESRD on [facility] HD, Right arm AV fistula access -currently being dialyzed daily; Requires dialysis to prevent fluid overload and prevent respiratory failure, but given RV dilation/diastolic dsfxn, also need volume to maintain preload -Nephro (Dr. Merritt) on board, appreciate all recs -monitor and replete electrolytes as needed -maintain euglycemia (BG 140-180) -Abd CT notable for suspected pyelonephritis, Urology consulted as per patient' s Primary; per Urology, unlikely that this is pyelo, current abx regimen will cover, no additional intervention at this time ID: -WBCs 8.3 -afebrile -procal 24.79, indicative of infectious process, but also likely elevated in setting of ESRD on HD -covering with Meropenem as per ID -Blood cultures x2 negative x5 days, blood cultures x2 negative x3 days, sputum culture positive for light growth yeast -ID (Dr. Kidd) on board, appreciate all recs; will ask recs regarding antibiotic duration Heme: -Hgb 10.0, (was 9.6) -INR 1.4, will cover for AC with heparin drip pending family decision on goals of care; if family decides to proceed with aggressive measures, will ask discuss optimal anticoagulation choice with cardio -IR consulted for PICC access given chronic poor venous access, currently has left subclavian central line in place MSK: -Ortho consulted (Dr. Fields) for right shoulder injury, appreciate all recs Dispo: ICU; pending goals of care and code-status decision by family, post family meeting with Palliative team FEN: NPO Access: Left subclavian central line, Right arm AV fistula for dialysis Consults: IR, ID, Neuro, Ortho, Cardio, EP, Nephro, Pulm, Urology, Palliative Ppx: Protonix for GI, holding additional AC for now Code Status: Currently full code, pending family decision on code status Patient seen, reviewed, and discussed with attending, Dr. Laguerre - Date & Time Date: 03/17/17 Time: 06:19 <Carlotta VALLE,[facility] - Last Filed: 03/17/17 09:27> CCU Objective - Vital Signs / Intake & Output Vital Signs (Last 4 hours): Vital Signs Temp Pulse Resp BP Pulse Ox 03/17/17 08:10 98.4 F 92 H 18 120/81 100 03/17/17 08:00 94 H 19 120/81 100 03/17/17 07:00 96 H 16 91/55 L 100 03/17/17 06:00 90 22 95/47 L 100 Intake and Output (Last 8hrs): Intake & Output 03/16/17 03/17/17 03/17/17 22:59 06:59 14:59 Intake Total 281 55 Output Total 2500 0 Balance -2219 55 Weight 132 lb 3.2 oz Intake: IV 281 55 Left Antecubital 100 Left Subclavian 153 55 Oral 0 0 Output: Urine 0 0 Urine, Voided 0 0 Oral Regurgitation 0 Other 2500 Other: # Voids Urine, Voided 0 # Bowel Movements 0 0 - Medications Active Medications: Active Medications Generic Name Dose Route Start Last Admin Trade Name Freq PRN Reason Stop Dose Admin Acetylcysteine 4 ml 03/10/17 08:00 03/13/17 19:41 Acetylcysteine 20% IH 4 ml BIDRESP RC Administration Amiodarone HCl 200 mg 03/11/17 22:00 03/13/17 10:36 Cordarone PO Not Given Q12 RC Arformoterol Tartrate 15 mcg 03/08/17 23:00 03/17/17 02:35 Brovana IH 15 mcg Q12H RC Administration Atorvastatin Calcium 10 mg 03/09/17 10:00 03/13/17 10:37 Lipitor PO Not Given DAILY RC Benzonatate 200 mg 03/09/17 10:00 03/13/17 17:35 Tessalon Perles PO Not Given TID RC Budesonide 1 mg 03/09/17 08:00 03/09/17 08:29 Pulmicort Respules IH Not Given [id number] RC Calcium Acetate 1,334 mg 03/09/17 18:56 03/13/17 17:36 Phoslo PO Not Given [facility] Clopidogrel Bisulfate 75 mg 03/09/17 10:00 03/13/17 13:20 Plavix PO Not Given DAILY [facility] Docusate Sodium 100 mg 03/08/17 23:00 03/13/17 17:36 Colace PO Not Given BID [facility] Guaifenesin 100 mg 03/08/17 23:05 Robitussin PO Q6H PRN Cough Meropenem 1g/NS 100mL IVPB 100 mls @ 100 mls/hr 03/13/17 17:45 03/16/17 23:00 Meropenem 1g/Ns 100ml Ivpb IVPB 03/20/17 17:46 100 mls/hr Q12 RC Administration Protocol Norepinephrine Bitartrate 4 mg 254 mls @ 15.24 mls/hr 03/14/17 17:44 13:35 / Sodium Chloride IV 0 mcg/min .[id number] PRN 0 mls/hr TITRATE PER MD ORDER Titration Protocol 4 MCG/MIN Dobutamine HCl/Dextrose 500 mg in 250 mls @ 4.605 mls/hr 03/14/17 18:54 03/14 20:34 Dobutamine/Dextrose 5% 500mg/250ml IV 2.5 mcg/kg/min .Q24H PRN 4.605 mls/hr TITRATE PER PROTOCOL Administration Protocol 2.5 MCG/KG/MIN Dexmedetomidine HCl 400 mcg in 100 mls @ 3.039 mls/hr 03/16/17 06:36 16:25 Precedex 4 Mcg/Ml (100 Ml) IV 0 mcg/kg/hr .Q24H PRN 0 mls/hr Sedation Titration Protocol 0.2 MCG/KG/HR Heparin Sodium/Sodium Chloride 25,000 units in 250 mls @ 10.794 mls/hr 08:35 Heparin 66020 Units/250ml 1/2 Normal Saline IV .[id number] PRN ADJUST RATE PER PROTOCOL Protocol 18 UNITS/KG/HR Methylprednisolone 20 mg 03/10/17 22:00 03/16/17 23:00 Solu-Medrol IVP 20 mg Q12 RC Administration Metoprolol Tartrate 12.5 mg 03/11/17 17:00 03/13/17 17:36 Lopressor PO Not Given BRKDIN RC Ondansetron HCl 4 mg 03/10/17 09:37 Zofran Inj IVP Q6H PRN Nausea/Vomiting Pantoprazole Sodium 40 mg 03/09/17 07:30 03/13/17 13:21 Protonix Ec Tab PO Not Given ACB RC Pantoprazole Sodium 40 mg 03/14/17 10:00 03/16/17 12:35 Protonix Inj IVP 40 mg DAILY [facility] Administration Warfarin Sodium 3 mg 03/10/17 18:00 03/13/17 17:36 Coumadin PO Not Given 1800 RC Protocol - Patient Studies Lab Studies: Microbiology Studies 03/13/17 16:20 Blood Culture - Preliminary Blood NO GROWTH AFTER 3 DAYS 03/13/17 16:10 Blood Culture - Preliminary Blood NO GROWTH AFTER 3 DAYS 03/14/17 15:35 Gram Stain - Final Sputum Induced Sputum Culture - Final Yeast Species Lab Studies 03/17/17 03/17/17 03/17/17 Range/Units 05:30 05:30 05:30 WBC (4.5-11.0) 10^3/ul RBC (3.5-6.1) 10^6/uL Hgb (14.0-18.0) gm/dL Hct (42.0-52.0) % MCV (80.0-105.0) fL MCH (25.0-35.0) pg MCHC (31.0-37.0) g/dl RDW (11.5-14.5) % Plt Count (120.0-450.0) 10^3/uL Gran % (50.0-68.0) % Lymph % (Auto) (22.0-35.0) % [place] % (Auto) (1.0-6.0) % Eos % (Auto) (1.5-5.0) % Baso % (Auto) (0.0-3.0) % Gran # (1.4-6.5) Lymph # (1.2-3.4) [place] # (0.1-0.6) Eos # (0.0-0.7) Baso # (0.0-2.0) K/mm3 PT 15.9 H (9.9-11.8) Seconds INR 1.47 H (0.93-1.08) APTT 30.3 (23.7-30.8) Seconds pCO2 38 (35-45) mm/Hg pO2 71.0 L (80-100) mm/Hg HCO3 24.6 (21-28) mmol/L ABG pH 7.42 (7.35-7.45) ABG Total CO2 25.8 (22-28) mmol.L ABG O2 Saturation 96.2 (95-98) % ABG O2 Content 12.9 L (15-23) ML/dl ABG Base Excess 0.2 (-2.0-3.0) mmol/L ABG Hemoglobin 9.8 L (11.7-17.4) g/dL ABG Carboxyhemoglobin 2.6 H (0.5-1.5) % POC ABG HHb (Measured) 3.7 (0-5) % ABG Methemoglobin 1.0 (0.0-3.0) % ABG O2 Capacity 13.4 L (16-24) mL/dl Hgb O2 Saturation 92.7 L (95.0-98.0) % FiO2 32.0 % Sodium 141 (132-148) mmol/L Potassium 4.5 (3.6-5.0) mmol/L Chloride 101 (98-107) mmol/L Carbon Dioxide 24 (21-33) mmol/L Anion Gap 21 H (10-20) BUN 70 H (7-21) mg/dL Creatinine 5.9 H (0.5-1.4) mg/dL Est GFR ( Amer) 11 Est GFR (Non-Af Amer) 9 Random Glucose 109 (70-110) mg/dL Calcium 8.9 (8.4-10.5) mg/dL Phosphorus 6.7 H (2.5-4.5) mg/dL Magnesium 2.6 H (1.7-2.2) mg/dL Total Bilirubin 2.8 H (0.2-1.3) mg/dL AST 88 H (15-59) U/L ALT 284 H (7-56) U/L Alkaline Phosphatase 82 (38-133) U/L Total Protein 7.1 (5.8-8.3) g/dL Albumin 3.4 (3.0-4.8) g/dL Globulin 3.7 gm/dL Albumin/Globulin Ratio 0.9 L (1.1-1.8) 03/17/ Range/Units 05:30 WBC 8.3 (4.5-11.0) 10^3/ul RBC 3.34 L (3.5-6.1) 10^6/uL Hgb 10.0 L (14.0-18.0) gm/dL Hct 30.8 L (42.0-52.0) % MCV 92.2 (80.0-105.0) fL MCH 29.9 (25.0-35.0) pg MCHC 32.5 (31.0-37.0) g/dl RDW 21.3 H (11.5-14.5) % Plt Count 69 L (120.0-450.0) 10^3/uL Gran % 84.4 H (50.0-68.0) % Lymph % (Auto) 8.5 L (22.0-35.0) % [place] % (Auto) 7.0 H (1.0-6.0) % Eos % (Auto) 0.0 L (1.5-5.0) % Baso % (Auto) 0.1 (0.0-3.0) % Gran # 7.02 H (1.4-6.5) Lymph # 0.7 L (1.2-3.4) [place] # 0.6 (0.1-0.6) Eos # 0.0 (0.0-0.7) Baso # 0.01 (0.0-2.0) K/mm3 PT (9.9-11.8) Seconds INR (0.93-1.08) APTT (23.7-30.8) Seconds pCO2 (35-45) mm/Hg pO2 (80-100) mm/Hg HCO3 (21-28) mmol/L ABG pH (7.35-7.45) ABG Total CO2 (22-28) mmol.L ABG O2 Saturation (95-98) % ABG O2 Content (15-23) ML/dl ABG Base Excess (-2.0-3.0) mmol/L ABG Hemoglobin (11.7-17.4) g/dL ABG Carboxyhemoglobin (0.5-1.5) % POC ABG HHb (Measured) (0-5) % ABG Methemoglobin (0.0-3.0) % ABG O2 Capacity (16-24) mL/dl Hgb O2 Saturation (95.0-98.0) % FiO2 % Sodium (132-148) mmol/L Potassium (3.6-5.0) mmol/L Chloride (98-107) mmol/L Carbon Dioxide (21-33) mmol/L Anion Gap (10-20) BUN (7-21) mg/dL Creatinine (0.5-1.4) mg/dL Est GFR ( Amer) Est GFR (Non-Af Amer) Random Glucose (70-110) mg/dL Calcium (8.4-10.5) mg/dL Phosphorus (2.5-4.5) mg/dL Magnesium (1.7-2.2) mg/dL Total Bilirubin (0.2-1.3) mg/dL AST (15-59) U/L ALT (7-56) U/L Alkaline Phosphatase (38-133) U/L Total Protein (5.8-8.3) g/dL Albumin (3.0-4.8) g/dL Globulin gm/dL Albumin/Globulin Ratio (1.1-1.8) Laboratory Results - last 24 hr 03/17/17 03/17/17 03/17/17 05:30 05:30 05:30 WBC 8.3 RBC 3.34 L Hgb 10.0 L Hct 30.8 L MCV 92.2 MCH 29.9 MCHC 32.5 RDW 21.3 H Plt Count 69 L Gran % 84.4 H Lymph % (Auto) 8.5 L [place] % (Auto) 7.0 H Eos % (Auto) 0.0 L Baso % (Auto) 0.1 Gran # 7.02 H Lymph # 0.7 L [place] # 0.6 Eos # 0.0 Baso # 0.01 PT 15.9 H INR 1.47 H APTT 30.3 pCO2 pO2 HCO3 ABG pH ABG Total CO2 ABG O2 Saturation ABG O2 Content ABG Base Excess ABG Hemoglobin ABG Carboxyhemoglobin POC ABG HHb (Measured) ABG Methemoglobin ABG O2 Capacity Hgb O2 Saturation FiO2 Sodium 141 Potassium 4.5 Chloride 101 Carbon Dioxide 24 Anion Gap 21 H BUN 70 H Creatinine 5.9 H Est GFR ( Amer) 11 Est GFR (Non-Af Amer) 9 Random Glucose 109 Calcium 8.9 Phosphorus 6.7 H Magnesium 2.6 H Total Bilirubin 2.8 H AST 88 H ALT 284 H Alkaline Phosphatase 82 Total Protein 7.1 Albumin 3.4 Globulin 3.7 Albumin/Globulin Ratio 0.9 L 03/17/17 05:30 WBC RBC Hgb Hct MCV MCH MCHC RDW Plt Count Gran % Lymph % (Auto) [place] % (Auto) Eos % (Auto) Baso % (Auto) Gran # Lymph # [place] # Eos # Baso # PT INR APTT pCO2 38 pO2 71.0 L HCO3 24.6 ABG pH 7.42 ABG Total CO2 25.8 ABG O2 Saturation 96.2 ABG O2 Content 12.9 L ABG Base Excess 0.2 ABG Hemoglobin 9.8 L ABG Carboxyhemoglobin 2.6 H POC ABG HHb (Measured) 3.7 ABG Methemoglobin 1.0 ABG O2 Capacity 13.4 L Hgb O2 Saturation 92.7 L FiO2 32.0 Sodium Potassium Chloride Carbon Dioxide Anion Gap BUN Creatinine Est GFR ( Amer) Est GFR (Non-Af Amer) Random Glucose Calcium Phosphorus Magnesium Total Bilirubin AST ALT Alkaline Phosphatase Total Protein Albumin Globulin Albumin/Globulin Ratio Critical Care Progress Note - Nutrition Nutrition: Nutrition Category Date Time Status NPO Diet [DIET] Diets 03/13/17 Dinner Ordered Attending/Attestation - Attestation I have personally seen and examined this patient.: Yes I have fully participated in the care of the patient.: Yes I have reviewed all pertinent clinical information: Yes Notes (Text): 03/17/17 09:23 71 y/o M w/ RV failure , Metabolic Decompensation and Encephalopathy RV failure/A.Fib /CHF Seen on Previous ECHO in 01/2017. On Dobutamine w/ SBP>100 Off Heparin but will restart today due to INR<2.0 Cardiology following. No interventions currently. A.Fib rate controlled Volume status under controll due to HD removal. SBP tolerating HD. Off Levophed. Poor overall Outcome Encephalopathy Likely Multifactorial. Poor performance and functional status prior to Intubation noted from other providers and family. Currently not verbal, but follows some basic commands and protects airway. Needs Speech/ Swallow eval. Extubated yesterday , no acute distress overnight. CKD On HD, planned per Nephrology assisted plans per family undetermined Possible need for PEG/NGT. Anticoagulation? DNR/DNI status vs Comfort Care ? Palliative follow up meeting to be done today. cc time 65 min
[2017-03-17 06:10] LABS: ADD MANUAL DIFF? NO
[2017-03-17 06:16] LABS: BASO # 0.01 K/mm3 (0.0-2.0); BASO % 0.1 % (0.0-3.0); GRAN # 7.02 (1.4-6.5); GRAN % 84.4 % (50.0-68.0); HEMATOCRIT 30.8 % (42.0-52.0); LYMPH # 0.7 (1.2-3.4); LYMPH % 8.5 % (22.0-35.0); MEAN CELL VOLUME 92.2 fL (80.0-105.0); MEAN CORPUSCULAR HEMOGLOBIN 29.9 pg (25.0-35.0); MEAN CORPUSCULAR HGB CONC 32.5 g/dl (31.0-37.0); MONO # 0.6 (0.1-0.6); PLATELET COUNT 69 10^3/uL (120.0-450.0); RED CELL DISTRIBUTION WIDTH 21.3 % (11.5-14.5); WHITE BLOOD COUNT 8.3 10^3/ul (4.5-11.0)
[2017-03-17 06:29] LABS: INR 1.47 (0.93-1.08); PARTIAL THROMBOPLASTIN TIME 30.3 Seconds (23.7-30.8)
[2017-03-17 06:33] LABS: ARTERIAL BLOOD GAS HCO3 24.6 mmol/L (21-28); ARTERIAL BLOOD GAS O2 CAPACITY 13.4 mL/dl (16-24); ARTERIAL BLOOD GAS O2 CONTENT 12.9 ML/dl (15-23); ARTERIAL BLOOD GAS PH 7.42 (7.35-7.45); ARTERIAL BLOOD HGB O2 SAT 92.7 % (95.0-98.0); CARBOXYHEMOGLOBIN 2.6 % (0.5-1.5); HHB 3.7 % (0-5)
[2017-03-17 06:51] LABS: ALB/GLOB RATIO 0.9 (1.1-1.8); BILIRUBIN,TOTAL 2.8 mg/dL (0.2-1.3); CALCIUM 8.9 mg/dL (8.4-10.5); MAGNESIUM 2.6 mg/dL (1.7-2.2); PHOSPHOROUS 6.7 mg/dL (2.5-4.5); POTASSIUM 4.5 mmol/L (3.6-5.0); TOTAL PROTEIN 7.1 g/dL (5.8-8.3)
--- NOTE | 2017-03-17 08:18 | PN ---
DATE: 03/16/2017 SUBJECTIVE: The patient is examined at the bedside, looks comfortable. No nausea, vomiting, diarrhea, hematochezia. A little lethargic and has soft restraints on the upper extremities. No headache, PHYSICAL EXAMINATION: VITAL SIGNS: Temperature is 98.6, pulse 93, blood pressure 100/54, respiratory rate 20. HEENT: Normocephalic, atraumatic. Eyes: PERRLA, muscles intact. Conjunctivae clear and no sputum . Having a face mask on the face. NECK: Supple. LUNGS: Positive wheezing bilaterally. HEART: S1 is positive. ABDOMEN: Soft, but some organomegaly. EXTREMITIES: No edema, no cyanosis. NEUROLOGIC: Cannot do evaluation because of the patient's status. MEDICATIONS: Brovana, amiodarone, Coumadin, DuoNeb, Lipitor, Lopressor. LABORATORY DATA: White blood cells 7.0, hemoglobin 9.6, hematocrit 30.0, platelets 92. Sodium 130. BUN of 84, creatinine 7.3. ASSESSMENT AND PLAN: The patient is a 71-year-old male with a history of leukocytosis, got better, anemia, thrombocytopenia, bacteria pancytopenia, hypokalemia, renal insufficiency, hypermagnesemia. Abnormal liver function tests are trending down. Troponin positive 3.042, 0.59. Emesis for blood is negative. Digoxin level is 1.4, seen by Raul , Has known ST-elevation myocardial infarction, sepsis, congestive heart failure, acute respiratory failure. Severe dilated right ventricle with pulmonary hypertension, history of intubation, on pressor support and with renal disease on hemodialysis 3 times a week. History of coronary artery bypass, stents, sleep apnea syndrome. Prostate cancer status post seed implants, proctitis, history of gastrointestinal bleeding, history of blood transfusion a couple of times, atrial fibrillation/flutter, chronic obstructive pulmonary disease, Met with the family discussing the patient's condition, prognosis, and goals of care. Sent message from the patient's , doctor appreciated. Raul AP and project administrative assistant in establishing goals of care and advanced care planning. I have length of time discussion with the patient's son, and , The patient has history of Charcot recovery, altered mental status, still getting attacks of confusion. reviewed the CAT scan of the patient. According to him, the patient has bad enough looking infiltration pulmonary and more often than not. It is not associated with pyelonephritis while it can be seen with pyelo more often than not. The patient already on meropenem and vancomycin. According to no further treatment. There is evidence of hydro on this CAT scan. No treatment is needed by the urologist. Gastrointestinal and deep vein thrombosis prophylaxis. Repeat labs. Will follow. Maria Antonia Wilkins MD cc: [id number] TT: 03/17/2017 02:14:01 Confirmation # [id number] Dictation # [id number] mn MTDD
--- NOTE | 2017-03-17 09:58 | RAD ---
HISTORY: f/u COMPARISON: 03/16/2017 FINDINGS: LUNGS: No active pulmonary disease. PLEURA: No significant pleural effusion identified, no pneumothorax apparent. CARDIOVASCULAR: There is moderate cardiomegaly and moderate vascular congestion OSSEOUS STRUCTURES: No significant abnormalities. VISUALIZED UPPER ABDOMEN: Normal. OTHER FINDINGS: None. IMPRESSION: Moderate cardiomegaly and moderate vascular congestion
[2017-03-17] MEDS: Heparin25000 units/250ml 1/2NS 25,000 UNITS/250 ML BAG IV PRN (10:30)
[2017-03-17] MEDS: MethylPREDNISolone 40 mg Vial IVP SCH ×2 (10:40→22:25)
[2017-03-17] MEDS: Meropenem 1g/NS 100mL IVPB 100 ML IVPB SCH ×2 (10:41→22:00)
--- NOTE | 2017-03-17 10:55 | PN ---
DATE: 03/17/2017 SUBJECTIVE: The patient is in bed in no acute distress, was seen earlier this morning in CCU 129, be d 2. He is awake. He is off of the ventilator. He is on nasal cannula. No fevers documented. PHYSICAL EXAMINATION: VITAL SIGNS: Temperature is 98, blood pressure is 120/80, respiratory rate of 18. HEENT: Unremarkable. NECK: Supple. LUNGS: Have decreased breath sounds. HEART: Normal S1, S2. ABDOMEN: Soft. LABORATORY DATA: Reveals the white count is 8.3, hemoglobin of 10, platelets of 69. Chemistries rev eal the BUN of 70, creatinine of 5.9. Random vanco level of 23 from this morning . Blood cultures ar e negative. His sputum culture has yeast. Review of orders reveals the patient to be on meropenem, Solu-Medrol. Dr. Laguerre's note is reviewed from this morning. Chest x-ray from this morning, report i s reviewed. Dr. Wilkins's is note is reviewed. Chest x-ray reveals the patient with no lung infiltra bacilio. Dr. Frost's note is reviewed. Patricia 's note of consultation is reviewed from yesterday. ASSESSMENT AND PLAN: A 71-year-old male with severe sepsis; acute hypoxic ventilatory-dependent resp iratory failure in a patient with acute congestive heart failure secondary to bilateral hospital-acqu ired pneumonia; possible gram-positive cocci; possible gram-negative raissa; end-stage renal disease, on hemodialysis; chronic obstructive lung disease; chronic atrial fibrillation, on anticoagulation; on intermittent vancomycin and meropenem. Today is day #4. Would complete 4-7 days of antibiotics. Th e patient is now extubated and appears to be awake and responsive. Roberto Kidd MD cc: [id number] TT: 03/17/2017 10:54:28 Confirmation # [id number] Dictation # [id number] yary
[2017-03-17] MEDS ORDERED: Lidocaine 2% Inj (20ml) ONE (13:00)
--- NOTE | 2017-03-17 15:08 | PN ---
DATE: 03/17/[address] Rubio Nicole. The patient was extubated yesterday and today he underwent a right PICC line placement. No reported ventricular arrhythmia. PHYSICAL EXAMINATION: VITAL SIGNS: Blood pressure 127/80, heart rate 91, respiration 14, temperature 98.4. HEENT: Pale conjunctivae. CHEST: Absent breath sounds over the bases. HEART: S1, S2 regular. EXTREMITIES: 2+ right arm edema. LABORATORIES: Hemoglobin and hematocrit 10 and 30.8, white count 8.3, platelet count is reduced at 6 9,000. Today's BUN and creatinine are 70 and 5.9, respectively. Potassium and glucose are within no rmal limits. Magnesium is slightly elevated 2.6. Phosphorus elevated 6.7. Most recent EKG on 03/14 revealed sinus tachycardia, ST-T wave abnormality, consider inferolateral isc hemia, heart rate was 118. Echocardiograph study revealed moderately dilated right ventricle with se verely reduced right ventricular systolic function with mild concentric LVH and normal ejection fract ion of the left ventricle with flattened septum. ASSESSMENT: 1. Status post respiratory failure. 2. Right-sided heart failure. 3. Sepsis. 4. Coronary artery disease, status post coronary bypass surgery. 5. End-stage renal disease, on hemodialysis. 6. Status post non-ST elevation myocardial infarction. 7. Paroxysmal atrial flutter. 8. Rule out deep venous thrombosis of the right upper extremity. RECOMMENDATIONS: Continue current amiodarone 200 mg orally twice a day, Coumadin 3 mg daily. Today' s INR is 1.47. Continue Dobutrex infusion, intravenous heparin infusion, which was withheld temporar brianna for the PICC line. Continue Lipitor at 10 mg once a day, Lopressor 12.5 mg twice a day, IV merop enem at 1 gram twice a day, Plavix 75 mg once a day. The patient is scheduled for venous Doppler of the right upper extremity. Case was discussed with the patient's daughter at the bedside. John Manzano MD cc: [id number] TT: 03/17/2017 15:07:36 Confirmation # [id number] Dictation # [id number] en
--- NOTE | 2017-03-17 16:36 | US ---
PROCEDURE: Right upper extremity venous US CLINICAL HISTORY: Arm pain and swelling Evaluate for deep venous thrombosis. PHYSICIAN(S): Rubio Everett M.D FINDINGS: The visualized rightinternal jugular vein is sonographically normal and compressible. No evidence of obstruction or thrombus is seen. The right subclavian vein is prominent with increased flow related to the patient's access. No obvious thrombus is seen. The proximal right brachial and superficial veins are not well seen IMPRESSION: 1. Limited study. 2. No obvious thrombus.
--- NOTE | 2017-03-17 17:28 | VASCULAR ---
PROCEDURE: Ultrasound and fluoroscopically placed left upper extremity PICC line. HISTORY: End-stage renal disease. Congestive heart failure. Needs PICC line. PHYSICIAN(S): Rubio Everett MD. TECHNIQUE: The relative risks and indications of the procedure were explained to the patient's family and consent obtained. The patient was placed supine on the arteriogram table and the left arm prepped and draped in the usual sterile fashion. A tourniquet was applied to the left axilla. 1% Xylocaine was used to anesthetize the skin and soft tissues at the puncture site above the elbow. The left basilic vein was punctured under direct ultrasound guidance with a micropuncture set. A 0.018 guidewire was advanced centrally and used to measure the length to the SVC/RA junction. A 5 Australian dual-lumen PICC line 50 cm long was advanced to the SVC/RA junction. The catheter was flushed and secured. The patient tolerated the procedure well. IMPRESSION: 1. Ultrasound and fluoroscopically placed left upper extremity PICC line. A 5 Australian dual-lumen PICC line 50 cm long was advanced to the SVC/RA junction.
--- NOTE | 2017-03-17 22:08 | PN ---
DATE: 03/17/2017 REFERRING PHYSICIAN: Dr. Wilkins. SUBJECTIVE: He is on nasal cannula oxygen. Head is at 45 degrees. Feels better. His right upper e xtremity is swollen. No cough, no sputum production. No abdominal pain. No leg pain or leg swellin g. OBJECTIVE: GENERAL: In no acute distress. VITAL SIGNS: Temperature is 98, heart rate 85, respiratory rate is 20, blood pressure 127/67 and pul se ox 94% on nasal cannula. HEENT: Moist mucous membranes. Crowded airway. Mallampati score is 4. NECK: Supple. No JVD. LUNGS: Has crackles at the bases. HEART: S1, S2 irregular. ABDOMEN: Soft, nontender. No organomegaly. EXTREMITIES: There is no edema. NEUROLOGIC: Awake, alert, does follow simple commands but seems forgetful. MEDICATIONS: He is on Brovana inhaled twice a day, dobutamine at 2.5 mcg per kilogram per minute, IV heparin, meropenem is 1 gram q.12 hours, Levophed , Plavix 75 mg, which is on hold; Protonix 40 mg IV daily, Pulmicort inhaled twice a day, Solu-Medrol 20 mg q.12 hours, Zofran on a p.r.n. basis . LABORATORY DATA: Shows hemoglobin 10.0, hematocrit 30.8, WBC 8.6, platelet count is 69. INR 1.47, P TT is 30. Blood gases shows pH 7.42, pCO2 of 38, O2 of 71, which he is on nasal cannula oxygen. Sod ium 141, potassium 4.5, chloride 101, bicarbonate 24, BUN 70, creatinine 5.9, glucose 109, phosphorus 6.7, magnesium 2.6, AST , ALT , albumin is 8.2. He had an extremity ultrasound done today , which shows limited study. No evidence of thrombus. Also had a chest x-ray done today, which show ed moderate cardiomegaly and moderate vascular congestion. IMPRESSION AND PLAN: Status post respiratory failure, presently extubated; cardiomyopathy with diast olic dysfunction and also has a right heart dilated with pulmonary hypertension, renal failure, dialy sis dependent; sleep apnea syndrome, bronchiectasis, coronary artery disease, history of coronary romina nt. Case discussed with the nursing staff. I also spoke to medical residents. Will continue dobuta mine as long as we can. Without dobutamine he will become hemodynamically unstable. Continue antico agulation and gastric prophylaxis. Continue dialysis. Overall poor prognosis. Follow up chest x-ra y, CBC, CMP in the morning. Critical care time more than 35 minutes. Thank you and will follow with you. Louie Frost MD cc: [phone] TT: 03/17/2017 22:07:34 Confirmation # [id number] Dictation # [id number] dn
[2017-03-18 06:06] LABS: ARTERIAL BLOOD GAS HCO3 21.7 mmol/L (21-28); ARTERIAL BLOOD GAS O2 CAPACITY 13.8 mL/dl (16-24); ARTERIAL BLOOD GAS O2 CONTENT 13.3 ML/dl (15-23); ARTERIAL BLOOD HGB O2 SAT 92.8 % (95.0-98.0); CARBOXYHEMOGLOBIN 2.8 % (0.5-1.5); HHB 3.3 % (0-5); METHEMOGLOBIN 1.1 % (0.0-3.0)
[2017-03-18 06:51] LABS: ADD MANUAL DIFF? NO
[2017-03-18 07:03] LABS: CALCIUM 9.3 mg/dL (8.4-10.5); MAGNESIUM 2.7 mg/dL (1.7-2.2); PHOSPHOROUS 8.5 mg/dL (2.5-4.5); POTASSIUM 4.9 mmol/L (3.6-5.0); TOTAL PROTEIN 7.3 g/dL (5.8-8.3)
[2017-03-18 07:12] LABS: GRAN # 5.21 (1.4-6.5); GRAN % 89.4 % (50.0-68.0); HEMATOCRIT 31.7 % (42.0-52.0); LYMPH # 0.4 (1.2-3.4); LYMPH % 6.5 % (22.0-35.0); MEAN CELL VOLUME 92.2 fL (80.0-105.0); MEAN CORPUSCULAR HEMOGLOBIN 30.2 pg (25.0-35.0); MEAN CORPUSCULAR HGB CONC 32.8 g/dl (31.0-37.0); MONO # 0.2 (0.1-0.6); MONO % 4.1 % (1.0-6.0); PLATELET COUNT 81 10^3/uL (120.0-450.0); RED CELL DISTRIBUTION WIDTH 22.4 % (11.5-14.5); WHITE BLOOD COUNT 5.8 10^3/ul (4.5-11.0)
[2017-03-18 07:21] LABS: INR 1.4 (0.93-1.08)
[2017-03-18 07:25] LABS: PARTIAL THROMBOPLASTIN TIME 76.5 Seconds (23.7-30.8)
[2017-03-18] MEDS: Arformoterol 15 mcg/2 ml Inh Sol IH SCH ×2 (07:56→20:35)
--- NOTE | 2017-03-18 08:09 | PN ---
DATE: 03/17/2017 SUBJECTIVE: The patient was seen and examined on the bedside. Looks comfortable. More awake and al ert. Feeling right upper extremity is swollen. No fever, no chills, no nausea, vomiting, diarrhea, no abdominal pain. No swelling of both lower extremities. All systems are reviewed, is negative exc ept one as mentioned above. PHYSICAL EXAMINATION: VITAL SIGNS: Temperature 98, heart rate 85, respiratory rate 20, blood pressure 127/67, and pulse ox imetry 94% on nasal cannula. HEENT: Head normocephalic, atraumatic. Eyes: PERRLA. Extraocular muscles intact. Conjunctivae cl ear. Nose patent. NECK: Supple. No carotid bruit, JVD or thyromegaly. CHEST: Bilaterally symmetrical. HEART: S1, S2 positive, irregular. ABDOMEN: Soft, nontender. No organomegaly. EXTREMITIES: No edema, no cyanosis. NEUROLOGIC: The patient is awake, alert, follows simple commands. MEDICATIONS: Reviewed by me. LABORATORY DATA: Hemoglobin 10.0, hematocrit 30.8, white blood cells 8.6, and platelets 89. Sodium 141, potassium 4.5, BUN 70, creatinine 5.9, magnesium 2.6. ASSESSMENT AND PLAN: The patient is a 71-year-old male with multisystem failure, status post respira tory failure, was extubated, cardiomyopathy with diastolic dysfunction, has right heart dilatation wi th pulmonary hypertension, renal failure on hemodialysis 3 times a week, sleep apnea syndrome, bronch iectasis, coronary artery disease, history of coronary artery stents, history of prostate cancer, his tory of severe anemia, status post blood transfusion, proctitis. Ultrasound of the extremity done [facility] shows limited study. No evidence of thrombosis. Also, had chest x-ray done which showed moderat e cardiomegaly and moderate vascular congestion. Discussion done with the nursing staff. Continue d obutamine. I reviewed Dr. Frost's notes. He wants to continue dobutamine as long as we can do for the patient's hemodynamic stability. Continue anticoagulation. Gastrointestinal and deep venous thr ombosis prophylaxis. Continue dialysis. Overall prognosis is poor. Continue Brovana, dobutamine, h eparin, meropenem antibiotics as per infectious disease, Levophed, Plavix, Protonix, Pulmicort inhale r, Solu-Medrol tapering dose, Zofran on p.r.n. basis. We will follow up. Maria Antonia Wilkins MD cc: [phone] TT: 03/18/2017 08:08:56 Confirmation # [id number] Dictation # [id number] tn
[2017-03-18] MEDS: MethylPREDNISolone 40 mg Vial IVP SCH ×2 (09:12→21:55)
[2017-03-18] MEDS: Meropenem 1g/NS 100mL IVPB 100 ML IVPB SCH (09:12)
--- NOTE | 2017-03-18 11:30 | PN ---
DATE: 03/18/2017 SUBJECTIVE: The patient is resting in bed, still very confused with O2 via nasal cannula. No respir atory distress. The patient has no nauseousness or vomiting and no obvious pain. PHYSICAL EXAMINATION: VITAL SIGNS: His temperature is 97.6. His pulse is 85, respirations are 17, and BP is 107/56. SKIN: Warm and dry. HEAD: Atraumatic, normocephalic. EYES: Reactive to light. EARS, NOSE AND THROAT: Seem to be within normal limits. NECK: Supple. No JVD, no thyroid enlargement, no lymph nodes. HEART: Regular rate and rhythm. Normal S1, S2. LUNGS: Reveal rare rhonchi at the bases. ABDOMEN: Soft, decreased bowel sounds. GENITALIA AND RECTAL: Deferred. MUSCULOSKELETAL: No joint deformities. EXTREMITIES: Reveal no significant edema. NEUROLOGIC: He is confused, but seems to be moving all extremities. LABORATORY DATA: Reveal a white count of 5.8, hemoglobin is 10.4, hematocrit 31.7 with platelets of 81,000. His arterial blood gas reveals a pH of 7.40, pCO2 of 35, pO2 of 76. As far as his sodium it is 142, potassium 4.9, chloride 101, CO2 of 23 with a BUN of 102, creatinine of 7.4, glucose of 122. IMPRESSION: This patient has congestive heart failure with a history of pulmonary fibrosis and pulmo nary hypertension. He is encephalopathic with altered mental status and has cardiac arrhythmias as w ell as myocardial infarction requiring dobutamine. The patient has a history of congestive heart zheng lure as well as end-stage renal disease. PLAN: We will continue with heparin and dobutamine. The patient is on meropenem as an antibiotic, h e is getting Solu-Medrol 20 mg q. 12 hours, and he is scheduled for Robitussin as well as DuoNeb. Th e patient is on Protonix as well. We will continue with the O2 via nasal cannula. Continue with agg ressive pulmonary toilet. The patient will continue with dobutamine IV as well. Fidencio Viramontes MD cc: [id number] TT: 03/18/2017 11:30:09 Confirmation # [id number] Dictation # [id number] jn
[2017-03-18] MEDS: Heparin25000 units/250ml 1/2NS 25,000 UNITS/250 ML BAG IV PRN (13:07)
--- NOTE | 2017-03-18 13:44 | PN ---
DATE: 03/18/2017 SUBJECTIVE: The patient is confused, does not appear to be in respiratory distress. He is on low do se Dobutrex infusion. Preliminary report that blood cultures were positive, it was verbally relayed to the hospice consultant. Hemodialysis is on hold today. PHYSICAL EXAMINATION: VITAL SIGNS: Blood pressure 137/79, heart rate 102, temperature 97.8, respirations 17. HEENT: Pale conjunctivae. CHEST: Absent breath sounds over the bases. HEART: S1, S2 regular. EXTREMITIES: 2+ right arm edema. LABORATORIES: Hemoglobin and hematocrit 10.4 and 31.7, white count and platelet count 5.8 and 81,000 . Today's BUN and creatinine are 102 and 7.4. Potassium is within normal limits. Glucose is 118. Chest x-ray revealed cardiomegaly, mild to moderate CHF and left lower lobe infiltrate. ASSESSMENT: 1. Status post respiratory failure. 2. Pulmonary fibrosis, secondary pulmonary hypertension and right-sided failure. 3. Coronary artery disease status post coronary bypass surgery. 4. End-stage renal disease on hemodialysis. 5. Rule out underlying sepsis. 6. History of atrial flutter. RECOMMENDATIONS: The case was discussed with the medical team including ____ medical equipment sales. The patient will be maintained on Dobutrex infusion as well as oral amiodarone 200 mg twice a day, in travenous heparin infusion therapeutic regimen, Lopressor 12.5 mg twice a day, Lipitor 10 mg once a d ay, Plavix 75 mg once a day, IV meropenem at 1 gram q. 12 hours, Solu-Medrol 20 mg intravenously twic e a day. I will follow the blood culture results once it is available, it has not been posted yet on the [employer]. John Manzano MD cc: [id number] TT: 03/18/2017 13:43:37 Confirmation # [id number] Dictation # [id number] theresa
[2017-03-18] MEDS: DOBUTamine 500mg/250ml D5W 500 MG/250 ML BAG IV PRN (17:25)
--- NOTE | 2017-03-18 17:51 | CP.PCM.PN ---
Subjective - Date & Time of Evaluation Date of Evaluation: 03/18/17 Time of Evaluation: 12:00 - Subjective Subjective: Encephalopathic; Objective - Vital Signs/Intake and Output Vital Signs (last 24 hours): Temp Pulse Resp BP Pulse Ox 97.5 F L 100 H 23 89/40 L 73 L 03/18/17 16:00 03/18/17 16:04 03/18/17 16:04 03/18/17 16:04 03/18/17 16:00 Intake and Output: 03/18/17 03/18/17 06:59 18:59 Intake Total 235 252 Output Total 1999 Balance -1765 252 - Medications Medications: Current Medications Acetylcysteine (Acetylcysteine 20%) 4 ml IH BIDRESP [facility] Last Admin: 03/13/17 19:41 Dose: 4 ml Amiodarone HCl (Cordarone) 200 mg PO Q12 [facility] Last Admin: 03/13/17 10:36 Dose: Not Given Arformoterol Tartrate (Brovana) 15 mcg IH Q12H [facility] Last Admin: 03/18/17 07:56 Dose: 15 mcg Atorvastatin Calcium (Lipitor) 10 mg PO DAILY [facility] Last Admin: 03/13/17 10:37 Dose: Not Given Benzonatate (Tessalon Perles) 200 mg PO TID [facility] Last Admin: 03/13/17 17:35 Dose: Not Given Budesonide (Pulmicort Respules) 1 mg IH [id number] [facility] Last Admin: 03/09/17 08:29 Dose: Not Given Calcium Acetate (Phoslo) 1,334 mg PO WM [facility] Last Admin: 03/13/17 17:36 Dose: Not Given Clopidogrel Bisulfate (Plavix) 75 mg PO DAILY [facility] Last Admin: 03/13/17 13:20 Dose: Not Given Docusate Sodium (Colace) 100 mg PO BID [facility] Last Admin: 03/13/17 17:36 Dose: Not Given Guaifenesin (Robitussin) 100 mg PO Q6H PRN PRN Reason: Cough Norepinephrine Bitartrate 4 mg (/ Sodium Chloride) 254 mls @ 15.24 mls/hr IV .[id number] PRN; Protocol; 4 MCG/MIN PRN Reason: TITRATE PER MD ORDER Last Titration: 03/16/17 13:35 Dose: 0 mcg/min, 0 mls/hr Dobutamine HCl/Dextrose (Dobutamine/Dextrose 5% 500mg/250ml) 500 mg in 250 mls @ 4.605 mls/hr IV .Q24H PRN; Protocol; 2.5 MCG/KG/MIN PRN Reason: TITRATE PER PROTOCOL Last Admin: 03/18/17 17:25 Dose: 2.5 mcg/kg/min, 4.605 mls/hr Dexmedetomidine HCl (Precedex 4 Mcg/Ml (100 Ml)) 400 mcg in 100 mls @ 3.039 mls /hr IV .Q24H PRN; Protocol; 0.2 MCG/KG/HR PRN Reason: Sedation Last Titration: 03/16/17 16:25 Dose: 0 mcg/kg/hr, 0 mls/hr Heparin Sodium/Sodium Chloride (Heparin 54775 Units/250ml 1/2 Normal Saline) 25 ,000 units in 250 mls @ 10.794 mls/hr IV .[id number] PRN; Protocol; 18 UNITS/KG/HR PRN Reason: ADJUST RATE PER PROTOCOL Last Titration: 03/18/17 14:20 Dose: 15 units/kg/hr, 8.995 mls/hr Methylprednisolone (Solu-Medrol) 20 mg IVP Q12 [facility] Last Admin: 03/18/17 09:12 Dose: 20 mg Metoprolol Tartrate (Lopressor) 12.5 mg PO BRKDIN [facility] Last Admin: 03/13/17 17:36 Dose: Not Given Ondansetron HCl (Zofran Inj) 4 mg IVP Q6H PRN PRN Reason: Nausea/Vomiting Pantoprazole Sodium (Protonix Ec Tab) 40 mg PO ACB [facility] Last Admin: 03/13/17 13:21 Dose: Not Given Pantoprazole Sodium (Protonix Inj) 40 mg IVP DAILY [facility] Last Admin: 03/18/17 09:13 Dose: 40 mg Warfarin Sodium (Coumadin) 3 mg PO 1800 RC PRN Reason: Protocol Last Admin: 03/13/17 17:36 Dose: Not Given - Labs Labs: 03/18/17 06:45 03/18/17 06:45 PT 15.1 Seconds (9.9-11.8) H 03/18/17 06:45 INR 1.40 (0.93-1.08) H 03/18/17 06:45 APTT 112.0 Seconds (23.7-30.8) H* 03/18/17 12:48 - Constitutional Appears: No Acute Distress Assessment and Plan (1) Anemia Status: Acute (2) CHF exacerbation Status: Acute (3) Shoulder sprain Status: Acute (4) ESRD on hemodialysis Assessment & Plan: Has been getting daily UF in an effort to off-load RV; holding HD today; next HD Monday; Status: Acute (5) Atrial flutter Status: Acute (6) Chronic kidney disease-mineral and bone disorder Status: Acute
--- NOTE | 2017-03-18 18:26 | RAD ---
HISTORY: f/u COMPARISON: 03/17/2017 FINDINGS: LUNGS: Mild diffuse bilateral infiltrates could represent pulmonary edema/ CHF versus pneumonia. Small bilateral effusions No change left-sided PICC line with tip in the SVC/RA junction. PLEURA: As above. No pneumothorax apparent. CARDIOVASCULAR: Sternotomy wires and aortic valve replacement. Marked cardiomegaly. OSSEOUS STRUCTURES: No significant abnormalities. VISUALIZED UPPER ABDOMEN: Normal. OTHER FINDINGS: None. IMPRESSION: Mild diffuse bilateral infiltrates could represent pulmonary edema/ CHF versus pneumonia. Small bilateral effusions No change left-sided PICC line with tip in the SVC/RA junction.
--- NOTE | 2017-03-18 18:41 | PN ---
DATE: 03/18/2017 The patient is in bed in no acute distress, nontoxic. PHYSICAL EXAMINATION: VITAL SIGNS: Temperature is 97, blood pressure is 89/40, respiratory rate of 18. HEENT: Unremarkable. NECK: Supple. LUNGS: Have decreased breath sounds. HEART: Normal S1, S2. ABDOMEN: Soft. LABORATORY DATA: Reveals the patient's white count is 5.8, hemoglobin of 10, platelets of 81. The c hemistries reveal the BUN of 102, creatinine of 7.4 and procalcitonin is 24. Microbiology reveals th e patient has yeast in the sputum. Review of the orders reveals the patient to be on amiodarone, Coumadin, heparin, meropenem and Solu-M edrol. Dr. Viramontes's progress note from today is reviewed. ASSESSMENT AND PLAN: This is a 71-year-old male with severe sepsis, acute hypoxic ventilatory depend ent respiratory failure in a patient with acute congestive heart failure secondary to bilateral hospi chan-acquired pneumonia, possible gram-positive cocci, possible gram-negative raissa pneumonia with end-s tage renal disease on hemodialysis and with chronic obstructive lung disease, chronic atrial fibrilla tion on day #5 of antibiotics and now patient is awake, alert and extubated and doing well. Wi ll discontinue the antibiotics and follow closely with you. The patient has been afebrile, normal wh ite count and awake and alert. The patient is still on Solu-Medrol, consider changing to p.o. predni sone versus decreasing dosing. Will discontinue meropenem and watch the patient off of antibiotics. Roberto Kidd MD cc: [id number] TT: 03/18/2017 18:40:13 Confirmation # [id number] Dictation # [id number] dn
[2017-03-18] MEDS ORDERED: Budesonide 0.5 mg/2 ml Inhal Susp UD IH SCH (21:00)
[2017-03-19 06:10] LABS: ARTERIAL BLOOD GAS HCO3 19.4 mmol/L (21-28); ARTERIAL BLOOD GAS O2 CAPACITY 17.2 mL/dl (16-24); ARTERIAL BLOOD GAS O2 CONTENT 16.1 ML/dl (15-23); ARTERIAL BLOOD GAS PH 7.39 (7.35-7.45); ARTERIAL BLOOD HGB O2 SAT 90.6 % (95.0-98.0); CARBOXYHEMOGLOBIN 2.7 % (0.5-1.5); HHB 6.2 % (0-5); METHEMOGLOBIN 0.5 % (0.0-3.0)
[2017-03-19 07:06] LABS: BILIRUBIN,TOTAL 3.2 mg/dL (0.2-1.3); CALCIUM 9.3 mg/dL (8.4-10.5); MAGNESIUM 2.7 mg/dL (1.7-2.2); PHOSPHOROUS 9.4 mg/dL (2.5-4.5); POTASSIUM 5.4 mmol/L (3.6-5.0); TOTAL PROTEIN 7.3 g/dL (5.8-8.3)
[2017-03-19 07:08] LABS: HEMATOCRIT 31.6 % (42.0-52.0); MEAN CELL VOLUME 91.6 fL (80.0-105.0); MEAN CORPUSCULAR HEMOGLOBIN 30.7 pg (25.0-35.0); MEAN CORPUSCULAR HGB CONC 33.5 g/dl (31.0-37.0); PLATELET COUNT 67 10^3/uL (120.0-450.0); RED CELL DISTRIBUTION WIDTH 23.1 % (11.5-14.5); WHITE BLOOD COUNT 6.8 10^3/ul (4.5-11.0)
[2017-03-19 07:15] LABS: INR 1.4 (0.93-1.08); PARTIAL THROMBOPLASTIN TIME 65.1 Seconds (23.7-30.8)
[2017-03-19 07:27] LABS: ADD MANUAL DIFF? YES
[2017-03-19] MEDS: Arformoterol 15 mcg/2 ml Inh Sol IH SCH ×2 (07:29→20:40)
--- NOTE | 2017-03-19 08:31 | PN ---
DATE: 03/18/2017 The patient is a 71-year-old male. The patient was seen and examined on 2016, looks comfortable, more awake, trying to communicate. No fever, no chills. No nausea, vomiting, diarrhea. Does not look like toxic. PHYSICAL EXAMINATION: VITAL SIGNS: Temperature 97.5, pulse 100, respiratory rate 23, blood pressure 89/48, pulse oximetry 73%. HEENT: Head normocephalic, atraumatic. Eyes, PERRLA. Extraocular muscles are intact. Conjunctivae pink. Eyelids unremarkable. Nose patent. Mucous membranes moist. NECK: Supple. No carotid bruit, no JVD, no thyromegaly. CHEST: Bilaterally symmetrical. HEART: S1, S2 positive. LUNGS: Clear to auscultation. ABDOMEN: Soft. Bowel sounds + . No organomegaly. EXTREMITIES: No edema, no cyanosis. NEUROLOGIC: The patient is awake, alert, moving all 4 extremities. No focal deficit. MEDICATIONS: Acetylcysteine, Cordarone, Brovana, Lipitor, Tessalon Perles, Pulmicort, PhosLo. LABORATORIES: White blood cells 5.8, hemoglobin 10.4, hematocrit 31.7, platelets 81. Sodium 142, potassium 4.9, BUN 102, creatinine 7.4, glucose 118. ASSESSMENT AND PLAN: The patient with history of severe anemia, status post blood transfusion, congestive heart failure exacerbation, getting , treatment. Shoulder sprain. Continue pain medication. End-stage renal disease on hemodialysis, getting dialysis 3 times a week, atrial fibrillation and flutter, chronic kidney disease, mineral and bone disorder, diabetes mellitus, thrombocytopenia. Continue Coumadin for atrial fibrillation, Protonix for gastrointestinal prophylaxis, Lopressor for blood pressure, Solu-Medrol tapering dose. Gastrointestinal deep venous thrombosis prophylaxis. Repeat labs. Will follow up. Maria Antonia Wilkins MD cc: [id number] TT: 03/19/2017 08:30:15 Confirmation # [id number] Dictation # [id number] en MTDD
[2017-03-19 08:36] LABS: NEUTROPHIL 91 % (50.0-70.0)
[2017-03-19 08:37] LABS: NUCLEATED RED BLOOD CELL 4 %
[2017-03-19 08:40] LABS: LARGE PLATELETS PRESENT; PLATELET ESTIMATE LOW (NORMAL)
[2017-03-19] MEDS ORDERED: Sod Polystyrene Sulf 15 gm/60 ml Oral Susp PO ONE (09:07)
--- NOTE | 2017-03-19 10:00 | PN ---
DATE: 03/19/2017 SUBJECTIVE: The patient is resting in bed, still very confused. O2 via nasal cannula is on. He is on dobutamine, but off of Levophed and blood pressure is stable. He has no respiratory distress. No nauseousness, no vomiting. No pain. PHYSICAL EXAMINATION: VITAL SIGNS: His temperature is 97, his pulse is 81, respirations are 18 and his BP is 144/72. SKIN: Warm and dry. HEAD: Atraumatic, normocephalic. EYES: Reactive to light. EARS, NOSE AND THROAT: Seem to be within normal limits. NECK: Supple. No JVD, no thyroid enlargement, no lymph nodes. HEART: Has a regular rate and rhythm, normal S1, S2. LUNGS: Reveal rare rhonchi at the bases. ABDOMEN: Soft. Decreased bowel sounds. GENITALIA AND RECTAL: Deferred. MUSCULOSKELETAL: No joint deformities. EXTREMITIES: Reveal no significant edema. NEUROLOGIC: He continues to be confused, but moving all extremities. LABORATORIES: His white count is 6.8, hemoglobin is 10.6, hematocrit 31.6 and platelets of 67,000. His arterial blood gas reveals a pH of 7.39, pCO2 of 32, pO2 of 66. As far as sodium, it is 140, pot assium 5.4, chloride 98, CO2 of 22 with a BUN of 124, a creatinine of 9.3 and note that the glucose i s 193. As far as impression of his chest x-ray, it reveals that there is some congestion and left lower lobe opacifications, may be infiltrate. IMPRESSION: The patient has congestive heart failure with a history of pulmonary fibrosis and pulmon charisse hypertension. There may be a component of left lower lobe pneumonia. He is encephalopathic with altered mental status and has a history of cardiac arrhythmias, myocardial infarction and is on dobu tamine. The patient has a history of congestive heart failure as well as end-stage renal disease. PLAN: We will continue with dobutamine as well as the heparin and the patient is on antibiotics foll owed by ID. He is getting Solu-Medrol and Robitussin as well as DuoNeb. The patient is on O2 via na angel cannula and we will continue with the Protonix and continue to treat aggressively along with the other consultants and the primary care doctor. Fidencio Viramontes MD cc: [id number] TT: 03/19/2017 09:59:53 Confirmation # [id number] Dictation # [id number] en
[2017-03-19] MEDS: MethylPREDNISolone 40 mg Vial IVP SCH ×2 (10:54→21:06)
--- NOTE | 2017-03-19 14:16 | PN ---
DATE: 03/19/2017 The patient is tolerating a soft diet with the speech therapist. No reported ventricular arrhythmia. PHYSICAL EXAMINATION: VITAL SIGNS: Blood pressure 144/72, heart rate 81, temperature 97, respirations 26. HEENT: Pale conjunctivae. CHEST: Bilateral rhonchi. HEART: S1, S2 regular. EXTREMITIES: Improving right arm edema. LABORATORIES: Hemoglobin and hematocrit 10.6 and 31.6, white count 6.8, platelet count 67,000. It i s declining compared to yesterday. Today's BUN and creatinine are 124 and 9.3 respectively. Potassi um is 5.4 and glucose is 108. Official microbiology report: Blood culture is negative after [address] scan without contrast was performed, but the report is still pending. ASSESSMENT: 1. Pulmonary fibrosis and right-sided failure. 2. Pulmonary hypertension. 3. Consider bilateral pneumonia. 4. End-stage renal disease, on hemodialysis. 5. Anemia. 6. Status post non-ST elevation myocardial infarction. 7. Paroxysmal atrial flutter. 8. Status post respiratory failure. RECOMMENDATIONS: Continue current amiodarone 200 mg twice a day. Intravenous heparin infusion will be maintained for now. Continue Lopressor 12.5 mg twice a day, Lipitor at 10 mg once a day. Coumadi n will be administered at 3 mg today. The patient's INR today is 1.4. John Manzano MD cc: [id number] TT: 03/19/2017 14:15:36 Confirmation # [id number] Dictation # [id number] en
--- NOTE | 2017-03-19 15:46 | PN ---
DATE: 03/19/2017 The patient seen earlier today in 129, bed 2. No fevers and chills. PHYSICAL EXAMINATION: VITAL SIGNS: Temperature is 97, blood pressure is 140/70, respiratory rate of 16. HEENT: Unremarkable. NECK: Supple. LUNGS: Have decreased breath sounds. HEART: Normal S1, S2. ABDOMEN: Soft, nontender. LABORATORY DATA: Reveals the patient's white count is 6.8, hemoglobin of 10. The chemistries are no alexandru. Review of the orders. Dr. Manzano's progress note is reviewed. Dr. Viramontes's note is reviewed. Dr. Ant cali's note is reviewed. The patient's chest x-ray from this morning, the results are pending. ASSESSMENT AND PLAN: This is a 71-year-old male with severe sepsis, acute hypoxic ventilatory depend ent, respiratory failure with acute congestive heart failure secondary to bilateral hospital-acquired pneumonia, possible gram-positive cocci, possible gram-negative raissa with end-stage renal disease on hemodialysis and chronic obstructive lung disease, chronic atrial fibrillation, now off of antibiotic s, afebrile. The patient is doing better as of earlier this morning. At risk for developing nosocom ial infections. Still on Solu-Medrol. Will follow with you. Roberto Kidd MD cc: [phone] TT: 03/19/2017 15:46:25 Confirmation # [id number] Dictation # [id number] an
--- NOTE | 2017-03-19 16:48 | RAD ---
HISTORY: f/u COMPARISON: No prior. 03/18/2017 FINDINGS: LUNGS: . Re- demonstrated are mild diffuse bilateral infiltrates nonspecific. Rule pulmonary vascular congestion versus pneumonia. Small bilateral effusions left greater than right PLEURA: As above. No pneumothorax apparent. CARDIOVASCULAR: Sternotomy wires and valve replacement again noted Marked cardiomegaly. OSSEOUS STRUCTURES: No significant abnormalities. VISUALIZED UPPER ABDOMEN: Normal. OTHER FINDINGS: None. IMPRESSION: Marked cardiomegaly with valve replacement unchanged. Diffuse bilateral infiltrates could represent pulmonary vascular congestive changes and/or pneumonia. Clinical correlation recommended.
--- NOTE | 2017-03-19 20:23 | PN ---
DATE: 03/19/2017 REFERRING PHYSICIAN: Dr. Wilkins. SUBJECTIVE: He is lying in the bed, sleepy, arousable, received Ativan earlier today. No headache, no rhinitis, no nausea, no vomiting, no diarrhea, no leg pain or leg swelling. OBJECTIVE: GENERAL: Sleepy, arousable. VITAL SIGNS: Temp is 98, heart rate is , respiratory rate is 20, blood pressure 127/73, pulse o x 95% on nasal cannula. HEENT: Moist mucous membrane. Crowded airway. Mallampati score is 4. NECK: Supple. No JVD. LUNGS: Has crackles at the bases, scattered rhonchi. HEART: S1 and S2. ABDOMEN: Soft, nontender. No organomegaly. EXTREMITIES: No edema. NEUROLOGIC: Sleepy, arousable. Right upper extremity swelling that has AV fistula. MEDICATIONS: Mucomyst which is on hold, Brovana 15 mcg inhaled twice a day, dobutamine IV, Dulcolax p.r.n., heparin IV protocol, Protonix 40 mg daily, Pulmicort inhaled twice a day, Solu-Medrol 2 0 mg q. 12 hours, Zofran on a p.r.n. basis. LABORATORY DATA: Shows hemoglobin 10.6, hematocrit 31.6, WBC 6.8, platelet is 67. PTT is 73. INR o f 1.40. Blood gases show pH 7.39, pCO2 32, O2 66, this is on nasal cannula oxygen. Sodium 140, pota ssium 5.4, chloride 98, bicarbonate 22, BUN 134, creatinine 9.6, glucose 108, calcium is 9.3, phospho lorrie 9.4, magnesium 2.7, total bili is 3.2. AST 42, ALT 161, alk phos is 79, albumin is 3.7. Had a h ead CAT scan done and report is still pending. Chest x-ray done this morning: Cardiomegaly, diffuse bilateral pulmonary infiltrate, pulmonary vascular congestion. IMPRESSION AND PLAN: Respiratory failure presently extubated, pulmonary hypertension with right hear t dysfunction, cardiac diastolic dysfunction, renal failure dialysis dependent, sleep apnea syndrome, bronchiectasis, interstitial lung disease, coronary artery disease, history of coronary stent. From pulmonary point of view, doing okay. Will continue to encourage BiPAP, use supplemental oxygen. Co ntinue dobutamine, may need lifelong dobutamine. Gastric prophylaxis. SCD to lower extremity. Cont inue aggressive dialysis. Follow up ABG, chest x-ray and CBC in the morning. Critical care time is more than 35 minutes. Will follow with you. Louie Frost MD cc: [phone] TT: 03/19/2017 20:23:48 Confirmation # [id number] Dictation # [id number] mn
[2017-03-19 20:31] VITALS: PULSE 95
[2017-03-19 20:40] VITALS: TEMP 98.2
[2017-03-19] MEDS ORDERED: Propofol 10 mg/ml 1,000 MG/100 ML VIAL ONE (21:54)
[2017-03-19] MEDS ORDERED: Propofol 10 mg/ml Inj (20 ML) IVP ONE (22:05)
[2017-03-19] MEDS ORDERED: Propofol 10 mg/ml 1,000 MG/100 ML VIAL IV PRN (22:05)
--- NOTE | 2017-03-19 22:05 | PCM.PROC ---
Procedures Attestation:: I certify that I have explained the specified Operation(s) or Procedure(s), risks, benefits and reasonable alternatives to the Patient and/or other person responsible. The opportunity was given to ask questions and all questions answered - Intubation Time Out Performed: Yes Sedative: Other Laryngoscope: Peter Assist Device Used: Bougie ET Tube Size: 7.5 ET Tube Secured Locarion: Lips ET Tube Placement Confirmation: Visualized Passing Through Cords, Breath Sounds Equal Bilaterally, No Breath Sounds Over Epigastrum, Confirmation w/Capnometry Patient Tolerated Procedure: Well, No Complications Procedure Immediate Complications: None Additional comments: At approximately 21:45 this evening, the patient suddenly became bradycardic (HR =low 30's) with labored breathing and altered mentation. Consequently, he was sedated with IV Propofol, given 1 dose of IV Ativan and then intubated. He tolerated the procedure well and there were no complications. Will obtain stat CXR to confirm placement of ETT. Will also obtain post-intubation ABG. Family and primary attending will also be notified about these acute events.
[2017-03-19 22:43] LABS: ARTERIAL BLOOD GAS HCO3 15.2 mmol/L (21-28)
[2017-03-19 22:45] LABS: ARTERIAL BLOOD GAS PH 7.09 (7.35-7.45)
[2017-03-19] MEDS ORDERED: MethylPREDNISolone 40 mg Vial IVP SCH (23:02)
--- NOTE | 2017-03-19 23:23 | CP.PCM.PRO ---
Pronouncement of Note - Clinical Findings Physical Exam: No Response Verbal/Painful Stimuli, Absent Peripheral Pulses{ Carotid & Femoral}, Absent Heart & Breath Sounds, No Pupillary Light Reflex, No Corneal Reflex, Pupils Fixed & Dilated, Absence of Vital Signs - Pronouncement Time Time of Pronouncement of : 22:55 - Notifications Pronouncement Notifications: Family Notified, Atending Notified Field Investigator Notified: No - Autopsy Autopsy Requested: No - N.Thu Certificate [place]: [id number] Additional Comments: The patient was initially found to be in acute respiratory distress and apneic and therefore was intubated DEANGELO. However, despite intubation, he continued to have multiple episodes of PEA arrest and V.Tach, for which he recieved approx 30-35 min of ACLS protocol (i.e- chest compressions , Epi, Amiodarone, Biacarb, Calcium Gluconate, IV Insulin and D50. Despite these measures, he could never regain a pulse for longer than 3-5min's and was ultimatley pronounced at 22:55 on the evening of March 19 2017.
--- NOTE | 2017-03-19 23:35 | CP.PCM.PN ---
Subjective - Date & Time of Evaluation Date of Evaluation: 03/19/17 Time of Evaluation: 09:45 Objective - Vital Signs/Intake and Output Vital Signs (last 24 hours): Temp Pulse Resp BP Pulse Ox 98.2 F 95 H 23 118/60 97 03/19/17 20:00 03/19/17 20:00 03/19/17 19:59 03/19/17 20:00 03/19/17 18:00 Intake and Output: 03/19/17 03/20/17 18:59 06:59 Intake Total 468 Output Total 50 Balance 418 - Medications Medications: Current Medications Acetylcysteine (Acetylcysteine 20%) 4 ml IH BIDRESP [facility] Last Admin: 03/13/17 19:41 Dose: 4 ml Amiodarone HCl (Cordarone) 200 mg PO Q12 [facility] Last Admin: 03/13/17 10:36 Dose: Not Given Arformoterol Tartrate (Brovana) 15 mcg IH Q12H [facility] Last Admin: 03/19/17 20:40 Dose: 15 mcg Atorvastatin Calcium (Lipitor) 10 mg PO DAILY [facility] Last Admin: 03/13/17 10:37 Dose: Not Given Benzonatate (Tessalon Perles) 200 mg PO TID [facility] Last Admin: 03/13/17 17:35 Dose: Not Given Bisacodyl (Dulcolax) 10 mg RC DAILY [facility] Last Admin: 03/19/17 10:56 Dose: 10 mg Budesonide (Pulmicort Respules) 1 mg IH [id number] [facility] Calcium Acetate (Phoslo) 1,334 mg PO WM [facility] Last Admin: 03/13/17 17:36 Dose: Not Given Clopidogrel Bisulfate (Plavix) 75 mg PO DAILY [facility] Last Admin: 03/13/17 13:20 Dose: Not Given Docusate Sodium (Colace) 100 mg PO BID [facility] Last Admin: 03/13/17 17:36 Dose: Not Given Norepinephrine Bitartrate 4 mg (/ Sodium Chloride) 254 mls @ 15.24 mls/hr IV .[id number] PRN; Protocol; 4 MCG/MIN PRN Reason: TITRATE PER MD ORDER Last Titration: 03/16/17 13:35 Dose: 0 mcg/min, 0 mls/hr Dobutamine HCl/Dextrose (Dobutamine/Dextrose 5% 500mg/250ml) 500 mg in 250 mls @ 4.605 mls/hr IV .Q24H PRN; Protocol; 2.5 MCG/KG/MIN PRN Reason: TITRATE PER PROTOCOL Last Admin: 03/18/17 17:25 Dose: 2.5 mcg/kg/min, 4.605 mls/hr Heparin Sodium/Sodium Chloride (Heparin 84002 Units/250ml 1/2 Normal Saline) 25 ,000 units in 250 mls @ 10.794 mls/hr IV .[id number] PRN; Protocol; 18 UNITS/KG/HR PRN Reason: ADJUST RATE PER PROTOCOL Last Titration: 03/18/17 14:20 Dose: 15 units/kg/hr, 8.995 mls/hr Propofol (Diprivan) 1,000 mg in 100 mls @ 1.758 mls/hr IV .Q24H PRN; Protocol; 5 MCG/KG/MIN PRN Reason: TITRATE PER MD ORDER Methylprednisolone (Solu-Medrol) 10 mg IVP Q12 [facility] Metoprolol Tartrate (Lopressor) 12.5 mg PO BRKDIN [facility] Last Admin: 03/13/17 17:36 Dose: Not Given Ondansetron HCl (Zofran Inj) 4 mg IVP Q6H PRN PRN Reason: Nausea/Vomiting Pantoprazole Sodium (Protonix Ec Tab) 40 mg PO ACB [facility] Last Admin: 03/13/17 13:21 Dose: Not Given Pantoprazole Sodium (Protonix Inj) 40 mg IVP DAILY [facility] Last Admin: 03/19/17 10:54 Dose: 40 mg Warfarin Sodium (Coumadin) 3 mg PO 1800 [facility] PRN Reason: Protocol Last Admin: 03/13/17 17:36 Dose: Not Given - Labs Labs: 03/19/17 06:20 03/19/17 06:20 PT 15.1 Seconds (9.9-11.8) H 03/19/17 06:20 INR 1.40 (0.93-1.08) H 03/19/17 06:20 APTT 72.5 Seconds (23.7-30.8) H* 03/19/17 15:00 Assessment and Plan (1) Anemia Status: Acute (2) CHF exacerbation Status: Acute (3) Shoulder sprain Status: Acute (4) ESRD on hemodialysis Status: Acute (5) Atrial flutter Status: Acute (6) Chronic kidney disease-mineral and bone disorder Status: Acute
[2017-03-19 23:44] VITALS: BP 135/81; RESP 154; O2SAT 76
--- NOTE | 2017-03-20 01:04 | CP.PCM.PN ---
Subjective - Date & Time of Evaluation Date of Evaluation: 03/19/17 Time of Evaluation: 22:20 - Subjective Subjective: OTORHINOLARYNGOLOGIST NOTE Code blue called at 22:19 due to PEA (pulseless electrical activity). One epinephrine was given and CPR was commenced. ICU covering physician and house physician were both present. At 22:21, second epinephrine was given. At 22:23, 3rd round of epinephrine was given and pulse returned at 95 bm. At 22:25, one amp of sodium bicarbonate was given. At 22:28, pt was given bolus of calcium chloride. At 22:33, pt went back into PEA and 4th epinephrine was given. At 22: 34, second amp of NaHCO3 was given. At 22:34, pt had shockable rhythm and was delivered a shock. At 10:42, pt went into PEA. At 10:43, 5th epi was given after CPR was resumed. pronounced by automation tester. Total time for code was 32 minutes. Objective - Vital Signs/Intake and Output Vital Signs (last 24 hours): Temp Pulse Resp BP Pulse Ox 98.2 F 95 H 154 H 135/81 76 L 03/19/17 20:00 03/19/17 22:52 03/19/17 22:52 03/19/17 22:52 03/19/17 22:52 Intake and Output: 03/19/17 03/20/17 18:59 06:59 Intake Total 468 Output Total 50 Balance 418 - Medications Medications: Current Medications Acetylcysteine (Acetylcysteine 20%) 4 ml IH BIDRESP [facility] Last Admin: 03/13/17 19:41 Dose: 4 ml Amiodarone HCl (Cordarone) 200 mg PO Q12 [facility] Last Admin: 03/13/17 10:36 Dose: Not Given Arformoterol Tartrate (Brovana) 15 mcg IH Q12H [facility] Last Admin: 03/19/17 20:40 Dose: 15 mcg Atorvastatin Calcium (Lipitor) 10 mg PO DAILY [facility] Last Admin: 03/13/17 10:37 Dose: Not Given Benzonatate (Tessalon Perles) 200 mg PO TID [facility] Last Admin: 03/13/17 17:35 Dose: Not Given Bisacodyl (Dulcolax) 10 mg RC DAILY [facility] Last Admin: 03/19/17 10:56 Dose: 10 mg Budesonide (Pulmicort Respules) 1 mg IH [id number] [facility] Calcium Acetate (Phoslo) 1,334 mg PO WM [facility] Last Admin: 03/13/17 17:36 Dose: Not Given Clopidogrel Bisulfate (Plavix) 75 mg PO DAILY [facility] Last Admin: 03/13/17 13:20 Dose: Not Given Docusate Sodium (Colace) 100 mg PO BID [facility] Last Admin: 03/13/17 17:36 Dose: Not Given Norepinephrine Bitartrate 4 mg (/ Sodium Chloride) 254 mls @ 15.24 mls/hr IV .[id number] PRN; Protocol; 4 MCG/MIN PRN Reason: TITRATE PER MD ORDER Last Titration: 03/16/17 13:35 Dose: 0 mcg/min, 0 mls/hr Dobutamine HCl/Dextrose (Dobutamine/Dextrose 5% 500mg/250ml) 500 mg in 250 mls @ 4.605 mls/hr IV .Q24H PRN; Protocol; 2.5 MCG/KG/MIN PRN Reason: TITRATE PER PROTOCOL Last Admin: 03/18/17 17:25 Dose: 2.5 mcg/kg/min, 4.605 mls/hr Heparin Sodium/Sodium Chloride (Heparin 69609 Units/250ml 1/2 Normal Saline) 25 ,000 units in 250 mls @ 10.794 mls/hr IV .[id number] PRN; Protocol; 18 UNITS/KG/HR PRN Reason: ADJUST RATE PER PROTOCOL Last Titration: 03/18/17 14:20 Dose: 15 units/kg/hr, 8.995 mls/hr Propofol (Diprivan) 1,000 mg in 100 mls @ 1.758 mls/hr IV .Q24H PRN; Protocol; 5 MCG/KG/MIN PRN Reason: TITRATE PER MD ORDER Methylprednisolone (Solu-Medrol) 10 mg IVP Q12 [facility] Metoprolol Tartrate (Lopressor) 12.5 mg PO BRKDIN [facility] Last Admin: 03/13/17 17:36 Dose: Not Given Ondansetron HCl (Zofran Inj) 4 mg IVP Q6H PRN PRN Reason: Nausea/Vomiting Pantoprazole Sodium (Protonix Ec Tab) 40 mg PO ACB [facility] Last Admin: 03/13/17 13:21 Dose: Not Given Pantoprazole Sodium (Protonix Inj) 40 mg IVP DAILY [facility] Last Admin: 03/19/17 10:54 Dose: 40 mg Warfarin Sodium (Coumadin) 3 mg PO 1800 [facility] PRN Reason: Protocol Last Admin: 03/13/17 17:36 Dose: Not Given - Labs Labs: 03/19/17 06:20 03/19/17 06:20 PT 15.1 Seconds (9.9-11.8) H 03/19/17 06:20 INR 1.40 (0.93-1.08) H 03/19/17 06:20 APTT 72.5 Seconds (23.7-30.8) H* 03/19/17 15:00
--- NOTE | 2017-03-20 08:19 | PN ---
DATE: 03/18/2017 PULMONARY CRITICAL CARE PROGRESS NOTE REFERRING PHYSICIAN: Dr. Wilkins. SUBJECTIVE: He is lying in the bed, head at 45 degrees, much more awake and alert, but does not foll ow all commands and has a very poor memory. There is no cough, no sputum production, no hemoptysis, no hematemesis, no hematuria, no leg swelling. Has constipation. OBJECTIVE: GENERAL: No acute distress. VITAL SIGNS: Temp is 98, heart rate is 107, respiratory rate is 20, blood pressure is 86/26, pulse o x 95% on nasal cannula. HEENT: Small oral cavity. Crowded airway. NECK: Supple. No JVD. LUNGS: Have scattered rhonchi. HEART: S1 and S2 irregular. ABDOMEN: Soft, nontender. No organomegaly. EXTREMITIES: There is no edema. NEUROLOGIC: Awake, alert, does follow simple commands, but seems like he is still confused. MEDICATIONS: He is on Mucomyst 20% inhaled twice a day, Brovana 15 mcg inhaled twice a day, Colace 1 00 mg twice a day, amiodarone 200 mg twice a day which is on hold. He is on dobutamine IV drip, hepa rin IV drip, Protonix 40 mg IV daily, Pulmicort inhaled twice a day, Solu-Medrol 20 mg q. 12 hours, Z ofran on a p.r.n. basis. LABORATORY DATA: Shows hemoglobin 10.4, hematocrit 31.7, WBC 5.8, platelet count is 81. PTT is 56. INR 1.40. Blood gases shows pH 7.40, pCO2 of 35, pO2 76, that is on 40% oxygen. Sodium 142, potass ium ____, chloride 104, bicarbonate 23, BUN is 102, creatinine 7.4, glucose 118, calcium is 9.3, phos phorus 8.5, magnesium is 2.7, AST 258, ALT 214, alkaline phosphatase is 79, albumin is 3.6. Chest x-ray done today shows bilateral infiltrates, probably fluid overloaded, pneumonia cannot be ru led out. IMPRESSION AND PLAN: Status post respiratory failure, presently extubated, cardiomyopathy with diast olic dysfunction, pulmonary hypertension with right heart failure, renal failure, dialysis dependent, may have a sleep apnea syndrome, bronchiectasis, coronary artery disease, history of coronary stent. Pulmonary point of view, doing well. I spoke to nursing staff. Continue to encourage BiPAP while sleeping. Continue dobutamine, aggressive dialysis. We will get CAT scan of the ____ to show there is no ____. Dulcolax for constipation. Follow up chest x-ray, CBC, CMP in the morning. Critical care time was more than 35 minutes. Case discussed with 3 sisters and in detail. All their questions were answered. Thank you and will follow with you. Louie Frost MD cc: [phone] TT: 03/18/2017 23:31:49 Confirmation # [id number] Dictation # [id number] tx 03/18/2017 23:34:40
--- NOTE | 2017-03-20 08:29 | PN ---
DATE: 03/17/2017 A 71-year-old male with past medical history of COPD on 2 liters home oxygen, AFib on Coumadin, CAD s tatus post coronary artery bypass graft and drug-eluting stent placement, end-stage renal disease on hemodialysis, initially admitted after falling of bed and found to have CHF exacerbation. [facility] was complicated by hypotension, and altered mental status. The patient self-extubated yesterday; however, critical care team was planning to exacerbate any way. Reportedly more alert today. Tolerated 2 liters UF on hemodialysis yesterday. OBJECTIVE: VITAL SIGNS: Blood pressure this evening 125/68, heart rate 84, respirations 20, O2 sat 94% on nasal cannula. GENERAL: No distress, oriented to name only, sluggish in answering questions. HEENT: Moist mucous membranes. CHEST: Mild basilar rales appreciated; otherwise, no rhonchi, no wheezes. CARDIOVASCULAR: Soft systolic murmur, no rubs, no gallops. ABDOMEN: Soft, nontender, nondistended. EXTREMITIES: Right arm moderately edematous. Good capillary refill. LABORATORY DATA: WBC 8.3, hemoglobin 10.0, hematocrit 30.8, platelets 69. Chemistry: Sodium 141, p otassium 4.5, chloride 101, bicarbonate 24, BUN 70, creatinine 5.9, glucose 109, calcium 8.9, phospho lorrie 6.7, T-bili 2.8, albumin 3.4. ABG done this morning on 32% FIO2: pH 7.42, pCO2 of 38, pO2 of 71 , O2 sat 96.2%. ASSESSMENT: 1. Hypotension. Etiology is possibly multifactorial with evidence of cardiogenic shock secondary to severe right ventricular dysfunction as well as sepsis with elevated procalcitonin level on ionotrop ic support with dobutamine. Currently off of vasopressor support, although had been on a small dose of Levophed. Tolerating UF sessions. Goal is to try to offload RV with daily ultrafiltration, getti ng 2 liter UF only session today. 2. End-stage renal disease on hemodialysis. Relatively stable electrolyte status. Continuing daily treatments for a UF as mentioned above. 3. Congestive heart failure exacerbation with preserved ejection fraction on previous echo, likely a n element of diastolic dysfunction. O2 sat has been acceptable on nasal cannula. Will benefit from further ultrafiltration. 4. Systemic inflammatory response syndrome/sepsis. Blood cultures have been negative to date. Did have leukocytosis, which has improved. Procalcitonin level elevated. Currently on meropenem 1 gram q.12 hours. Should consider decreasing frequency to q.24 hours for intermittent hemodialysis to be g iven after HD sessions. 5. Altered medical status. Worsening dementia over the last few months in the setting of chronic il lness, now with superimposed metabolic encephalopathy. Will continue to address electrolyte imbalanc es and uremia with regular hemodialysis. 6. Right arm edema. Right upper extremity ultrasound done today, not showing any thrombosis. Exam not consistent with infiltration of right upper arm arteriovenous fistula during cannulation with nee dle as extravasation of blood would have caused a [id number] appearance. Suspect stenosis involv ed AV fistula or more specifically up-stream to the fistula. Will need a fistulogram as outpatient. Han Patel MD cc: [id number] TT: 03/17/2017 19:14:34 Confirmation # [id number] Dictation # [id number] yary
--- NOTE | 2017-03-20 08:47 | PN ---
DATE: 03/19/2017 The patient is a 71-year-old male. The patient seen and examined on the bedside , looks comfortable. No nausea, vomiting, diarrhea. No hematuria, no hematochezia. Two sons and grandkids are sitting on the bedside. More alert. No headache, no rhinitis. No swelling of the legs. No fever, no chills. PHYSICAL EXAMINATION: VITAL SIGNS: Temperature 98, heart rate 80, respiratory rate 20, blood pressure 127/73, pulse oximetry 95% on nasal cannula. HEENT: Head normocephalic, atraumatic. Eyes PERRLA. Extraocular muscles intact. Conjunctivae clear. Nose patent. NECK: Supple. No carotid bruits, no JVD, no thyromegaly. CHEST: Bilaterally symmetrical. HEART: S1, S2 positive. LUNGS: Clear to auscultation. ABDOMEN: Soft, bowel sounds positive. No organomegaly. EXTREMITIES: No edema, no cyanosis. Right upper extremity swelling that has AV fistula. NEUROLOGIC: The patient is awake. MEDICATIONS: Mucomyst, Brovana, dobutamine, Protonix, Pulmicort, Solu-Medrol, Zofran. LABORATORIES: Hemoglobin 10.6, hematocrit 31.6, white blood cells 6.8, platelets 67. Sodium 140, potassium 5.4, BUN 134, creatinine 9.6, magnesium 2.7 , AST 42, ALT 161. ASSESSMENT AND PLAN: The patient is a 71-year-old male with respiratory failure , status post intubated and extubated, pulmonary hypertension with right heart dysfunction, cardiac diastolic dysfunction, diabetes mellitus, hypothyroidism, history of prostate cancer, proctitis, gastrointestinal bleeding, status post blood transfusion multiple times, renal failure on hemodialysis, sleep apnea syndrome, bronchiectasis, interstitial lung disease, coronary artery disease, history of coronary artery stents. Continue encourage BiPAP, use supplemental oxygen. Continue dobutamine, which may need lifelong. Gastric prophylaxis. Sequential compression devices to lower extremities. Continue aggressive dialysis. Repeat labs. Continue Brovana, Protonix for gastrointestinal prophylaxis, tapering dose of steroids. Repeat labs. We will follow up. Maria Antonia Wilkins MD cc: [id number] TT: 03/20/2017 08:45:55 Confirmation # [id number] Dictation # [id number] en MTDD
--- NOTE | 2017-03-20 09:49 | RAD ---
HISTORY: confirm ETT placement COMPARISON: Earlier same day FINDINGS: LUNGS: Interstitial infiltrate unchanged PLEURA: No significant pleural effusion identified, no pneumothorax apparent. CARDIOVASCULAR: Mild cardiomegaly OSSEOUS STRUCTURES: No significant abnormalities. VISUALIZED UPPER ABDOMEN: Normal. OTHER FINDINGS: None. IMPRESSION: The endotracheal tube is in satisfactory position
--- NOTE | 2017-03-20 11:11 | CT ---
PROCEDURE: CT HEAD WITHOUT CONTRAST. HISTORY: r/o cva COMPARISON: 03/12/2017 TECHNIQUE: Axial computed tomography images were obtained through the head/brain without intravenous contrast. Radiation dose: Total exam DLP = 725 mGy-cm. This CT exam was performed using one or more of the following dose reduction techniques: Automated exposure control, adjustment of the mA and/or kV according to patient size, and/or use of iterative reconstruction technique. FINDINGS: HEMORRHAGE: No intracranial hemorrhage. BRAIN: No mass effect or edema. Chronic microvascular changes are seen in the periventricular white matter. No acute findings VENTRICLES: Unremarkable. No hydrocephalus. CALVARIUM: Unremarkable. PARANASAL SINUSES: Unremarkable as visualized. No significant inflammatory changes. MASTOID AIR CELLS: Unremarkable as visualized. No inflammatory changes. OTHER FINDINGS: None. IMPRESSION: Chronic microvascular changes in the periventricular white matter. No acute intracranial findings.
--- NOTE | 2017-04-04 08:17 | DS ---
CHIEF COMPLAINTS: Fall, shortness of breath, not feeling very well. HISTORY OF PRESENT ILLNESS: The patient is a 71-year-old male with past medical history of congestive heart failure, end-stage disease on hemodialysis, hypertension, history of aortic valve disease, atrial fibrillation on Coumadin. The patient states that he hit his head and has right-sided headache, but he denies loss of consciousness. The patient also reported right shoulder and elbow pain. Denies numbness and weakness. The patient was getting rehab in [facility], got rehab and was discharged from rehab to home. The patient has history of frequent falls, brought to hospital because of fall, for shortness of breath, not feeling very well. PAST MEDICAL HISTORY: COPD, renal insufficiency, on hemodialysis, anemia, status post blood transfusion, vitiligo, GI bleeding, history of severe GI bleeding, blood transfusion, history of open heart surgery. FAMILY HISTORY: Father and mother noncontributory. HABITS: Never smoked, no drugs, no ethanol. ALLERGIES: The patient is not allergic with any medications. HOME MEDICATIONS: Lipitor, PhosLo, Plavix, Lanoxin, Colace, Protonix, Brovana, Pulmicort, Lyrica, Coumadin. We admitted the patient, did cervical spine CT, CAT scan of the head. Called consult with Dr. Frost, Dr. Rubio Nicole. The patient was admitted in the unit. Activity Leader saw the patient. The patient was seen by the customer contact specialist, Dr. Han Patel, Dr. Hampton saw the pt , has CAT scan of the abdomen and pelvis ASSESSMENT AND PLAN: The patient is a 71-year-old male with multiple medical problems, has respiratory failure, was intubated, then extubated, pulmonary hypertension with right heart dysfunction, cardiac diastolic dysfunction, renal failure, on hemodialysis, sleep apnea syndrome, bronchiectasis, interstitial lung disease, fibrosis, coronary artery disease, history of coronary artery stent. Got BiPAP and supplemental oxygen. Dobutamine was given. Plan was maybe patient needs lifelong dobutamine, but getting dialysis. 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 The patient was a little bit better. Then, finally he got deteriorated. Extremity ultrasound was done. Cardiac catheterization done by Dr. Rubio Nicole. ID, Dr. Kidd, treated the patient. The patient on 03/19/2017 at 2335. The patient was pronounced by Dr. Casey Wyatt. According to him, code blue was called due to pulseless electrical activity. Whole code was run, but patient cannot survive. Fifth epinephrine was given after cardiopulmonary resuscitation was resumed. pronounced by skip loader. Total time of code was 32 minutes. Family informed. Maria Antonia Wilkins MD cc: [id number] TT: 04/04/2017 08:17:12 en MTDD
== END 2017-03-19 22:55 ==
LOC: ED 16:43 → ERH 22:07 → 2RNO 22:56 → OBSVTOIN 03-09 14:15 → 2RNO 03-12 09:43 → CCU 03-13 16:10
PROVIDERS: ADMIT Internal Medicine; ATTEND Internal Medicine
PROC: 2W38XYZ Immobilization of Right Upper Extremity using Other Device (ICD-10-PCS; 2017-03-09)
PROC: 5A1D60Z (ICD-10-PCS; 2017-03-09)
PROC: 5A09457 Assistance with Respiratory Ventilation, 24-96 Consecutive Hours, Continuous Positive Airway Pressure (ICD-10-PCS; 2017-03-10)
PROC: 5A1945Z Respiratory Ventilation, 24-96 Consecutive Hours (ICD-10-PCS; principal; 2017-03-14)
PROC: 0BH18EZ Insertion of Endotracheal Airway into Trachea, Via Natural or Artificial Opening Endoscopic (ICD-10-PCS; 2017-03-14)
PROC: 30233K1 Transfusion of Nonautologous Frozen Plasma into Peripheral Vein, Percutaneous Approach (ICD-10-PCS; 2017-03-14)
PROC: B547ZZA Ultrasonography of Left Subclavian Vein, Guidance (ICD-10-PCS; 2017-03-15)
PROC: 05H633Z Insertion of Infusion Device into Left Subclavian Vein, Percutaneous Approach (ICD-10-PCS; 2017-03-15)
PROC: 02HV33Z Insertion of Infusion Device into Superior Vena Cava, Percutaneous Approach (ICD-10-PCS; 2017-03-17)
PROC: B54NZZA Ultrasonography of Left Upper Extremity Veins, Guidance (ICD-10-PCS; 2017-03-17)
PROC: 5A12012 Performance of Cardiac Output, Single, Manual (ICD-10-PCS; 2017-03-19)
DX: I13.2 Hypertensive heart and chronic kidney disease with heart failure and with stage 5 chronic kidney disease, or end stage renal disease (principal); N18.6 End stage renal disease; I21.4 Non-ST elevation (NSTEMI) myocardial infarction; J96.01 Acute respiratory failure with hypoxia; A41.9 Sepsis, unspecified organism; G93.41 Metabolic encephalopathy; R65.21 Severe sepsis with septic shock; I95.3 Hypotension of hemodialysis; R57.0 Cardiogenic shock; J18.9 Pneumonia, unspecified organism; I27.2 Other secondary pulmonary hypertension; I50.33 Acute on chronic diastolic (congestive) heart failure; J44.0 Chronic obstructive pulmonary disease with (acute) lower respiratory infection; I48.3 Typical atrial flutter; D61.818 Other pancytopenia; J84.10 Pulmonary fibrosis, unspecified; I42.9 Cardiomyopathy, unspecified; I48.2 Chronic atrial fibrillation; K62.89 Other specified diseases of anus and rectum; S00.93XA Contusion of unspecified part of head, initial encounter; S43.51XA Sprain of right acromioclavicular joint, initial encounter; I25.10 Atherosclerotic heart disease of native coronary artery without angina pectoris; G47.33 Obstructive sleep apnea (adult) (pediatric); W06.XXXA Fall from bed, initial encounter; E87.5 Hyperkalemia; F03.90 Unspecified dementia, unspecified severity, without behavioral disturbance, psychotic disturbance, mood disturbance, and anxiety; L80 Vitiligo; Y95 Nosocomial condition; E87.6 Hypokalemia; E83.41 Hypermagnesemia; Z85.46 Personal history of malignant neoplasm of prostate; Z79.01 Long term (current) use of anticoagulants; Z95.1 Presence of aortocoronary bypass graft; Z99.2 Dependence on renal dialysis; Z99.81 Dependence on supplemental oxygen; Z74.01 Bed confinement status; Y92.003 Bedroom of unspecified non-institutional (private) residence as the place of occurrence of the external cause; Z95.5 Presence of coronary angioplasty implant and graft; K59.00 Constipation, unspecified